=== PATIENT | male | born 1960 | race Caucasian/White ===

== ENCOUNTER 2019-09-02 10:15 | Emergency (ER) | payer OTHER ==
--- OUTSIDE RECORDS SUMMARY | 2019-09-02 10:17 | XMS REPORT | Continuity of Care Document ---
:1960 Author Organization [facility] t Address [address] [place] [address] Dr. Mcwilliams. [address] [place] [address] Care Team Providers Name Role Phone Hector KHALIL Attending Clinician Doctor Unassigned, Name Attending Clinician Unavailable Problems This patient has no known problems. Allergies, Adverse Reactions, Alerts This patient has no known allergies or adverse reactions. Medications This patient has no known medications. Procedures This patient has no known procedures. Encounters Start End Encounter Admission Attending Care Care Encounter Source Date/Time Date/Time Type Type Clinicians Facility Department ID 2019-08-24 2019-08-24 Refill Young [facility] [id number] 00:00:00 00:00:00 [facility] [id number] [place] [id number] Professio [phone] nal 0[address] One 2019-08-23 2019-08-23 Refill Young [facility] [id number] 00:00:00 00:00:00 [facility] [id number] [place] [id number] Professio [phone] nal 0[address] One 2019-08-23 2019-08-23 Refill Hector [facility] [id number] 00:00:00 00:00:00 [facility] [id number] [place] [id number] Professio [phone] nal 044 [address] One 2019-07-28 2019-07-28 Orders Doctor [place] [id number] 00:00:00 00:00:00 Only Unassigned, [facility] [id number] [facility] [phone] [id number] 2019-07-27 2019-07-27 [facility] [id number] 00:00:00 00:00:00 [facility] [id number] [place] [id number] Professio [phone] nal 044 Office [address] One 2019-07-26 2019-07-26 [facility] [id number] 00:00:00 00:00:00 Melecio Lyn [id number] [place] [id number] Professio [phone] nal [facility] Building Results This patient has no known results.
--- OUTSIDE RECORDS SUMMARY | 2019-09-02 10:17 | XMS REPORT | Summary of Care ---
:1960 Author Organization [facility] Address [address] [place] [address] Care Team Providers Name Role Phone MD Hector Primary Care Provider Reason for Visit Reason Comments Rx Concern/Question Encounter Details Date Type Department Care Team Description 06/12/2019 Telephone [facility] Family Con Young MD Rx Concern/Question Medicine - [place] [address] [place] [id number] [phone] Allergies Active Allergy Reactions Severity Noted Date Comments Meperidine Hallucinations Medium 07/17/2015 documented as of this encounter (statuses as of 06/12/2019) Medications Medication Sig Dispensed Refills Start End Status Date Date albuterol 90 Inhale 2 Puffs 8.5 g 1 09/24/19 Ac tive mcg/actuation every 6 (six) 17 inhaler hours as needed for Wheezing or Shortness of Breath. DEXTROAMPHETAMINE- TAKE ONE TABLET 60 tablet 0 09/02/19 Active AMPHETAMINE 30 mg BY MOUTH TWICE 18 tablet DAILY insulin aspart 10 units TID 20 mL 5 12/21/19 Ac tive RAPID (NOVOLOG 18 U-100 INSULIN ASPART) 100 unit/mL injection amitriptyline 25 Take 1 tablet by 30 tablet 5 08/23/19 Active mg mouth at bedtime. 19 tabletIndications: Chronic neck pain amoxicillin-clavul Take 1 tablet by 20 tablet 0 20 Active anate (AUGMENTIN) mouth 2 (two) 19 875-125 mg per times daily. tabletIndications: Acute non-recurrent maxillary sinusitis Butalbital-Acetami Take 1 capsule by 180 capsule 2 08/23/19 Active nophen-Caff mouth every 4 19 (FIORICET) (four) hours as 50-300-40 mg per needed for Pain capsuleIndications (scale 4-6). : Other migraine without status migrainosus, not intractable fexofenadine-pseud Take 1 tablet by 60 tablet 5 08/23/19 Active oephedrine 60-120 mouth 2 (two) 19 mg per times daily. tabletIndications: Acute non-recurrent maxillary sinusitis propranolol 60 mg Take 1 tablet by 180 tablet 0 09/27/19 Active tablet mouth 2 (two) 19 times daily. cefUROXime 500 mg Take 1 tablet by 20 tablet 0 10/27/19 Active tabletIndications: mouth 2 (two) 19 Chronic maxillary times daily. sinusitis zolpidem 10 mg TAKE 1 TABLET BY 90 tablet 1 01/25/20 Active tabletIndications: MOUTH AT BEDTIME 19 Insomnia, unspecified type lisinopril-hydroch Take 1 tablet by 90 tablet 1 02/02/20 Active lorothiazide mouth daily. 19 20-12.5 mg per tabletIndications: Essential hypertension meloxicam 15 mg TAKE 1 TABLET BY 30 tablet 5 02/08/20 Active tabletIndications: MOUTH EVERY DAY 19 Chronic neck pain NEEDED simvastatin 10 mg Take 1 tablet by 90 tablet 1 02/08/20 Active tabletIndications: mouth at bedtime. 19 Mixed hyperlipidemia testosterone 1 mL by 10 mL 1 02/16/20 Active cypionate 200 Intramuscular 19 mg/mL route every 2 injectionIndicatio (two) weeks. ns: Hypogonadism in male insulin aspart INJECT 30 UNITS 15 mL 2 03/12/19 Active U-100 (NOVOLOG UNDER THE SKIN 2 20 FLEXPEN U-100 TIMES DAILY WITH INSULIN) 100 MEALS unit/mL (3 mL) injectionIndicatio ns: Type 2 diabetes mellitus with diabetic neuropathy, with long-term current use of insulin Insulin Detemir INJECT 30 UNITS 15 mL 2 03/12/19 Active (LEVEMIR FLEXTOUCH UNDER THE SKIN 20 U-100 INSULN) 100 TWICE DAILY unit/mL (3 mL) injectionIndicatio ns: Type 2 diabetes mellitus with diabetic neuropathy, with long-term current use of insulin dextroamphetamine- Take 1 tablet by 60 tablet 0 03/12/19 Active amphetamine mouth 2 (two) 20 (ADDERALL) 30 mg times daily. tabletIndications: Attention deficit disorder, unspecified hyperactivity presence pregabalin Take 1 capsule by 60 capsule 5 05/22/19 Active (LYRICA) 300 mg mouth 2 (two) 20 capsuleIndications times daily. : Idiopathic peripheral neuropathy carisoprodoL 350 TAKE ONE TABLET 120 tablet 0 05/23/19 Active mg BY MOUTH 4 TIMES 20 tabletIndications: DAILY Chronic back pain, unspecified back location, unspecified back pain laterality sumatriptan 100 mg Take 1 tablet by 9 tablet 1 06/12/19 Active tabletIndications: mouth as needed 20 Other migraine for Migraine. without status migrainosus, not intractable sumatriptan 100 mg Take 1 tablet by 9 tablet 1 05/22/1905/29 Discontinued tabletIndications: mouth as needed 20 020 (Reorder) Other migraine for Migraine. without status migrainosus, not intractable documented as of this encounter (statuses as of 06/12/2019) Active Problems Problem Noted Date Insomnia, unspecified type 03/22/2016 Intractable migraine with status migrainosus 6 Hypertension 09/14/2015 Other migraine without status migrainosus, not intract able 07/01/2015 Type 2 diabetes mellitus without complication 07/01/19 16 Essential hypertension 07/01/2015 Hyperlipidemia 07/01/2015 Chronic neck pain 07/01/2015 Hypogonadism in male 07/01/2015 Diabetes mellitus Peripheral neuropathy documented as of this encounter (statuses as of 06/12/2019) Social History Tobacco Use Types Packs/Day Years Used Date Never Smoker Smokeless Tobacco: Never Used Alcohol Use Drinks/Week oz/Week Comments No 0 Standard drinks or equivalent 0.0 Sex Assigned at Date Recorded Not on file Job Start Date Occupation Industry Not on file Not on file Not on file Travel History Travel Start Travel End No recent travel history available. documented as of this encounter Last Filed Vital Signs Not on filedocumented in this encounter Plan of Treatment Date Type Specialty Care Team Description 06/26/2019 Telemedicine Visit Family Medicine Con Young MD [address] [phone] Health Maintenance Due Date Last Done Comments HEPATITIS C (HCV) SCREEN 1960 PNEUMOCOCCAL 0-64 YEARS COMBINED 1965 SERIES (1 of 1 - PPSV23) EYE EXAM 1969 DTaP,Tdap,and Td Vaccines (1 - 1970 Tdap) FOOT EXAM 1977 COLONOSCOPY 2009 Zoster Recombinant Vaccine 2009 (SHINGRIX) (1 of 2) URINE MICROALBUMIN 07/03/2016 07/04/2015 HgA1C 09/20/2016 03/23/2016, 07/04/2015 CREATININE (SERUM) 03/23/2017 03/23/2016, 09/15/2015, 09/14/2015, Additional history exists LDL-C 03/23/2017 03/23/2016, 07/04/2015 INFLUENZA VACCINE (#1) 2018 documented as of this encounter Results Not on filedocumented in this encounter Visit Diagnoses Diagnosis Other migraine without status migrainosu s, not intractable documented in this encounter
--- OUTSIDE RECORDS SUMMARY | 2019-09-02 10:18 | XMS REPORT | Summary of Care ---
:1960 Author Organization [facility] Address [address] [place] [address] Care Team Providers Name Role Phone MD Hector Primary Care Provider Encounter Details Date Type Department Care Team Description 06/12/2019 Orders Only [facility] Doctor Unassigned, No [address] [facility] [place] [address] [address] [place] [address] Allergies Active Allergy Reactions Severity Noted Date Comments Meperidine Hallucinations Medium 07/17/2015 documented as of this encounter (statuses as of 06/13/2019) Medications Medication Sig Dispensed Refills Start Date End Date Status albuterol 90 Inhale 2 Puffs 8.5 g 1 09/23/2016 A ctive mcg/actuation every 6 (six) hours inhaler as needed for Wheezing or Shortness of Breath. DEXTROAMPHETAMINE-AM TAKE ONE TABLET BY 60 tablet 0 09/01/2017 Active PHETAMINE 30 mg MOUTH TWICE DAILY tablet insulin aspart RAPID 10 units TID 20 mL 5 12/20/2017 Active (NOVOLOG U-100 INSULIN ASPART) 100 unit/mL injection amitriptyline 25 mg Take 1 tablet by 30 tablet 5 08/22/2018 Active tabletIndications: mouth at bedtime. Chronic neck pain amoxicillin-clavulan Take 1 tablet by 20 tablet 0 08/22/2018 Active ate (AUGMENTIN) mouth 2 (two) times 875-125 mg per daily. tabletIndications: Acute non-recurrent maxillary sinusitis Butalbital-Acetamino Take 1 capsule by 180 capsule 2 9 Active phen-Caff (FIORICET) mouth every 4 50-300-40 mg per (four) hours as capsuleIndications: needed for Pain Other migraine (scale 4-6). without status migrainosus, not intractable fexofenadine-pseudoe Take 1 tablet by 60 tablet 5 08/22/2018 Active phedrine 60-120 mg mouth 2 (two) times per daily. tabletIndications: Acute non-recurrent maxillary sinusitis propranolol 60 mg Take 1 tablet by 180 tablet 0 09/26/2018 Active tablet mouth 2 (two) times daily. cefUROXime 500 mg Take 1 tablet by 20 tablet 0 10/26/2018 Active tabletIndications: mouth 2 (two) times Chronic maxillary daily. sinusitis zolpidem 10 mg TAKE 1 TABLET BY 90 tablet 1 01/24/2019 Active tabletIndications: MOUTH AT BEDTIME Insomnia, unspecified type lisinopril-hydrochlo Take 1 tablet by 90 tablet 1 02/01/2019 Active rothiazide 20-12.5 mouth daily. mg per tabletIndications: Essential hypertension meloxicam 15 mg TAKE 1 TABLET BY 30 tablet 5 02/07/2019 Active tabletIndications: MOUTH EVERY DAY Chronic neck pain NEEDED simvastatin 10 mg Take 1 tablet by 90 tablet 1 02/07/2019 Active tabletIndications: mouth at bedtime. Mixed hyperlipidemia testosterone 1 mL by 10 mL 1 02/15/2019 Active cypionate 200 mg/mL Intramuscular route injectionIndications every 2 (two) : Hypogonadism in weeks. male insulin aspart U-100 INJECT 30 UNITS 15 mL 2 03/12/2019 Active (NOVOLOG FLEXPEN UNDER THE SKIN 2 U-100 INSULIN) 100 TIMES DAILY WITH unit/mL (3 mL) MEALS injectionIndications : Type 2 diabetes mellitus with diabetic neuropathy, with long-term current use of insulin Insulin Detemir INJECT 30 UNITS 15 mL 2 03/12/2019 Active (LEVEMIR FLEXTOUCH UNDER THE SKIN U-100 INSULN) 100 TWICE DAILY unit/mL (3 mL) injectionIndications : Type 2 diabetes mellitus with diabetic neuropathy, with long-term current use of insulin dextroamphetamine-am Take 1 tablet by 60 tablet 0 03/12/2019 Active phetamine (ADDERALL) mouth 2 (two) times 30 mg daily. tabletIndications: Attention deficit disorder, unspecified hyperactivity presence pregabalin (LYRICA) Take 1 capsule by 60 capsule 5 05/22/2019 Active 300 mg mouth 2 (two) times capsuleIndications: daily. Idiopathic peripheral neuropathy carisoprodoL 350 mg TAKE ONE TABLET BY 120 tablet 0 05/23/2019 Active tabletIndications: MOUTH 4 TIMES DAILY Chronic back pain, unspecified back location, unspecified back pain laterality sumatriptan 100 mg Take 1 tablet by 9 tablet 1 06/12/2019 Active tabletIndications: mouth as needed for Other migraine Migraine. without status migrainosus, not intractable documented as of this encounter (statuses as of 06/13/2019) Active Problems Problem Noted Date Insomnia, unspecified type 03/22/2016 Intractable migraine with status migrainosus 6 Hypertension 09/14/2015 Other migraine without status migrainosus, not intract able 07/01/2015 Type 2 diabetes mellitus without complication 07/01/19 16 Essential hypertension 07/01/2015 Hyperlipidemia 07/01/2015 Chronic neck pain 07/01/2015 Hypogonadism in male 07/01/2015 Diabetes mellitus Peripheral neuropathy documented as of this encounter (statuses as of 06/13/2019) Social History Tobacco Use Types Packs/Day Years [...] Telemedicine Visit Family Medicine Con Young MD [address] [place] [address] [phone] Health Maintenance Due Date Last Done Comments HEPATITIS C (HCV) SCREEN 1960 PNEUMOCOCCAL 0-64 YEARS COMBINED 1965 SERIES (1 of 1 - PPSV23) EYE EXAM 1969 DTaP,Tdap,and Td Vaccines (1 - 1970 Tdap) FOOT EXAM 1977 COLONOSCOPY 2009 Zoster Recombinant Vaccine 2009 (SHINGRIX) (1 of 2) URINE MICROALBUMIN 07/03/2016 07/04/2015 INFLUENZA VACCINE (#1) 2018 HgA1C 12/12/2019 06/12/2019, 03/23/2016, 07/04/2015 CREATININE (SERUM) 06/11/2020 06/12/2019, 03/23/2016, 09/15/2015, Additional history exists LDL-C 06/11/2020 06/12/2019, 03/23/2016, 07/04/2015 documented as of this encounter Procedures Procedure Name Priority Date/Time Associated Diagnosis Comme nts AGREEMENTS AUTHORIZATIONS Routine 06/12/2019 12:01 AM AND IRREVOCABLE CDT ASSIGNMENTS (FORM 2001) documented in this encounter Results Not on filedocumented in this encounter Insurance Payer Benefit Plan / Subscriber ID Effective Dates Phone Addre ss Type Group HIM [id number] 2019-Present PPO [id number] ACTED RACTED documented as of this encounter
--- OUTSIDE RECORDS SUMMARY | 2019-09-02 10:18 | XMS REPORT | Summary of Care ---
:1960 Author Organization [facility] Address [address] [place] [address] Care Team Providers Name Role Phone MD Hector Primary Care Provider Reason for Visit Reason Comments LAB Encounter Details Date Type Department Care Team Description 06/12/2019 Registered Radiation Therapist Visit [facility] Melecio Young MD [address] [place] [address] Type 2 diabetes mellitus without complic ation, with long-term current use of insulin; Professional Office 2, [facility] Lab Mixed hyperlipidemia; Building Phlebotomy [facility] hypertension Lab Professional Office Building [address] [employer] [facility] [employer] [facility] , [address] [place] [address] Allergies Active Allergy Reactions Severity Noted Date Comments Meperidine Hallucinations Medium 07/17/2015 documented as of this encounter (statuses as of 06/12/2019) Medications Medication Sig Dispensed Refills Start Date [...] Telemedicine Visit Family Medicine Con Young MD [address] [place] [address] [phone] Name Type Priority Associated Diagnoses Order S chedule CBC WITH DIFFERENTIAL LAB Routine Type 2 diabetes ralph litus Ordered: 06/12/2019 without complication, with long-term current use of insulin Mixed hyperlipid emia Essential hypertension Health Maintenance Due Date Last Done Comments [...] filedocumented in this encounter Visit Diagnoses Diagnosis Type 2 diabetes mellitus without complic ation, with long-term current use of insulin Mixed hyperlipidemia Essential hypertension Unspecified essential hypertension documented in this encounter Insurance Payer Benefit Plan / Subscriber ID Effective Dates Phone Addre ss Type Group HIM [id number] 2019-Present PPO [id number] ACTED RACTED documented as of this encounter
--- OUTSIDE RECORDS SUMMARY | 2019-09-02 10:18 | XMS REPORT | Summary of Care ---
:1960 Author Organization [facility] Address [address] [place] [address] Care Team Providers Name Role Phone MD Hector Primary Care Provider Reason for Visit Reason Comments Orders Encounter Details Date Type Department Care Team Description 06/12/2019 Telephone [facility] Family Medicine Melecio Hamilton MD Orders - [place] [address] [facility] [place] [address] [place] [address] [phone] Allergies Active Allergy Reactions Severity Noted Date [...] Visit Family Medicine Con Young MD [address] [phone] Name Type Priority Associated Diagnoses Order S chedule CBC WITH DIFF LAB Routine Type 2 diabetes mellitus Ex pected: without complication, with 0 06/12/2019, Expires: long-term current use of insulin Mixed hyperlipid emia Essential hypertension COMP. METABOLIC PANEL LAB Routine Type 2 diabetes ralph litus Expected: (10633) without complication, with 0 06/12/2019, Expires: long-term current use of insulin LIPID PANEL (89821)(TOTAL LAB Routine Mixed hyperlipi demia Expected: CHOLESTEROL, 06/12/2019, Exp ires: TRIGLYCERIDES, HDL) 06/12/19 21 GLYCOSYLATED HEMOGLOBIN LAB Routine Type 2 diabetes m beto Expected: (A1C) without complication, with 0 06/12/2019, Expires: long-term current use of insulin Health Maintenance Due Date Last Done Comments [...] filedocumented in this encounter Visit Diagnoses Diagnosis Essential hypertension - Primary Unspecified essential hypertension Type 2 diabetes mellitus without complic ation, with long-term current use of insulin Mixed hyperlipidemia documented in this encounter
--- OUTSIDE RECORDS SUMMARY | 2019-09-02 10:19 | XMS REPORT | Summary of Care ---
:1960 Author Organization [facility] Address [address] [place] [address] Care Team Providers Name Role Phone MD Hector Primary Care Provider Reason for Visit Reason Comments Assessment Encounter Details Date Type Department Care Team Description 06/25/2019 Telephone [facility] Pediatric and Melecio Young MD Assessment Adult Primary Care- [address] [address] [place] [address] , [address] [place] [address] Allergies Active Allergy Reactions Severity Noted Date Comments Meperidine Hallucinations Medium 07/17/2015 documented as of this encounter (statuses as of 06/25/2019) Medications Medication Sig Dispensed Refills Start Date [...] (two) times capsuleIndications: daily. Idiopathic peripheral neuropathy sumatriptan 100 mg Take 1 tablet by 9 tablet 1 06/12/2019 Active tabletIndications: mouth as needed for Other migraine Migraine. without status migrainosus, not intractable carisoprodoL 350 mg TAKE ONE TABLET BY 120 tablet 0 06/25/2019 Active tabletIndications: MOUTH 4 TIMES DAILY Chronic back pain, unspecified back location, unspecified back pain laterality documented as of this encounter (statuses as of 06/25/2019) Active Problems Problem Noted Date Insomnia, unspecified type 03/22/2016 Intractable migraine with status migrainosus 6 Hypertension 09/14/2015 Other migraine without status migrainosus, not intract able 07/01/2015 Type 2 diabetes mellitus without complication 07/01/19 16 Essential hypertension 07/01/2015 Hyperlipidemia 07/01/2015 Chronic neck pain 07/01/2015 Hypogonadism in male 07/01/2015 Diabetes mellitus Peripheral neuropathy documented as of this encounter (statuses as of 06/25/2019) Social History Tobacco Use Types Packs/Day Years Used Date Never Smoker Smokeless Tobacco: Never Used Alcohol Use Drinks/Week oz/Week Comments No 0 Standard drinks or equivalent 0.0 Sex Assigned at Date Recorded Not on file Job Start Date Occupation Industry Not on file Not on file Not on file Travel History Travel Start Travel End No recent travel history available. COVID-19 Exposure Response Date Recorded In the last month, have you been in contact with No / Unsure 06/12/2019 10:52 AM CDT someone who was confirmed or suspected to have Coronavirus / COVID-19? documented as of this encounter Last Filed Vital Signs Not on filedocumented in this encounter Plan of Treatment Date Type Specialty Care Team Description 06/26/2019 Telemedicine Visit Family Medicine Con Young MD [address] [phone] Health Maintenance Due Date Last Done [...] 03/23/2016, 07/04/2015 documented as of this encounter Results Not on filedocumented in this encounter Insurance Payer Benefit Plan / Subscriber ID Effective Dates Phone Addre ss Type Group HIM [id number] 2019-Present PPO [id number] ACTED RACTED documented as of this encounter
--- OUTSIDE RECORDS SUMMARY | 2019-09-02 10:19 | XMS REPORT | Summary of Care ---
:1960 Author Organization [facility] Address [address] [place] [address] Care Team Providers Name Role Phone MD Hector Primary Care Provider Reason for Visit Reason Comments Rx Concern/Question Encounter Details Date Type Department Care Team Description 06/25/2019 Telephone [facility] Family Con Young MD Rx Concern/Question Medicine - [place] [address] [address] [place] [address] [phone] Allergies Active Allergy Reactions Severity Noted Date [...] Visit Family Medicine Con Young MD [address] [phone] [phone] Health Maintenance Due Date Last Done [...] Dates Phone Addre ss Type Group HIM [id number] 2019-Present PPO [id number] ACTED RACTED documented as of this encounter
--- OUTSIDE RECORDS SUMMARY | 2019-09-02 10:20 | XMS REPORT | Summary of Care ---
:1960 Author Organization [facility] Address [address] [place] [address] Care Team Providers Name Role Phone MD Hector Primary Care Provider Reason for Visit Reason Comments Diabetes Encounter Details Date Type Department Care Team Description 06/26/2019 Telemedicine Visit [facility] Melecio Young, Type 2 diabetes mellitus with diabetic neuropathy, with long-term current use of insulin (Primary Dx); Pediatric and Adult MD Mixed hyperlipidemia; Primary Care- [address] Essential hy pertension; [address] Hypogonadism in male; [address] [place], [place] Idiopathic p eripheral neuropathy; , [address] [address] Insomnia, unspecified type [place], [place] [phone] [address] Allergies Active Allergy Reactions Severity Noted Date Comments Meperidine Hallucinations Medium 07/17/2015 documented as of this encounter (statuses as of 06/26/2019) Medications Medication Sig Dispensed Refills Start End Status Date Date albuterol 90 Inhale 2 Puffs 8.5 g 1 09/24/19 Ac tive mcg/actuation every 6 (six) 17 inhaler hours as needed for Wheezing or Shortness of Breath. amitriptyline 25 Take 1 tablet by 30 tablet 5 08/23/19 Active mg mouth at bedtime. 19 tabletIndications: Chronic neck pain amoxicillin-clavul Take 1 tablet by 20 tablet 0 08/22/20 Active anate (AUGMENTIN) mouth 2 (two) 19 [...] times daily. tabletIndications: Acute non-recurrent maxillary sinusitis cefUROXime 500 mg Take 1 tablet by 20 tablet 0 10/27/19 Active tabletIndications: mouth 2 (two) 19 Chronic maxillary times daily. sinusitis meloxicam 15 mg TAKE 1 TABLET BY 30 tablet 5 02/08/20 Active tabletIndications: MOUTH EVERY DAY 19 Chronic neck pain NEEDED dextroamphetamine- Take 1 tablet by 60 tablet 0 03/12/19 Active amphetamine mouth 2 (two) 20 (ADDERALL) 30 mg times daily. tabletIndications: Attention deficit disorder, unspecified hyperactivity presence sumatriptan 100 mg Take 1 tablet by 9 tablet 1 06/12/19 Active tabletIndications: mouth as needed 20 Other migraine for Migraine. without status migrainosus, not intractable carisoprodoL 350 TAKE ONE TABLET 120 tablet 0 06/25/19 Active mg BY MOUTH 4 TIMES 20 tabletIndications: DAILY Chronic back pain, unspecified back location, unspecified back pain laterality testosterone 1 mL by 10 mL 1 06/26/19 Active cypionate 200 Intramuscular 20 mg/mL route every 2 injectionIndicatio (two) weeks. ns: Hypogonadism in male zolpidem 10 mg TAKE 1 TABLET BY 90 tablet 1 06/26/19 Active tabletIndications: MOUTH AT BEDTIME 20 Insomnia, unspecified type simvastatin 10 mg Take 1 tablet by 90 tablet 1 06/26/19 Active tabletIndications: mouth at bedtime. 20 Mixed hyperlipidemia propranolol 60 mg Take 1 tablet by 180 tablet 0 06/26/19 Active tabletIndications: mouth 2 (two) 20 Essential times daily. hypertension pregabalin Take 1 capsule by 60 capsule 5 06/26/19 Active (LYRICA) 300 mg mouth 2 (two) 20 capsuleIndications times daily. : Idiopathic peripheral neuropathy lisinopril-hydroch Take 1 tablet by 90 tablet 1 06/26/19 Active lorothiazide mouth daily. 20 20-12.5 mg per tabletIndications: Essential hypertension insulin aspart INJECT 30 UNITS 15 mL 2 06/26/19 Active U-100 (NOVOLOG UNDER THE SKIN 2 20 FLEXPEN U-100 TIMES DAILY WITH INSULIN) 100 MEALS unit/mL (3 mL) injectionIndicatio ns: Type 2 diabetes mellitus with diabetic neuropathy, with long-term current use of insulin insulin aspart 10 units TID 20 mL 5 06/26/19 Ac tive RAPID (NOVOLOG 20 U-100 INSULIN ASPART) 100 unit/mL injectionIndicatio ns: Type 2 diabetes mellitus with diabetic neuropathy, with long-term current use of insulin Insulin Detemir INJECT 30 UNITS 15 mL 2 06/26/19 Active (LEVEMIR FLEXTOUCH UNDER THE SKIN 20 U-100 INSULN) 100 TWICE DAILY unit/mL (3 mL) injectionIndicatio ns: Type 2 diabetes mellitus with diabetic neuropathy, with long-term current use of insulin DEXTROAMPHETAMINE- TAKE ONE TABLET 60 tablet 0 09/02/1906/25 Discontinued AMPHETAMINE 30 mg BY MOUTH TWICE 18 020 (Duplicate) tablet DAILY insulin aspart 10 units TID 20 mL 5 12/21/19 Di scontinued RAPID (NOVOLOG 18 020 (Reor rosaline) U-100 INSULIN ASPART) 100 unit/mL injection propranolol 60 mg Take 1 tablet by 180 tablet 0 09/27/1905/30 Discontinued tablet mouth 2 (two) 19 020 (Reord er) times daily. zolpidem 10 mg TAKE 1 TABLET BY 90 tablet 1 01/25/20 Discontinued tabletIndications: MOUTH AT BEDTIME 19 020 (Reorder) Insomnia, unspecified type lisinopril-hydroch Take 1 tablet by 90 tablet 1 02/02/2005/30 Discontinued lorothiazide mouth daily. 19 020 (Reo rder) 20-12.5 mg per tabletIndications: Essential hypertension simvastatin 10 mg Take 1 tablet by 90 tablet 1 02/08/2006/25 Discontinued tabletIndications: mouth at bedtime. 19 020 (Reorder) Mixed hyperlipidemia testosterone 1 mL by 10 mL 1 02/16/20 Discont inued cypionate 200 Intramuscular 19 020 (R eorder) mg/mL route every 2 injectionIndicatio (two) weeks. ns: Hypogonadism in male insulin aspart INJECT 30 UNITS 15 mL 2 03/12/19 Discontinued U-100 (NOVOLOG UNDER THE SKIN 2 20 020 (Reorder) FLEXPEN U-100 TIMES DAILY WITH INSULIN) 100 MEALS unit/mL (3 mL) injectionIndicatio ns: Type 2 diabetes mellitus with diabetic neuropathy, with long-term current use of insulin Insulin Detemir INJECT 30 UNITS 15 mL 2 03/12/19 Discontinued (LEVEMIR FLEXTOUCH UNDER THE SKIN 20 020 (Reorder) U-100 INSULN) 100 TWICE DAILY unit/mL (3 mL) injectionIndicatio ns: Type 2 diabetes mellitus with diabetic neuropathy, with long-term current use of insulin pregabalin Take 1 capsule by 60 capsule 5 05/22/19 Discontinued (LYRICA) 300 mg mouth 2 (two) 20 020 (Reorder) capsuleIndications times daily. : Idiopathic peripheral neuropathy documented as of this encounter (statuses as of 06/26/2019) Active Problems Problem Noted Date Insomnia, unspecified type 03/22/2016 Intractable migraine with status migrainosus 6 Hypertension 09/14/2015 Other migraine without status migrainosus, not intract able 07/01/2015 Type 2 diabetes mellitus without complication 07/01/19 16 Essential hypertension 07/01/2015 Hyperlipidemia 07/01/2015 Chronic neck pain 07/01/2015 Hypogonadism in male 07/01/2015 Diabetes mellitus Peripheral neuropathy documented as of this encounter (statuses as of 06/26/2019) Social History Tobacco Use Types Packs/Day Years [...] Signs Not on filedocumented in this encounter Progress Notes Melecio Young MD - 06/26/2019 9:45 AM CDT TELEHEALTH NOTE Verbal consent obtained from Patient: Tej Wu due to the COVID-19 pandemic for telehealth services provided below. Communication with patient was conducted via Telephone due to patient unable to obtain video call option. Location of Patient: Home Location of Provider: Office Date of Service: 06/26/2019 Chief Complaint: HPI: Tej Wu is a 59 year old male with Past Medical History: Diagnosis Date Chronic pain Diabetes mellitus Hyperlipidemia Hypertension Insomnia Migraine Migraine Peripheral neuropathy MEDICATIONS: Current Outpatient Medications Medication Sig Dispense Refill carisoprodoL 350 mg tablet TAKE ONE TABLET BY MOUTH 4 TIMES DAILY 120 tablet 0 sumatriptan 100 mg tablet Take 1 tablet by mouth as needed for Migraine. 9 tablet 1 pregabalin (LYRICA) 300 mg capsule Take 1 capsule by mouth 2 (two) times daily. 60 capsule 5 dextroamphetamine-amphetamine (ADDERALL) 30 mg tablet Take 1 tablet by mouth 2 (two) times daily. 60 tablet 0 insulin aspart U-100 (NOVOLOG FLEXPEN U-100 INSULIN) 100 unit/mL (3 mL) injection INJECT 30 UNITS UNDER THE SKIN 2 TIMES DAILY WITH MEALS 15 mL 2 Insulin Detemir (LEVEMIR FLEXTOUCH U-100 INSULN) 100 unit/mL (3 mL) injection INJECT 30 UNITS UNDER THE SKIN TWICE DAILY 15 mL 2 testosterone cypionate 200 mg/mL injection 1 mL by Intramuscular route every 2 (two) weeks. 10 mL 1 meloxicam 15 mg tablet TAKE 1 TABLET BY MOUTH EVERY DAY NEEDED 30 tablet 5 simvastatin 10 mg tablet Take 1 tablet by mouth at bedtime. 90 tablet 1 lisinopril-hydrochlorothiazide 20-12.5 mg per tablet Take 1 tablet by mouth daily. 90 tablet 1 zolpidem 10 mg tablet TAKE 1 TABLET BY MOUTH AT BEDTIME 90 tablet 1 cefUROXime 500 mg tablet Take 1 tablet by mouth 2 (two) times daily. 20 tablet 0 propranolol 60 mg tablet Take 1 tablet by mouth 2 (two) times daily. 180 tablet 0 amitriptyline 25 mg tablet Take 1 tablet by mouth at bedtime. 30 tablet 5 amoxicillin-clavulanate (AUGMENTIN) 875-125 mg per tablet Take 1 tablet by mouth 2 (two) times daily. 20 tablet 0 Ahxurtfqza-Qvxbvquxkqvjo-Umbp (FIORICET) 50-300-40 mg per capsule Take 1 capsule by mouth every 4 (four) hours as needed for Pain (scale 4-6). 180 capsule 2 fexofenadine-pseudoephedrine 60-120 mg per tablet Take 1 tablet by mouth 2 (two) times daily. 60tablet 5 insulin aspart RAPID (NOVOLOG U-100 INSULIN ASPART) 100 unit/mL injection 10 units TID 20 mL 5 DEXTROAMPHETAMINE-AMPHETAMINE 30 mg tablet TAKE ONE TABLET BY MOUTH TWICE DAILY 60 tablet 0 albuterol 90 mcg/actuation inhaler Inhale 2 Puffs every 6 (six) hours as needed for Wheezing or Shortness of Breath. 8.5 g 1 No current facility-administered medications for this visit. ROS negative TELEHEALTH EXAM Alert, no distress ASSESSMENT/ PLAN Tej Wu is a 59 year old male with PMH as above presenting with:DM, htn, hyperlipidemia, needs meds reviewed and updated After visit summary (AVS ) documentation will be available through [employer] for this encounter. A total of 15 minutes was spent on the Telephone due to patient unable to obtain video call option. Melecio Young MD documented in this encounter Plan of Treatment Health Maintenance Due Date Last Done Comments [...] Visit Diagnoses Diagnosis Type 2 diabetes mellitus with diabetic n europathy, with long-term current use of insulin - Primary Mixed hyperlipidemia Essential hypertension Unspecified essential hypertension Hypogonadism in male Idiopathic peripheral neuropathy Unspecified hereditary and idiopathic pe ripheral neuropathy Insomnia, unspecified type documented in this encounter Insurance Payer Benefit Plan / Subscriber ID Effective Dates Phone Addre ss Type Group HIM [id number] 2019-Present PPO [id number] ACTED RACTED documented as of this encounter
--- OUTSIDE RECORDS SUMMARY | 2019-09-02 10:20 | XMS REPORT | Summary of Care ---
:1960 Author Organization [facility] Address [address] [place] [address] Care Team Providers Name Role Phone MD Hector Primary Care Provider Reason for Visit Reason Comments Assessment Encounter Details Date Type Department Care Team Description 06/26/2019 Telephone [facility] Pediatric and Melecio Young MD Assessment Adult Primary Care- [address] [place] [address] [place] [address] , [address] [place] [address] Allergies Active Allergy Reactions Severity Noted Date Comments Meperidine Hallucinations Medium 07/17/2015 documented as of this encounter (statuses as of 06/26/2019) Medications Medication Sig Dispensed Refills Start Date End Date Status albuterol 90 Inhale 2 Puffs 8.5 g 1 09/23/2016 A ctive mcg/actuation every 6 (six) hours inhaler as needed for Wheezing or Shortness of Breath. amitriptyline 25 mg Take 1 tablet by [...] per daily. tabletIndications: Acute non-recurrent maxillary sinusitis cefUROXime 500 mg Take 1 tablet by 20 tablet 0 10/26/2018 Active tabletIndications: mouth 2 (two) times Chronic maxillary daily. sinusitis meloxicam 15 mg TAKE 1 TABLET BY 30 tablet 5 02/07/2019 Active tabletIndications: MOUTH EVERY DAY Chronic neck pain NEEDED dextroamphetamine-am Take 1 tablet by 60 tablet [...] testosterone 1 mL by 10 mL 1 06/26/2019 Active cypionate 200 mg/mL Intramuscular route injectionIndications every 2 (two) : Hypogonadism in weeks. male zolpidem 10 mg TAKE 1 TABLET BY 90 tablet 1 06/26/2019 Active tabletIndications: MOUTH AT BEDTIME Insomnia, unspecified type simvastatin 10 mg Take 1 tablet by 90 tablet 1 06/26/2019 Active tabletIndications: mouth at bedtime. Mixed hyperlipidemia propranolol 60 mg Take 1 tablet by 180 tablet 0 06/26/2019 Active tabletIndications: mouth 2 (two) times Essential daily. hypertension pregabalin (LYRICA) Take 1 capsule by 60 capsule 5 06/26/2019 Active 300 mg mouth 2 (two) times capsuleIndications: daily. Idiopathic peripheral neuropathy lisinopril-hydrochlo Take 1 tablet by 90 tablet 1 06/26/2019 Active rothiazide 20-12.5 mouth daily. mg per tabletIndications: Essential hypertension insulin aspart U-100 INJECT 30 UNITS 15 mL 2 06/26/2019 Active (NOVOLOG FLEXPEN UNDER THE SKIN 2 U-100 INSULIN) 100 TIMES DAILY WITH unit/mL (3 mL) MEALS injectionIndications : Type 2 diabetes mellitus with diabetic neuropathy, with long-term current use of insulin insulin aspart RAPID 10 units TID 20 mL 5 06/26/2019 Active (NOVOLOG U-100 INSULIN ASPART) 100 unit/mL injectionIndications : Type 2 diabetes mellitus with diabetic neuropathy, with long-term current use of insulin Insulin Detemir INJECT 30 UNITS 15 mL 2 06/26/2019 Active (LEVEMIR FLEXTOUCH UNDER THE SKIN U-100 INSULN) 100 TWICE DAILY unit/mL (3 mL) injectionIndications : Type 2 diabetes mellitus with diabetic neuropathy, with long-term current use of insulin documented as of this encounter (statuses as [...] filedocumented in this encounter Plan of Treatment Health [...] Dates Phone Addre ss Type Group HIM [id number] 2019-Present PPO [id number] ACTED RACTED documented as of this encounter
--- OUTSIDE RECORDS SUMMARY | 2019-09-02 10:20 | XMS REPORT | Summary of Care ---
:1960 Author Organization [facility] Address [address] [place] [address] Care Team Providers Name Role Phone MD Hector Primary Care Provider Reason for Visit Reason Comments Forms Encounter Details Date Type Department Care Team Description 06/26/2019 Telephone [facility] Family Medicine Melecio Hamilton MD Forms - [place] [address] [facility] [address] [place] [address] [phone] Allergies Active Allergy Reactions Severity Noted Date [...] Dates Phone Addre ss Type Group HIM [id number] 2019-Present PPO [id number] ACTED RACTED documented as of this encounter
--- OUTSIDE RECORDS SUMMARY | 2019-09-02 10:21 | XMS REPORT | Summary of Care ---
:1960 Author Organization [facility] Address [address] [place] [address] Care Team Providers Name Role Phone MD Hector Primary Care Provider Reason for Visit Reason Comments Assessment Encounter Details Date Type Department Care Team Description 06/28/2019 Telephone [facility] Pediatric and Melecio Young MD Assessment Adult Primary Care- [address] [place] [address] [place] [address] , [address] [place] [address] Allergies Active Allergy Reactions Severity Noted Date Comments Meperidine Hallucinations Medium 07/17/2015 documented as of this encounter (statuses as of 06/28/2019) Medications Medication Sig Dispensed Refills Start Date [...] as of this encounter (statuses as of 06/28/2019) Active Problems Problem Noted Date Insomnia, unspecified type 03/22/2016 Intractable migraine with status migrainosus 6 Hypertension 09/14/2015 Other migraine without status migrainosus, not intract able 07/01/2015 Type 2 diabetes mellitus without complication 07/01/19 16 Essential hypertension 07/01/2015 Hyperlipidemia 07/01/2015 Chronic neck pain 07/01/2015 Hypogonadism in male 07/01/2015 Diabetes mellitus Peripheral neuropathy documented as of this encounter (statuses as of 06/28/2019) Social History Tobacco Use Types Packs/Day Years [...] Dates Phone Addre ss Type Group HIM [id number] 2019-Present PPO [id number] ACTED RACTED documented as of this encounter
--- OUTSIDE RECORDS SUMMARY | 2019-09-02 10:21 | XMS REPORT | Summary of Care ---
:1960 Author Organization [facility] Address [address] [place] [address] Care Team Providers Name Role Phone MD Hector Primary Care Provider Reason for Visit Reason Comments Authorization Encounter Details Date Type Department Care Team Description 06/27/2019 Telephone [facility] Family Con Young MD Authorization Medicine - [place] [address] [address] [address] [facility] [place] [address] [place] [address] [phone] Allergies Active Allergy Reactions Severity Noted Date Comments Meperidine Hallucinations Medium 07/17/2015 documented as of this encounter (statuses as of 06/27/2019) Medications Medication Sig Dispensed Refills Start Date [...] as of this encounter (statuses as of 06/27/2019) Active Problems Problem Noted Date Insomnia, unspecified type 03/22/2016 Intractable migraine with status migrainosus 6 Hypertension 09/14/2015 Other migraine without status migrainosus, not intract able 07/01/2015 Type 2 diabetes mellitus without complication 07/01/19 16 Essential hypertension 07/01/2015 Hyperlipidemia 07/01/2015 Chronic neck pain 07/01/2015 Hypogonadism in male 07/01/2015 Diabetes mellitus Peripheral neuropathy documented as of this encounter (statuses as of 06/27/2019) Social History Tobacco Use Types Packs/Day Years [...] Dates Phone Addre ss Type Group HIM [id number] 2019-Present PPO [id number] ACTED RACTED documented as of this encounter
--- OUTSIDE RECORDS SUMMARY | 2019-09-02 10:22 | XMS REPORT | Summary of Care ---
:1960 Author Organization [facility] Address [address] [place] [address] Care Team Providers Name Role Phone MD Hector Primary Care Provider Reason for Visit Reason Comments Refill Request Encounter Details Date Type Department Care Team Description 07/06/[address] [facility] Family Medicine Melecio Hamilton MD Refill Request - [place] [address] [facility] [place] [address] [place] [address] [phone] Allergies Active Allergy Reactions Severity Noted Date Comments Meperidine Hallucinations Medium 07/17/2015 documented as of this encounter (statuses as of 07/06/2019) Medications Medication Sig Dispensed Refills Start Date [...] as of this encounter (statuses as of 07/06/2019) Active Problems Problem Noted Date Insomnia, unspecified type 03/22/2016 Intractable migraine with status migrainosus 6 Hypertension 09/14/2015 Other migraine without status migrainosus, not intract able 07/01/2015 Type 2 diabetes mellitus without complication 07/01/19 16 Essential hypertension 07/01/2015 Hyperlipidemia 07/01/2015 Chronic neck pain 07/01/2015 Hypogonadism in male 07/01/2015 Diabetes mellitus Peripheral neuropathy documented as of this encounter (statuses as of 07/06/2019) Social History Tobacco Use Types Packs/Day Years [...] 2) URINE MICROALBUMIN 07/03/2016 07/04/2015 INFLUENZA VACCINE (Season Ended) 2019 HgA1C 12/12/2019 06/12/2019, 03/23/2016, 07/04/2015 CREATININE (SERUM) 06/11/2020 06/12/2019, 03/23/2016, 09/15/2015, Additional history exists LDL-C 06/11/2020 06/12/2019, 03/23/2016, 07/04/2015 documented as of this encounter Results Not on filedocumented in this encounter Visit Diagnoses Diagnosis Insomnia, unspecified type documented in this encounter Insurance Payer Benefit Plan / Subscriber ID Effective Dates Phone Addre ss Type Group HIM [id number] 2019-Present PPO [id number] ACTED RACTED documented as of this encounter
--- OUTSIDE RECORDS SUMMARY | 2019-09-02 10:22 | XMS REPORT | Summary of Care ---
:1960 Author Organization [facility] Address [address] [place] [address] Care Team Providers Name Role Phone MD Hector Primary Care Provider Reason for Visit Reason Comments Refill Request Encounter Details Date Type Department Care Team Description 07/24/2019 Refill [facility] Family Medicine Melecio Hamilton MD Refill Request - [place] [address] [facility] [place] [address] [place] [address] [phone] Allergies Active Allergy Reactions Severity Noted Date Comments Meperidine Hallucinations Medium 07/17/2015 documented as of this encounter (statuses as of 07/25/2019) Medications Medication Sig Dispensed Refills Start End [...] for Migraine. without status migrainosus, not intractable testosterone 1 mL by 10 mL 1 [...] neuropathy, with long-term current use of insulin carisoprodoL 350 TAKE ONE TABLET 120 tablet 0 07/25/19 Active mg BY MOUTH 4 TIMES 20 tabletIndications: DAILY Chronic back pain, unspecified back location, unspecified back pain laterality carisoprodoL 350 TAKE ONE TABLET 120 tablet 0 06/25/19 Discontinued mg BY MOUTH 4 TIMES 20 020 (Re order) tabletIndications: DAILY Chronic back pain, unspecified back location, unspecified back pain laterality documented as of this encounter (statuses as of 07/25/2019) Active Problems Problem Noted Date Insomnia, unspecified type 03/22/2016 Intractable migraine with status migrainosus 6 Hypertension 09/14/2015 Other migraine without status migrainosus, not intract able 07/01/2015 Type 2 diabetes mellitus without complication 07/01/19 16 Essential hypertension 07/01/2015 Hyperlipidemia 07/01/2015 Chronic neck pain 07/01/2015 Hypogonadism in male 07/01/2015 Diabetes mellitus Peripheral neuropathy documented as of this encounter (statuses as of 07/25/2019) Social History Tobacco Use Types Packs/Day Years [...] filedocumented in this encounter Visit Diagnoses Diagnosis Chronic back pain, unspecified back loca tion, unspecified back pain laterality Idiopathic peripheral neuropathy Unspecified hereditary and idiopathic pe ripheral neuropathy documented in this encounter Insurance Payer Benefit Plan / Subscriber ID Effective Dates Phone Addre ss Type Group HIM [id number] 2019-Present PPO [id number] ACTED RACTED documented as of this encounter
--- OUTSIDE RECORDS SUMMARY | 2019-09-02 10:22 | XMS REPORT | Summary of Care ---
:1960 Author Organization [facility] Address [address] [place] [address] Care Team Providers Name Role Phone MD Hector Primary Care Provider Encounter Details Date Type Department Care Team Description 06/27/2019 Orders Only [facility] Doctor Unassigned, [address] [facility] [place] [address] [address] [place] [address] Allergies Active Allergy Reactions Severity Noted Date Comments Meperidine Hallucinations Medium 07/17/2015 documented as of this encounter (statuses as of 07/04/2019) Medications Medication Sig Dispensed Refills Start Date [...] as of this encounter (statuses as of 07/04/2019) Active Problems Problem Noted Date Insomnia, unspecified type 03/22/2016 Intractable migraine with status migrainosus 6 Hypertension 09/14/2015 Other migraine without status migrainosus, not intract able 07/01/2015 Type 2 diabetes mellitus without complication 07/01/19 16 Essential hypertension 07/01/2015 Hyperlipidemia 07/01/2015 Chronic neck pain 07/01/2015 Hypogonadism in male 07/01/2015 Diabetes mellitus Peripheral neuropathy documented as of this encounter (statuses as of 07/04/2019) Social History Tobacco Use Types Packs/Day Years [...] Name Priority Date/Time Associated Diagnosis Comme nts MEDICATION CORRESPONDENCE Routine 06/27/2019 12:01 AM CDT documented in this encounter Results Not on filedocumented in this encounter Insurance Payer Benefit Plan / Subscriber ID Effective Dates Phone Addre ss Type Group HIM [id number] 2019-Present PPO [id number] ACTED RACTED documented as of this encounter
--- OUTSIDE RECORDS SUMMARY | 2019-09-02 10:22 | XMS REPORT | Summary of Care ---
:1960 Author Organization [facility] Address [address] [place] [address] Care Team Providers Name Role Phone MD Hector Primary Care Provider Reason for Visit Reason Comments Rx Concern/Question Encounter Details Date Type Department Care Team Description 07/02/2019 Telephone [facility] Family Con Young MD Rx Concern/Question Medicine - [place] [address] [place] [address] [phone] Allergies Active Allergy Reactions Severity Noted Date Comments Meperidine Hallucinations Medium 07/17/2015 documented as of this encounter (statuses as of 07/02/2019) Medications Medication Sig Dispensed Refills Start Date [...] as of this encounter (statuses as of 07/02/2019) Active Problems Problem Noted Date Insomnia, unspecified type 03/22/2016 Intractable migraine with status migrainosus 6 Hypertension 09/14/2015 Other migraine without status migrainosus, not intract able 07/01/2015 Type 2 diabetes mellitus without complication 07/01/19 16 Essential hypertension 07/01/2015 Hyperlipidemia 07/01/2015 Chronic neck pain 07/01/2015 Hypogonadism in male 07/01/2015 Diabetes mellitus Peripheral neuropathy documented as of this encounter (statuses as of 07/02/2019) Social History Tobacco Use Types Packs/Day Years [...] Dates Phone Addre ss Type Group HIM [id number] 2019-Present PPO [id number] ACTED RACTED documented as of this encounter
--- OUTSIDE RECORDS SUMMARY | 2019-09-02 10:23 | XMS REPORT | Summary of Care ---
:1960 Author Organization [facility] Address [address] [place] [address] Care Team Providers Name Role Phone MD Hector Primary Care Provider Reason for Visit Reason Comments Refill Request Encounter Details Date Type Department Care Team Description 07/24/2019 Refill [facility] Family Medicine Melecio Hamilton MD Refill Request - [place] [address] [facility] [place] [address] [place] [address] [phone] Allergies Active Allergy Reactions Severity Noted Date [...] 2 (two) 20 Essential times daily. hypertension lisinopril-hydroch Take 1 tablet by 90 tablet [...] Take 1 capsule by 60 capsule 5 07/25/19 Active (LYRICA) 300 mg mouth 2 (two) 20 capsuleIndications times daily. : Idiopathic peripheral neuropathy carisoprodoL 350 TAKE ONE TABLET 120 tablet 0 06/25/19 Discontinued mg BY MOUTH 4 TIMES 20 020 (Re order) tabletIndications: DAILY Chronic back pain, unspecified back location, unspecified back pain laterality pregabalin Take 1 capsule by 60 capsule 5 06/26/19 Discontinued (LYRICA) 300 mg mouth 2 (two) [...] filedocumented in this encounter Visit Diagnoses Diagnosis Idiopathic peripheral neuropathy Unspecified hereditary and idiopathic pe ripheral neuropathy documented in this encounter Insurance Payer Benefit Plan / Subscriber ID Effective Dates Phone Addre ss Type Group HIM [id number] 2019-Present PPO [id number] ACTED RACTED documented as of this encounter
--- OUTSIDE RECORDS SUMMARY | 2019-09-02 10:23 | XMS REPORT | Summary of Care ---
:1960 Author Organization [facility] Address [address] [place] [address] Care Team Providers Name Role Phone MD Hector Primary Care Provider Reason for Visit Reason Comments Assessment Encounter Details Date Type Department Care Team Description 07/26/2019 Telephone [facility] Pediatric and Melecio Young MD Assessment Adult Primary Care- [address] [place] [address] [place] [address] , [address] [place] [address] Allergies Active Allergy Reactions Severity Noted Date Comments Meperidine Hallucinations Medium 07/17/2015 documented as of this encounter (statuses as of 07/26/2019) Medications Medication Sig Dispensed Refills Start Date [...] migraine Migraine. without status migrainosus, not intractable testosterone [...] mouth 2 (two) times Essential daily. hypertension lisinopril-hydrochlo Take 1 tablet by 90 tablet [...] long-term current use of insulin carisoprodoL 350 mg TAKE ONE TABLET BY 120 tablet 0 07/25/2019 Active tabletIndications: MOUTH 4 TIMES DAILY Chronic back pain, unspecified back location, unspecified back pain laterality pregabalin (LYRICA) Take 1 capsule by 60 capsule 5 07/25/2019 Active 300 mg mouth 2 (two) times capsuleIndications: daily. Idiopathic peripheral neuropathy documented as of this encounter (statuses as of 07/26/2019) Active Problems Problem Noted Date Insomnia, unspecified type 03/22/2016 Intractable migraine with status migrainosus 6 Hypertension 09/14/2015 Other migraine without status migrainosus, not intract able 07/01/2015 Type 2 diabetes mellitus without complication 07/01/19 16 Essential hypertension 07/01/2015 Hyperlipidemia 07/01/2015 Chronic neck pain 07/01/2015 Hypogonadism in male 07/01/2015 Diabetes mellitus Peripheral neuropathy documented as of this encounter (statuses as of 07/26/2019) Social History Tobacco Use Types Packs/Day Years [...] (1 of 2) URINE MICROALBUMIN 07/03/2016 07/04/2015 Depression Screening 10/27/2019 10/26/2018 INFLUENZA VACCINE (Season Ended) 2019 HgA1C 12/12/2019 06/12/2019, 03/23/2016, 07/04/2015 CREATININE (SERUM) 06/11/2020 06/12/2019, 03/23/2016, 09/15/2015, Additional history exists LDL-C 06/11/2020 06/12/2019, 03/23/2016, 07/04/2015 documented as of this encounter Results Not on filedocumented in this encounter Insurance Payer Benefit Plan / Subscriber ID Effective Dates Phone Addre ss Type Group HIM [id number] 2019-Present PPO [id number] ACTED RACTED documented as of this encounter
--- OUTSIDE RECORDS SUMMARY | 2019-09-02 10:24 | XMS REPORT | Summary of Care ---
:1960 Author Organization [facility] Address [address] [place] [address] Care Team Providers Name Role Phone MD Hector Primary Care Provider Reason for Visit Reason Comments Rx Concern/Question Encounter Details Date Type Department Care Team Description 07/27/2019 Telephone [facility] Family Con Young MD Rx Concern/Question Medicine - [place] [address] [place] [address] [phone] Allergies Active Allergy Reactions Severity Noted Date Comments Meperidine Hallucinations Medium 07/17/2015 documented as of this encounter (statuses as of 07/27/2019) Medications Medication Sig Dispensed Refills Start Date [...] as of this encounter (statuses as of 07/27/2019) Active Problems Problem Noted Date Insomnia, unspecified type 03/22/2016 Intractable migraine with status migrainosus 6 Hypertension 09/14/2015 Other migraine without status migrainosus, not intract able 07/01/2015 Type 2 diabetes mellitus without complication 07/01/19 16 Essential hypertension 07/01/2015 Hyperlipidemia 07/01/2015 Chronic neck pain 07/01/2015 Hypogonadism in male 07/01/2015 Diabetes mellitus Peripheral neuropathy documented as of this encounter (statuses as of 07/27/2019) Social History Tobacco Use Types Packs/Day Years [...] Dates Phone Addre ss Type Group HIM [id number] 2019-Present PPO [id number] ACTED RACTED documented as of this encounter
--- OUTSIDE RECORDS SUMMARY | 2019-09-02 10:24 | XMS REPORT | Summary of Care ---
:1960 Author Organization [facility] Address [address] [place] [address] Care Team Providers Name Role Phone MD Hector Primary Care Provider Reason for Visit Reason Comments Assessment Encounter Details Date Type Department Care Team Description 07/26/2019 Telephone [facility] Pediatric and Melecio Young MD Assessment Adult Primary Care- [address] [place] [address] [place] [address] , [address] [place] [address] Allergies Active Allergy Reactions Severity Noted [...] Dates Phone Addre ss Type Group HIM [id number] 2019-Present PPO [id number] ACTED RACTED documented as of this encounter
--- OUTSIDE RECORDS SUMMARY | 2019-09-02 10:25 | XMS REPORT | Summary of Care ---
:1960 Author Organization [facility] [[email or web address]] - [facility] Address [address] [place] [address] Care Team Providers Name Role Phone MD Hector Primary Care Provider Encounter Details Date Type Department Care Team Description 07/28/2019 Orders Only [facility] [[email or web address]] Doctor Unassigned, No [address] [facility] [place] [address] [address] [place] [address] Allergies Active Allergy Reactions Severity Noted Date Comments Meperidine Hallucinations Medium 07/17/2015 documented as of this encounter (statuses as of 08/09/2019) Medications Medication Sig Dispensed Refills Start Date [...] tabletIndications: Attention deficit disorder, unspecified hyperactivity presence testosterone 1 mL by 10 mL 1 [...] as of this encounter (statuses as of 08/09/2019) Active Problems Problem Noted Date Insomnia, unspecified type 03/22/2016 Intractable migraine with status migrainosus 6 Hypertension 09/14/2015 Other migraine without status migrainosus, not intract able 07/01/2015 Type 2 diabetes mellitus without complication 07/01/19 16 Essential hypertension 07/01/2015 Hyperlipidemia 07/01/2015 Chronic neck pain 07/01/2015 Hypogonadism in male 07/01/2015 Diabetes mellitus Peripheral neuropathy documented as of this encounter (statuses as of 08/09/2019) Social History Tobacco Use Types Packs/Day Years [...] Associated Diagnosis Comme nts MEDICATION CORRESPONDENCE Routine 07/28/2019 12:01 AM CDT documented in this encounter Results Not on filedocumented in this encounter Insurance Payer Benefit Plan / Subscriber ID Effective Dates Phone Addre ss Type Group HIM [id number] 2019-Present PPO [id number] ACTED RACTED documented as of this encounter
--- OUTSIDE RECORDS SUMMARY | 2019-09-02 10:25 | XMS REPORT | Summary of Care ---
:[address] [facility] Address [address] [place] [address] Care Team Providers Name Role Phone MD Hector Primary Care Provider Reason for Visit Reason Comments Refill Request Encounter Details Date Type Department Care Team Description 08/23/2019 Refill [facility] Family Medicine Melecio Hamilton MD Refill Request - [address] [place] [address] [place] [address] [phone] Allergies Active Allergy Reactions Severity Noted Date Comments Meperidine Hallucinations Medium 07/17/2015 documented as of this encounter (statuses as of 08/27/2019) Medications Medication Sig Dispensed Refills Start End [...] Take 1 tablet by 20 tablet 0 08/23/19 Active anate (AUGMENTIN) mouth 2 (two) 19 [...] insulin aspart INJECT 30 UNITS 15 mL 06/26/19 Active U-100 (NOVOLOG UNDER THE SKIN 2 20 FLEXPEN U-100 TIMES DAILY WITH INSULIN) 100 MEALS unit/mL (3 mL) injectionIndicatio ns: Type 2 diabetes mellitus with diabetic neuropathy, with long-term current use of insulin insulin aspart 10 units TID 20 mL 06/26/19 Ac tive RAPID (NOVOLOG 20 U-100 INSULIN ASPART) 100 unit/mL injectionIndicatio ns: Type 2 diabetes mellitus with diabetic neuropathy, with long-term current use of insulin Insulin Detemir INJECT 30 UNITS 15 mL 06/26/19 Active (LEVEMIR FLEXTOUCH UNDER THE SKIN 20 U-100 INSULN) 100 TWICE DAILY unit/mL (3 mL) injectionIndicatio ns: Type 2 diabetes mellitus with diabetic neuropathy, with long-term current use of insulin pregabalin Take 1 capsule by 60 capsule 5 07/25/19 Active (LYRICA) 300 mg mouth 2 (two) 20 capsuleIndications times daily. : Idiopathic peripheral neuropathy sumatriptan 100 mg Take 1 tablet by 9 tablet 1 07/30/19 Active tabletIndications: mouth as needed 20 Other migraine for Migraine. without status migrainosus, not intractable carisoprodoL 350 TAKE ONE TABLET 120 tablet 0 08/27/19 Active mg BY MOUTH 4 TIMES 20 tabletIndications: DAILY Chronic back pain, unspecified back location, unspecified back pain laterality carisoprodoL 350 TAKE ONE TABLET 120 tablet 0 07/25/19 Discontinued mg BY MOUTH 4 TIMES 20 020 (Re order) tabletIndications: DAILY Chronic back pain, unspecified back location, unspecified back pain laterality documented as of this encounter (statuses as of 08/27/2019) Active Problems Problem Noted Date Insomnia, unspecified type 03/22/2016 Intractable migraine with status migrainosus 6 Hypertension 09/14/2015 Other migraine without status migrainosus, not intract able 07/01/2015 Type 2 diabetes mellitus without complication 07/01/19 16 Essential hypertension 07/01/2015 Hyperlipidemia 07/01/2015 Chronic neck pain 07/01/2015 Hypogonadism in male 07/01/2015 Diabetes mellitus Peripheral neuropathy documented as of this encounter (statuses as of 08/27/2019) Social History Tobacco Use Types Packs/Day Years [...] Treatment Date Type Specialty Care Team Description 09/19/2019 Office Visit Family Medicine Melecio Young MD [address] [place] [phone] Health Maintenance Due Date Last Done [...] Unspecified hereditary and idiopathic pe ripheral neuropathy Chronic back pain, unspecified back loca tion, unspecified back pain laterality documented in this encounter Insurance Payer Benefit Plan / Subscriber ID Effective Dates Phone Addre ss Type Group HIM AMBETTER FROM HIM AMBETTER FROM [id number] 2019-Present PPO [facility] documented as of this encounter
--- OUTSIDE RECORDS SUMMARY | 2019-09-02 10:25 | XMS REPORT | Summary of Care ---
:1960 Author Organization [facility] Address [address] [place] [address] Care Team Providers Name Role Phone MD Hector Primary Care Provider Reason for Visit Reason Comments Refill Request Encounter Details Date Type Department Care Team Description 08/24/2019 Refill [facility] Family Medicine Melecio Hamilton MD Refill Request - [address] [place] [address] [place] [address] [phone] Allergies Active Allergy Reactions Severity Noted Date Comments Meperidine Hallucinations Medium 07/17/2015 documented as of this encounter (statuses as of 08/24/2019) Medications Medication Sig Dispensed Refills Start Date [...] Take 1 tablet by 9 tablet 1 07/30/2019 Active tabletIndications: mouth as needed for Other migraine Migraine. without status migrainosus, not intractable documented as of this encounter (statuses as of 08/24/2019) Active Problems Problem Noted Date Insomnia, unspecified type 03/22/2016 Intractable migraine with status migrainosus 6 Hypertension 09/14/2015 Other migraine without status migrainosus, not intract able 07/01/2015 Type 2 diabetes mellitus without complication 07/01/19 16 Essential hypertension 07/01/2015 Hyperlipidemia 07/01/2015 Chronic neck pain 07/01/2015 Hypogonadism in male 07/01/2015 Diabetes mellitus Peripheral neuropathy documented as of this encounter (statuses as of 08/24/2019) Social History Tobacco Use Types Packs/Day Years [...] Group HIM AMBETTER FROM HIM AMBETTER FROM [id number] 2019-Present O [facility] documented as of this encounter
--- OUTSIDE RECORDS SUMMARY | 2019-09-02 10:25 | XMS REPORT | Summary of Care ---
:1960 Author Organization [facility] Address [address] [place] [address] Care Team Providers Name Role Phone MD Hector Primary Care Provider Reason for Visit Reason Comments Refill Request Encounter Details Date Type Department Care Team Description 08/23/2019 Refill [facility] Family Medicine Melecio Hamilton MD Refill Request - [address] [place] [address] [place] [address] [phone] Allergies Active Allergy Reactions Severity Noted Date [...] neuropathy, with long-term current use of insulin sumatriptan 100 mg Take 1 tablet by 9 tablet 1 07/30/19 Active tabletIndications: mouth as needed 20 Other migraine for Migraine. without status migrainosus, not intractable pregabalin Take 1 capsule by 60 capsule 5 08/27/19 Active (LYRICA) 300 mg mouth 2 (two) 20 capsuleIndications times daily. : Idiopathic peripheral neuropathy carisoprodoL 350 TAKE ONE TABLET 120 tablet 0 07/25/19 Discontinued mg BY MOUTH 4 TIMES 20 020 (Re order) tabletIndications: DAILY Chronic back pain, unspecified back location, unspecified back pain laterality pregabalin Take 1 capsule by 60 capsule 5 07/25/19 Discontinued (LYRICA) 300 mg mouth 2 (two) [...] Office Visit Family Medicine Melecio Young MD [address] [place] [phone] Health Maintenance Due Date Last Done [...] Group HIM AMBETTER FROM HIM AMBETTER FROM [id number] 2019-Present O [facility] documented as of this encounter
[2019-09-02] MEDS ORDERED: TETANUS & DIPHTHERIA TOX,ADULT 0.5 ML VIAL ONE (10:57)
--- NOTE | 2019-09-02 11:19 | RAD REPORT ---
EXAM DESCRIPTION: RAD - Foot Right 3 View - 09/02/2019 11:09 am CLINICAL HISTORY: PAIN, soft tissue infection COMPARISON: Foot Left 3 View dated 09/02/2019 FINDINGS: No fracture, dislocation or periosteal reaction. Degenerative changes are present in the I P joints of the foot relatively mild in degree. No erosive or destructive bony process seen. No radio graphic evidence for osteomyelitis. No air or foreign body in the soft tissues. Arterial tree calcifications are present. IMPRESSION: Degenerative changes of the right foot IP joints are seen. No destructive change to susp ect osteomyelitis.
--- NOTE | 2019-09-02 11:20 | RAD REPORT ---
EXAM DESCRIPTION: RAD - Foot Left 3 View - 09/02/2019 11:09 am CLINICAL HISTORY: PAIN, diabetes, soft tissue infection fifth toe region COMPARISON: No comparisons FINDINGS: No fracture, dislocation or periosteal reaction. No acute or destructive bony process. Pa tient has mild IP joint degenerative change seen. Soft tissues are edematous around the fifth toe and fifth MTP joint. No air or foreign body in the soft tissues. IMPRESSION: Soft tissue swelling is present around the fifth toe and fifth MTP joint. No destructive bone changes seen. Osteomyelitis can exist prior to radiographic bone destruction. No air or foreign body in the soft tissues.
--- NOTE | 2019-09-02 11:42 | EDPHYS ---
Physician Documentation [facility] Name: Lobito Wu Age: 59 yrs Sex: Male : 1960 Arrival Date: 09/02/2019 Time: 10:20 Bed 20 Private MD: Melecio Young S ED Physician Pamella Wheeler HPI: 09/01 11:00 This 59 yrs old Male presents to ER via Ambulatory with complaints of pm1 Infected Toe. 11:00 The patient presents with left 5th toe abrasion and right 2nd toe swelling. Associated pm1 signs and symptoms: Pertinent negatives: calf tenderness, fever. The patient has not recently seen a physician, has an appointment scheduled, with aws developer on Tuesday. Reports diabetes is pretty well controlled with last hgbA1c of 7.0. Patient dropped a knife on his left foot 1 month ago and it caused a small skin avulsion to the dorsal aspect of his left fifth toe. It has been healing but has not completely healed. Yesterday he went surfing so he wrapped his left 5th toe with coban and this morning he had a bruise to the tip of his left 5th toe that has improved. No discharge from the abrasion. Patient's right 2nd toe with swelling. Initial swelling started about 1 month ago after he hyper flexed it while standing up on his surfboard. Patient with diabetic neuropathy therefore he does not feel any pain to his feet. Historical: - Allergies: 10:42 No Known Allergies; ah - PMHx: 10:42 Diabetes - NIDDM; Hypertension; ah - PSHx: 10:42 eye; - Immunization history:: Adult Immunizations not up to date. - Social history:: Smoking status: Patient denies any tobacco usage or history of. Patient/guardian denies using alcohol. ROS: 11:00 MS/extremity: Positive for abrasion, swelling, of the left fifth toe, Negative for pm1 decreased range of motion, deformity. 11:00 Constitutional: Negative for fever, chills, and weight loss, Cardiovascular: Negative for chest pain, palpitations, and edema, Respiratory: Negative for shortness of breath, cough, wheezing, and pleuritic chest pain, Abdomen/GI: Negative for abdominal pain, nausea, vomiting, diarrhea, and constipation, Back: Negative for injury and pain. 11:00 Neuro: Negative for headache, weakness, numbness, tingling, and seizure. 11:00 Skin: Positive for abrasion(s), of the left fifth toe. Exam: 11:00 Constitutional: This is a well developed, well nourished patient who is awake, alert, pm1 and in no acute distress. Head/Face: Normocephalic, atraumatic. Chest/axilla: Normal chest wall appearance and motion. Nontender with no deformity. No lesions are appreciated. 11:00 Cardiovascular: Exam negative for acute changes, Rate: normal, Rhythm: regular, Pulses: no pulse deficits are appreciated. 11:00 Respiratory: Exam negative for acute changes, respiratory distress, shortness of breath, wheezing. 11:00 Abdomen/GI: Exam negative for acute changes, Inspection: abdomen appears normal, Palpation: abdomen is soft and non-tender, in all quadrants. 11:00 Musculoskeletal/extremity: Extremities: grossly normal except: noted in the dorsal and medial aspect left fifth toe: abrasion, ROM: intact in all extremities, Circulation is intact in all extremities. 11:00 Musculoskeletal/extremity: swelling to 2nd right toe at proximal phalanx. 11:00 Skin: Appearance: normal except for affected area, abscess, not appreciated, cellulitis, is not appreciated, injury, abrasion(s), small abrasion noted, to left 5th toe. 11:00 Neuro: Exam negative for acute changes, Orientation: is normal, Mentation: is normal, Motor: is normal, moves all fours. Vital Signs: 10:20 BP 141 / 85; Pulse 68; Resp 17; Temp 98.0; Pulse Ox 98% ; Weight 92.99 kg; Height 5 ft. ah 11 in. (180.34 cm); 10:20 Body Mass Index 28.59 (92.99 kg, 180.34 cm) MDM: 10:24 Patient medically screened. pm1 11:33 Data reviewed: vital signs. Data interpreted: Pulse oximetry: on room air is 98 %. pm1 Interpretation: normal. Counseling: I had a detailed discussion with the patient and/or guardian regarding: the historical points, exam findings, and any diagnostic results supporting the discharge/admit diagnosis, radiology results, the need for outpatient follow up, to return to the emergency department if symptoms worsen or persist or if there are any questions or concerns that arise at home. 09/01 10:44 Order name: Foot Right 3 View XRAY; Complete Time: 11:32 pm1 09/01 10:44 Order name: Foot Left 3 View XRAY; Complete Time: 11:32 pm1 Administered Medications: 10:52 Drug: Tetanus-Diphtheria Toxoid Adult 0.5 ml {Cylinder Grinder: [employer]. Exp: ah 04/13/2021. Lot #: [id number]. } Route: IM; Site: right deltoid; Disposition: 09/02/19 11:41 Discharged to Home. Impression: Abrasion, left lesser toe(s) - 5th toe, Contusion of left lesser toe(s) without damage to nail - hematoma to 5th toe, Unspecified sprain of right lesser toe(s) - 2nd toe. - Condition is Stable. - Discharge Instructions: Abrasion, Ganglion Cyst, Hematoma. - Prescriptions for Doxycycline Hyclate 100 mg Oral Tablet - take 1 tablet by ORAL route every 12 hours; 20 tablet. Bactroban 2 % Topical Ointment - Apply to affected area 1 application by TOPICAL route every 12 hours; 30 gram. - Medication Reconciliation Form, Thank You Letter, Antibiotic Education, Prescription Opioid Use form. - Follow up: Emergency Department; When: As needed; Reason: Worsening of condition. Follow up: Private Physician; When: 2 - 3 days; Reason: Recheck today's complaints, Continuance of care, Re-evaluation by your physician. - Problem is new. - Symptoms have improved. Signatures: Dispatcher [employer] EDMS Chema Burrows NP AUDIO VISUAL COLLECTIONS COORDINATOR pm1 Karlie Esparza mt, Amy, RN RN Corrections: (The following items were deleted from the chart) 12:16 11:41 09/02/2019 11:41 Discharged to Home. Impression: Abrasion, left lesser toe(s) - mt 5th toe; Contusion of left lesser toe(s) without damage to nail - hematoma to 5th toe; Unspecified sprain of right lesser toe(s) - 2nd toe. Condition is Stable. Discharge Instructions: Abrasion, Ganglion Cyst, Hematoma. Prescriptions for Doxycycline Hyclate 100 mg Oral Tablet - take 1 tablet by ORAL route every 12 hours; 20 tablet. and Forms are Medication Reconciliation Form, Thank You Letter, Antibiotic Education, Prescription Opioid Use. Follow up: Emergency Department; When: As needed; Reason: Worsening of condition. Follow up: Private Physician; When: 2 - 3 days; Reason: Recheck today's complaints, Continuance of care, Re-evaluation by your physician. Problem is new. Symptoms have improved. pm1
--- NOTE | 2019-09-02 11:42 | ER ---
Nurse's Notes [facility] Name: Lobito Wu Age: 59 yrs Sex: Male : 1960 Arrival Date: 09/02/2019 Time: 10:20 Bed 20 Private MD: Melecio Young S Diagnosis: Abrasion, left lesser toe(s)-5th toe;Contusion of left lesser toe(s) without damage to nail-hematoma to 5th toe;Unspecified sprain of right lesser toe(s)-2nd toe Presentation: 09/01 10:20 Chief complaint: Patient states: I am diabetic and i think i have an infection in my Left little toe. Coronavirus screen: Proceed with normal triage. Ebola Screen: No symptoms or risks identified at this time. Initial Sepsis Screen: Does the patient meet any 2 criteria? No. Patient's initial sepsis screen is negative. Does the patient have a suspected source of infection? No. Patient's initial sepsis screen is negative. Risk Assessment: Do you want to hurt yourself or someone else? Patient reports no desire to harm self or others. Onset of symptoms is unknown. 10:20 Method Of Arrival: Ambulatory 10:20 Acuity: ROC 4 Historical: - Allergies: 10:42 No Known Allergies; - PMHx: 10:42 Diabetes - NIDDM; Hypertension; - PSHx: 10:42 eye; - Immunization history:: Adult Immunizations not up to date. - Social history:: Smoking status: Patient denies any tobacco usage or history of. Patient/guardian denies using alcohol. Screenin:43 Abuse screen: Denies threats or abuse. Nutritional screening: No deficits noted. Tuberculosis screening: No symptoms or risk factors identified. Fall Risk None identified. Assessment: 10:43 General: Appears in no apparent distress. Behavior is calm, cooperative, appropriate for age. Pain: Denies pain. Neuro: Level of Consciousness is awake, alert, obeys commands, Oriented to person, place, time, situation, Appropriate for age. Cardiovascular: Capillary refill < 3 seconds Patient's skin is warm and dry. Pulses are palpable in right dorsalis pedis artery and left dorsalis pedis artery. Respiratory: Airway is patent Respiratory effort is even, unlabored. Derm: Skin is intact, is healthy with good turgor, Wound noted plantar aspect of left fifth toe, left fifth toe and Left fifth toenail Wound is skin breakdown and hematoma, maceration noted Denies pain. 12:13 Reassessment: Patient appears in no apparent distress at this time. No changes from sv previously documented assessment. Patient and/or family updated on plan of care and expected duration. Pain level reassessed. Patient is alert, oriented x 3, equal unlabored respirations, skin warm/dry/pink. Vital Signs: 10:20 BP 141 / 85; Pulse 68; Resp 17; Temp 98.0; Pulse Ox 98% ; Weight 92.99 kg; Height 5 ft. ah 11 in. (180.34 cm); 10:20 Body Mass Index 28.59 (92.99 kg, 180.34 cm) ED Course: 10:20 Patient arrived in ED. mr 10:20 Melecio Young MD is Private Physician. mr 10:21 Chema Burrows NP is PHCP. pm1 10:21 Pamella Wheeler MD is Attending Physician. pm1 10:22 Diana Atkins, NOLAN is Primary Nurse. 10:41 Triage completed. ah 10:45 Patient has correct armband on for positive identification. Bed in low position. Call light in reach. Pulse ox on. NIBP on. 10:45 Arm band placed on right wrist. ah 10:53 X-ray(s) taken. ah 11:10 Foot Right 3 View XRAY In Process Unspecified. EDMS 11:10 Foot Left 3 View XRAY In Process Unspecified. EDMS 12:12 No provider procedures requiring assistance completed. Patient did not have IV access sv during this emergency room visit. Dressings: 2x2 gauze and triple antibiotic ointment to the left 5th digit. 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 Exp: 04/13/2021. Lot #: [id number]. } Route: IM; Site: right deltoid; Outcome: 11:41 Discharge ordered by . pm1 12:12 Discharged to home ambulatory. sv 12:12 Condition: stable 12:12 Discharge instructions given to patient, Instructed on discharge instructions, follow up and referral plans. medication usage, wound care, Demonstrated understanding of instructions, follow-up care, medications, wound care, Prescriptions given X 2. 12:16 Patient left the ED. mt Signatures: Dispatcher [employer] Kylie Mckeon RN Barbie Ferguson mr Chema Burrows, BHAVANA OBIEE ARCHITECT pm1 Karlie Esparza mt, Amy RN NOLAN
[2019-09-02 12:20] VITALS: BP 141/85; TEMP 98; O2SAT 98
== END 2019-09-02 12:16 | disposition home or self-care (01) ==
LOC: ER 10:15
DX: S93.504A Unspecified sprain of right lesser toe(s), initial encounter (principal); S90.122A Contusion of left lesser toe(s) without damage to nail, initial encounter; I10 Essential (primary) hypertension; E11.40 Type 2 diabetes mellitus with diabetic neuropathy, unspecified; Z23 Encounter for immunization
CPT/HCPCS: 90471; 90714; 99284

== ENCOUNTER 2019-09-05 19:51 | Inpatient (IN) | payer OTHER ==
--- OUTSIDE RECORDS SUMMARY | 2019-09-05 19:53 | XMS REPORT | Continuity of Care Document ---
:1960 Author Organization [facility] t Address [address] [place] [address] Care Team Providers Name Role Phone Melecio Young MD Attending Clinician Doctor Unassigned, [place] Attending Clinician Unavailable Problems This patient has no known problems. Allergies, Adverse Reactions, Alerts This patient has no known allergies or adverse reactions. Medications This patient has no known medications. Procedures This patient has no known procedures. Encounters Start End Encounter Admission Attending Care Care Encounter Source Date/Time Date/Time Type Type Clinicians Facility Department ID 2019-08-24 2019-08-24 Refill Young [facility] [id number] 00:00:00 00:00:00 [facility] [id number] [place] [id number] Professio [phone] nal [address] One 2019-08-23 2019-08-23 Refill Young [facility] [id number] 00:00:00 00:00:00 [facility] [id number] [place] [id number] Professio [phone] nal 044 [address] One 2019-08-23 2019-08-23 Refill Hector [facility] [id number] 00:00:00 00:00:00 [facility] [id number] [place] [id number] Professio [phone] nal 044 [address] One 2019-07-28 2019-07-28 Orders Doctor [place] [id number] 00:00:00 00:00:00 Only Unassigned, AMY [id number] [place] [facility] [id number] [id number] 2019-07-27 2019-07-27 [place] [facility] [id number] 00:00:00 00:00:00 [facility] [id number] [place] [id number] Professio [phone] nal 044 [address] One 2019-07-26 2019-07-26 [place] [facility] [id number] 00:00:00 00:00:00 Melecio Lyn [id number] [place] [id number] Professio [phone] nal [facility] Building Results This patient has no known results.
[2019-09-05 22:15] LABS: Absolute Lymphocytes (CBC) 1.4 K/uL (0.7-4.9); Basophils % 0.6 % (0-1.3); Hematocrit 42.8 % (39.6-49.0); Lymphocytes % 17.6 % (15.3-44.8); Potassium 4.4 mmol/L (3.5-5.1); RBC Red Blood Cell Count 4.64 M/uL (4.33-5.43)
[2019-09-05] MEDS ORDERED: PIPER/TAZO/NS 3.375gm 3.375 GM/100 ML BAG ONE (22:23)
--- NOTE | 2019-09-05 23:27 | ER ---
Nurse's Notes [facility] Name: Lobito Wu Age: 59 yrs Sex: Male : 1960 Arrival Date: 09/05/2019 Time: 19:54 Bed 11 Private MD: Diagnosis: Cellulitis of left lower limb Presentation: 09/04 20:12 Chief complaint: Patient states: I have a wound that Kathia been treating for about a sg month or two, its getting worse now so I wanted to have it checked. Coronavirus screen: Proceed with normal triage. Ebola Screen: Patient negative for fever greater than or equal to 101.5 degrees Fahrenheit, and additional compatible Ebola Virus Disease symptoms Patient denies exposure to infectious person. Patient denies travel to an Ebola-affected area in the 21 days before illness onset. No symptoms or risks identified at this time. Initial Sepsis Screen: Does the patient meet any 2 criteria? No. Patient's initial sepsis screen is negative. Does the patient have a suspected source of infection? Yes: Skin breakdown/wound. Risk Assessment: Do you want to hurt yourself or someone else? Patient reports no desire to harm self or others. Onset of symptoms was September 05, 2019. Care prior to arrival: None. 20:12 Method Of Arrival: Ambulatory sg 20:12 Acuity: ROC 3 sg Historical: - Allergies: 20:12 No Known Allergies; ss - PMHx: 20:12 Diabetes - NIDDM; Hypertension; ss - PSHx: 20:12 eye; ss - Immunization history:: Adult Immunizations up to date. - Social history:: Smoking status: Patient denies any tobacco usage or history of. Screenin/09 02:40 Abuse screen: Denies threats or abuse. Denies injuries from another. Nutritional lp1 screening: No deficits noted. Tuberculosis screening: No symptoms or risk factors identified. Fall Risk None identified. Assessment: 09/04 21:30 General: Appears in no apparent distress. Behavior is appropriate for age. Pain: lp1 Complains of pain in Left fifth toenail Pain currently is 3 out of 10 on a pain scale. Quality of pain is described as aching. Neuro: Level of Consciousness is awake, alert, obeys commands, Oriented to person, place, time, situation. Cardiovascular: Patient's skin is warm and dry. Respiratory: Respiratory effort is even, unlabored. GI: No signs and/or symptoms were reported involving the gastrointestinal system. : No signs and/or symptoms were reported regarding the genitourinary system. EENT: No signs and/or symptoms were reported regarding the EENT system. Derm: Skin is intact, Skin is dry, Skin is normal, Wound noted Left fifth toenail Wound is black in color, swollen, minimal clear drainage. Musculoskeletal: No deficits noted. 09/05 02:00 Reassessment: Patient appears in no apparent distress at this time. Patient is alert, lp1 oriented x 3, equal unlabored respirations, skin warm/dry/pink. Patient aware of pending admission. Vital Signs: 09/04 20:20 BP 136 / 77; Pulse 87; Resp 18; Temp 97.7; Pulse Ox 100% on R/A; sg 09/05 02:40 BP 115 / 65; Pulse 55; Resp 18; Temp 97.5(O); Pulse Ox 97% on R/A; lp1 ED Course: 09/04 19:54 Patient arrived in ED. cl3 20:12 Triage completed. ss 20:12 Arm band placed on. ss 20:30 Patient has correct armband on for positive identification. lp1 20:42 Seymour Villarreal PA is PHCP. cp 20:42 Seymour Napier MD is Attending Physician. cp 21:14 Gisela Watkins, RN is Primary Nurse. lp1 21:40 Initial lab(s) drawn, by me, sent to lab. Missed attempt(s): 22 gauge in left forearm. lp1 21:55 Inserted saline lock: 20 gauge in right wrist, using aseptic technique. Blood collected.jp3 21:55 Second set of blood cultures drawn by me. jp3 23:23 Kevin Lott is Hospitalizing Provider. cp 09/05 02:39 No provider procedures requiring assistance completed. Patient admitted, IV remains in lp1 place. Administered Medications: 09/04 22:23 Drug: Zosyn 3.375 grams Route: IVPB; Infused Over: 60 mins; Site: right wrist; lp1 23:41 Follow up: IV Status: Completed infusion; IV Intake: 100ml lp1 23:51 Drug: fentaNYL (PF) 25 mcg Route: IVP; Infused Over: 2 mins; Site: right antecubital; lp1 23:51 Drug: vancoMYCIN 1 grams Route: IVPB; Infused Over: 2 hrs; Site: right antecubital; lp1 09/05 02:42 Follow up: IV Status: Completed infusion lp1 Intake: 09/04 23:41 IV: 100ml; Total: 100ml. lp1 Outcome: 23:24 Decision to Hospitalize by Provider. cp 09/05 02:39 Admitted to Med/surg via wheelchair, room 207, with chart, Report called to josefina Waters RN Condition: stable Instructed on the need for admit. 03:31 Patient left the ED. lp1 Signatures: Pablito Abraham RN RN sg Zully Pinto RN RN ss Gisela Watkins RN RN lp1 Seymour Villarreal PA PA Jerman Larose jp3 Sayda Pradhan cl3 Corrections: (The following items were deleted from the chart) 09/04 22:09 20:12 Acuity: ROC 4 ss sg
--- NOTE | 2019-09-05 23:27 | EDPHYS ---
Physician Documentation [facility] Name: Lobito Wu Age: 59 yrs Sex: Male : 1960 Arrival Date: 09/05/2019 Time: 19:54 Bed 11 Private MD: ED Physician Seymour Napier HPI: 09/04 21:00 This 59 yrs old Male presents to ER via Ambulatory with complaints of Toe cp Injury, Wound Infection. 21:00 The patient presents with swelling, tenderness, erythema. cp 21:00 The complaints affect the left lateral ankle, lateral aspect of left foot and dorsum of cp left foot. 21:00 Patient reports injury to left small toe several week ago after dropping object that cp caused small laceration to skin. Noticed gradual swelling and redness that caused him to come to ED 3 days ago where he was prescribed antibiotics. Redness and swelling has continued to worsen. Historical: - Allergies: 20:12 No Known Allergies; ss - PMHx: 20:12 Diabetes - NIDDM; Hypertension; ss - PSHx: 20:12 eye; ss - Immunization history:: Adult Immunizations up to date. - Social history:: Smoking status: Patient denies any tobacco usage or history of. ROS: 21:05 MS/extremity: Positive for erythema, pain, swelling, tenderness, of the left foot, cp injury to left small toe. 21:05 Eyes: Negative for injury, pain, redness, and discharge. cp 21:05 Constitutional: Negative for body aches, chills, fever, poor PO intake. 21:05 Cardiovascular: Negative for chest pain. 21:05 Respiratory: Negative for cough, shortness of breath, wheezing. 21:05 Abdomen/GI: Negative for abdominal pain, nausea, vomiting, and diarrhea. 21:05 All other systems are negative. Exam: 21:10 Constitutional: The patient appears in no acute distress, alert, awake, cp non-diaphoretic, non-toxic, well developed, well nourished. 21:10 Head/Face: Normocephalic, atraumatic. cp 21:10 Eyes: Periorbital structures: appear normal, Conjunctiva: normal, no exudate, no injection, Sclera: no appreciated abnormality, Lids and lashes: appear normal, bilaterally. 21:10 ENT: External ear(s): are unremarkable, Nose: is normal, Mouth: is normal, Posterior pharynx: is normal, airway is patent. 21:10 Chest/axilla: Inspection: normal. 21:10 Cardiovascular: Rate: normal, Rhythm: regular, Pulses: Pulses are 2+ in left dorsalis pedis artery. Edema: is not appreciated. 21:10 Respiratory: the patient does not display signs of respiratory distress, Respirations: normal, no use of accessory muscles, labored breathing, is not present. 21:10 Abdomen/GI: Exam negative for discomfort, distension, guarding, Inspection: abdomen appears normal. 21:10 Skin: cellulitis, that is moderate, irregular, on the left foot, left small toe appears swollen, blackened discoloration, nail disfigured and mild drainage noted in web space of left fourth and fifth toes. Vital Signs: 20:20 BP 136 / 77; Pulse 87; Resp 18; Temp 97.7; Pulse Ox 100% on R/A; sg 09/05 02:40 BP 115 / 65; Pulse 55; Resp 18; Temp 97.5(O); Pulse Ox 97% on R/A; lp1 MDM: 09/04 20:42 Patient medically screened. [facility] 23:25 Data reviewed: vital signs, nurses notes, lab test result(s), radiologic studies, plain cp films. 23:25 Physician consultation: Kevin Saschakely was called at 23:15, was contacted at 23:15, regarding admission, to the medical/surgical unit. patient's condition. 09/04 21:13 Order name: Blood Culture Adult (2) 09/04 21:13 Order name: Wound Culture 09/04 21:13 Order name: CBC with Diff 09/04 21:13 Order name: BMP 09/04 21:13 Order name: Procalcitonin 09/04 22:59 Order name: Basic Metabolic Panel; Complete Time: 23:09 EDMS 09/04 23:09 Interpretation: Normal except: GLUC 260; BUN 36; CRE 1.45; GFR 50. 09/04 21:13 Order name: XRAY Foot LEFT 3 View 09/04 21:13 Order name: IV; Complete Time: 22:02 09/04 23:03 Order name: CBC with Automated Diff; Complete Time: 23:09 EDMS 09/04 23:10 Interpretation: Normal except: MCV 92.3; PLT 120; EOSINOPHIL % 4.7. cp 09/04 23:13 Order name: Procalcitonin EDMS Administered Medications: 22:23 Drug: Zosyn 3.375 grams Route: IVPB; Infused Over: 60 mins; Site: right wrist; lp1 23:41 Follow up: IV Status: Completed infusion; IV Intake: 100ml lp1 23:51 Drug: fentaNYL (PF) 25 mcg Route: IVP; Infused Over: 2 mins; Site: right antecubital; lp1 23:51 Drug: vancoMYCIN 1 grams Route: IVPB; Infused Over: 2 hrs; Site: right antecubital; lp1 09/05 02:42 Follow up: IV Status: Completed infusion lp1 Disposition: 09/05/19 23:24 Hospitalization ordered by Kevin Lott for Inpatient Admission. Preliminary diagnosis is Cellulitis of left lower limb. - Bed requested for Telemetry/MedSurg (Inpatient). - Status is Inpatient Admission. lp1 - Condition is Stable. - Problem is an ongoing problem. - Symptoms have improved. Addendum: 09/10/2019 16:20 Co-signature as Attending Physician, Seymour Napier MD I agree with the assessment and c sosa plan of care. Signatures: Dispatcher [employer] Pablito Frank RN RN Seymour Napier MD MD cha Smirch, Shelby RN NOLAN Gisela Watkins RN RN lp1 Selena Richmond RN RN tl1 Seymour Villarreal, PA PA cp Corrections: (The following items were deleted from the chart) 09/05 00:47 09/04 23:24 Hospitalization Ordered by Kevin Lott for Inpatient Admission. sg Preliminary diagnosis is Cellulitis of left lower limb. Bed requested for Telemetry/MedSurg (Inpatient). Status is Inpatient Admission. Condition is Stable. Problem is an ongoing problem. Symptoms have improved. cp 09/05 01:35 00:47 09/05/2019 23:24 Hospitalization Ordered by Kevin Lott for Inpatient tl1 Admission. Preliminary diagnosis is Cellulitis of left lower limb. Bed requested for [facility] ER HOLD. Status is Inpatient Admission. Condition is Stable. Problem is an ongoing problem. Symptoms have improved. sg 03:31 01:35 09/05/2019 23:24 Hospitalization Ordered by Kevin Lott for Inpatient lp1 Admission. Preliminary diagnosis is Cellulitis of left lower limb. Bed requested for Telemetry/MedSurg (Inpatient). Status is Inpatient Admission. Condition is Stable. Problem is an ongoing problem. Symptoms have improved. tl1 09/06 03:22 03:20 MS/extremity: Positive for erythema, pain, swelling, tenderness, of the left cp foot, injury to left small toe, cp
[2019-09-05] MEDS ORDERED: NA CHLORIDE 0.9% 250 ML ONE (23:51)
[2019-09-05] MEDS ORDERED: VANCOMYCIN 1 GM/VIAL ONE (23:51)
[2019-09-05] MEDS ORDERED: FENTANYL CITR 100 MCG/2 ML ONE (23:58)
--- NOTE | 2019-09-06 00:30 | P.HP ---
Certification for Inpatient Patient admitted to: Inpatient With expected LOS: >2 Midnights Practitioner: I am a practitioner with admitting privileges, knowledge of patient current condition, hospital course, and medical plan of care. Services: Services provided to patient in accordance with Admission requirements found in Title 42 Section 412.3 of the Code of Federal Regulations Patient History Date of Service: 09/06/19 Reason for admission: Left 5th toe wound History of Present Illness: 59-year-old gentleman with a history of diabetes mellitus type 2, on insulin therapy presented to the ED with a complaint of left 5th toe wound which has been progressively getting worse over the past 5 days. Patient stated he was surfing a few days before. He developed on the left 5th toe. He wrapped the cut, and realized a day later he was bleeding from the toe. He unwrapped the toe and noted significant dark discoloration and clear discharge from the wound. He was prescribed doxycycline in the ED a couple of days ago but the wound continued to get worse despite the antibiotics. Allergies No Known Allergies Allergy (Unverified 06/06/16 02:11) - Past Medical/Surgical History -: Diabetes mellitus type 2 - Family History Family History: Reviewed- Non-Contributory - Social History Smoking Status: Never smoker Alcohol use: No CD- Drugs: No Place of Residence: Home Review of Systems Other: Patient denies any fever or chills or nausea. Except as documented, all other systems reviewed and negative. Physical Examination - Physical Exam General: Alert, In no apparent distress, Oriented x3 HEENT: Mucous membr. moist/pink Neck: Supple, JVD not distended Respiratory: Clear to auscultation bilaterally, Normal air movement Cardiovascular: No edema, Regular rate/rhythm, Normal S1 S2 Capillary refill: <2 Seconds Gastrointestinal: Normal bowel sounds, Soft and benign, No tenderness Musculoskeletal: Other (Left 5th toe is swollen with dark discoloration and macerated skin.) Integumentary: Erythema (And discoloration of left 5th toe) Neurological: Normal strength at 5/5 x4 extr, Cranial nerves 3-12 intact - Studies Laboratory Data (last 24 hrs) 09/05/19 21:40: Sodium 139, Potassium 4.4, BUN 36 H, Creatinine 1.45 H, Glucose 260 H 09/05/19 21:40: WBC 7.8, Hgb 14.4, Hct 42.8, Plt Count 120 L Assessment and Plan - Problems (Diagnosis) (1) Cellulitis of toe of left foot Current Visit: Yes Status: Acute (2) Diabetes mellitus type 2 in nonobese Current Visit: Yes Status: Acute - Plan Admit to the medical floor. Start IV Levaquin and IV vancomycin. Consult general surgeon Pain management as needed Blood glucose control with Lantus insulin and insulin sliding scale. Check arterial Doppler of lower extremities - Advance Directives Does patient have a Living Will: No Does patient have a Durable POA for Healthcare: No
[2019-09-06] MEDS ORDERED: MORPHINE 2 MG/ML SYR IV PRN (02:12)
[2019-09-06] MEDS: NA CHLORIDE 0.9% 1,000 ML IV SCH ×2 (02:12→20:56)
[2019-09-06] MEDS ORDERED: VANCOMYCIN/NS 1 gm 1 GM/250 ML BAG IVPB SCH (02:12)
[2019-09-06 03:12] VITALS: BMI 28.0
[2019-09-06] MEDS: Levofloxacin 750mg IV 750 MG/150 ML BAG IV SCH (03:52)
[2019-09-06] MEDS: HEPARIN 5000 UNIT/ML 1 ML VIAL SQ SCH ×3 (03:53→17:00)
[2019-09-06] MEDS: MORPHINE 2 MG/ML SYR IV PRN ×4 (06:26→22:05)
[2019-09-06 06:28] LABS: Urine Appearance CLEAR; Urine Bilirubin NEGATIVE (NEG); Urine Blood NEGATIVE (NEG); Urine Color YELLOW; Urine Glucose 1+ (NEG); Urine Protein 1+ (NEG); Urine Specific Gravity >=1.030 (1.005-1.030); Urine pH 5.5 (5.0-7.0)
[2019-09-06 06:58] LABS: Urine Microscopic Reflex ORDER UMIC
[2019-09-06 07:27] LABS: Urine Bacteria NONE SEEN /HPF (NONE SEEN); Urine Culture Reflex Order NOT NEEDED; Urine RBC NONE SEEN /HPF (NONE SEEN)
--- NOTE | 2019-09-06 07:41 | RAD REPORT ---
EXAM DESCRIPTION: RAD - Foot Left 3 View - 09/05/2019 10:31 pm CLINICAL HISTORY: Left Foot pain FINDINGS: No fracture or dislocation is seen. Osteoporosis. Vascular calcifications. No bony destructive lesions seen
[2019-09-06] MEDS: INSULIN -REGULAR HUMAN 50 UNIT/0.5 ML ML SQ SCH ×4 (08:22→20:55)
[2019-09-06] MEDS: VANCOMYCIN 1.5 GM in NA CHLORIDE 0.9% 500 ML IVPB SCH (17:10)
--- NOTE | 2019-09-06 20:16 | RAD REPORT ---
EXAM DESCRIPTION: US - Lower Extremity Artery Uni Ltd - 09/06/2019 8:02 pm CLINICAL HISTORY: Gangrene of left 5th toe. Leg pain COMPARISON: No comparisons FINDINGS: The left common femoral artery, superficial femoral artery, popliteal artery appear tripha sic to biphasic. Heavy atheromatous calcification is seen left posterior tibial artery with very little visible flow s uggesting near occlusion. Left dorsalis pedis artery was not well seen. IMPRESSION: Significant atherosclerosis with near occlusion noted left posterior tibial artery.
--- NOTE | 2019-09-06 20:21 | CON ---
Date of Consultation: 09/06/2019 Reason For Service: Gangrene of the left fifth toe with cellulitis of the foot, history of diabetes. History Of Present Illness: This is the case of a 59-year-old patient with history of diabetes with complaint of left toe black color. He says that not too long ago he injured that several days ago. What he did to help with the injury was to tape that toe, but then when removed the tape the next day he noticed that the area shows blackness with fluid and foul smell. He did not see himself coming u p good, so he decided to show today to the ER. He likes surfing, he sustained an injury while doing there, he surfs here at [place] in a local [place]. He says he knows he is diabetic, he is trying to control his sugar the best he can. He denies any dysuria, hematuria, hematochezia, or melena. He de nies any recent traveling out of the country. He denies any family member sick at home. The patient states some neuropathy, which he believe is getting worse in the lower extremities. No previous cir culation test. Review of Systems: Ten points otherwise unremarkable. Allergies: NONE. Medical History: Diabetes. Social History: He does not smoke. He does not drink alcohol. Family History: Noncontributory. Physical Examination: General: The patient is awake and alert. Eyes: Pupils are equal and reactive, anicteric. Neck: Supple. Abdomen: Soft and depressible. Extremities: The patient has popliteal, femoral pulses. Dorsalis pedis are diminished bilaterally. The patient has a gangrene of the left toe with foul smelling coming from that area. Patient has ce llulitis of the dorsal foot. The area of the fifth toe shows a gangrene with black tissue in that ar ea going to almost to the metatarsophalangeal joint. No crepitus. The patient has bilateral neuropa kary. Laboratory Data: Blood work shows WBC count of 7.8, hemoglobin of 14.4, chloride is 107, creatinine is 1.45, glucose 260. Foot x-ray interpreted by Dr. Slater as no fracture or dislocation of the left foot. Assessment And Plan: This is a 59-year-old patient with gangrene of the left fifth toe and celluliti s of the foot. I explained to him the pathophysiology of the diabetes. That toe, I have to agree wi th the ER physician and the primary doctor, it look gangrenous. I believe he should concentrate his effort trying to save his foot, so even though when he remove this toe, it does not guarantee that it is going to heal at that area and it still would be compromised and still going to be doing wound ca re to try to save the foot. I want to make sure he understand that part. It does not matter if I re move the toe from him, he still have to be on antibiotics and he still have to be in close care. He is not ready to lose his toe. He has not make the decision yet, he want to bring his family tonight and talk to the family. We fed him and gave him some antibiotics. In the meantime, hopefully by hussain morning he has a final decision. Not doing so may compromise the entire foot and unfortunately then the amputation have to be more proximal. Yes, he will require glucose control. Yes, he will r equire a circulation evaluation, but this toe is already gangrenous and being a source of bacteria th at may cause life-threatening sepsis. We are going to try to get a consent for left fifth toe amputa tion. We are going to require wound care after that since I am going to have to leave this skin open . Doing the debridement at this moment, I will leave just the bone exposed and another source of sep sis in the future. If he does not let us do the amputation, we will do that as a final desperate mov e just to remove the gangrene and leave the bone just exposed. He understands these options and I wi ll try to please him the best as I can. At the same time, I want to make sure that he understand the urgency of the situation. JASE/MODL Voice ID: [id number] Report ID: [id number]
[2019-09-06] MEDS ORDERED: TRAZODONE 50 MG TABLET PO ONE (23:30)
[2019-09-07] MEDS: HEPARIN 5000 UNIT/ML 1 ML VIAL SQ SCH ×3 (00:35→16:25)
[2019-09-07] MEDS: NA CHLORIDE 0.9% 1,000 ML IV SCH (01:37)
[2019-09-07] MEDS: Levofloxacin 750mg IV 750 MG/150 ML BAG IV SCH (04:25)
[2019-09-07 06:09] LABS: Absolute Lymphocytes (CBC) 2.1 K/uL (0.7-4.9); Basophils % 0.8 % (0-1.3); Hematocrit 38.7 % (39.6-49.0); Lymphocytes % 29.9 % (15.3-44.8); RBC Red Blood Cell Count 4.19 M/uL (4.33-5.43)
[2019-09-07 06:49] LABS: Potassium 4.1 mmol/L (3.5-5.1)
[2019-09-07] MEDS: INSULIN -REGULAR HUMAN 50 UNIT/0.5 ML ML SQ SCH ×4 (07:14→21:00)
[2019-09-07] MEDS: MORPHINE 2 MG/ML SYR IV PRN ×3 (08:21→20:58)
--- NOTE | 2019-09-07 09:37 | P.PN ---
Subjective Date of Service: 09/07/19 Chief Complaint: Left 5th toe wound Patient has left 5th toe with black discoloration suggestive of progressing gangrene. Patient reports prior history of bilateral leg pain which is attributed to neuropathy. He also reports his leg pain is not worse with exertion/ambulation. Arterial Doppler of the left lower extremity report near complete occlusion of the left posterior tibial artery. Physical Examination - Vital Signs Temperature: 96.9 F Blood Pressure: 111/65 Pulse: 57 Respirations: 18 Pulse Ox (%): 98 - Physical Exam General: Alert, In no apparent distress, Oriented x3 HEENT: Mucous membr. moist/pink Neck: Supple Respiratory: Clear to auscultation bilaterally, Normal air movement Cardiovascular: No edema, Regular rate/rhythm, Normal S1 S2 Gastrointestinal: Normal bowel sounds, Soft and benign, No tenderness Musculoskeletal: Other (Gangrene left 5th toe) Integumentary: Other (Gangrene of left 5th toe.) Neurological: Normal strength at 5/5 x4 extr, Cranial nerves 3-12 intact - Studies Laboratory Data (last 24 hrs) 09/05/19 21:13: Sodium Cancelled, Potassium Cancelled, BUN Cancelled, Creatinine Cancelled, Glucose Cancelled 09/05/19 21:13: WBC Cancelled, Hgb Cancelled, Hct Cancelled, Plt Count Cancelled Assessment And Plan - Current Problems (Diagnosis) (1) Diabetes mellitus type 2 in nonobese Current Visit: Yes Status: Acute (2) Peripheral vascular disease Current Visit: Yes Status: Acute (3) Gangrene of toe of left foot Current Visit: Yes Status: Acute - Plan Case discussed with General surgery-Dr. Guo. Dr. Mckinley recommend amputation of the left 5th toe. Patient is scheduled for surgery today. Continue IV Levaquin and IV vancomycin. He will need vascular surgery evaluation and intervention for the left posterior tibial artery occlusion. Pain management as needed Blood glucose control with Lantus insulin and insulin sliding scale.
[2019-09-07] MEDS ORDERED: D50W 25 GM/50 ML SYRINGE/VIAL IV PRN (09:53)
[2019-09-07] MEDS ORDERED: GLUCAGON 1 MG/VIAL IM PRN (09:53)
[2019-09-07] MEDS: VANCOMYCIN 1.5 GM in NA CHLORIDE 0.9% 500 ML IVPB SCH (11:40)
[2019-09-07] MEDS: BUPIVACAINE 0.5% PF 10 ML VIAL ONE ×2 (12:21→13:13)
[2019-09-07] MEDS ORDERED: LIDOCAINE 1% MPF 5 ML VIAL ONE (12:38)
[2019-09-07] MEDS ORDERED: propofoL 200 MG/20 ML VIAL IV ONE (12:38)
[2019-09-07] MEDS ORDERED: MIDAZOLAM HCL 2 MG/2 ML INJ ONE (12:38)
[2019-09-07] MEDS ORDERED: FENTANYL CITR 100 MCG/2 ML ONE (12:38)
[2019-09-07] MEDS ORDERED: KETOROLAC 30 MG/ML INJ ONE (13:29)
[2019-09-07] MEDS ORDERED: dexAMETHasone 10 MG/ML VIAL ONE (13:29)
[2019-09-07] MEDS ORDERED: ONDANSETRON 4 MG/2 ML VIAL ONE (13:33)
--- NOTE | 2019-09-07 13:34 | P.BOP ---
Preoperative diagnosis: left 5th toe gangrene Postoperative diagnosis: same Primary procedure: Amputation of left 5th toe Estimated blood loss: <10cc Specimen: toe Findings: as above Anesthesia: General Complications: None Transferred to: Recovery Room Condition: Good
--- NOTE | 2019-09-07 14:52 | OP ---
Date of Procedure: 09/07/2019 Surgeon: Himanshu Mckinley MD Preoperative Diagnoses: Left fifth toe gangrene, diabetes, peripheral vascular disease . Postoperative Diagnoses: Left fifth toe gangrene, diabetes, peripheral vascular disease . Procedure Performed: Amputation of left fifth toe. Anesthesia: General plus local. Indications: The is the case of a 59-year-old patient with an injury to the left toe while playing [place] [employer] with surfing. He thought it was going to be okay like in the past, but this developed int o this situation. He has history of diabetes. He states he is trying to control the best he can. D eveloped gangrene of the first toe, found to have peripheral vascular disease, it is foul smelling an d after discussing the pros and cons of amputation, consent was obtained. The benefits, alternatives , and risks, were explained, which include, but not limited to infection, bleeding, damage to adjacen t structures, anesthesia complication, nonhealing wound, MS and even . He also understands this may not relieve any symptoms, he might need more than one surgical intervention. He also understand s the importance of the a vascular evaluation. Although this cannot save his fifth toe, it is import ant for proper healing and also to save the foot. In addition to that, also may put him in a situati on where he be prepared and has some reserve in case a minor accident like this happened, he does not have to lose a limb for that. He understood the importance of it and the moment we are concerned th at if he does remove this toe, he is going to go septic and then threaten his life. That is why we d id this emergently. Once he has realized that and signed a consent. Description Of Procedure: The patient was brought to the operating room, placed in supine position. Anesthesia was done without complication. Left foot was prepped and draped in sterile fashion. A t mary-out was called. A delineation was done of the skin over the area of the amputation. An incision was carried with a knife. The toe up to metatarsophalangeal joint was removed. Cartilage edges wer e excoriated. The area was irrigated. Hemostasis obtained with the help of chromic and pressure. P rofuse irrigation was done over the area. We noticed that during the entire case minimal bleeding if any at all. The area was packed with wet-to-dry dressing in the form of Nu Gauze. The patient tole rated the procedure well. Patient sent to recovery in stable condition. JASE/MODL Voice ID: [id number] Report ID: [id number]
[2019-09-07] MEDS ORDERED: INSULIN GLARGINE 100 UNITS/ML SQ SCH (21:00)
[2019-09-08] MEDS: HEPARIN 5000 UNIT/ML 1 ML VIAL SQ SCH ×3 (00:15→17:53)
[2019-09-08] MEDS: MORPHINE 4 MG/ML SYR IV PRN ×6 (00:15→23:37)
[2019-09-08] MEDS: NA CHLORIDE 0.9% 1,000 ML IV SCH ×2 (00:20→14:12)
[2019-09-08] MEDS: Levofloxacin 750mg IV 750 MG/150 ML BAG IV SCH (04:15)
[2019-09-08] MEDS: VANCOMYCIN 1.5 GM in NA CHLORIDE 0.9% 500 ML IVPB SCH ×2 (04:18→23:40)
[2019-09-08 06:09] LABS: Absolute Lymphocytes (CBC) 0.7 K/uL (0.7-4.9); Basophils % 0.1 % (0-1.3); Hematocrit 41.3 % (39.6-49.0); Lymphocytes % 8.8 % (15.3-44.8); MPV 8.2 fL (7.6-11.3); RBC Red Blood Cell Count 4.51 M/uL (4.33-5.43)
[2019-09-08 06:22] LABS: Potassium 4.5 mmol/L (3.5-5.1)
--- NOTE | 2019-09-08 08:38 | P.PN ---
Subjective Date of Service: 09/08/19 Chief Complaint: Left 5th toe wound Status post left 5th toe amputation yesterday. Patient states his pain is well controlled with the current dose of morphine. No fever. Physical Examination - Vital Signs Temperature: 98.3 F Blood Pressure: 140/78 Pulse: 73 Respirations: 18 Pulse Ox (%): 97 - Physical Exam General: Alert, In no apparent distress Respiratory: Clear to auscultation bilaterally, Normal air movement Cardiovascular: No edema, Regular rate/rhythm, Normal S1 S2 Gastrointestinal: Normal bowel sounds, Soft and benign, No tenderness Musculoskeletal: Other (Dressed left foot.) Neurological: Normal speech, Normal strength at 5/5 x4 extr Assessment And Plan - Current Problems (Diagnosis) (1) Gangrene of toe of left foot Current Visit: Yes Status: Acute (2) Diabetes mellitus type 2 in nonobese Current Visit: Yes Status: Acute (3) Peripheral vascular disease Current Visit: Yes Status: Acute - Plan Discuss with Dr. Mckinley antibiotic therapy and follow-up plans Continue current antibiotics. Follow tissue culture. Vascular surgery evaluation and intervention for the left posterior tibial artery occlusion as soon as possible. Obtain arterial Doppler of the right lower extremity. Wound care per Dr. Mckinley. Pain management as needed Blood glucose within acceptable range. Continue Lantus insulin and insulin sliding scale.
[2019-09-08] MEDS ORDERED: PREGABALIN PO SCH (09:00)
[2019-09-08] MEDS ORDERED: HOME MED 1 EA UNK (Lisinopril/Hydrochlorothiazide [Lisinopril-Hctz 20-12.5 Mg Tab] 1 TAB) PO SCH (09:00)
[2019-09-08] MEDS: INSULIN GLARGINE 100 UNITS/ML SQ SCH ×2 (09:29→20:39)
[2019-09-08] MEDS: INSULIN -REGULAR HUMAN 50 UNIT/0.5 ML ML SQ SCH ×4 (09:30→20:38)
[2019-09-08 10:33] LABS: Blood Morphology Comment NOT SEEN (NOT SEEN); Platelet Estimate DECR; Urine White Blood Cell Casts OK
[2019-09-08] MEDS: ATORVASTATIN 10 MG TAB PO SCH (20:29)
[2019-09-08] MEDS: PREGABALIN 150 MG CAP PO SCH (20:29)
[2019-09-08] MEDS: ZOLPIDEM TARTRATE 10 MG TABLET PO PRN (20:41)
--- NOTE | 2019-09-08 21:08 | RAD REPORT ---
EXAM DESCRIPTION: US - Lower Extremity Artery Uni Ltd - 09/08/2019 8:35 pm CLINICAL HISTORY: poor circulation COMPARISON: No comparisons TECHNIQUE: Doppler evaluation of the right lower extremity arterial tree performed. Waveforms and ve locity values were obtained along with visual inspection. FINDINGS: Triphasic waveform pattern seen in the right common femoral, superficial femoral and popli teal arteries. Biphasic waveform seen at the posterior tibial and dorsalis pedis arteries. No occlusi on or focal flow restricting lesion identified. Atherosclerotic changes are seen along the becerra of t he right leg arterial tree. IMPRESSION: Mild right lower extremity peripheral vascular disease. No occlusion or focal flow restr icting lesion.
[2019-09-09] MEDS: HEPARIN 5000 UNIT/ML 1 ML VIAL SQ SCH ×3 (01:30→17:24)
[2019-09-09] MEDS: Levofloxacin 750mg IV 750 MG/150 ML BAG IV SCH (04:29)
[2019-09-09] MEDS: FENTANYL CITR 100 MCG/2 ML IV PRN ×5 (04:30→22:34)
[2019-09-09] MEDS: NA CHLORIDE 0.9% 1,000 ML IV SCH ×3 (05:25→21:59)
[2019-09-09 06:35] LABS: Potassium 3.9 mmol/L (3.5-5.1)
--- NOTE | 2019-09-09 08:38 | P.PN ---
Subjective Date of Service: 09/09/19 Chief Complaint: Left 5th toe wound Patient has no complaint except occasional pain in his amputation area. Arterial Doppler of the right lower extremity shows mild peripheral vascular disease. Physical Examination - Vital Signs Temperature: 97.8 F Blood Pressure: 122/67 Pulse: 64 Respirations: 16 Pulse Ox (%): 97 - Physical Exam General: Alert, In no apparent distress Respiratory: Clear to auscultation bilaterally, Normal air movement Cardiovascular: No edema, Regular rate/rhythm, Normal S1 S2 Gastrointestinal: Normal bowel sounds, Soft and benign, No tenderness Musculoskeletal: Other (left foot dressed.) Neurological: Other (Nonfocal.) Assessment And Plan - Current Problems (Diagnosis) (1) Gangrene of toe of left foot Current Visit: Yes Status: Acute (2) Diabetes mellitus type 2 in nonobese Current Visit: Yes Status: Acute (3) Peripheral vascular disease Current Visit: Yes Status: Acute - Plan Discuss with Dr. Mckinley antibiotic therapy and follow-up plans Continue current antibiotics. Wound culture is growing Pseudomonas and Klebsiella sensitive to fluoroquin olones. Vascular surgery evaluation and intervention for the left posterior tibial artery occlusion as soon as possible. Wound care per Dr. Mckinley. Pain management as needed Continue Lantus insulin and insulin sliding scale.
[2019-09-09] MEDS: INSULIN -REGULAR HUMAN 50 UNIT/0.5 ML ML SQ SCH ×4 (08:44→20:58)
[2019-09-09] MEDS: hydroCHLOROthiazide 12.5 MG CAP PO SCH (08:45)
[2019-09-09] MEDS: lisinopriL 20 MG TAB PO SCH (08:45)
[2019-09-09] MEDS: PREGABALIN 150 MG CAP PO SCH ×2 (08:46→20:58)
[2019-09-09] MEDS: INSULIN GLARGINE 100 UNITS/ML SQ SCH ×2 (08:46→20:59)
[2019-09-09] MEDS ORDERED: POTASSIUM CL SA 10 MEQ TAB PO ONE (09:00)
[2019-09-09] MEDS ORDERED: ONDANSETRON 4 MG/2 ML VIAL IV PRN (12:09)
[2019-09-09] MEDS: VANCOMYCIN 1.5 GM in NA CHLORIDE 0.9% 500 ML IVPB SCH (17:24)
[2019-09-09] MEDS: ZOLPIDEM TARTRATE 10 MG TABLET PO PRN (20:58)
[2019-09-09] MEDS: ATORVASTATIN 10 MG TAB PO SCH (20:58)
[2019-09-10] MEDS: HEPARIN 5000 UNIT/ML 1 ML VIAL SQ SCH ×3 (00:41→16:01)
[2019-09-10] MEDS: Levofloxacin 750mg IV 750 MG/150 ML BAG IV SCH (03:22)
[2019-09-10] MEDS: FENTANYL CITR 100 MCG/2 ML IV PRN ×4 (05:05→18:43)
[2019-09-10] MEDS: NA CHLORIDE 0.9% 1,000 ML IV SCH ×3 (05:08→21:09)
[2019-09-10 06:49] LABS: Potassium 4.1 mmol/L (3.5-5.1)
[2019-09-10] MEDS: INSULIN -REGULAR HUMAN 50 UNIT/0.5 ML ML SQ SCH ×4 (07:30→20:59)
[2019-09-10] MEDS: PREGABALIN 150 MG CAP PO SCH ×2 (08:10→20:58)
[2019-09-10] MEDS: hydroCHLOROthiazide 12.5 MG CAP PO SCH (08:10)
[2019-09-10] MEDS: lisinopriL 20 MG TAB PO SCH (08:10)
[2019-09-10] MEDS: INSULIN GLARGINE 100 UNITS/ML SQ SCH ×2 (08:11→20:59)
[2019-09-10] MEDS: VANCOMYCIN 1.5 GM in NA CHLORIDE 0.9% 500 ML IVPB SCH (11:00)
[2019-09-10] MEDS: ACETAMINOPHEN 500 MG TAB PO PRN (11:52)
--- NOTE | 2019-09-10 13:21 | P.CNS ---
Date of Consult: 09/10/19 Subjective: The patient is a 59-year-old male with history of diabetes mellitus who presented to the ED where left 5th toe wound which has progressively gotten worse over the past week. Patient found to have gangrene to his left 5th toe which I have been consulted for. Patient examined at bedside. Patient reports going surfing and scraping his toe on his surf board. Patient was seen in the ED and was prescribed doxycycline with no relief. Patient is s/p left foot 5th toe amputation on 09/06. Past medical/surgical history: Diabetes mellitus type 2 Family history: Not contributory Social history: Reports dipping tobacco daily, denies cigarette smoking, denies alcohol use Allergies No Known Allergies Allergy (Unverified 06/06/16 02:11) Active Medications Acetaminophen (Tylenol -Extra Strength) 500 mg PO Q4HP PRN PRN Reason: TEMP > 100' F Stop: 10/06/19 02:13 Last Admin: 09/10/19 11:52 Dose: 500 mg Documented by: Atorvastatin Calcium (Lipitor) 10 mg PO BEDTIME JELLY Stop: 10/08/19 21:01 Last Admin: 09/09/19 20:58 Dose: 10 mg Documented by: Dextrose (Dextrose 50% Syringe/Vial) 12.5 gm IV PRN PRN; Protocol PRN Reason: HYPOGLYCEMIA Stop: 10/07/19 09:54 Fentanyl Citrate (Sublimaze) 25 mcg IV Q4H PRN PRN Reason: Pain scale 8-10 (Severe) Stop: 10/09/19 03:27 Last Admin: 09/10/19 09:40 Dose: 25 mcg Documented by: Glucagon (Glucagen) 1 mg IM 1X PRN; Protocol PRN Reason: HYPOGLYCEMIA Stop: 10/07/19 09:54 Heparin Sodium (Porcine) (Heparin 5,000 Units/Ml) 5,000 unit SQ Q8HR JELLY Stop: 10/06/19 02:13 Last Admin: 09/10/19 08:11 Dose: 5,000 unit Documented by: Hydrochlorothiazide (Hydrochlorothiazide) 12.5 mg PO DAILY JELLY Stop: 10/09/19 09:01 Last Admin: 09/10/19 08:10 Dose: 12.5 mg Documented by: Levofloxacin/Dextrose (Levaquin 750 Mg/150 Ml Ivpb (Premix)) 750 mg in 150 mls @ 100 mls/hr IV Q24H [facility]; Protocol Stop: 10/06/19 04:01 Last Admin: 09/10/19 03:22 Dose: 150 mls Documented by: Vancomycin HCl 1.5 gm/ Sodium (Chloride) 500 mls @ 250 mls/hr IVPB Q18H [facility] Stop: 10/06/19 17:01 Last Admin: 09/10/19 11:00 Dose: 500 mls Documented by: Sodium Chloride (Ns 1000 Ml Ivbag) 1,000 mls @ 75 mls/hr IV .[id number] [facility] Stop: 10/09/19 08:40 Last Admin: 09/10/19 11:19 Dose: Not Given Documented by: Insulin Glargine (Lantus) 15 units SQ BID [facility] Stop: 10/08/19 09:01 Last Admin: 09/10/19 08:11 Dose: 15 units Documented by: Insulin Human Regular (Novolin -R) 0 unit SQ ACHS [facility]; Protocol Stop: 10/06/19 07:31 Last Admin: 09/10/19 11:30 Dose: Not Given Documented by: Lisinopril (Prinivil) 20 mg PO DAILY [facility] Stop: 10/09/19 09:01 Last Admin: 09/10/19 08:10 Dose: 20 mg Documented by: Ondansetron HCl (Zofran) 4 mg IV TID PRN PRN Reason: NAUSEA / VOMITING Stop: 10/09/19 14:01 Last Admin: 09/09/19 12:16 Dose: 4 mg Documented by: Pregabalin (Lyrica) 300 mg PO BID [facility] Stop: 10/08/19 21:01 Last Admin: 09/10/19 08:10 Dose: 300 mg Documented by: Sodium Chloride (Normal Saline Flush) 10 ml IV BID [facility] Stop: 10/06/19 09:01 Last Admin: 09/10/19 08:10 Dose: 10 ml Documented by: Zolpidem Tartrate (Ambien) 10 mg PO BEDTIME PRN PRN PRN Reason: INSOMNIA Stop: 10/08/19 18:36 Last Admin: 09/09/19 20:58 Dose: 10 mg Documented by: ROS: CV: Denies chest pain RESP: denies shortness of breath, denies cough : Denies dysuria GI: Reports nauseated yesterday that has resolved, denies diarrhea Extremities: Reports burning/warmth that runs down bilateral legs Objective: Temp Pulse Resp BP Pulse Ox 97.1 F 70 16 155/81 H 96 09/10/19 12:00 09/10/19 12:00 09/10/19 12:00 09/10/19 12:00 09/10/19 12:00 Labs: Sodium 144, potassium 4.1, BUN 17, creatinine 0.97, WBCs 8.2, hemoglobin 14.3, hematocrit 41.3, platelets 110 Right foot xray 09/04: EXAM DESCRIPTION: RAD - Foot Left 3 View - 09/05/2019 10:31 pm CLINICAL HISTORY: Left Foot pain FINDINGS: No fracture or dislocation is seen. Osteoporosis. Vascular calcifications. No bony destructive lesions seen Left lower extremity doppler 09/05: EXAM DESCRIPTION: US - Lower Extremity Artery Uni Ltd - 09/06/2019 8:02 pm CLINICAL HISTORY: Gangrene of left 5th toe. Leg pain COMPARISON: No comparisons FINDINGS: The left common femoral artery, superficial femoral artery, popliteal artery appear triphasic to biphasic. Heavy atheromatous calcification is seen left posterior tibial artery with very little visible flow suggesting near occlusion. Left dorsalis pedis artery was not well seen. IMPRESSION: Significant atherosclerosis with near occlusion noted left posterior tibial artery. Right lower extremity doppler 09/07: EXAM DESCRIPTION: US - Lower Extremity Artery Uni Ltd - 09/08/2019 8:35 pm CLINICAL HISTORY: poor circulation COMPARISON: No comparisons TECHNIQUE: Doppler evaluation of the right lower extremity arterial tree performed. Waveforms and velocity values were obtained along with visual inspection. FINDINGS: Triphasic waveform pattern seen in the right common femoral, superf icial femoral and popliteal arteries. Biphasic waveform seen at the posterior tibial and dorsalis pedis arteries. No occlusion or focal flow restricting lesion identified. Atherosclerotic changes are seen along the becerra of the right leg arterial tree. IMPRESSION: Mild right lower extremity peripheral vascular disease. No occlusion or focal flow restricting lesion. ROS: General: Awake, alert, oriented CV: S1, S2 RESP: Good breath sounds ABD: nontender, bowel sounds present Extremities: No edema Skin: Left foot 5th toe s/p amputation, wound bed with granulation tissue, mohini area with maceration Assessment and plan: Gangrene left foot 5th toe, S/P amputation 09/06 Wound cultures positive for Pseudomonas and Klebsiella Blood cultures show no growth to date PVD, needs vascular intervention Diabetes mellitus, monitor glycemic control Currently on Levaquin and Vancomycin Patient would benefit from LTAC facility for IV antibiotics, wound management and Vascular intervention Patient will need total of 2 weeks of antibiotics Will continue to monitor Thank you for consult Patient discussed with Dr. Lakhani
--- NOTE | 2019-09-10 18:42 | P.PN ---
Subjective Date of Service: 09/10/19 Chief Complaint: Left 5th toe wound Subjective: Improving Physical Examination - Vital Signs Temperature: 97.9 F Blood Pressure: 157/80 Pulse: 65 Respirations: 16 Pulse Ox (%): 93 - Physical Exam General: Alert HEENT: Atraumatic Neck: Supple Respiratory: Clear to auscultation bilaterally, Normal air movement Cardiovascular: Normal pulses, Regular rate/rhythm Gastrointestinal: Normal bowel sounds Neurological: Normal speech Assessment & Plan Discharge Plan: LTAC Plan to discharge in: 24 Hours Physician Review Additional Text: Impression: Left 5th toe gangrene status post amputation complicated with peripheral vascular disease Diabetes mellitus type 2 Plan: Continue current treatment plan. Wound culture positive for Pseudomonas, Klebsiella. Case discussed with infectious disease. The recommend long-term acute care facility placement with aggressive wound care and evaluation by cardiovascular surgery. Will pursue this. Continue with diabetes medication. Time Spent Managing Pts Care (In Minutes): 55
[2019-09-10] MEDS: ATORVASTATIN 10 MG TAB PO SCH (20:58)
[2019-09-10] MEDS: ZOLPIDEM TARTRATE 10 MG TABLET PO PRN (20:58)
[2019-09-11] MEDS: FENTANYL CITR 100 MCG/2 ML IV PRN ×6 (00:01→22:17)
[2019-09-11] MEDS: NA CHLORIDE 0.9% 1,000 ML IV SCH (00:10)
[2019-09-11] MEDS: Levofloxacin 750mg IV 750 MG/150 ML BAG IV SCH (04:01)
[2019-09-11] MEDS: VANCOMYCIN 1.5 GM in NA CHLORIDE 0.9% 500 ML IVPB SCH ×2 (05:38→22:13)
[2019-09-11] MEDS: INSULIN -REGULAR HUMAN 50 UNIT/0.5 ML ML SQ SCH ×4 (07:30→20:39)
[2019-09-11] MEDS: HEPARIN 5000 UNIT/ML 1 ML VIAL SQ SCH ×3 (09:13→16:18)
[2019-09-11] MEDS: INSULIN GLARGINE 100 UNITS/ML SQ SCH ×2 (09:13→20:37)
[2019-09-11] MEDS: hydroCHLOROthiazide 12.5 MG CAP PO SCH (09:13)
[2019-09-11] MEDS: PREGABALIN 150 MG CAP PO SCH ×2 (09:14→20:38)
[2019-09-11] MEDS: lisinopriL 20 MG TAB PO SCH ×2 (09:14→20:38)
--- NOTE | 2019-09-11 09:47 | P.PN ---
Date of Service: 09/11/19 Subjective: The patient is a 59-year-old male with history of diabetes mellitus who presented to the ED where left 5th toe wound which has progressively gotten worse over the past week. Patient found to have gangrene to his left 5th toe which I have been consulted for. Patient reports going surfing and scraping his toe on his surf board. Patient was seen in the ED and was prescribed doxycycline with no relief. Patient is s/p left foot 5th toe amputation on 09/06. Patient examined at bedside. Denies nausea, diarrhea, fevers. Patient to be transferred to LTAC facility for wound management, IV antibiotics and vascular intervention. Objective: Temp Pulse Resp BP Pulse Ox 97.4 F 66 18 182/91 H 96 09/11/19 08:00 09/11/19 08:00 09/11/19 08:00 09/11/19 08:00 09/11/19 08:00 Labs: No new labs available Right foot xray 09/04: EXAM DESCRIPTION: RAD - Foot Left 3 View - 09/05/2019 10:31 pm CLINICAL HISTORY: Left Foot pain FINDINGS: No fracture or dislocation is seen. Osteoporosis. Vascular calcifications. No bony destructive lesions seen Left lower extremity doppler 09/05: EXAM DESCRIPTION: US - Lower Extremity Artery [employer] - 09/06/2019 8:02 pm CLINICAL HISTORY: Gangrene of left 5th toe. Leg pain COMPARISON: No comparisons FINDINGS: The left common femoral artery, superficial femoral artery, popliteal artery appear triphasic to biphasic. Heavy atheromatous calcification is seen left posterior tibial artery with very little visible flow suggesting near occlusion. Left dorsalis pedis artery was not well seen. IMPRESSION: Significant atherosclerosis with near occlusion noted left posterior tibial artery. Right lower extremity doppler 09/07: EXAM DESCRIPTION: US - Lower Extremity Artery [employer] - 09/08/2019 8:35 pm CLINICAL HISTORY: poor circulation COMPARISON: No comparisons TECHNIQUE: Doppler evaluation of the right lower extremity arterial tree performed. Waveforms and velocity values were obtained along with visual inspection. FINDINGS: Triphasic waveform pattern seen in the right common femoral, superficial femoral and popliteal arteries. Biphasic waveform seen at the posterior tibial and dorsalis pedis arteries. No occlusion or focal flow restricting lesion identified. Atherosclerotic changes are seen along the becerra of the right leg arterial tree. IMPRESSION: Mild right lower extremity peripheral vascular disease. No occlusion or focal flow restricting lesion. ROS: General: Awake, alert, oriented CV: S1, S2 RESP: Good breath sounds ABD: nontender, bowel sounds present Extremities: No edema Skin: Left foot 5th toe with dressing CDI Assessment and plan: Gangrene left foot 5th toe, S/P amputation 09/06 Wound cultures positive for Pseudomonas and Klebsiella Blood cultures show no growth to date PVD, needs vascular intervention Diabetes mellitus, monitor glycemic control Currently on Levaquin and Vancomycin Patient would benefit from LTAC facility for IV antibiotics, wound management and Vascular intervention Patient will need total of 2 weeks of antibiotics Will continue to monitor Patient discussed with Dr. Lakhani
[2019-09-11] MEDS: ACETAMINOPHEN 500 MG TAB PO PRN (16:38)
--- NOTE | 2019-09-11 18:22 | P.PN ---
Subjective Date of Service: 09/11/19 Chief Complaint: Left 5th toe wound Subjective: Improving Physical Examination - Vital Signs Temperature: 97.3 F Blood Pressure: 185/87 Pulse: 62 Respirations: 18 Pulse Ox (%): 96 - Physical Exam General: Alert, Cooperative HEENT: Atraumatic Neck: Supple Respiratory: Clear to auscultation bilaterally, Normal air movement Cardiovascular: Normal pulses, Regular rate/rhythm Gastrointestinal: Normal bowel sounds Neurological: Normal speech - Studies Microbiology Data (last 24 hrs): 09/05/19 21:59 Blood - Blood Aerobic Blood Culture - Final No growth in 5 days. 09/05/19 21:59 Blood - Blood Anaerobic Blood Culture - Final No growth in 5 days. 09/05/19 21:40 Blood - Blood Aerobic Blood Culture - Final No growth in 5 days. 09/05/19 21:40 Blood - Blood Anaerobic Blood Culture - Final No growth in 5 days. Medications List Reviewed: Yes Assessment & Plan Discharge Plan: LTAC Plan to discharge in: 24 Hours Physician Review Additional Text: Impression: Left 5th toe gangrene status post amputation complicated with peripheral vascular disease Diabetes mellitus type 2 Plan: Continue current treatment plan. Wound culture positive for Pseudomonas, Klebsiella. Case discussed with infectious disease. They recommend long-term acute care facility placement with aggressive wound care and evaluation by cardiovascular surgery. Will pursue this. Continue with diabetes medication. Time Spent Managing Pts Care (In Minutes): 55
[2019-09-11] MEDS: ATORVASTATIN 10 MG TAB PO SCH (20:38)
[2019-09-12] MEDS: HEPARIN 5000 UNIT/ML 1 ML VIAL SQ SCH ×3 (00:36→17:34)
[2019-09-12] MEDS: Levofloxacin 750mg IV 750 MG/150 ML BAG IV SCH (03:17)
[2019-09-12] MEDS: FENTANYL CITR 100 MCG/2 ML IV PRN ×4 (04:35→20:45)
[2019-09-12] MEDS: INSULIN -REGULAR HUMAN 50 UNIT/0.5 ML ML SQ SCH ×4 (07:30→21:28)
[2019-09-12] MEDS ORDERED: TRAMADOL HCL 50 MG TAB PO PRN (07:45)
--- NOTE | 2019-09-12 08:34 | RAD REPORT ---
EXAM DESCRIPTION: RAD - Chest Single View - 09/12/2019 7:12 am CLINICAL HISTORY: Device placement PICC line placement IMPRESSION: PICC line with its tip in the proximal superior vena cava
[2019-09-12] MEDS: hydroCHLOROthiazide 12.5 MG CAP PO SCH (09:06)
[2019-09-12] MEDS: INSULIN GLARGINE 100 UNITS/ML SQ SCH ×2 (09:06→21:29)
[2019-09-12] MEDS: PREGABALIN 150 MG CAP PO SCH ×2 (09:07→20:46)
[2019-09-12] MEDS: lisinopriL 20 MG TAB PO SCH ×2 (09:07→20:53)
[2019-09-12] MEDS: HYDROCODONE/APAP 7.5/325 MG TAB PO PRN ×3 (09:07→23:36)
[2019-09-12] MEDS: SUMATRIPTAN SUCCI 50 MG TAB PO PRN ×2 (09:07→11:06)
--- NOTE | 2019-09-12 13:00 | P.PN ---
Date of Service: 09/12/19 Subjective: The patient is a 59-year-old male with history of diabetes mellitus who presented to the ED where left 5th toe wound which has progressively gotten worse over the past week. Patient found to have gangrene to his left 5th toe which I have been consulted for. Patient reports going surfing and scraping his toe on his surf board. Patient was seen in the ED and was prescribed doxycycline with no relief. Patient is s/p left foot 5th toe amputation on 09/06. Patient examined at bedside. Denies nausea, diarrhea, fevers. Patient to be transferred to [facility] facility for wound management, IV antibiotics and vascular intervention. Objective: Temp Pulse Resp BP Pulse Ox 96.1 F L 65 14 172/78 H 98 09/12/19 08:00 09/12/19 08:00 09/12/19 10:10 09/12/19 08:00 09/12/19 10:10 Labs: No new labs available Right foot xray 09/04: EXAM DESCRIPTION: RAD - Foot Left 3 View - 09/05/2019 10:31 pm CLINICAL HISTORY: Left Foot pain FINDINGS: No fracture or dislocation is seen. Osteoporosis. Vascular calcifications. No bony destructive lesions seen Left lower extremity doppler 09/05: EXAM DESCRIPTION: US - Lower Extremity Artery [employer] - 09/06/2019 8:02 pm CLINICAL HISTORY: Gangrene of left 5th toe. Leg pain COMPARISON: No comparisons FINDINGS: The left common femoral artery, superficial femoral artery, popliteal artery appear triphasic to biphasic. Heavy atheromatous calcification is seen left posterior tibial artery with very little visible flow suggesting near occlusion. Left dorsalis pedis artery was not well seen. IMPRESSION: Significant atherosclerosis with near occlusion noted left posterior tibial artery. Right lower extremity doppler 09/07: EXAM DESCRIPTION: US - Lower Extremity Artery [employer] - 09/08/2019 8:35 pm CLINICAL HISTORY: poor circulation COMPARISON: No comparisons TECHNIQUE: Doppler evaluation of the right lower extremity arterial tree performed. Waveforms and velocity values were obtained along with visual inspection. FINDINGS: Triphasic waveform pattern seen in the right common femoral, superficial femoral and popliteal arteries. Biphasic waveform seen at the posterior tibial and dorsalis pedis arteries. No occlusion or focal flow restricting lesion identified. Atherosclerotic changes are seen along the becerra of the right leg arterial tree. IMPRESSION: Mild right lower extremity peripheral vascular disease. No occlusion or focal flow restricting lesion. ROS: General: Awake, alert, oriented CV: S1, S2 RESP: Good breath sounds ABD: nontender, bowel sounds present Extremities: No edema Skin: Left foot 5th toe with dressing CDI Assessment and plan: Gangrene left foot 5th toe, S/P amputation 09/06 Wound cultures positive for Pseudomonas and Klebsiella Blood cultures show no growth to date PVD, needs vascular intervention Diabetes mellitus, monitor glycemic control Currently on Levaquin and Vancomycin, continue Patient will need total of 2 weeks of antibiotics Will continue to monitor Patient discussed with Dr. Lakhani
--- NOTE | 2019-09-12 13:59 | P.PN ---
Subjective Date of Service: 09/12/19 Chief Complaint: Left 5th toe wound Subjective: Improving, Doing well Physical Examination - Vital Signs Temperature: 96.1 F Blood Pressure: 172/78 Pulse: 65 Respirations: 14 Pulse Ox (%): 98 - Physical Exam General: Alert, In no apparent distress, Oriented x3, Cooperative HEENT: Atraumatic Neck: Supple Respiratory: Clear to auscultation bilaterally, Normal air movement Cardiovascular: Normal pulses, Regular rate/rhythm Integumentary: Other (Bandage to the left foot) - Studies Medications List Reviewed: Yes Assessment & Plan Discharge Plan: LTAC Plan to discharge in: 24 Hours Physician Review Additional Text: Impression: Left 5th toe gangrene status post amputation complicated with peripheral vascular disease, wound cultures positive for Pseudomonas aeruginosa, Klebsiella pneumoniae and Staph aureus Diabetes mellitus type 2 insulin-dependent Hypertension Hyperlipidemia History of migraine headache Diabetic neuropathy Plan: Left 5th toe gangrene status post amputation complicated with peripheral vascular disease, wound cultures positive for Pseudomonas aeruginosa, Klebsiella pneumoniae and Staph aureus: Continue with current treatment plan. This includes pursuing long-term acute care facility for aggressive wound care, IV antibiotic therapy and CV surgery evaluation for underlying PVD. Patient remains on Levaquin 750 mg IV daily and vancomycin 1.5 g IV every 18 hr. Pharmacy monitor and and adjusting antibiotic therapy. Patient was severe PVD. Patient likely requires angiogram and possible further intervention. This can be done at the long-term acute care facility. Case discussed with case management and social work. Awaiting approval. Diabetes mellitus type 2 insulin-dependent: Continue basal insulin. Will monitor and adjust appropriately. Hypertension: Continue lisinopril Hyperlipidemia: Continue medication History of migraine headache: Medication restarted Diabetic neuropathy: Continue pain medication Time Spent Managing Pts Care (In Minutes): 55
[2019-09-12] MEDS: VANCOMYCIN 1.5 GM in NA CHLORIDE 0.9% 500 ML IVPB SCH (17:00)
[2019-09-12] MEDS: VANCOMYCIN 1.75 GM in NA CHLORIDE 0.9% 500 ML IVPB SCH (17:34)
[2019-09-12] MEDS: ATORVASTATIN 10 MG TAB PO SCH (20:46)
[2019-09-12] MEDS: ZOLPIDEM TARTRATE 10 MG TABLET PO PRN (23:42)
[2019-09-13] MEDS: HEPARIN 5000 UNIT/ML 1 ML VIAL SQ SCH ×2 (00:38→08:56)
[2019-09-13] MEDS: SUMATRIPTAN SUCCI 50 MG TAB PO PRN ×2 (03:41→10:44)
[2019-09-13] MEDS: FENTANYL CITR 100 MCG/2 ML IV PRN ×2 (03:41→10:46)
[2019-09-13 03:56] VITALS: O2SAT 96
[2019-09-13] MEDS: Levofloxacin 750mg IV 750 MG/150 ML BAG IV SCH (04:53)
[2019-09-13] MEDS ORDERED: carisoprodoL 350 MG TAB PO PRN (07:27)
[2019-09-13] MEDS: INSULIN -REGULAR HUMAN 50 UNIT/0.5 ML ML SQ SCH ×2 (07:30→11:30)
[2019-09-13 08:48] VITALS: TEMP 96.5
[2019-09-13] MEDS: INSULIN GLARGINE 100 UNITS/ML SQ SCH (08:55)
[2019-09-13] MEDS: PREGABALIN 150 MG CAP PO SCH (08:56)
[2019-09-13] MEDS ORDERED: AMLODIPINE 5 MG TAB PO SCH (09:00)
[2019-09-13] MEDS ORDERED: lisinopriL 20 MG TAB PO SCH (09:00)
--- NOTE | 2019-09-13 09:03 | P.PN ---
Date of Service: 09/13/19 Subjective: The patient is a 59-year-old male with history of diabetes mellitus who presented to the ED where left 5th toe wound which has progressively gotten worse over the past week. Patient found to have gangrene to his left 5th toe which I have been consulted for. Patient reports going surfing and scraping his toe on his surf board. Patient was seen in the ED and was prescribed doxycycline with no relief. Patient is s/p left foot 5th toe amputation on 09/06. Patient examined at bedside. No new changes. Patient to be transferred to [facility] facility for wound management, IV antibiotics and vascular intervention. Objective: Temp Pulse Resp BP Pulse Ox 96.5 F L 61 18 142/81 H 99 09/13/19 08:00 09/13/19 08:00 09/13/19 08:00 09/13/19 08:00 09/13/19 08:00 Labs: No new labs available Right foot xray 09/04: EXAM DESCRIPTION: RAD - Foot Left 3 View - 09/05/2019 10:31 pm CLINICAL HISTORY: Left Foot pain FINDINGS: No fracture or dislocation is seen. Osteoporosis. Vascular calcifications. No bony destructive lesions seen Left lower extremity doppler 09/05: EXAM DESCRIPTION: US - Lower Extremity Artery [employer] - 09/06/2019 8:02 pm CLINICAL HISTORY: Gangrene of left 5th toe. Leg pain COMPARISON: No comparisons FINDINGS: The left common femoral artery, superficial femoral artery, popliteal artery appear triphasic to biphasic. Heavy atheromatous calcification is seen left posterior tibial artery with very little visible flow suggesting near occlusion. Left dorsalis pedis artery was not well seen. IMPRESSION: Significant atherosclerosis with near occlusion noted left posterior tibial artery. Right lower extremity doppler 09/07: EXAM DESCRIPTION: US - Lower Extremity Artery [employer] - 09/08/2019 8:35 pm CLINICAL HISTORY: poor circulation COMPARISON: No comparisons TECHNIQUE: Doppler evaluation of the right lower extremity arterial tree performed. Waveforms and velocity values were obtained along with visual inspection. FINDINGS: Triphasic waveform pattern seen in the right common femoral, superficial femoral and popliteal arteries. Biphasic waveform seen at the posterior tibial and dorsalis pedis arteries. No occlusion or focal flow restricting lesion identified. Atherosclerotic changes are seen along the becerra of the right leg arterial tree. IMPRESSION: Mild right lower extremity peripheral vascular disease. No occlusion or focal flow restricting lesion. ROS: General: Awake, alert, oriented CV: S1, S2 RESP: Good breath sounds ABD: nontender, bowel sounds present Extremities: No edema Skin: Left foot 5th toe with dressing CDI Assessment and plan: Gangrene left foot 5th toe, S/P amputation 09/06, continue to pack with iodoform daily Wound cultures positive for Pseudomonas and Klebsiella Blood cultures show no growth to date PVD, needs vascular intervention Diabetes mellitus, monitor glycemic control Currently on Levaquin and Vancomycin, continue Patient will need total of 2 weeks of antibiotics Will continue to monitor Patient discussed with Dr. Lakhani
[2019-09-13] MEDS: HYDROCODONE/APAP 7.5/325 MG TAB PO PRN (09:17)
--- NOTE | 2019-09-13 11:02 | P.DS ---
Admission Date: 09/06/19 Discharge Date: 09/13/19 Primary Care Provider: Dr. Lomas Disposition: [facility] Discharge Condition: GOOD Reason for Admission: Left 5th toe wound Consultations: Infectious disease-Dr. Lakhani Surgery-Dr. Mckinley Procedures: Foot Xray: FINDINGS: No fracture or dislocation is seen. Osteoporosis. Vascular calcifications. No bony destructive lesions seen Arterial doppler: FINDINGS: The left common femoral artery, superficial femoral artery, popliteal artery appear triphasic to biphasic. Heavy atheromatous calcification is seen left posterior tibial artery with very little visible flow suggesting near occlusion. Left dorsalis pedis artery was not well seen. IMPRESSION: Significant atherosclerosis with near occlusion noted left posterior tibial artery. Surgery: Date of Procedure: 09/07/2019 Surgeon: Himanshu Mckinley MD Preoperative Diagnoses: Left fifth toe gangrene, diabetes, peripheral vascular disease . Postoperative Diagnoses: Left fifth toe gangrene, diabetes, peripheral vascular disease . Procedure Performed: Amputation of left fifth toe. Anesthesia: General plus local. Medical Problem List: Left 5th toe gangrene status post amputation of left 5th toe complicated with peripheral vascular disease, wound cultures positive for Pseudomonas aeruginosa, Klebsiella pneumoniae and Staph aureus Peripheral vascular disease with near occlusion of left posterior tibial artery Diabetes mellitus type 2 insulin-dependent Hypertension Hyperlipidemia History of migraine headache Diabetic neuropathy Hyperlipidemia Brief History of Present Illness: 59-year-old male with history of hypertension, diabetes, diabetic neuropathy with worsening left 5th toe infection. Patient found to have gangrene. Patient admitted for further evaluation and treatment. Hospital Course: Patient presented with left 5th toe gangrene. Patient was admitted for IV antibiotic therapy and further evaluation. Patient was seen and evaluated by surgery. Surgical intervention was required. Amputation of the left 5th toe was done. Wound cultures were positive for Pseudomonas aeruginosa, Klebsiella pneumoniae, and Staph aureus. Patient found to have severe peripheral vascular disease with near occlusion of the left posterior tibial artery. Infectious Disease was also consulted for further recommendation. Infectious disease recommended IV antibiotic therapy for 2 more weeks. Long-term acute care facility placement was recommended as the patient can continue IV antibiotic therapy, wound care, and have a CV evaluation to address his significant PVD. Patient has been accepted to long-term acute care facility. Patient will continue with IV Levaquin 750 mg IV daily and vancomycin 1.75 g IV every 18 hr for total 2 weeks. Pharmacy to monitor and adjust medication per renal function. Further adjustment in medication can be done at the long-term acute care facility. Patient will continue with aggressive wound care. Patient will have CV evaluation there. Infectious Disease plans to follow up patient at the facility. Patient with diabetes mellitus type 2 insulin dependent. This has remained stable. At discharge patient will continue with Lantus 15 units subcu twice daily. Recommend to maintain blood sugar less than 140 fasting and less than 200 meals. This can be continued at the facility. Patient previously on Levemir with sliding scale. Further adjustment can be done at the facility. Patient with hypertension. Medications have been adjusted due to renal f unction. Patient will no longer take lisinopril/hydrochlorothiazide. Norvasc was added. Patient will continue with lisinopril 20 mg daily and Norvasc 5 mg 1 pill twice daily. Further adjustment may be required for better control. Recommend to monitor renal function closely. Patient with acute renal insufficiency. Patient on antibiotic therapy and CALEB- inhibitor. Recommend to monitor this closely. Antibiotics will need to be adjusted per renal function. Patient may require further nephrology evaluation if this worsens. Will need to rule out chronic renal disease if this worsens. Patient with history of migraine headaches. Patient may continue with sumatriptan as needed. Patient with chronic pain and diabetic neuropathy. At discharge he will continue with Lyrica 300 mg 1 pill twice daily and Soma 300 mg 3 times a day as needed for muscle spasm. Patient with hyperlipidemia. At discharge patient will continue with Zocor. Vital Signs/Physical Exam: Temp Pulse Resp BP Pulse Ox 96.5 F L 61 19 142/81 H 95 09/13/19 08:00 09/13/19 08:56 09/13/19 10:46 09/13/19 08:56 09/13/19 10:46 General: Alert, In no apparent distress, Oriented x3, Cooperative HEENT: Atraumatic Neck: Supple Respiratory: Clear to auscultation bilaterally Cardiovascular: Normal pulses, Regular rate/rhythm Gastrointestinal: Normal bowel sounds, Soft and benign, Non-distended Musculoskeletal: Other (Bandages to the left foot noted) Neurological: Normal speech, Normal strength at 5/5 x4 extr, Normal tone, Normal affect Laboratory Data at Discharge: WBC 8.2 K/uL (4.3-10.9) D 09/08/19 04:10 Hgb 14.3 g/dL (13.6-17.9) 09/08/19 04:10 Hct 41.3 % (39.6-49.0) 09/08/19 04:10 Plt Count 110 K/uL (152-406) L 09/08/19 04:10 Sodium 144 mmol/L (136-145) 09/10/19 05:40 Potassium 4.1 mmol/L (3.5-5.1) 09/10/19 05:40 BUN 17 mg/dL (7-18) 09/10/19 05:40 Creatinine 1.46 mg/dL (0.55-1.3) H 09/12/19 16:00 Glucose 120 mg/dL (74-106) H 09/10/19 05:40 Phosphorus 3.0 mg/dL (2.5-4.9) 09/07/19 04:25 Magnesium 2.0 mg/dL (1.8-2.4) 09/07/19 04:25 Triglycerides 113 mg/dL (<150) 09/12/19 08:35 Cholesterol 157 mg/dL (<200) 09/12/19 08:35 HDL Cholesterol 46 mg/dL (40-60) 09/12/19 08:35 Cholesterol/HDL Ratio 3.41 09/12/19 08:35 Home Medications: Insulin Aspart [Novolog Flexpen] 5 units SQ BID 09/06/19 Insulin Detemir [Levemir Flextouch] 20 units SQ BID 09/06/19 Pregabalin 1 cap PO BID 09/06/19 Simvastatin 1 tab PO BEDTIME 09/06/19 Amlodipine [Norvasc*] 5 mg PO BID #60 tab 09/13/19 lisinopriL [Prinivil*] 20 mg PO DAILY #30 tab 09/13/19 New Medications: Amlodipine [Norvasc*] 5 mg PO BID #60 tab lisinopriL [Prinivil*] 20 mg PO DAILY #30 tab Patient Discharge Instructions: 1. Transfer to long-term acute care facility. 2. Patient presented with left 5th toe gangrene. Patient was admitted for IV antibiotic therapy and further evaluation. Patient was seen and evaluated by surgery. Surgical intervention was required. Amputation of the left 5th toe was done. Wound cultures were positive for Pseudomonas aeruginosa, Klebsiella pneumoniae, and Staph aureus. Patient found to have severe peripheral vascular disease with near occlusion of the left posterior tibial artery. Infectious Disease was also consulted for further recommendation. Infectious disease recommended IV antibiotic therapy for 2 more weeks. Long-term acute care facility placement was recommended as the patient can continue IV antibiotic therapy, wound care, and have a CV evaluation to address his significant PVD. Patient has been accepted to [facility] facility. Patient will continue with IV Levaquin 750 mg IV daily and vancomycin 1.75 g IV every 18 hr for total 2 weeks. Pharmacy to monitor and adjust medication per renal function. Further adjustment in medication can be done at the long-term [facility] care facility. Patient will continue with aggressive wound care. Patient will have CV evaluation there. Infectious Disease plans to follow up patient at the facility. 3. Patient with diabetes mellitus type 2 insulin dependent. This has remained stable. At discharge patient will continue with Lantus 15 units subcu twice daily. Recommend to maintain blood sugar less than 140 fasting and less than 200 meals. This can be continued at the facility. Patient previously on Levemir with sliding scale. Further adjustment can be done at the facility. 4. Patient with hypertension. Medications have been adjusted due to renal function. Patient will no longer take lisinopril/hydrochlorothiazide. Norvasc was added. Patient will continue with lisinopril 20 mg daily and Norvasc 5 mg 1 pill twice daily. Further adjustment may be required for better control. Recommend to monitor renal function closely. 5. Patient with acute renal insufficiency. Patient on antibiotic therapy and CALEB-inhibitor. Recommend to monitor this closely. Antibiotics will need to be adjusted per renal function. Patient may require further nephrology evaluation if this worsens. Will need to rule out chronic renal disease if this worsens. 6. Patient with history of migraine headaches. Patient may continue with sumatriptan as needed. 7. Patient with chronic pain and diabetic neuropathy. At discharge he will continue with Lyrica 300 mg 1 pill twice daily and Soma 300 mg 3 times a day as needed for muscle spasm. 8. Patient with hyperlipidemia. At discharge patient will continue with Zocor. Diet: ADA Activity: Fall precautions Time spent managing pt's care (in minutes): 55
[2019-09-13] MEDS: VANCOMYCIN 1.75 GM in NA CHLORIDE 0.9% 500 ML IVPB SCH (11:38)
[2019-09-13 14:43] VITALS: BP 142/72
== END 2019-09-13 15:09 | DRG 256 ==
LOC: ER 19:51 → ERHOLD 09-06 00:35 → 2ND 09-06 02:25
PROVIDERS: ADMIT Internal Medicine; ATTEND Family Medicine
PROC: 0Y6Y0Z0 Detachment at Left 5th Toe, Complete, Open Approach (ICD-10-PCS; principal; 2019-09-07 12:30)
PROC: 02HV33Z Insertion of Infusion Device into Superior Vena Cava, Percutaneous Approach (ICD-10-PCS; 2019-09-12)
DX: E11.52 Type 2 diabetes mellitus with diabetic peripheral angiopathy with gangrene (principal); I96 Gangrene, not elsewhere classified; B96.1 Klebsiella pneumoniae [K. pneumoniae] as the cause of diseases classified elsewhere; B96.5 Pseudomonas (aeruginosa) (mallei) (pseudomallei) as the cause of diseases classified elsewhere; B95.61 Methicillin susceptible Staphylococcus aureus infection as the cause of diseases classified elsewhere; I10 Essential (primary) hypertension; E78.5 Hyperlipidemia, unspecified; E11.40 Type 2 diabetes mellitus with diabetic neuropathy, unspecified; F17.290 Nicotine dependence, other tobacco product, uncomplicated; I70.8 Atherosclerosis of other arteries; L03.032 Cellulitis of left toe; N28.9 Disorder of kidney and ureter, unspecified; G89.29 Other chronic pain; Z79.899 Other long term (current) drug therapy; Z11.59 Encounter for screening for other viral diseases; Z79.4 Long term (current) use of insulin
CPT/HCPCS: 36415; 36569; 71045; 80048; 80061; 80202; 81003; 81015; 82565; 82947; 83735; 84100; 84145; 85025; 87040; 87070; 87077; 87186; 87205; 88305; 93926; 97161; 99285; J1100; J1644; J1815; J2250; J2270; J2405; J2543; J2704; J3010; J3370; J7030; J7040; J7050; U0002

== ENCOUNTER 2020-03-14 14:18 | Inpatient (IN) | payer OTHER ==
--- OUTSIDE RECORDS SUMMARY | 2020-03-14 14:59 | XMS REPORT | Summary of Care ---
:1960 Author Organization [facility] Address [address] [place] [address] Care Team Providers Name Role Phone MD Hector Primary Care Provider Reason for Visit Reason Comments Refill Request Encounter Details Date Type Department Care Team Description 12/25/2019 Refill [facility] Family Medicine Melecio Hamilton MD Refill Request - [address] [place] [address] [place] [address] [phone] Allergies Active Allergy Reactions Severity Noted Date Comments Meperidine Hallucinations Medium 07/17/2015 documented as of this encounter (statuses as of 12/25/2019) Medications Medication Sig Dispensed Refills Start Date End Date Status albuterol 90 Inhale 2 Puffs 8.5 g 1 09/23/2016 A ctive mcg/actuation every 6 (six) hours inhaler as needed for Wheezing or Shortness of Breath. insulin aspart U-100 INJECT 30 UNITS 15 [...] with long-term current use of insulin insulin glargine inject 20 Units 0 Active (LANTUS U-100 under the skin INSULIN) 100 unit/mL every 12 (twelve) injection hours. insulin lispro, inject 5 Units 0 Active human, 100 unit/mL under the skin 2 injection (two) times daily before breakfast and dinner. carisoprodoL 350 mg TAKE ONE TABLET BY 120 tablet 10/31/2019 Active tabletIndications: MOUTH 4 TIMES DAILY Chronic back pain, unspecified back location, unspecified back pain laterality atorvastatin 10 mg Take 1 tablet by 30 tablet 10/31/2019 Active tabletIndications: mouth at bedtime. Mixed hyperlipidemia clopidogreL 75 mg Take 1 tablet by 90 tablet 10/31/2019 Active tabletIndications: mouth daily. Type 2 diabetes mellitus without complication, with long-term current use of insulin amLODIPine 5 mg Take 1 tablet by 30 tablet 10/31/2019 Active tabletIndications: mouth 2 (two) times Essential daily. hypertension DULoxetine 60 mg Take 1 capsule by 30 capsule 10/31/2019 Active capsuleIndications: mouth daily. Idiopathic peripheral neuropathy metFORMIN 1,000 mg TAKE 1 TABLET BY 60 tablet 10/31/2019 Active tabletIndications: MOUTH EVERY 12 Type 2 diabetes HOURS mellitus without complication, with long-term current use of insulin lisinopriL-hydrochlo Take 1 tablet by 90 tablet 10/31/2019 Active rothiazide 20-12.5 mouth daily. mg per tabletIndications: Essential hypertension pregabalin (LYRICA) Take 1 capsule by 60 capsule 10/31/2019 Active 300 mg mouth 2 (two) times capsuleIndications: daily. Idiopathic peripheral neuropathy sumatriptan 100 mg Take 1 tablet by 9 tablet 10/31/2019 Active tabletIndications: mouth as needed for Other migraine Migraine. without status migrainosus, not intractable meloxicam 15 mg TAKE 1 TABLET BY 30 tablet 10/31/2019 Active tabletIndications: MOUTH EVERY DAY Chronic neck pain NEEDED cefUROXime 500 mg Take 1 tablet by 20 tablet 0 10/31/2019 Active tabletIndications: mouth 2 (two) times Chronic maxillary daily. sinusitis HYDROcodone-acetamin Take 1 tablet by 120 tablet 0 11/27/2019 Active ophen 10-325 mg mouth every 6 (six) tabletIndications: hours as needed for chronic pain Pain (scale 4-6). Indications: chronic pain DEXTROAMPHETAMINE-AM TAKE ONE TABLET BY 60 tablet 0 12/05/2019 Active PHETAMINE 30 mg MOUTH TWICE DAILY tabletIndications: Attention deficit disorder, unspecified hyperactivity presence zolpidem 10 mg TAKE 1 TABLET BY 90 tablet 1 12/05/2019 Active tabletIndications: MOUTH AT BEDTIME Insomnia, unspecified type famotidine 20 mg Take 1 tablet by 60 tablet 3 12/05/2019 Active tabletIndications: mouth 2 (two) times Idiopathic daily. peripheral neuropathy testosterone 1 mL by 0 10/30/2019 Active cypionate 200 mg/mL Intramuscular route injection every 2 (two) weeks. LEVEMIR FLEXTOUCH INJECT 30 UNITS 45 Syringe 0 12/10/2019 Active U-100 INSULN 100 UNDER THE SKIN unit/mL (3 mL) TWICE DAILY injectionIndications : Type 2 diabetes mellitus with diabetic neuropathy, with long-term current use of insulin documented as of this encounter (statuses as of 12/25/2019) Active Problems Problem Noted Date Insomnia, unspecified type 03/22/2016 Intractable migraine with status migrainosus 6 Hypertension 09/14/2015 Other migraine without status migrainosus, not intract able 07/01/2015 Type 2 diabetes mellitus without complication 07/01/19 16 Essential hypertension 07/01/2015 Hyperlipidemia 07/01/2015 Chronic neck pain 07/01/2015 Hypogonadism in male 07/01/2015 Diabetes mellitus Peripheral neuropathy documented as of this encounter (statuses as of 12/25/2019) Immunizations Name Administration Dates Next Due Influenza Virus Vaccine Recomb Quad IM, Preserv and ABX 10/30 Free 18-64 YRS Pneumococcal Polysaccharide, PPSV23 (PNEUMOVAX) 11/24/2019 TDAP 11/26/2019 documented as of this encounter Social History Tobacco Use Types Packs/Day Years Used Date Never Smoker Smokeless Tobacco: Never Used Alcohol Use Drinks/Week oz/Week Comments No 0 Standard drinks or equivalent 0.0 Sex Assigned at Date Recorded Not on file documented as of this encounter Last Filed Vital Signs Not on filedocumented in this encounter Plan of Treatment Date Type Specialty Care Team Description 01/30/2020 Office Visit Family Medicine Melecio Young MD [address] [place] [address] [phone] Health Maintenance Due Date Last Done Comments HEPATITIS C (HCV) SCREEN 1960 EYE EXAM 1969 Depression Screening 1971 FOOT EXAM 1977 COLON CANCER SCREENING 2009 ANNUAL FIT/FOBT COLON CANCER SCREENING FIT 2009 DNA EVERY 3 YEARS COLON CANCER SCREENING 2009 SIGMOIDOSCOPY EVERY 5 YEARS COLONOSCOPY 2009 Colorectal Cancer Screening 2009 Zoster Recombinant Vaccine 2009 (SHINGRIX) (1 of 2) URINE MICROALBUMIN 07/03/2016 07/04/2015 HgA1C 12/12/2019 06/12/2019, 03/23/2016, 07/04/2015 CREATININE (SERUM) 06/11/2020 06/12/2019, 03/23/2016, 09/15/2015, Additional history exists LDL-C 06/11/2020 06/12/2019, 03/23/2016, 07/04/2015 DTaP,Tdap,and Td Vaccines (2 11/25/2029 11/26/2019 - Td) INFLUENZA VACCINE Completed 11/24/2019 PNEUMOCOCCAL 0-64 YEARS Aged Out 11/24/2019 No longe r eligible COMBINED SERIES based on patient 's age to complete this topic documented as of this encounter Results Not on filedocumented in this encounter Insurance Payer Benefit Plan / Subscriber ID Effective Dates Phone Addre ss Type Group HIM AMBETTER FROM HIM AMBETTER FROM [id number] 2019-Present PPO [facility] documented as of this encounter
--- OUTSIDE RECORDS SUMMARY | 2020-03-14 14:59 | XMS REPORT | Summary of Care ---
:1960 Author Organization [facility] Address [address] [place] [address] Care Team Providers Name Role Phone MD Hector Primary Care Provider Reason for Visit Reason Comments Authorization Encounter Details Date Type Department Care Team Description 12/14/2019 Telephone [facility] Family Con Young MD Authorization Medicine - [address] [place] [address] [place] [address] [phone] Allergies Active Allergy Reactions Severity Noted Date Comments Meperidine Hallucinations Medium 07/17/2015 documented as of this encounter (statuses as of 12/18/2019) Medications Medication Sig Dispensed Refills Start Date [...] mg TAKE ONE TABLET BY 120 tablet 5 10/31/2019 Active tabletIndications: MOUTH 4 TIMES DAILY Chronic back pain, unspecified back location, unspecified back pain laterality atorvastatin 10 mg Take 1 tablet by 30 tablet 5 10/31/2019 Active tabletIndications: mouth at bedtime. Mixed [...] TAKE 1 TABLET BY 30 tablet 5 10/31/2019 Active tabletIndications: MOUTH EVERY DAY Chronic [...] as of this encounter (statuses as of 12/18/2019) Active Problems Problem Noted Date Insomnia, unspecified type 03/22/2016 Intractable migraine with status migrainosus 6 Hypertension 09/14/2015 Other migraine without status migrainosus, not intract able 07/01/2015 Type 2 diabetes mellitus without complication 07/01/19 16 Essential hypertension 07/01/2015 Hyperlipidemia 07/01/2015 Chronic neck pain 07/01/2015 Hypogonadism in male 07/01/2015 Diabetes mellitus Peripheral neuropathy documented as of this encounter (statuses as of 12/18/2019) Immunizations Name Administration Dates Next Due Influenza [...] Signs Not on filedocumented in this encounter Miscellaneous Notes Telephone Encounter - Rosangela Parson LVN - 12/18/2019 7:26 AM CDTPRIOR AUTHORIZATION WAS SENT TO PLAN ON THIS DATE, WILL NOTIFY PATIENT & PHARMACY ONCE REPLY IS RECEIVED. Rosangela Parson LVN elephone Encounter - Rosangela Parson LVN - 12/14/2019 11:03 AM CDTPA WILL BE SENT IN TIME PERMITS, ONCE WE HEAR BACK FROM INSURANCE (24 TO 72 HOURS USUALLY) WE WILL CONTACT PATIENT AND PHARMACY. elephone Encounter - Ariana Ling - 12/14/2019 10:43 AM CDTPA NEEDED: PREGABALIN 300MG [email or web address] ROACH:[id number] COMPLETE FORM AND SEND TO PLAN documented in this encounter Plan of Treatment Date Type Specialty Care Team Description 01/30/2020 Office Visit Family Medicine Melecio Young MD [address] [place] [address] [phone] Health Maintenance Due Date Last Done [...] Group HIM AMBETTER FROM HIM AMBETTER FROM [id number] 2019-Present [facility] documented as of this encounter
--- OUTSIDE RECORDS SUMMARY | 2020-03-14 14:59 | XMS REPORT | Continuity of Care Document ---
:[address] [facility] t Address [address] [place] [place] [address] Care Team Providers Name Role Phone Hector KHALIL, Melecio Attending Clinician Problems This patient has no known problems. Allergies, Adverse Reactions, Alerts This patient has no known allergies or adverse reactions. Medications This patient has no known medications. Procedures This patient has no known procedures. Encounters Start End Encounter Admission Attending Care Care Encounter Source Date/Time Date/Time Type Type Clinicians Facility Department ID 2020-03-11 2020-03-11 Telephone Young PAMAYRA [id number] 00:00:00 00:00:00 [facility] [id number] [place] [id number] Professio [phone] nal 044 [address] 2020-03-06 2020-03-06 Refill Hector [facility] [id number] 00:00:00 00:00:00 [place] [id number] [place] [id number] Professio [phone] nal 044 Office [address] 2020-02-13 2020-02-13 Office Young [facility] [id number] 07:30:01 07:45:01 Visit [facility] [id number] [place] [id number] [facility] [phone] nal 044 Office [address] Results This patient has no known results.
--- OUTSIDE RECORDS SUMMARY | 2020-03-14 15:00 | XMS REPORT | Summary of Care ---
:1960 Author Organization [facility] Address [address] [place] [address] Care Team Providers Name Role Phone MD Hector Primary Care Provider Reason for Visit Reason Comments Refill Request Encounter Details Date Type Department Care Team Description 2020 Refill [facility] Family Medicine Melecio Hamilton MD Refill Request - [address] [place] [address] [place] [address] [phone] Allergies Active Allergy Reactions Severity Noted Date Comments Meperidine Hallucinations Medium 07/17/2015 documented as of this encounter (statuses as of 2020) Medications Medication Sig Dispensed Refills Start Date [...] as of this encounter (statuses as of 2020) Active Problems Problem Noted Date Insomnia, unspecified type 03/22/2016 Intractable migraine with status migrainosus 6 Hypertension 09/14/2015 Other migraine without status migrainosus, not intract able 07/01/2015 Type 2 diabetes mellitus without complication 07/01/19 16 Essential hypertension 07/01/2015 Hyperlipidemia 07/01/2015 Chronic neck pain 07/01/2015 Hypogonadism in male 07/01/2015 Diabetes mellitus Peripheral neuropathy documented as of this encounter (statuses as of 2020) Immunizations Name Administration Dates Next Due Influenza [...] Office Visit Family Medicine Melecio Young MD [address] [place] [address] [phone] Health Maintenance Due Date Last Done [...] filedocumented in this encounter Visit Diagnoses Diagnosis Mixed hyperlipidemia documented in this encounter Insurance Payer Benefit Plan / Subscriber ID Effective Dates Phone Addre ss Type Group HIM AMBETTER FROM HIM AMBETTER FROM [id number] 2019-Present PPO [facility] documented as of this encounter
--- OUTSIDE RECORDS SUMMARY | 2020-03-14 15:00 | XMS REPORT | Summary of Care ---
:1960 Author Organization [facility] Address [address] [place] [address] Care Team Providers Name Role Phone MD Hector Primary Care Provider Reason for Visit Reason Comments Refill Request Encounter Details Date Type Department Care Team Description 01/03/2020 Refill [facility] Family Medicine Melecio Hamilton MD Refill Request - [address] [place] [address] [place] [address] [phone] Allergies Active Allergy Reactions Severity Noted Date Comments Meperidine Hallucinations Medium 07/17/2015 documented as of this encounter (statuses as of 01/07/2020) Medications Medication Sig Dispensed Refills Start End Status Date Date albuterol 90 Inhale 2 Puffs 8.5 g 1 Ac tive mcg/actuation every 6 (six) 7 inhaler hours as needed for Wheezing or Shortness of Breath. insulin aspart INJECT 30 UNITS 15 mL 2 Active U-100 (NOVOLOG UNDER THE SKIN 2 0 FLEXPEN U-100 TIMES DAILY WITH INSULIN) 100 MEALS unit/mL (3 mL) injectionIndicatio ns: Type 2 diabetes mellitus with diabetic neuropathy, with long-term current use of insulin insulin aspart 10 units TID 20 mL 5 Ac tive RAPID (NOVOLOG 0 U-100 INSULIN ASPART) 100 unit/mL injectionIndicatio ns: Type 2 diabetes mellitus with diabetic neuropathy, with long-term current use of insulin insulin glargine inject 20 Units 0 Active (LANTUS U-100 under the skin INSULIN) 100 every 12 (twelve) unit/mL injection hours. insulin lispro, inject 5 Units 0 Active human, 100 unit/mL under the skin 2 injection (two) times daily before breakfast and dinner. carisoprodoL 350 TAKE ONE TABLET 120 tablet Active mg BY MOUTH 4 TIMES 0 tabletIndications: DAILY Chronic back pain, unspecified back location, unspecified back pain laterality atorvastatin 10 mg Take 1 tablet by 30 tablet Active tabletIndications: mouth at bedtime. 0 Mixed hyperlipidemia clopidogreL 75 mg Take 1 tablet by 90 tablet 1 Active tabletIndications: mouth daily. 0 Type 2 diabetes mellitus without complication, with long-term current use of insulin amLODIPine 5 mg Take 1 tablet by 30 tablet Active tabletIndications: mouth 2 (two) 0 Essential times daily. hypertension DULoxetine 60 mg Take 1 capsule by 30 capsule Active capsuleIndications mouth daily. 0 : Idiopathic peripheral neuropathy metFORMIN 1,000 mg TAKE 1 TABLET BY 60 tablet Active tabletIndications: MOUTH EVERY 12 0 Type 2 diabetes HOURS mellitus without complication, with long-term current use of insulin lisinopriL-hydroch Take 1 tablet by 90 tablet 1 Active lorothiazide mouth daily. 0 20-12.5 mg per tabletIndications: Essential hypertension meloxicam 15 mg TAKE 1 TABLET BY 30 tablet Active tabletIndications: MOUTH EVERY DAY 0 Chronic neck pain NEEDED cefUROXime 500 mg Take 1 tablet by 20 tablet 0 Active tabletIndications: mouth 2 (two) 0 Chronic maxillary times daily. sinusitis DEXTROAMPHETAMINE- TAKE ONE TABLET 60 tablet 0 Active AMPHETAMINE 30 mg BY MOUTH TWICE 0 tabletIndications: DAILY Attention deficit disorder, unspecified hyperactivity presence zolpidem 10 mg TAKE 1 TABLET BY 90 tablet 1 Active tabletIndications: MOUTH AT BEDTIME 0 Insomnia, unspecified type famotidine 20 mg Take 1 tablet by 60 tablet 3 Active tabletIndications: mouth 2 (two) 0 Idiopathic times daily. peripheral neuropathy testosterone 1 mL by 0 Active cypionate 200 Intramuscular 0 mg/mL injection route every 2 (two) weeks. LEVEMIR FLEXTOUCH INJECT 30 UNITS 45 Syringe 0 Active U-100 INSULN 100 UNDER THE SKIN 0 unit/mL (3 mL) TWICE DAILY injectionIndicatio ns: Type 2 diabetes mellitus with diabetic neuropathy, with long-term current use of insulin HYDROcodone-acetam Take 1 tablet by 120 tablet 0 Active inophen 10-325 mg mouth every 6 0 tabletIndications: (six) hours as chronic pain needed for Pain (scale 4-6). Indications: chronic pain pregabalin Take 1 capsule by 60 capsule 5 Active (LYRICA) 300 mg mouth 2 (two) 0 capsuleIndications times daily. : Idiopathic peripheral neuropathy sumatriptan 100 mg Take 1 tablet by 9 tablet 1 Active tabletIndications: mouth as needed 0 Other migraine for Migraine. without status migrainosus, not intractable pregabalin Take 1 capsule by 60 capsule 5 Discontinued (LYRICA) 300 mg mouth 2 (two) 0 020 (Reorder) capsuleIndications times daily. : Idiopathic peripheral neuropathy sumatriptan 100 mg Take 1 tablet by 9 tablet 1 11/0 07/30 Discontinued tabletIndications: mouth as needed 0 020 (Reorder) Other migraine for Migraine. without status migrainosus, not intractable HYDROcodone-acetam Take 1 tablet by 120 tablet 0 10/30 Discontinued inophen 10-325 mg mouth every 6 0 020 (Reorder) tabletIndications: (six) hours as chronic pain needed for Pain (scale 4-6). Indications: chronic pain documented as of this encounter (statuses as of 01/07/2020) Active Problems Problem Noted Date Insomnia, unspecified type 03/22/2016 Intractable migraine with status migrainosus 6 Hypertension 09/14/2015 Other migraine without status migrainosus, not intract able 07/01/2015 Type 2 diabetes mellitus without complication 07/01/19 16 Essential hypertension 07/01/2015 Hyperlipidemia 07/01/2015 Chronic neck pain 07/01/2015 Hypogonadism in male 07/01/2015 Diabetes mellitus Peripheral neuropathy documented as of this encounter (statuses as of 01/07/2020) Immunizations Name Administration Dates Next Due Influenza [...] this encounter Miscellaneous Notes Telephone Encounter - Alisa Martinez - 01/04/2020 4:19 PM CST Last refill was HYDROcodone-acetaminophen 10-325 mg tablet 120 tablet 0 11/27/2019 Last office visit 10/31/19 [employer] documented in this encounter Plan of Treatment Date Type Specialty Care Team Description 01/30/2020 Office Visit Family Medicine Melecio Young MD [address] [place] [address] [phone] Health Maintenance Due Date Last Done [...] in this encounter Visit Diagnoses Diagnosis Chronic neck pain Cervicalgia Idiopathic peripheral neuropathy Unspecified hereditary and idiopathic pe ripheral neuropathy Other migraine without status migrainosu s, not intractable documented in this encounter Insurance Payer Benefit Plan / Subscriber ID Effective Dates Phone Addre ss Type Group HIM AMBETTER FROM HIM AMBETTER FROM [id number] 2019-Present PPO [id number] documented as of this encounter
--- OUTSIDE RECORDS SUMMARY | 2020-03-14 15:00 | XMS REPORT | Summary of Care ---
:1960 Author Organization [facility] Address [address] [place] [address] Care Team Providers Name Role Phone MD Hector Primary Care Provider Reason for Visit Reason Comments Notification Encounter Details Date Type Department Care Team Description 01/11/2020 Telephone [facility] Family Medicine Melecio Haimlton MD Notification - [address] [place] [address] [place] [address] [phone] Allergies Active Allergy Reactions Severity Noted Date Comments Meperidine Hallucinations Medium 07/17/2015 documented as of this encounter (statuses as of 01/11/2020) Medications Medication Sig Dispensed Refills Start Date [...] Take 1 tablet by 90 tablet 1 10/31/2019 Active tabletIndications: mouth daily. Type 2 diabetes mellitus without complication, with long-term current use of insulin amLODIPine 5 mg Take 1 tablet by 30 tablet 5 10/31/2019 Active tabletIndications: mouth 2 (two) times Essential daily. hypertension DULoxetine 60 mg Take 1 capsule by 30 capsule 5 10/31/2019 Active capsuleIndications: mouth daily. Idiopathic peripheral neuropathy metFORMIN 1,000 mg TAKE 1 TABLET BY 60 tablet 5 10/31/2019 Active tabletIndications: MOUTH EVERY 12 Type 2 diabetes HOURS mellitus without complication, with long-term current use of insulin lisinopriL-hydrochlo Take 1 tablet by 90 tablet 1 10/31/2019 Active rothiazide 20-12.5 mouth daily. mg [...] 2 (two) times Idiopathic daily. peripheral neuropathy LEVEMIR FLEXTOUCH INJECT 30 UNITS 45 Syringe 0 12/10/2019 Active U-100 INSULN 100 UNDER THE SKIN unit/mL (3 mL) TWICE DAILY injectionIndications : Type 2 diabetes mellitus with diabetic neuropathy, with long-term current use of insulin HYDROcodone-acetamin Take 1 tablet by 120 tablet 0 01/07/2020 Active ophen 10-325 mg mouth every 6 (six) tabletIndications: hours as needed for chronic pain Pain (scale 4-6). Indications: chronic pain pregabalin (LYRICA) Take 1 capsule by 60 capsule 5 01/04/2020 Active 300 mg mouth 2 (two) times capsuleIndications: daily. Idiopathic peripheral neuropathy sumatriptan 100 mg Take 1 tablet by 9 tablet 1 01/04/2020 Active tabletIndications: mouth as needed for Other migraine Migraine. without status migrainosus, not intractable dextroamphetamine-am Take 1 tablet by 60 tablet 0 01/07/2020 Active phetamine 30 mg mouth 2 (two) times tabletIndications: daily. Attention deficit disorder, unspecified hyperactivity presence testosterone 1 mL by 10 mL 0 01/07/2020 Active cypionate 200 mg/mL Intramuscular route injectionIndications every 2 (two) : Attention deficit weeks. disorder, unspecified hyperactivity presence documented as of this encounter (statuses as of 01/11/2020) Active Problems Problem Noted Date Insomnia, unspecified type 03/22/2016 Intractable migraine with status migrainosus 6 Hypertension 09/14/2015 Other migraine without status migrainosus, not intract able 07/01/2015 Type 2 diabetes mellitus without complication 07/01/19 16 Essential hypertension 07/01/2015 Hyperlipidemia 07/01/2015 Chronic neck pain 07/01/2015 Hypogonadism in male 07/01/2015 Diabetes mellitus Peripheral neuropathy documented as of this encounter (statuses as of 01/11/2020) Immunizations Name Administration Dates Next Due Influenza [...] this encounter Miscellaneous Notes Telephone Encounter - Olga Gamez - 01/11/2020 9:43 AM CSTMedication recommendations Received documented in this encounter Plan of Treatment Date Type Specialty Care Team Description 01/30/2020 Office Visit Family Medicine Melecio Young MD [address] [place] [address] [phone] Health Maintenance Due Date Last Done [...] Group HIM AMBETTER FROM HIM AMBETTER FROM [id number] 2019-Present PPO [facility] documented as of this encounter
--- OUTSIDE RECORDS SUMMARY | 2020-03-14 15:00 | XMS REPORT | Summary of Care ---
:1960 Author Organization [facility] Address [address] [place] [address] Care Team Providers Name Role Phone MD Hector Primary Care Provider Reason for Visit Reason Comments Refill Request Encounter Details Date Type Department Care Team Description 01/07/2020 Refill [facility] Family Medicine Melecio Hamilton MD Refill Request - [address] [place] [address] [place] [address] [phone] Allergies Active Allergy Reactions Severity Noted Date [...] Take 1 tablet by 30 tablet 5 Active tabletIndications: mouth at bedtime. 0 Mixed [...] TAKE 1 TABLET BY 30 tablet 5 Active tabletIndications: MOUTH EVERY DAY 0 Chronic neck pain NEEDED cefUROXime 500 mg Take 1 tablet by 20 tablet 0 Active tabletIndications: mouth 2 (two) 0 Chronic maxillary times daily. sinusitis zolpidem 10 mg TAKE 1 TABLET BY 90 tablet 1 Active tabletIndications: MOUTH AT BEDTIME 0 Insomnia, unspecified type famotidine 20 mg Take 1 tablet by 60 tablet 3 Active tabletIndications: mouth 2 (two) 0 Idiopathic times daily. peripheral neuropathy LEVEMIR FLEXTOUCH INJECT 30 [...] for Migraine. without status migrainosus, not intractable dextroamphetamine- Take 1 tablet by 60 tablet 0 Active amphetamine 30 mg mouth 2 (two) 0 tabletIndications: times daily. Attention deficit disorder, unspecified hyperactivity presence testosterone 1 mL by 10 mL 0 Active cypionate 200 Intramuscular 0 mg/mL route every 2 injectionIndicatio (two) weeks. ns: Attention deficit disorder, unspecified hyperactivity presence DEXTROAMPHETAMINE- TAKE ONE TABLET 60 tablet 0 01/06 Discontinued AMPHETAMINE 30 mg BY MOUTH TWICE 0 020 (Reorder) tabletIndications: DAILY Attention deficit disorder, unspecified hyperactivity presence testosterone 1 mL by 0 Discont inued cypionate 200 Intramuscular 0 020 (R eorder) mg/mL injection route every 2 (two) weeks. documented as of this encounter (statuses as [...] this encounter Miscellaneous Notes Telephone Encounter - Francesca Prieto MA - 01/07/2020 1:55 PM CST Please review and sign if appropriate. 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 Pt states out of medication. documented in this encounter Plan of Treatment Date Type Specialty Care Team Description 01/30/2020 Office Visit Family Medicine Melecio Young MD [address] [place] [address] [phone] Health Maintenance Due Date Last Done [...] filedocumented in this encounter Visit Diagnoses Diagnosis Attention deficit disorder, unspecified hyperactivity presence documented in this encounter Insurance Payer Benefit Plan / Subscriber ID Effective Dates Phone Addre ss Type Group HIM AMBETTER FROM HIM AMBETTER FROM [id number] 2019-Present O [facility] documented as of this encounter
--- OUTSIDE RECORDS SUMMARY | 2020-03-14 15:01 | XMS REPORT | Summary of Care ---
:1960 Author Organization [facility] Address [address] [place] [address] Care Team Providers Name Role Phone MD Hector Primary Care Provider Reason for Visit Reason Comments Refill Request Encounter Details Date Type Department Care Team Description 02/05/2020 Refill [facility] Family Medicine Melecio Hamilton MD Refill Request - [address] [place] [address] [place] [address] [phone] Allergies Active Allergy Reactions Severity Noted Date Comments Meperidine Hallucinations Medium 07/17/2015 documented as of this encounter (statuses as of 02/06/2020) Medications Medication Sig Dispensed Refills Start End [...] (two) times daily before breakfast and dinner. atorvastatin 10 mg Take 1 tablet by 30 tablet 5 Active tabletIndications: mouth at bedtime. 0 Mixed hyperlipidemia clopidogreL 75 mg Take 1 tablet by 90 tablet 1 Active tabletIndications: mouth daily. 0 Type 2 diabetes mellitus without complication, with long-term current use of insulin amLODIPine 5 mg Take 1 tablet by 30 tablet 5 Active tabletIndications: mouth 2 (two) 0 Essential times daily. hypertension DULoxetine 60 mg Take 1 capsule by 30 capsule 5 Active capsuleIndications mouth daily. 0 : Idiopathic peripheral neuropathy metFORMIN 1,000 mg TAKE 1 TABLET BY 60 tablet 5 Active tabletIndications: MOUTH EVERY 12 0 Type [...] ns: Attention deficit disorder, unspecified hyperactivity presence carisoprodoL 350 TAKE ONE TABLET 120 tablet 5 Active mg BY MOUTH 4 TIMES 0 tabletIndications: DAILY Chronic back pain, unspecified back location, unspecified back pain laterality HYDROcodone-acetam Take 1 tablet by 120 tablet 0 Active inophen 10-325 mg mouth every 6 0 tabletIndications: (six) hours as chronic pain needed for Pain (scale 4-6). Indications: chronic pain HYDROcodone-acetam Take 1 tablet by 120 tablet 0 10/30 Discontinued inophen 10-325 mg mouth every 6 0 020 (Reorder) tabletIndications: (six) hours as chronic pain needed for Pain (scale 4-6). Indications: chronic pain documented as of this encounter (statuses as of 02/06/2020) Active Problems Problem Noted Date Insomnia, unspecified type 03/22/2016 Intractable migraine with status migrainosus 6 Hypertension 09/14/2015 Other migraine without status migrainosus, not intract able 07/01/2015 Type 2 diabetes mellitus without complication 07/01/19 16 Essential hypertension 07/01/2015 Hyperlipidemia 07/01/2015 Chronic neck pain 07/01/2015 Hypogonadism in male 07/01/2015 Diabetes mellitus Peripheral neuropathy documented as of this encounter (statuses as of 02/06/2020) Immunizations Name Administration Dates Next Due Influenza [...] Notes Telephone Encounter - Alisa Martinez - 02/05/2020 2:47 PM CST Last refill was HYDROcodone-acetaminophen 10-325 mg tablet 120 tablet 0 Start: 01/07/2020 Last office visit 10/31/19 NURSE documented in this encounter Plan of Treatment Date Type Specialty Care Team Description 02/13/2020 Office Visit Family Medicine Melecio Young MD [address] [place] [address] [phone] Health Maintenance Due Date Last Done [...] Visit Diagnoses Diagnosis Chronic neck pain Cervicalgia documented in this encounter Insurance Payer Benefit Plan / Subscriber ID Effective Dates Phone Addre ss Type Group HIM AMBETTER FROM HIM AMBETTER FROM [id number] 2019-Present O [facility] documented as of this encounter
--- OUTSIDE RECORDS SUMMARY | 2020-03-14 15:01 | XMS REPORT | Summary of Care ---
:1960 Author Organization [facility] Address [address] [place] [address] Care Team Providers Name Role Phone MD Hector Primary Care Provider Reason for Visit Reason Comments Follow-up Pain Hypertension Refill Request Encounter Details Date Type Department Care Team Description 02/13/2020 Office Visit [facility] Melecio Young, Vincent ic neck pain (Primary Dx); Medicine - Eboni KHALIL Idiopathic peripheral neuropathy; [address] [place] [address] hypertension; [address] Mixed hyperlipidemia; [place], [place] Depression, uns pecified depression type; [phone] Other migraine without status migrainosu s, not intractable; [phone] Attention deficit disorder, unspecified hyperactivity presence Allergies Active Allergy Reactions Severity Noted Date Comments Meperidine Hallucinations Medium 07/17/2015 documented as of this encounter (statuses as of 02/13/2020) Medications Medication Sig Dispensed Refills Start End [...] tabletIndications: mouth at bedtime. 0 Mixed hyperlipidemia amLODIPine 5 mg Take 1 tablet by 30 tablet 5 Active tabletIndications: mouth 2 (two) 0 Essential times daily. hypertension metFORMIN 1,000 mg TAKE 1 TABLET BY [...] EVERY DAY 0 Chronic neck pain NEEDED zolpidem 10 mg TAKE 1 TABLET BY 90 tablet 1 Active tabletIndications: MOUTH AT BEDTIME 0 Insomnia, unspecified type LEVEMIR FLEXTOUCH INJECT 30 UNITS 45 Syringe 0 Active U-100 INSULN 100 UNDER THE SKIN 0 unit/mL (3 mL) TWICE DAILY injectionIndicatio ns: Type 2 diabetes mellitus with diabetic neuropathy, with long-term current use of insulin pregabalin Take 1 capsule by 60 capsule 5 Active (LYRICA) 300 mg mouth 2 (two) 0 capsuleIndications times daily. : Idiopathic peripheral neuropathy testosterone 1 mL by 10 mL 0 [...] for Pain (scale 4-6). Indications: chronic pain sumatriptan 100 mg Take 1 tablet by 9 tablet 5 Active tabletIndications: mouth as needed 0 Other migraine for Migraine. without status migrainosus, not intractable famotidine 20 mg Take 1 tablet by 60 tablet 3 Active tabletIndications: mouth 2 (two) 0 Idiopathic times daily. peripheral neuropathy DULoxetine 60 mg Take 1 capsule by 60 capsule 5 Active capsuleIndications mouth 2 (two) 0 : Idiopathic times daily. peripheral neuropathy dextroamphetamine- Take 1 tablet by 60 tablet 0 Active amphetamine 30 mg mouth 2 (two) 0 tabletIndications: times daily. Attention deficit disorder, unspecified hyperactivity presence clopidogreL 75 mg Take 1 tablet by 90 tablet 1 02/12 Discontinued tabletIndications: mouth daily. 0 020 (Condition no Type 2 diabetes long er mellitus without war rants) complication, with long-term current use of insulin DULoxetine 60 mg Take 1 capsule by 30 capsule 5 01/28 Discontinued capsuleIndications mouth daily. 0 020 (Reorder) : Idiopathic peripheral neuropathy cefUROXime 500 mg Take 1 tablet by 20 tablet 0 02/12 Discontinued tabletIndications: mouth 2 (two) 0 020 (Therapy Chronic maxillary times daily. completed) sinusitis famotidine 20 mg Take 1 tablet by 60 tablet 3 Discontinued tabletIndications: mouth 2 (two) 0 020 (Reorder) Idiopathic times daily. peripheral neuropathy sumatriptan 100 mg Take 1 tablet by 9 tablet 1 01/28 Discontinued tabletIndications: mouth as needed 0 020 (Reorder) Other migraine for Migraine. without status migrainosus, not intractable dextroamphetamine- Take 1 tablet by 60 tablet 0 01/28 Discontinued amphetamine 30 mg mouth 2 (two) 0 020 (Reorder) tabletIndications: times daily. Attention deficit disorder, unspecified hyperactivity presence documented as of this encounter (statuses as of 02/13/2020) Active Problems Problem Noted Date Chronic use of opiate drug for therapeutic purpose Insomnia, unspecified type 03/22/2016 Intractable migraine with status migrainosus 6 Hypertension 09/14/2015 Other migraine without status migrainosus, not intract able 07/01/2015 Type 2 diabetes mellitus without complication 07/01/19 16 Essential hypertension 07/01/2015 Hyperlipidemia 07/01/2015 Chronic neck pain 07/01/2015 Hypogonadism in male 07/01/2015 Diabetes mellitus Peripheral neuropathy documented as of this encounter (statuses as of 02/13/2020) Immunizations Name Administration Dates Next Due Influenza [...] Assigned at Date Recorded Not on file COVID-19 Exposure Response Date Recorded In the last month, have you been in contact with No / Unsure 02/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 Chronic pain, htn, DM Allergies Tej is allergic to demerol [meperidine]. Medications Outpatient Medications Prior to Visit Medication Sig Dispense Refill HYDROcodone-acetaminophen 10-325 mg tablet Take 1 tablet by mouth every 6 (six) hours as needed for Pain (scale 4-6). Indications: chronic pain 120 tablet 0 carisoprodoL 350 mg tablet TAKE ONE TABLET BY MOUTH 4 TIMES DAILY 120 tablet 5 dextroamphetamine-amphetamine 30 mg tablet Take 1 tablet by mouth 2 (two) times daily. 60 tablet0 testosterone cypionate 200 mg/mL injection 1 mL by Intramuscular route every 2 (two) weeks. 10 mL 0 pregabalin (LYRICA) 300 mg capsule Take 1 capsule by mouth 2 (two) times daily. 60 capsule 5 sumatriptan 100 mg tablet Take 1 tablet by mouth as needed for Migraine. 9 tablet 1 LEVEMIR FLEXTOUCH U-100 INSULN 100 unit/mL (3 mL) injection INJECT 30 UNITS UNDER THE SKIN TWICEDAILY 45 Syringe 0 famotidine 20 mg tablet Take 1 tablet by mouth 2 (two) times daily. 60 tablet 3 zolpidem 10 mg tablet TAKE 1 TABLET BY MOUTH AT BEDTIME 90 tablet 1 amLODIPine 5 mg tablet Take 1 tablet by mouth 2 (two) times daily. 30 tablet 5 atorvastatin 10 mg tablet Take 1 tablet by mouth at bedtime. 30 tablet 5 clopidogreL 75 mg tablet Take 1 tablet by mouth daily. 90 tablet 1 DULoxetine 60 mg capsule Take 1 capsule by mouth daily. 30 capsule 5 insulin glargine (LANTUS U-100 INSULIN) 100 unit/mL injection inject 20 Units under the skin every 12 (twelve) hours. insulin lispro, human, 100 unit/mL injection inject 5 Units under the skin 2 (two) times daily before breakfast and dinner. lisinopriL-hydrochlorothiazide 20-12.5 mg per tablet Take 1 tablet by mouth daily. 90 tablet 1 meloxicam 15 mg tablet TAKE 1 TABLET BY MOUTH EVERY DAY NEEDED 30 tablet 5 metFORMIN 1,000 mg tablet TAKE 1 TABLET BY MOUTH EVERY 12 HOURS 60 tablet 5 insulin aspart RAPID (NOVOLOG U-100 INSULIN ASPART) 100 unit/mL injection 10 units TID 20 mL 5 insulin aspart U-100 (NOVOLOG FLEXPEN U-100 INSULIN) 100 unit/mL (3 mL) injection INJECT 30 UNITS UNDER THE SKIN 2 TIMES DAILY WITH MEALS 15 mL 2 cefUROXime 500 mg tablet Take 1 tablet by mouth 2 (two) times daily. 20 tablet 0 albuterol 90 mcg/actuation inhaler Inhale 2 Puffs every 6 (six) hours as needed for Wheezing or Shortness of Breath. 8.5 g 1 No facility-administered medications prior to visit. Histories Past Medical History: Diagnosis Date Chronic pain Diabetes mellitus Hyperlipidemia Hypertension Insomnia Migraine Migraine Peripheral neuropathy Past Surgical History: Procedure Laterality Date CERVICAL EPIDURAL STEROID INJECTION N/A 08/04/2015 Surgeon: Victor Hugo Wilkes MD; Location: [facility] CERVICAL EPIDURAL STEROID INJECTION N/A 08/11/2015 Surgeon: Victor Hugo Wilkes MD; Location: [facility] OR [facility] CERVICAL EPIDURAL STEROID INJECTION N/A 08/18/2015 Surgeon: Victor Hugo Wilkes MD; Location: [facility] OR [facility] EYE SURGERY Bilateral Social History Socioeconomic History Marital status: Spouse name: Not on file Number of children: Not on file Years of education: Not on file Highest education level: Not on file Occupational History Not on file Social Needs Financial resource strain: Not on file Food insecurity Worry: Not on file Inability: Not on file Transportation needs Medical: Not on file Non-medical: Not on file Tobacco Use Smoking status: Never Smoker Smokeless tobacco: Never Used Substance and Sexual Activity Alcohol use: No Alcohol/week: 0.0 standard drinks Drug use: No Sexual activity: Not on file Lifestyle Physical activity Days per week: Not on file Minutes per session: Not on file Stress: Not on file Relationships Social connections Talks on phone: Not on file Gets together: Not on file Attends orthodox service: Not on file Active member of club or organization: Not on file Attends meetings of clubs or organizations: Not on file Relationship status: Not on file Intimate partner violence Fear of current or ex partner: Not on file Emotionally abused: Not on file Physically abused: Not on file Forced sexual activity: Not on file Other Topics Concern Not on file Social History Narrative Not on file Family History Problem Relation Age of Onset Pulmonary Mother Heart Father Review of Systems Vital Signs BP 126/80 | Wt 197 lb (89.4 kg) | BMI 27.48 kg/m Physical Exam Vitals signs reviewed. Constitutional: Appearance: Normal appearance. HENT: Head: Normocephalic and atraumatic. Nose: Nose normal. Neck: Musculoskeletal: Normal range of motion and neck supple. Cardiovascular: Rate and Rhythm: Normal rate and regular rhythm. Pulses: Normal pulses. Heart sounds: Normal heart sounds. Pulmonary: Effort: Pulmonary effort is normal. Breath sounds: Normal breath sounds. Abdominal: General: Abdomen is flat. Musculoskeletal: Normal range of motion. Skin: General: Skin is warm. Neurological: General: No focal deficit present. Mental Status: He is alert. Assessment/Plan Chronic pain, stable ADD, medication refill DM, medication refills This visit did not involve counseling and coordination that comprised more than 50% of the visit time. documented in this encounter Plan of Treatment Health Maintenance Due Date Last Done Comments HEPATITIS C (HCV) SCREEN 1960 EYE EXAM 1969 FOOT EXAM 1977 COLON CANCER SCREENING 2009 ANNUAL FIT/FOBT COLON CANCER SCREENING FIT 2009 DNA EVERY 3 YEARS COLON CANCER SCREENING 2009 SIGMOIDOSCOPY EVERY 5 YEARS COLONOSCOPY 2009 Colorectal Cancer Screening 2009 Zoster Recombinant Vaccine 2009 (SHINGRIX) (1 of 2) URINE MICROALBUMIN 07/03/2016 07/04/2015 HgA1C 12/12/2019 06/12/2019, 03/23/2016, 07/04/2015 CREATININE (SERUM) 06/11/2020 06/12/2019, 03/23/2016, 09/15/2015, Additional history exists LDL-C 06/11/2020 06/12/2019, 03/23/2016, 07/04/2015 Depression Screening 02/12/2021 02/13/2020 DTaP,Tdap,and Td Vaccines (2 11/25/2029 11/26/2019 - Td) INFLUENZA VACCINE Completed 11/24/2019 PNEUMOCOCCAL 0-64 YEARS Aged Out 11/24/2019 No longe r eligible COMBINED SERIES based on patient 's age to complete this topic documented as of this encounter Results Not on filedocumented in this encounter Visit Diagnoses Diagnosis Chronic neck pain - Primary Cervicalgia Idiopathic peripheral neuropathy Unspecified hereditary and idiopathic pe ripheral neuropathy Essential hypertension Unspecified essential hypertension Mixed hyperlipidemia Depression, unspecified depression type Other migraine without status migrainosu s, not intractable Attention deficit disorder, unspecified hyperactivity presence documented in this encounter"
--- OUTSIDE RECORDS SUMMARY | 2020-03-14 15:01 | XMS REPORT | Summary of Care ---
:1960 Author Organization [facility] Address [address] [place] [address] Care Team Providers Name Role Phone MD Hector Primary Care Provider Encounter Details Date Type Department Care Team Description 01/10/2020 Orders Only [facility] Doctor Unassigned, No [address] [facility] [place] [address] [address] [place] [address] Allergies Active Allergy Reactions Severity Noted Date Comments Meperidine Hallucinations Medium 07/17/2015 documented as of this encounter (statuses as of 01/29/2020) Medications Medication Sig Dispensed Refills Start Date [...] as of this encounter (statuses as of 01/29/2020) Active Problems Problem Noted Date Insomnia, unspecified type 03/22/2016 Intractable migraine with status migrainosus 6 Hypertension 09/14/2015 Other migraine without status migrainosus, not intract able 07/01/2015 Type 2 diabetes mellitus without complication 07/01/19 16 Essential hypertension 07/01/2015 Hyperlipidemia 07/01/2015 Chronic neck pain 07/01/2015 Hypogonadism in male 07/01/2015 Diabetes mellitus Peripheral neuropathy documented as of this encounter (statuses as of 01/29/2020) Immunizations Name Administration Dates Next Due Influenza [...] Office Visit Family Medicine Melecio Young MD [facility] [place] [phone] Health Maintenance Due Date Last Done [...] this topic documented as of this encounter Procedures Procedure Name Priority Date/Time Associated Diagnosis Comme nts INSURANCE CORRESPONDENCE Routine 01/10/2020 12:01 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
--- OUTSIDE RECORDS SUMMARY | 2020-03-14 15:01 | XMS REPORT | Summary of Care ---
:1960 Author Organization [facility] Address [address] [place] [address] Care Team Providers Name Role Phone MD Hector Primary Care Provider Reason for Visit Reason Comments Refill Request Encounter Details Date Type Department Care Team Description 02/05/2020 Refill [facility] Family Medicine Melecio Hamilton MD Refill Request - [address] [place] [address] [place] [address] [phone] Allergies Active Allergy Reactions Severity Noted Date Comments Meperidine Hallucinations Medium 07/17/2015 documented as of this encounter (statuses as of 02/06/2020) Medications Medication Sig Dispensed Refills Start Date [...] with long-term current use of insulin pregabalin (LYRICA) Take 1 capsule by 60 [...] Attention deficit weeks. disorder, unspecified hyperactivity presence carisoprodoL 350 mg TAKE ONE TABLET BY 120 tablet 5 01/23/2020 Active tabletIndications: MOUTH 4 TIMES DAILY Chronic back pain, unspecified back location, unspecified back pain laterality HYDROcodone-acetamin Take 1 tablet by 120 tablet 0 02/06/2020 Active ophen 10-325 mg mouth every 6 (six) tabletIndications: hours as needed for chronic pain Pain (scale 4-6). Indications: chronic pain documented [...] Telephone Encounter - Rosangela Parson LVN - 02/05/2020 3:32 PM CST HYDROcodone-acetaminophen 10-325 mg tablet 120 tablet 0 01/07/2020 [place], [place] - [address] Recent Visits Date Type Provider Dept 10/31/19 Office Visit Melecio Young MD [facility] 01/24/19 Office Visit Melecio Young MD [facility] 10/26/18 Office Visit Melecio Young MD [facility] 08/22/18 Office Visit Melecio Young MD [facility] Showing recent visits within past 540 days with a meds authorizing provider and meeting all other requirements Future Appointments Date Type Provider Dept 02/13/20 Appointment Melecio Young MD [facility] Showing future appointments within next 150 days with a meds authorizing provider and meeting all other requirements documented in this encounter Plan of Treatment Date Type Specialty Care Team Description 02/13/2020 Office Visit Family Medicine Melecio Young MD [address] [place] [address] [phone] Health Maintenance Due Date Last Done [...] Group HIM AMBETTER FROM HIM AMBETTER FROM [id number] 2019-Present [facility] documented as of this encounter
--- OUTSIDE RECORDS SUMMARY | 2020-03-14 15:01 | XMS REPORT | Summary of Care ---
:1960 Author Organization [facility] Address [address] [place] [id number] Care Team Providers Name Role Phone MD Hector Primary Care Provider Reason for Visit Reason Comments Refill Request Encounter Details Date Type Department Care Team Description 01/22/2020 Refill [facility] Family Medicine Melecio Hamilton MD Refill Request - [address] [place] [address] [place] [address] [phone] Allergies Active Allergy Reactions Severity Noted Date Comments Meperidine Hallucinations Medium 07/17/2015 documented as of this encounter (statuses as of 01/23/2020) Medications Medication Sig Dispensed Refills Start End [...] 350 TAKE ONE TABLET 120 tablet 5 Discontinued mg BY MOUTH 4 TIMES 0 020 (Re order) tabletIndications: DAILY Chronic back pain, unspecified back location, unspecified back pain laterality documented as of this encounter (statuses as of 01/23/2020) Active Problems Problem Noted Date Insomnia, unspecified type 03/22/2016 Intractable migraine with status migrainosus 6 Hypertension 09/14/2015 Other migraine without status migrainosus, not intract able 07/01/2015 Type 2 diabetes mellitus without complication 07/01/19 16 Essential hypertension 07/01/2015 Hyperlipidemia 07/01/2015 Chronic neck pain 07/01/2015 Hypogonadism in male 07/01/2015 Diabetes mellitus Peripheral neuropathy documented as of this encounter (statuses as of 01/23/2020) Immunizations Name Administration Dates Next Due Influenza [...] this encounter Miscellaneous Notes Telephone Encounter - Kathryn Mar LVN - 01/22/2020 4:00 PM CST 2 months ago (10/31/2019) carisoprodoL 350 mg tablet TAKE ONE TABLET BY MOUTH 4 TIMES DAILY Dispense: 120 tablet Refills: 5 Pharmacy: [facility] Last Office Visit: 10/31/2019 Next Office Visit: none RRER documented in this encounter Plan of Treatment Date Type Specialty Care Team Description 01/30/2020 Office Visit Family Medicine Melecio Young MD [address] [place] [phone] Health Maintenance Due Date Last Done [...] Group HIM AMBETTER FROM HIM AMBETTER FROM [id number] 2019-Present [facility] documented as of this encounter
--- OUTSIDE RECORDS SUMMARY | 2020-03-14 15:01 | XMS REPORT | Summary of Care ---
:[address] [facility] Address [address] [place] [address] Care Team Providers Name Role Phone MD Hector Primary Care Provider Reason for Visit Reason Comments Follow-up Pain Hypertension Refill Request Encounter Details Date Type Department Care Team Description 02/13/2020 [facility] Melecio Young, Vincent ic neck pain (Primary Dx); Medicine - Eboni KHALIL Idiopathic peripheral neuropathy; [address] [place] [address] hypertension; Drive DR[address] Mixed hyperlipidemia; [place], [place] Depression, uns pecified depression type; [phone] Other migraine without status migrainosu s, not intractable; [phone] Attention deficit disorder, unspecified hyperactivity presence Allergies [...] with No / Unsure 02/13/2020 7:40 AM 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 documented as of this encounter Last Filed Vital Signs Vital Sign Reading Time Taken Comments Blood Pressure 126/80 02/13/2020 7:40 AM STEEL POURER Pulse - - Temperature - - Respiratory Rate - - Oxygen Saturation - - Inhaled Oxygen Concentration - - Weight 89.4 kg (197 lb) 02/13/2020 7:40 AM STEEL POURER Height - - Body Mass Index 27.48 [...] [facility] CERVICAL EPIDURAL STEROID INJECTION N/A 08/11/2015 Surgeon: Victor Hugo Wilkes MD; Location: [facility] CERVICAL EPIDURAL STEROID INJECTION N/A 08/18/2015 Surgeon: Victor Hugo Wilkes MD; Location: [facility] EYE SURGERY Bilateral Social History Socioeconomic History [...] file Gets together: Not on file Attends hindu service: Not on file Active member of [...]
--- OUTSIDE RECORDS SUMMARY | 2020-03-14 15:02 | XMS REPORT | Summary of Care ---
:1960 Author Organization [facility] Address [address] [place] [address] Care Team Providers Name Role Phone MD Hector Primary Care Provider Reason for Visit Reason Comments Rx Concern/Question PA Encounter Details Date Type Department Care Team Description 03/11/2020 Telephone [facility] Family Con Young MD Rx Concern/Question [address] ([place]) [address] [place] [phone] [place], [place] [phone] [phone] Allergies Active Allergy Reactions Severity Noted Date Comments Meperidine Hallucinations Medium 07/17/2015 documented as of this encounter (statuses as of 03/12/2020) Medications Medication Sig Dispensed Refills Start Date [...] Active tabletIndications: mouth at bedtime. Mixed hyperlipidemia amLODIPine 5 mg Take 1 tablet by 30 tablet 5 10/31/2019 Active tabletIndications: mouth 2 (two) times Essential daily. hypertension metFORMIN 1,000 mg TAKE 1 [...] MOUTH EVERY DAY Chronic neck pain NEEDED zolpidem 10 mg TAKE 1 TABLET BY 90 tablet 1 12/05/2019 Active tabletIndications: MOUTH AT BEDTIME Insomnia, unspecified type LEVEMIR FLEXTOUCH INJECT 30 UNITS 45 Syringe 0 12/10/2019 Active U-100 INSULN 100 UNDER THE SKIN unit/mL (3 mL) TWICE DAILY injectionIndications : Type 2 diabetes mellitus with diabetic neuropathy, with long-term current use of insulin pregabalin (LYRICA) Take 1 capsule by 60 capsule 5 01/04/2020 Active 300 mg mouth 2 (two) times capsuleIndications: daily. Idiopathic peripheral neuropathy testosterone 1 mL by [...] Take 1 tablet by 9 tablet 5 02/13/2020 Active tabletIndications: mouth as needed for Other migraine Migraine. without status migrainosus, not intractable famotidine 20 mg Take 1 tablet by 60 tablet 3 02/13/2020 Active tabletIndications: mouth 2 (two) times Idiopathic daily. peripheral neuropathy DULoxetine 60 mg Take 1 capsule by 60 capsule 5 02/13/2020 Active capsuleIndications: mouth 2 (two) times Idiopathic daily. peripheral neuropathy dextroamphetamine-am Take 1 tablet by 60 tablet 0 02/13/2020 Active phetamine 30 mg mouth 2 (two) times tabletIndications: daily. Attention deficit disorder, unspecified hyperactivity presence HYDROCODONE-ACETAMIN TAKE 1 TABLET BY 120 tablet 0 03/10/2020 Active OPHEN 10-325 mg MOUTH EVERY 6 HOURS tabletIndications: NEEDED FOR PAIN Chronic neck pain (SCALE 4-6). documented as of this encounter (statuses as of 03/12/2020) Active Problems Problem Noted Date Chronic use [...] as of this encounter (statuses as of 03/12/2020) Immunizations Name Administration Dates Next Due Influenza [...] with No / Unsure 02/13/2020 7:40 AM BAKER PAINT someone who was confirmed or suspected to have Coronavirus / COVID-19? documented as of this encounter Last Filed Vital Signs Not on filedocumented in this encounter Miscellaneous Notes Telephone Encounter - Lakia Romeo - 03/11/2020 3:19 PM CSTPatient notified of the PA being submitted, he verbalized a understanding. elephone Encounter - Rosangela Parson LVN - 03/11/2020 12:21 PM CSTWe were never notified before this call that the Hydrocodone requires a PA by the patient or the pharmacy. PA has been sent today. Tej Shirleyaddis Mares: [id number] PA Need help? Call us at Status Sent to Plan today CONTACT MADE TO PT NO ANSWER LEFT MESSAGE TO CALL ME BACK. elephone Encounter - Kathryn Mar LVN - 03/11/2020 11:55 AM CSTLooks like it was filled yesterday and sent to [facility].... elephone Encounter - Inessa Pack MA - 03/11/2020 11:10 AM CST03/11/20 11:10 AM Routing to correct clinic Inessa Pack MA 03/11/2020 11:10 AM elephone Encounter - Dodie Soni - 03/11/2020 10:02 AM CSTPatient is calling he has been paying out of pocket for his HYDROCODONE-ACETAMINOPHEN 10-325 mg tablet for the past 5 or 6 months because pharmacy hasn't received PA for medication. Patient is callingwanting to know if a PA can be expedited so he can get his medication? Please call and advise thanks. documented in this encounter Plan of Treatment Date Type Specialty Care Team Description 05/12/2020 Office Visit Family Medicine Melecio Young MD [address] [place] [phone] Health Maintenance Due Date Last [...] Group HIM AMBETTER FROM HIM AMBETTER FROM [id number] 2019-Present [facility] documented as of this encounter
--- OUTSIDE RECORDS SUMMARY | 2020-03-14 15:02 | XMS REPORT | Summary of Care ---
:1960 Author Organization [facility] Address [address] [place] [address] Care Team Providers Name Role Phone MD Hector Primary Care Provider Reason for Visit Reason Comments Refill Request Encounter Details Date Type Department Care Team Description 03/06/2020 Refill [facility] Family Medicine Melecio Hamilton MD Refill Request - [address] [place] [address] [place] [address] [phone] Allergies Active Allergy Reactions Severity Noted Date Comments Meperidine Hallucinations Medium 07/17/2015 documented as of this encounter (statuses as of 03/10/2020) Medications Medication Sig Dispensed Refills Start End Date Status Date albuterol 90 Inhale 2 Puffs 8.5 g 1 Ac tive mcg/actuation every 6 (six) 7 inhaler hours as needed for Wheezing or Shortness of Breath. insulin aspart INJECT 30 UNITS 15 mL 2 Active U-100 (NOVOLOG UNDER THE SKIN 2 0 FLEXPEN U-100 TIMES DAILY WITH INSULIN) 100 MEALS unit/mL (3 mL) injectionIndication s: Type 2 diabetes mellitus with diabetic neuropathy, with long-term current use of insulin insulin aspart 10 units TID 20 mL 5 Ac tive RAPID (NOVOLOG 0 U-100 INSULIN ASPART) 100 unit/mL injectionIndication s: Type 2 diabetes mellitus with diabetic neuropathy, [...] complication, with long-term current use of insulin lisinopriL-hydrochl Take 1 tablet by 90 tablet 1 Active orothiazide 20-12.5 mouth daily. 0 mg per tabletIndications: Essential hypertension meloxicam 15 [...] SKIN 0 unit/mL (3 mL) TWICE DAILY injectionIndication s: Type 2 diabetes mellitus with diabetic neuropathy, with long-term current use of insulin pregabalin (LYRICA) Take 1 capsule by 60 capsule 5 Active 300 mg mouth 2 (two) 0 capsuleIndications: times daily. Idiopathic peripheral neuropathy testosterone 1 mL by 10 mL 0 Active cypionate 200 mg/mL Intramuscular 0 injectionIndication route every 2 s: Attention (two) weeks. deficit disorder, unspecified hyperactivity presence carisoprodoL 350 mg TAKE ONE TABLET 120 tablet 5 Active tabletIndications: BY MOUTH 4 TIMES 0 Chronic back pain, DAILY unspecified back location, unspecified back pain laterality [...] 1 capsule by 60 capsule 5 Active capsuleIndications: mouth 2 (two) 0 Idiopathic times daily. peripheral neuropathy dextroamphetamine-a Take 1 tablet by 60 tablet 0 Active mphetamine 30 mg mouth 2 (two) 0 tabletIndications: times daily. Attention deficit disorder, unspecified hyperactivity presence HYDROCODONE-ACETAMI TAKE 1 TABLET BY 120 tablet 0 Active NOPHEN 10-325 mg MOUTH EVERY 6 1 tabletIndications: HOURS NEEDED Chronic neck pain FOR PAIN (SCALE 4-6). HYDROcodone-acetami Take 1 tablet by 120 tablet 0 Discontinued nophen 10-325 mg mouth every 6 0 21 tabletIndications: (six) hours as chronic pain needed for Pain (scale 4-6). Indications: chronic pain documented as of this encounter (statuses as of 03/10/2020) Active Problems Problem Noted Date Chronic use [...] as of this encounter (statuses as of 03/10/2020) Immunizations Name Administration Dates Next Due Influenza [...] with No / Unsure 02/13/2020 7:40 AM RETAIL AGENT someone who was confirmed or suspected to have Coronavirus / COVID-19? documented as of this encounter Last Filed Vital Signs Not on filedocumented in this encounter Miscellaneous Notes Telephone Encounter - Kathryn Mar LVN - 03/07/2020 8:17 AM CST 4 weeks ago (02/06/2020) HYDROcodone-acetaminophen 10-325 mg tablet Take 1 tablet by mouth every 6 (six) hours as needed for Pain (scale 4-6). Indications: chronic pain Dispense: 120 tablet Refills: 0 [facility] Last Office Visit: 02/13/20 Next Office Visit: 05/12/2020 [place] documented in this encounter Plan of Treatment Date Type Specialty Care Team Description 05/12/2020 Office Visit Family Medicine Melecio Young MD [address] [place] [phone] Health Maintenance Due Date Last [...] Dates Phone Addre ss Type Group HIM GEOFFETTER FROM HIM JERODR FROM [id number] 2019-Present [facility] documented as of this encounter
--- NOTE | 2020-03-14 16:05 | RAD REPORT ---
EXAM DESCRIPTION: RAD - Chest Single View - 03/14/2020 3:28 pm CLINICAL HISTORY: Cough;Dyspnea Chest pain. COMPARISON: Chest Single View dated 09/12/2019; Chest Single View dated 06/05/2016 FINDINGS: Portable technique limits examination quality. Moderate bilateral pulmonary opacities are present, greater on the right. This likely represents sandy l pneumonia/bronchitis. The heart is upper limit normal in size. No displaced fractures.
[2020-03-14] MEDS ORDERED: METHYLPREDNISOLONE 125 MG INJ ONE (16:32)
[2020-03-14] MEDS ORDERED: IPRATROPIUM BROM 0.5MG/2.5ML ONE (16:33)
[2020-03-14] MEDS ORDERED: ALBUTEROL 2.5 MG/3 ML NEB SOL ONE (16:33)
[2020-03-14 16:43] LABS: Absolute Lymphocytes (CBC) 1.5 K/uL (0.7-4.9); Basophils % 0.8 % (0-1.3); Hematocrit 42.5 % (39.6-49.0); Lymphocytes % 13.5 % (15.3-44.8); MPV 7.5 fL (7.6-11.3); RBC Red Blood Cell Count 4.71 M/uL (4.33-5.43)
[2020-03-14 16:47] LABS: Protime INR 0.94
[2020-03-14 16:50] LABS: SARS-COV-2 RT PCR NEGATIVE (NEGATIVE)
[2020-03-14 17:11] LABS: Albumin 3.3 g/dL (3.4-5.0); Bilirubin Direct 0.2 mg/dL (0-0.2); Bilirubin Total 0.4 mg/dL (0.2-1.0); C-Reactive Protein 24.2 mg/L (<3.00); Ferritin 80.6 ng/mL (26-388); Potassium 4.6 mmol/L (3.5-5.1); Protein, Total 7.4 g/dL (6.4-8.2)
[2020-03-14 17:13] LABS: Troponin (Emerg Dept Use Only) 6.29 ng/mL (0.0-0.045)
--- NOTE | 2020-03-14 18:28 | RAD REPORT ---
EXAM DESCRIPTION: CT - Chest For Pe Angio - 03/14/2020 6:18 pm CLINICAL HISTORY: Chest pain. DYSPNEA COMPARISON: No comparisons TECHNIQUE: CT angiogram of the pulmonary arteries was performed with MIP. All CT scans are performed using dose optimization technique as appropriate and may include automated exposure control or mA/KV adjustment according to patient size. FINDINGS: No evidence of pulmonary thromboembolism. No acute aortic finding demonstrated. Extensive patchy airspace opacity is seen throughout both lungs likely indicating moderately severe i nterstitial pneumonia. No significant pericardial or pleural fluid. No concerning bony finding. IMPRESSION: No evidence of pulmonary thromboembolism. Moderately severe interstitial pneumonia seen bilaterally. This may be related to underlying COVID-19 infection.
--- NOTE | 2020-03-14 19:12 | ER ---
Nurse's Notes [facility] Name: Lobito Wu Age: 60 yrs Sex: Male : 1960 Arrival Date: 03/14/2020 Time: 14:33 Bed 20 Private MD: Diagnosis: Elevated troponin;Pneumonia, unspecified organism;Hypoxia Presentation: 03/14 14:35 Chief complaint: Patient states: Sudden onset of SOB while working out at 1300 today. ll1 States he feels congested and cough to upper airway. Slight SOB this am. Coronavirus screen: Client denies travel out of the [place] in the last 14 days. congestion, cough unrelated to allergies, Client presents with at least one sign or symptom that may indicate coronavirus-19. Standard/surgical mask placed on the client. Ebola Screen: Patient denies travel to an Ebola-affected area in the 21 days before illness onset. Initial Sepsis Screen: Does the patient meet any 2 criteria? No. Patient's initial sepsis screen is negative. Does the patient have a suspected source of infection? Yes: Productive cough/pneumonia. Risk Assessment: Do you want to hurt yourself or someone else? Patient reports no desire to harm self or others. Onset of symptoms was March 14, 2020. 14:35 Method Of Arrival: Ambulatory ll1 14:35 Acuity: ROC 2 ll1 Triage Assessment: 14:40 General: Appears uncomfortable, Behavior is calm, cooperative, appropriate for age. ll1 Pain: Complains of pain in upper chest. Neuro: No deficits noted. Cardiovascular: No deficits noted. Respiratory: Reports shortness of breath cough that is Airway is patent Trachea midline Respiratory effort is even, labored, Respiratory pattern is regular, symmetrical, Breath sounds with crackles in left upper lobe and left lower lobe Breath sounds are diminished in left upper lobe and left lower lobe Onset: The symptoms/episode began/occurred suddenly, the patient has moderate shortness of breath. Historical: - Allergies: 14:38 No Known Allergies; ll1 - PMHx: 14:38 Diabetes - NIDDM; Hypertension; ll1 - PSHx: 14:38 eye; ll1 - Immunization history:: Flu vaccine is up to date. - Social history:: Smoking status: Patient denies any tobacco usage or history of. Screenin:44 Abuse screen: Denies threats or abuse. Denies injuries from another. Nutritional ph screening: No deficits noted. Tuberculosis screening: No symptoms or risk factors identified. Fall Risk None identified. Assessment: 16:50 General: Appears in no apparent distress. comfortable, well groomed, well developed, ph Behavior is calm, cooperative, appropriate for age, Denies fever, feeling ill. Pain: Denies pain. Neuro: Level of Consciousness is awake, alert, obeys commands, Oriented to person, place, time, situation. Cardiovascular: Reports lightheadedness, shortness of breath, Denies chest pain. Respiratory: Reports shortness of breath at rest Airway is patent Respiratory effort is even, unlabored, Respiratory pattern is regular, symmetrical. GI: No signs and/or symptoms were reported involving the gastrointestinal system. Derm: Skin is intact, is healthy with good turgor, Skin is pink, warm \T\ dry. Musculoskeletal: Circulation, motion, and sensation intact. Range of motion: intact in all extremities. 18:22 Cardiovascular: Rhythm is regular. ph 19:15 Reassessment: No changes from previously documented assessment. Patient and/or family ll1 updated on plan of care and expected duration. Pain level reassessed. Patient is alert, oriented x 3, equal unlabored respirations, skin warm/dry/pink. 20:15 Reassessment: No changes from previously documented assessment. Patient and/or family ll1 updated on plan of care and expected duration. Pain level reassessed. Patient is alert, oriented x 3, equal unlabored respirations, skin warm/dry/pink. 21:00 General: Appears in no apparent distress. Behavior is calm, cooperative, appropriate ea for age. Pain: Denies pain. Neuro: Level of Consciousness is awake, alert, obeys commands, Oriented to person, place, time, situation. Derm: Skin is pink, warm \T\ dry. 22:45 Reassessment: Patient and/or family updated on plan of care and expected duration. Pain ea level reassessed. Patient is alert, oriented x 3, equal unlabored respirations, skin warm/dry/pink. Pt admitted to second floor, left ED via wheelchair per electrical mechanical technician, pt tolerating well. Vital Signs: 14:35 BP 126 / 83; Pulse 88; Resp 20; Temp 98.4; Pulse Ox 88% on R/A; Weight 90.72 kg; Height ll1 5 ft. 11 in. (180.34 cm); Pain 4/10; 14:39 ll1 16:41 BP 149 / 89; Pulse 85; Resp 20; Pulse Ox 95% on R/A; ph 18:00 BP 125 / 64; Pulse 105; Resp 18; Pulse Ox 91% on R/A; ph 22:00 BP 120 / 60; Pulse 88; Resp 18; Temp 98.2; Pulse Ox 97% ; ea 14:35 Body Mass Index 27.89 (90.72 kg, 180.34 cm) ll1 14:39 85-93% RA ll1 18:00 placed on NC at 2L, improved to 97% ph ED Course: 14:33 Patient arrived in ED. ds1 14:37 Triage completed. ll1 14:39 Arm band placed on. ll1 15:09 Dolores Gómez FNP-C is PHCP. kb 15:09 Virgilio Johnson MD is Attending Physician. kb 15:29 Chest Single View XRAY In Process Unspecified. EDMS 15:39 Valery Quintana, NOLAN is Primary Nurse. ph 16:20 First set of blood cultures drawn by me. Inserted saline lock: 20 gauge in left dh3 forearm, using aseptic technique. Blood collected. 16:28 Initial lab(s) drawn, by me, sent to lab. Second set of blood cultures drawn by me. dh3 16:44 Patient has correct armband on for positive identification. Bed in low position. Call ph light in reach. Side rails up X 1. mva reactor operator on. Pulse ox on. NIBP on. Door closed. Noise minimized. Warm blanket given. 17:53 Radiology exam delayed due to IV insertion attempt and/or patient not having vm2 appropriate IV at this time. 18:01 Inserted saline lock: 20 gauge in right forearm, using aseptic technique. Flushed right sv forearm with 2 ml normal saline. 18:19 CT Chest For PE Angio In Process Unspecified. EDMS 19:10 Pamella Thomas MD is Hospitalizing Provider. kb 22:34 No provider procedures requiring assistance completed. Patient admitted, IV remains in ea place. Administered Medications: 16:39 Drug: SOLU-Medrol 125 mg Route: IVP; Site: left wrist; ph 18:22 Follow up: Response: No adverse reaction ph 16:39 Drug: DuoNeb (3:1) (2.5 mg - 0.5 mg) 3 ml Route: Nebulizer; ph 18:22 Follow up: Response: No adverse reaction ph 19:59 Drug: Lovenox 1 mg/kg Route: Sub-Q; Site: right lower abdomen; ll1 20:23 Follow up: Response: No adverse reaction; RASS: Alert and Calm (0) ll1 19:59 Drug: Aspirin Chewable Tablet 243 mg Route: PO; ll1 20:23 Follow up: Response: No adverse reaction; RASS: Alert and Calm (0) ll1 Outcome: 19:11 Decision to Hospitalize by Provider. kb 22:35 Instructed on the need for admit, Demonstrated understanding of instructions. ea 22:45 Admitted to Med/surg accompanied by tech, room 223, with oxygen, with chart, Report ea called to Shanti FRANCISCO 22:45 Condition: stable 22:49 Patient left the ED. ea Signatures: Dispatcher [employer] EDMS Dolores Gómez, CAKE STRIPPER-C CAKE STRIPPER-Kylie Gee, RN RN Sol Carmona ds1 Valery Quintana RN RN [facility]li [facility] Beena Fortune 3 Shanti Gaming RN RN ea Lewis, Lynsay RN RN ll1 Corrections: (The following items were deleted from the chart) 14:39 14:35 Acuity: ROC 3 ll1 ll1 15:13 14:39 85-92% RA; ll1 ll1
--- NOTE | 2020-03-14 19:12 | EDPHYS ---
Physician Documentation [facility] Name: Lobito Wu Age: 60 yrs Sex: Male : 1960 Arrival Date: 03/14/2020 Time: 14:33 Bed 20 Private MD: ED Physician Virgilio Johnson HPI: 03/14 17:08 This 60 yrs old Male presents to ER via Ambulatory with complaints of kb Shortness Of Breath. 17:08 The patient has shortness of breath during heavy activity. Onset: The symptoms/episode kb began/occurred just prior to arrival. Duration: The symptoms are continuous. The patient's shortness of breath is aggravated by exertion. Associated signs and symptoms: Pertinent positives: non-productive cough. Severity of symptoms: At their worst the symptoms were moderate in the emergency department the symptoms have improved. The patient has not experienced similar symptoms in the past. The patient has not recently seen a physician. Pt reports he was running and suddenly felt very short of breath. States he took a break and tried to run again, but became short of breath again. States he did not have any symptoms prior to running. Exposed to covid recently. . Historical: - Allergies: 14:38 No Known Allergies; ll1 - PMHx: 14:38 Diabetes - NIDDM; Hypertension; ll1 - PSHx: 14:38 eye; ll1 - Immunization history:: Flu vaccine is up to date. - Social history:: Smoking status: Patient denies any tobacco usage or history of. ROS: 17:04 Constitutional: Negative for fever, chills, and weight loss, Cardiovascular: Negative kb for chest pain, palpitations, and edema, Abdomen/GI: Negative for abdominal pain, nausea, vomiting, diarrhea, and constipation, Back: Negative for injury and pain, MS/Extremity: Negative for injury and deformity, Skin: Negative for injury, rash, and discoloration, Neuro: Negative for headache, weakness, numbness, tingling, and seizure. 17:04 Respiratory: Positive for dyspnea on exertion, shortness of breath. Exam: 17:08 Constitutional: This is a well developed, well nourished patient who is awake, alert, kb and in no acute distress. Head/Face: Normocephalic, atraumatic. Chest/axilla: Normal chest wall appearance and motion. Nontender with no deformity. No lesions are appreciated. Cardiovascular: Regular rate and rhythm with a normal S1 and S2. No gallops, murmurs, or rubs. Normal PMI, no JVD. No pulse deficits. Abdomen/GI: Soft, non-tender, with normal bowel sounds. No distension or tympany. No guarding or rebound. No evidence of tenderness throughout. Skin: Warm, dry with normal turgor. Normal color with no rashes, no lesions, and no evidence of cellulitis. MS/ Extremity: Pulses equal, no cyanosis. Neurovascular intact. Full, normal range of motion. Neuro: Awake and alert, GCS 15, oriented to person, place, time, and situation. Cranial nerves II-XII grossly intact. Motor strength 5/5 in all extremities. Sensory grossly intact. Cerebellar exam normal. Normal gait. 17:08 Respiratory: the patient does not display signs of respiratory distress, Respirations: normal, Breath sounds: rhonchi, that are moderate, are heard in the left upper lobe, left lower lobe, left posterior upper lobe and left posterior lower lobe. Vital Signs: 14:35 BP 126 / 83; Pulse 88; Resp 20; Temp 98.4; Pulse Ox 88% on R/A; Weight 90.72 kg; Height ll1 5 ft. 11 in. (180.34 cm); Pain 4/10; 14:39 ll1 16:41 BP 149 / 89; Pulse 85; Resp 20; Pulse Ox 95% on R/A; ph 18:00 BP 125 / 64; Pulse 105; Resp 18; Pulse Ox 91% on R/A; ph 22:00 BP 120 / 60; Pulse 88; Resp 18; Temp 98.2; Pulse Ox 97% ; ea 14:35 Body Mass Index 27.89 (90.72 kg, 180.34 cm) ll1 14:39 85-93% RA ll1 18:00 placed on NC at 2L, improved to 97% ph MDM: 15:32 Patient medically screened. kb 17:04 Data reviewed: vital signs, nurses notes. Data interpreted: Pulse oximetry: on room air kb is 88 %. Interpretation: hypoxia. 18:41 Counseling: I had a detailed discussion with the patient and/or guardian regarding: the kb historical points, exam findings, and any diagnostic results supporting the discharge/admit diagnosis, lab results, radiology results, the need for further work-up and treatment in the hospital. 19:04 Physician consultation: Abhijeet GALLO was contacted at 19:04, regarding admission, to the telemetry unit. patient's condition, and will see patient in ED. 03/14 15:06 Order name: Flu kb 03/14 15:06 Order name: COVID-19 kb 03/14 15:59 Order name: Blood Culture Adult (2) kb 03/14 15:59 Order name: BMP kb 03/14 15:59 Order name: C-Reactive Protein kb 03/14 15:59 Order name: CBC with Diff kb 03/14 15:59 Order name: Ferritin kb 03/14 15:59 Order name: Lactate kb 03/14 15:59 Order name: LFT's; Complete Time: 17:14 kb 03/14 15:59 Order name: Lipase; Complete Time: 17:14 kb 03/14 15:59 Order name: Procalcitonin; Complete Time: 17:57 kb 03/14 15:59 Order name: PT-INR; Complete Time: 16:58 kb 03/14 15:06 Order name: Chest Single View XRAY; Complete Time: 16:08 kb 03/14 15:59 Order name: Ptt, Activated; Complete Time: 16:58 kb 03/14 15:59 Order name: Troponin (emerg Dept Use Only); Complete Time: 17:14 kb 03/14 16:00 Order name: Blood Culture EDMS 03/14 16:00 Order name: Basic Metabolic Panel; Complete Time: 17:14 EDMS 03/14 16:00 Order name: C-Reactive Protein; Complete Time: 17:14 EDMS 03/14 16:00 Order name: CBC with Automated Diff; Complete Time: 16:44 EDMS 03/14 16:00 Order name: Ferritin; Complete Time: 17:14 EDMS 03/14 16:00 Order name: Lactate; Complete Time: 16:58 EDMS 03/14 16:51 Order name: COVID-19/FLU A+B; Complete Time: 16:58 EDMS 03/14 17:05 Order name: CT Chest For PE Angio; Complete Time: 18:30 kb 03/14 19:10 Order name: BNP; Complete Time: 21:06 kb 03/14 21:11 Order name: SARS-COV-2 RT PCR; Complete Time: 21:18 EDMS 03/14 15:59 Order name: Labs collected and sent; Complete Time: 16:35 kb 03/14 15:59 Order name: EKG; Complete Time: 16:00 kb 03/14 15:59 Order name: Cardiac monitoring; Complete Time: 16:11 kb 03/14 15:59 Order name: Droplet/Contact Precautions; Complete Time: 16:11 kb 03/14 15:59 Order name: EKG - Nurse/Tech; Complete Time: 16:35 kb 03/14 15:59 Order name: IV Start; Complete Time: 16:35 kb 03/14 15:59 Order name: O2 Per Protocol; Complete Time: 16:12 kb 03/14 15:59 Order name: O2 Sat Monitoring; Complete Time: 16:12 kb 03/14 20:12 Order name: CONS Physician Consult EDMS EC:12 Rate is 87 beats/min. Rhythm is regular. Left axis deviation noted. AL interval is kb prolonged at 228 msec. QRS interval is normal at 120 msec. QT interval is normal at 344 msec. Administered Medications: 16:39 Drug: SOLU-Medrol 125 mg Route: IVP; Site: left wrist; ph 18:22 Follow up: Response: No adverse reaction ph 16:39 Drug: DuoNeb (3:1) (2.5 mg - 0.5 mg) 3 ml Route: Nebulizer; ph 18:22 Follow up: Response: No adverse reaction ph 19:59 Drug: Lovenox 1 mg/kg Route: Sub-Q; Site: right lower abdomen; ll1 20:23 Follow up: Response: No adverse reaction; RASS: Alert and Calm (0) ll1 19:59 Drug: Aspirin Chewable Tablet 243 mg Route: PO; ll1 20:23 Follow up: Response: No adverse reaction; RASS: Alert and Calm (0) ll1 Disposition: 03/15 14:28 Co-signature as Attending Physician, Virgilio Johnson MD I agree with the assessment and kdr plan of care. Disposition: 03/14/20 19:11 Hospitalization ordered by Pamella Thomas for Inpatient Admission. Preliminary diagnosis are Elevated troponin, Pneumonia, unspecified organism, Hypoxia. - Bed requested for Telemetry/MedSurg (Inpatient). - Status is Inpatient Admission. ea - Condition is Stable. - Problem is new. - Symptoms are unchanged. Signatures: Dispatcher [employer] EDMS Dolores Gómez, CONSULTING PRACTICE DIRECTOR-C CONSULTING PRACTICE DIRECTOR-Ckb Dinorah Steiner, RN RN Virgilio Johnson MD MD [facility] Valery Quintana, RN RN Shanti Gaming, RN Haris Capellan ea RN RN ll1 Corrections: (The following items were deleted from the chart) 03/14 16:05 15:07 CORONAVIRUS ordered. EDPR EDMS 17:36 15:07 Influenza Screen (A ordered. EDPR EDMS 22:12 19:11 Hospitalization Ordered by Pamella Thomas MD for Inpatient Admission. Preliminary kb diagnosis is Elevated troponin; Coronavirus infection, unspecified; Pneumonia, unspecified organism; Hypoxia. Bed requested for Telemetry/MedSurg (Inpatient). Status is Inpatient Admission. Condition is Stable. Problem is new. Symptoms are unchanged. kb 22:12 22:12 03/14/2020 19:11 Hospitalization Ordered by Pamella Thomas MD for Inpatient mw Admission. Preliminary diagnosis is Elevated troponin; Pneumonia, unspecified organism; Hypoxia. Bed requested for Telemetry/MedSurg (Inpatient). Status is Inpatient Admission. Condition is Stable. Problem is new. Symptoms are unchanged. kb 22:49 22:12 03/14/2020 19:11 Hospitalization Ordered by Pamella Thomas MD for Inpatient ea Admission. Preliminary diagnosis is Elevated troponin; Pneumonia, unspecified organism; Hypoxia. Bed requested for Telemetry/MedSurg (Inpatient). Status is Inpatient Admission. Condition is Stable. Problem is new. Symptoms are unchanged. mw
[2020-03-14] MEDS ORDERED: ASPIRIN 81 MG CHEWABLE TABLET ONE ×3 (20:01→20:10)
[2020-03-14] MEDS ORDERED: ENOXAPARIN 100 MG/ML SYR SQ ONE (20:02)
[2020-03-14] MEDS ORDERED: HYDRALAZINE HCL 20 MG/ML VIAL IV PRN (23:18)
[2020-03-14] MEDS ORDERED: D50W 25 GM/50 ML SYRINGE IV PRN (23:18)
[2020-03-14] MEDS ORDERED: INSULIN -REGULAR HUMAN 50 UNIT/0.5 ML ML SQ SCH (23:18)
[2020-03-14] MEDS ORDERED: ACETAMINOPHEN 500 MG TAB PO PRN (23:18)
[2020-03-14] MEDS ORDERED: GLUCAGON 1 MG/VIAL IM PRN (23:18)
[2020-03-14] MEDS ORDERED: ONDANSETRON 4 MG/2 ML VIAL IV PRN (23:18)
[2020-03-14 23:28] VITALS: BMI 29.2
[2020-03-14] MEDS: FAMOTIDINE 20 MG/2 ML VIAL IV SCH (23:48)
[2020-03-14] MEDS: METHYLPREDNISOLONE 40 MG INJ IV SCH (23:48)
[2020-03-14] MEDS: ENOXAPARIN 100 MG/ML SYR SQ SCH (23:48)
[2020-03-15] MEDS: MORPHINE 4 MG/ML SYR IV PRN ×3 (00:07→21:27)
[2020-03-15] MEDS ORDERED: D50W 25 GM/50 ML SYRINGE IV PRN (01:13)
[2020-03-15] MEDS ORDERED: GLUCAGON 1 MG/VIAL IM PRN (01:13)
[2020-03-15] MEDS ORDERED: INSULIN -REGULAR HUMAN 50 UNIT/0.5 ML ML IV ONE (01:14)
--- NOTE | 2020-03-15 01:35 | P.HP ---
Certification for Inpatient Patient admitted to: Inpatient With expected LOS: >2 Midnights Patient will require the following post-hospital care: None Practitioner: I am a practitioner with admitting privileges, knowledge of patient current condition, hospital course, and medical plan of care. Services: Services provided to patient in accordance with Admission requirements found in Title 42 Section 412.3 of the Code of Federal Regulations <Mitch Ordonez - Last Filed: 03/15/20 01:29> Patient History Date of Service: 03/15/20 Primary Care Provider: Hector Reason for admission: Acute Respiratory Failure, NSTEMI, viral pneumonia History of Present Illness: This is a 60-year-old male that presented to the emergency room with complaints of shortness of breath. Patient had room air saturation of 88% upon arrival to emergency room. Patient stated that he has had shortness of breath during points of heavy activity that has become worse over the last day or so. Patient was worked up in the emergency room today and found to have a sodium of 138, potassium 4.6, chloride of 106, bicarb 26, BUN of 25, creatinine 1.42, glucose 195. Patient had a white cell count of 10.9, hemoglobin 14.2, hematocrit 42.5, platelet 141. Patient was found to have moderate elevation in troponin cardiac enzyme at level of 6.29. Patient also had CRP elevation at 24.2 with a negative procalcitonin. Chest x-ray showed bilateral patchy opacities. Patient had a CT PE protocol completed in the emergency room showing again bilateral ground-glass patchy opacities consistent with viral pneumonia. Patient had x2 COVID swabs in ED, both showing a negative. Patient with a history of diabetes mellitus, hypertension, peripheral arterial disease, chronic pain. Medicine consulted at that time for admission for acute respiratory failure, NSTEMI, viral pneumonia. Patient did mention when we saw him in the emergency room that late December he relapsed from drug use and started to use methamphetamines a couple of times. Stated that he had some wounds on his legs that he wanted us to look at. Home medications list reviewed: Yes - Past Medical/Surgical History Has patient received pneumonia vaccine in the past: No Diabetic: Yes -: Diabetes mellitus type 2 -: Angioplasty 2020 -: Amputation pinky toe left - Family History Father -: Heart disease, Other (see notes) Notes: COPD Mother -: Lung disease Notes: COPD - Social History Smoking Status: Former smoker Smoking therapy provided: No Alcohol use: No CD- Drugs: Yes Caffeine use: Yes Place of Residence: Home <Mitch Ordonez - Last Filed: 03/15/20 01:29> Date of Service: 03/14/20 <Pamella Thomas - Last Filed: 03/19/20 04:55> Allergies No Known Allergies Allergy (Unverified 06/06/16 02:11) Home Medications: Insulin Aspart [Novolog Flexpen] 5 units SQ BID 09/06/19 Insulin Detemir [Levemir Flextouch] 20 units SQ BID 09/06/19 Pregabalin 1 cap PO BID 09/06/19 Simvastatin 1 tab PO BEDTIME 09/06/19 carisoprodoL [Soma*] 1 tab PO QID PRN 09/13/19 Review of Systems General: Unremarkable Eyes: Unremarkable ENT: Unremarkable Respiratory: Cough, Shortness of Breath, SOB with Excertion Cardiovascular: Unremarkable Gastrointestinal: Unremarkable Genitourinary: Unremarkable Musculoskeletal: Unremarkable Integumentary: Unremarkable Neurological: Unremarkable Lymphatics: Unremarkable <Mitch Ordonez - Last Filed: 03/15/20 01:29> Physical Examination - Vital Signs Temperature: 97.2 F Blood Pressure: 149/81 Pulse: 94 Respirations: 18 Pulse Ox (%): 90 - Physical Exam General: Alert, In no apparent distress, Oriented x3, Cooperative HEENT: PERRLA, Mucous membr. moist/pink, EOMI Neck: Supple, 2+ carotid pulse no bruit, JVD not distended, No Thyromegaly Respiratory: Rhonchi/gurgles (Bilaterally) Cardiovascular: No edema, Normal pulses, Regular rate/rhythm, Normal S1 S2, No gallops, No rubs, No murmurs Capillary refill: <2 Seconds Gastrointestinal: Normal bowel sounds, Soft and benign, Non-distended, No ascites, No tenderness, No masses, No rebound, No guarding Musculoskeletal: No clubbing, No swelling, No contractures, No erythema, No tenderness, No warmth Integumentary: Other (Patient has 2 wounds 1 on right mid thigh and 1 on left midthigh with black eschar noted from methamphetamine injection site) Neurological: Normal gait, Normal speech, Normal strength at 5/5 x4 extr, Normal tone, Sensation intact, Cranial nerves 3-12 intact, Normal affect Lymphatics: No axilla or inguinal lymphadenopathy - Studies Laboratory Data (last 24 hrs) 03/14/20 16:28: PT 11.1, INR 0.94, APTT 22.0 L 03/14/20 16:28: WBC 10.9, Hgb 14.2, Hct 42.5, Plt Count 141 L 03/14/20 16:28: Sodium 138, Potassium 4.6, BUN 25 H, Creatinine 1.42 H, Glucose 195 H, Total Bilirubin 0.4, AST 62 H, ALT 32, Alkaline Phosphatase 62, Lipase 44 L <PriyachariperriMitch - Last Filed: 03/15/20 01:29> Assessment and Plan - Problems (Diagnosis) (1) Diabetes mellitus Status: Chronic Plan: Patient put on a moderate sliding scale and will continue to be on the scale in adjust as necessary based on glucose levels and steroid use for his viral pneumonia. Will check labs daily along with [facility] glucose checks. Qualifiers: Diabetes mellitus type: type 2 Diabetes mellitus fci insulin use: with terminal manager use Diabetes mellitus complication status: with circulatory complication Diabetes mellitus complication detail: with peripheral angiopathy without gangrene Qualified Code(s): E11.51 - Type 2 diabetes mellitus with diabetic peripheral angiopathy without gangrene; Z79.4 - exterminator helper (current) use of insulin (2) Acute respiratory failure Status: Acute Plan: Patient was put on oxygen in the emergency room and will continue on nasal cannula oxygen therapy and upgraded as needed for respiratory status and pulse oximetry. Patient initially had bilateral rhonchi which breathing treatments and steroids seem to improve. Will continue this in the inpatient setting. Qualifiers: Respiratory failure complication: hypoxia Qualified Code(s): J96.01 - Acute respiratory failure with hypoxia (3) Viral pneumonia Status: Acute Plan: Patient on chest x-ray, physical exam and CT showed signs consistent with a viral pneumonia. Patient was tested twice for COVID but both came back negative. We have consulted pulmonology for further evaluation as patient has signs and symptoms and imaging very consistent with COVID all those tests keep coming back negative. Will continue to rule out other causes as well. (4) NSTEMI (non-ST elevated myocardial infarction) Status: Acute Plan: Patient had moderate elevation in his troponin. Patient started on anticoagulation therapy along with antiplatelet therapy. Echocardiogram has been ordered and cardiology has been consulted. EKG remains stable at this time. Will repeat EKGs is necessary. We will continue to trend troponins as well. Discharge Plan: Home Plan to discharge in: Greater than 2 days - Advance Directives Does patient have a Living Will: No Does patient have a Durable POA for Healthcare: No - Code Status/Comfort Care Code Status Assessed: Yes Code Status: Full Code Critical Care: No Time Spent Managing Pts Care (In Minutes): 90 <Mitch Ordonez - Last Filed: 03/15/20 01:29> - Problems (Diagnosis) (1) NSTEMI (non-ST elevated myocardial infarction) Status: Acute (2) Interstitial lung disease Status: Acute (3) Skin infection Status: Acute (4) History of intravenous drug abuse Status: Acute (5) Diabetes mellitus Status: Chronic Qualifiers: Diabetes mellitus type: type 2 Diabetes mellitus fci insulin use: with fci use Diabetes mellitus complication status: with circulatory complication Diabetes mellitus complication detail: with peripheral angiopathy without gangrene Qualified Code(s): E11.51 - Type 2 diabetes mellitus with diabetic peripheral angiopathy without gangrene; Z79.4 - [facility] (current) use of insulin - Plan Patient is clinically doing well. Patient with no new complaints. Agree with plan as mentioned above. <Pamella Thomas - Last Filed: 03/19/20 04:55>
[2020-03-15] MEDS ORDERED: LEVALBUTEROL 1.25 MG/3 ML NEB NEB PRN (01:44)
[2020-03-15] MEDS: INSULIN -REGULAR HUMAN 50 UNIT/0.5 ML ML SQ SCH ×5 (03:44→21:00)
[2020-03-15 04:43] LABS: Absolute Lymphocytes (CBC) 0.3 K/uL (0.7-4.9); Basophils % 0.5 % (0-1.3); Hematocrit 45.4 % (39.6-49.0); Lymphocytes % 2.9 % (15.3-44.8); MPV 8.6 fL (7.6-11.3); RBC Red Blood Cell Count 4.95 M/uL (4.33-5.43)
[2020-03-15 05:15] LABS: Platelet Estimate DECR; White Blood Cell Scan OK (OK)
[2020-03-15 05:16] LABS: Blood Morphology Comment NOT SEEN (NOT SEEN)
[2020-03-15 05:25] LABS: C-Reactive Protein 23.6 mg/L (<3.00)
[2020-03-15 05:27] LABS: Potassium 5.5 mmol/L (3.5-5.1)
[2020-03-15] MEDS ORDERED: FUROSEMIDE 40 MG/4 ML VIAL IV ONE (05:43)
[2020-03-15] MEDS: ASPIRIN EC 81 MG TAB PO SCH (10:20)
[2020-03-15] MEDS: METHYLPREDNISOLONE 40 MG INJ IV SCH ×2 (10:21→21:29)
[2020-03-15] MEDS: FAMOTIDINE 20 MG/2 ML VIAL IV SCH ×2 (10:21→21:28)
[2020-03-15] MEDS: ENOXAPARIN 100 MG/ML SYR SQ SCH ×2 (10:21→21:28)
[2020-03-15] MEDS ORDERED: PNEUMOCOCCAL VACCINE 0.5 ML IMVAC ONE (11:00)
--- NOTE | 2020-03-15 13:29 | EKG ---
Test Date: 2020-03-14 Test Time: 16:30:34 Rail Track Maintainer: PH MEASUREMENT RESULTS: Intervals: Rate: 87 [place]: 228 QRSD: 120 QT: 344 QTc: 413 Edgard: P: 44 [place]: 228 QRS: -53 T: 86 INTERPRETIVE STATEMENTS: Sinus rhythm with 1st degree AV block Possible Left atrial enlargement Left anterior fascicular block Left ventricular hypertrophy with QRS widening and repolarization abnormality Cannot rule out Septal infarct, age undetermined Possible Lateral infarct, age undetermined Abnormal ECG Compared to ECG 06/05/2016 17:15:50 First degree AV block now present Left anterior fascicular block now present Early repolarization now present Myocardial infarct finding now present Sinus bradycardia no longer present Electronically Signed On 03-15-20 13:28:14 MARKETING OPERATIONS CONSULTANT by Klaus Orr
--- NOTE | 2020-03-15 16:42 | P.CNS ---
Date of Consult: 03/15/20 PC: HPC: I was asked to see this 60-year-old in regards to some wounds on his thighs. PMH: Patient apparently had a relapse in a 35 year history of sobriety. Has 2 injection sites on the inner aspect of his thighs. He has had these for about a week. PSHx: Previous angioplasty SOC: No known allergies SYS REVIEW: States he is otherwise a healthy male, exercises on a regular basis. O/E awake alert comfortable HEENT: Within normal limits ABD: Negative LOCO: On the inner aspect of his both eyes approximately a hand's breath from the groin has an area of full-thickness skin necrosis. No evidence of infection. It is well circumscribed. IMPRESSION: Of necrosis consistent with m3th injection with extravasation. PLAN: Keep wounds clean and dry. They do not require debridement at this time. These wounds are full thickness, and 0 slough bottom soles over the next days and weeks. This was discussed with the patient. When he is discharged he may follow in my office as needed. He will also get in contact with his sponsor
--- NOTE | 2020-03-15 17:23 | CON ---
Date of Consultation: 03/15/[address] Hastings on 03/14/2020. I saw the patient on 03/15/2020. He came in with acute respirat ory failure. History Of Present Illness: Mr. Wu is a 60-year-old male has a history of diabetes, dyslipidemia , peripheral arterial disease. According to him, he has had stents in the leg. He had 100% SFA occl usion on the right, 70% on the left. He normally sees Dr. Farrukh Young for primary care. He came in mostly with shortness of breath. No chest pain, but his troponin was 6.29. Chest x-ray showed pneu monia. His creatinine was 1.69, but that is improved. His BNP was 600. His glucose was 440. He de nied palpitation or syncope. Denied any nausea or vomiting but has had some diaphoresis. Denied any fever or chills, but has had some cough. Past Medical History: As stated above. Allergies: NONE. Review of Systems: Negative. Social History: Positive for using crystal meth back in the days and recently. Medications: At home include insulin and Zocor. Physical Examination: Vital Signs: Stable. He was afebrile. HEENT: Negative. Neck: Supple without any bruit, lymphadenopathy, JVD, or thyromegaly. Chest: Rales both bases. Cardiac: Regular rhythm and rate. No murmurs, gallops, or rubs. Abdomen: Benign. Extremities: No clubbing, cyanosis, or edema. Diagnostic Data: As stated earlier. Impression And Plan: 1.Non-ST elevation myocardial infarction. 2.Severe peripheral arterial disease. 3.Renal insufficiency. 4.Diabetes. 5.Dyslipidemia. 6.Echocardiogram is pending. I think Mr. Wu is at very high risk of having significant coronary artery disease. Heart catheterization will be done on 03/17/2020. The patient understands the risk and the benefits of the procedure and he agrees to proceed. I would continue his present regimen, b ut he should be also on aspirin, low-dose, beta-gertrude and Lovenox for now. We will hold Lovenox at least 8 hours before the catheterization. HEIDY/DELORESL Voice ID: [id number] Report ID: [id number]
[2020-03-15] MEDS ORDERED: ZOLPIDEM TARTRATE 10 MG TABLET PO ONE (20:55)
[2020-03-16] MEDS: INSULIN -REGULAR HUMAN 50 UNIT/0.5 ML ML SQ SCH ×4 (08:36→20:58)
[2020-03-16] MEDS: ASPIRIN EC 81 MG TAB PO SCH (08:37)
[2020-03-16] MEDS: FAMOTIDINE 20 MG/2 ML VIAL IV SCH ×2 (08:37→20:56)
[2020-03-16] MEDS: ENOXAPARIN 100 MG/ML SYR SQ SCH (08:37)
[2020-03-16] MEDS: METHYLPREDNISOLONE 40 MG INJ IV SCH (08:37)
[2020-03-16] MEDS: MORPHINE 4 MG/ML SYR IV PRN ×3 (08:50→21:35)
[2020-03-16] MEDS ORDERED: carisoprodoL 350 MG TAB PO PRN (09:19)
[2020-03-16] MEDS ORDERED: GLUCAGON 1 MG/VIAL IM PRN (09:20)
[2020-03-16] MEDS ORDERED: D50W 25 GM/50 ML SYRINGE IV PRN (09:20)
[2020-03-16] MEDS ORDERED: INSULIN 70/30 100 UNITS/ML SQ ONE (10:00)
[2020-03-16] MEDS ORDERED: INSULIN GLARGINE 100 UNITS/ML SQ ONE (10:00)
[2020-03-16] MEDS ORDERED: VANCOMYCIN 1 GM in NA CHLORIDE 0.9% 500 ML IVPB ONE (11:00)
[2020-03-16] MEDS: INSULIN LISPRO 100 UNIT/1 ML SQ SCH (16:21)
[2020-03-16] MEDS ORDERED: ACETYLCYST 6,000 MG/30 ML VIAL PO SCH (19:00)
[2020-03-16] MEDS ORDERED: D5W 1,000 ML with NA BICARB 8.4% 50 MEQ IV SCH ×4 (19:00→20:00)
[2020-03-16] MEDS ORDERED: ZOLPIDEM TARTRATE 10 MG TABLET PO ONE (20:21)
[2020-03-16] MEDS: ACETYLCYST 6,000 MG/30 ML VIAL PO SCH (20:52)
[2020-03-16] MEDS: PREGABALIN 150 MG CAP PO SCH (20:55)
[2020-03-16] MEDS: ATORVASTATIN 10 MG TAB PO SCH (20:55)
[2020-03-16] MEDS: INSULIN GLARGINE 100 UNITS/ML SQ SCH (20:57)
[2020-03-16] MEDS ORDERED: METHYLPREDNISOLONE 40 MG INJ IV SCH (21:00)
[2020-03-16] MEDS ORDERED: D5W 1,000 ML IV ONE (21:46)
[2020-03-16] MEDS ORDERED: SODIUM BICARB 50 MEQ/50ML VIAL ONE (21:47)
--- NOTE | 2020-03-17 06:52 | P.PN ---
Subjective Date of Service: 03/16/20 Subjective: No new changes, No C/O voiced, Improving patient does appear to be very hyper. We will go ahead and check an hemoglobin A1c level as blood sugars are significantly elevated. Will go ahead and decrease/stop his IV steroids. Patient does have some evidence of interstitial lung disease and will need to be followed up as an outpatient with pulmonary. Cardiac catheterization in the morning. Medication for renal protection as well. Anticipate discharge home over the next 24-48 hours pending cardiac catheterization results. We will also get prophylactic antibiotics as patient has a history of IV drug abuse. Patient does have some lesions on his skin that have some drainage been no significant purulent drainage. These were evaluated by General surgery as well. Review of Systems 10-point ROS is otherwise unremarkable Physical Examination - Vital Signs Temperature: 97.5 F Blood Pressure: 128/90 Pulse: 81 Respirations: 18 Pulse Ox (%): 96 - Physical Exam General: Alert, In no apparent distress, Oriented x3 HEENT: Atraumatic, PERRLA, EOMI Neck: Supple, JVD not distended Respiratory: Crackles/rales ( Dry crackles) Cardiovascular: Regular rate/rhythm, Normal S1 S2 Gastrointestinal: Normal bowel sounds, Soft and benign, Non-distended, No tenderness Musculoskeletal: No clubbing, No swelling, No tenderness Integumentary: Tenderness/swelling, Erythema, Other Neurological: Sensation intact, Cranial nerves 3-12 intact - Studies Medications List Reviewed: Yes Assessment & Plan - Problems (Diagnosis) (1) NSTEMI (non-ST elevated myocardial infarction) Current Visit: Yes Status: Acute (2) Interstitial lung disease Current Visit: Yes Status: Acute (3) Skin infection Current Visit: Yes Status: Acute (4) History of intravenous drug abuse Current Visit: Yes Status: Acute (5) Diabetes mellitus Current Visit: Yes Status: Chronic Qualifiers: Diabetes mellitus type: type 2 Diabetes mellitus terminal make up operator insulin use: with usp use Diabetes mellitus complication status: with circulatory complication Diabetes mellitus complication detail: with peripheral angiopathy without gangrene Qualified Code(s): E11.51 - Type 2 diabetes mellitus with diabetic peripheral angiopathy without gangrene; Z79.4 - nursing home (current) use of insulin - Plan 1. strict blood sugar monitoring. 2. Cardiology consultation appreciated; cardiac catheterization on Tuesday morning 3. continue with IV antibiotics and medication for renal protection 4. Anti-platelet therapy, anti coagulation, beta-gertrude, statin, and O2 as needed 5. IV morphine for pain 6. Nitro p.r.n. 7. Outpatient follow-up with pulmonary for interstitial lung disease Discharge Plan: Home Plan to discharge in: Greater than 2 days - Advance Directives Does patient have a Living Will: No Does patient have a Durable POA for Healthcare: No - Code Status/Comfort Care Code Status: Full Code Critical Care: No Time Spent Managing PTS Care (In Minutes): 35
[2020-03-17] MEDS ORDERED: HEPA 1000U/500MLS 1,000 UNIT/500 ML BAG IV ONE ×2 (07:02→11:12)
[2020-03-17 07:24] LABS: Absolute Lymphocytes (CBC) 0.6 K/uL (0.7-4.9); Basophils % 0.2 % (0-1.3); Hematocrit 43.6 % (39.6-49.0); Lymphocytes % 5.6 % (15.3-44.8); MPV 7.6 fL (7.6-11.3); RBC Red Blood Cell Count 4.86 M/uL (4.33-5.43)
[2020-03-17] MEDS ORDERED: ACETYLCYST 20% 800 MG/4 ML VIAL PO ONE (07:30)
[2020-03-17 07:45] LABS: Magnesium 2.5 mg/dL (1.8-2.4); Phosphorus 2.4 mg/dL (2.5-4.9); Potassium 4.3 mmol/L (3.5-5.1)
[2020-03-17] MEDS: ACETYLCYST 6,000 MG/30 ML VIAL PO SCH (08:00)
[2020-03-17] MEDS: INSULIN LISPRO 100 UNIT/1 ML SQ SCH ×2 (08:00→16:13)
[2020-03-17] MEDS: INSULIN GLARGINE 100 UNITS/ML SQ SCH ×2 (08:31→21:17)
[2020-03-17] MEDS: INSULIN -REGULAR HUMAN 50 UNIT/0.5 ML ML SQ SCH ×4 (08:59→21:00)
[2020-03-17] MEDS: ASPIRIN EC 81 MG TAB PO SCH (08:59)
[2020-03-17] MEDS: PREGABALIN 150 MG CAP PO SCH ×2 (09:00→21:16)
[2020-03-17] MEDS: FAMOTIDINE 20 MG/2 ML VIAL IV SCH ×2 (09:04→21:16)
[2020-03-17] MEDS ORDERED: NA CHLORIDE 0.9% 1,000 ML ONE (09:09)
[2020-03-17] MEDS: MORPHINE 4 MG/ML SYR IV PRN ×3 (09:12→21:30)
[2020-03-17] MEDS ORDERED: FENTANYL CITR 100 MCG/2 ML ONE (11:32)
[2020-03-17] MEDS ORDERED: HEPARIN 10,000 UNIT/10 ML VIAL IV ONE (11:32)
[2020-03-17] MEDS ORDERED: VERAPAMIL HCL 10 MG/4 ML VIAL IV ONE (11:32)
[2020-03-17] MEDS ORDERED: MIDAZOLAM HCL 2 MG/2 ML INJ ONE (11:32)
[2020-03-17] MEDS ORDERED: HEPARIN 5000 UNIT/ML 1 ML VIAL ONE (11:32)
[2020-03-17] MEDS ORDERED: NITROGLYCERIN 100 MCG/ML SYR (for cath lab use only) IV ONE (11:33)
[2020-03-17] MEDS ORDERED: ATROPINE SULF 1 MG/10 ML SYR IV ONE (11:33)
[2020-03-17] MEDS ORDERED: LIDOCAINE 1% MPF 30 ML VIAL ONE (11:38)
--- NOTE | 2020-03-17 12:52 | OP ---
Date of Procedure: 03/17/2020 Surgeon: CHARU CAZARES Procedure Performed: Selective coronary angiogram. Access: Right radial artery with 6-Taiwanese, closed with TR band. Indication: Non-ST elevation myocardial infarction. Complications: None. Bleeding: Less than 5 mL. Description Of Procedure: After risks, benefits, and alternatives were explained, the patient agreed to procedure and signed informed consent. We gave fentanyl and Versed to achieve adequate moderate sedation. The patient was brought into the cardiac catheterization laboratory, prepped and draped in usual sterile fashion and we accessed right radial artery using pediatric micropuncture kit and then placed a 6-Taiwanese slender sheath. There was heavy calcification in the radial artery. Took a [facility] [place] catheter into the aortic root and engaged left main coronary artery, then right coronary ar brian, took standard views, took the catheter out and sheath was removed and placed TR band. Findings: 1.Left main: Distal 20%. 2.LAD: Heavily calcified vessel with ostial 90% disease and mid 80% to 90% with heavy calcification . SURAJ-3 flow was noted. 3.Left circumflex: Tortuous. Mild diffuse disease. 4.RCA: Large dominant circulation with proximal 30%, mid 20% to 30% diffuse and distal 95% disease before bifurcation, which is the culprit, however, there is SURAJ-3 flow in the vessel. Conclusion: Severe ostial LAD and mid LAD disease and severe distal RCA disease with heavily calcifi ed lesions. Recommendations: Transfer for coronary artery bypass surgery. /DELORESL Voice ID: [id number] Report ID: [id number]
--- NOTE | 2020-03-17 12:58 | PN ---
Date of Progress Note: 03/16/2020 History Of Present Illness: Mr. Wu came in with non-ST elevation myocardial infarction, mostly c hest pain and tightness. Has had a history of PAD with stents in the left and right SFA in the past. Has multiple cardiac risk factors for heart disease. The last troponin is 8.14, which is elevated compared to the day before. His glucose was 192. He is still having intermittent chest discomfort, but the telemetry remains sinus rhythm. We should add a low-dose statin for his med regimen as well as a low-dose beta-gertrude. Creatinine remains stable. We will plan for heart catheterization on . We will hold the Lovenox after tonight. HEIDY/NICOL Voice ID: [id number] Report ID: [id number]
--- NOTE | 2020-03-17 13:35 | P.DS ---
Admission Date: 03/14/20 Discharge Date: 03/17/20 Primary Care Provider: Dr. Young Disposition: TRANSFER TO [facility] Discharge Condition: GOOD Reason for Admission: Acute Respiratory Failure, NSTEMI, viral pneumonia Consultations: Cardiology-Dr. Orr/Dr. Raymundo Surgery-Dr. Fan Procedures: CT Scan: FINDINGS: No evidence of pulmonary thromboembolism. No acute aortic finding demonstrated. Extensive patchy airspace opacity is seen throughout both lungs likely indicating moderately severe interstitial pneumonia. No significant pericardial or pleural fluid. No concerning bony finding. IMPRESSION: No evidence of pulmonary thromboembolism. Moderately severe interstitial pneumonia seen bilaterally. This may be related to underlying COVID-19 infection. Heart cath: Date of Procedure: 03/17/2020 Surgeon: Dr. Tejas Raymundo Procedure Performed: Selective coronary angiogram. Access: Right radial artery with 6-Beninese, closed with TR band. Indication: Non-ST elevation myocardial infarction. Complications: None. Bleeding: Less than 5 mL. Findings: 1. Left main: Distal 20%. 2. LAD: Heavily calcified vessel with ostial 90% disease and mid 80% to 90% with heavy calcification. SURAJ-3 flow was noted. 3. Left circumflex: Tortuous. Mild diffuse disease. 4. RCA: Large dominant circulation with proximal 30%, mid 20% to 30% diffuse and distal 95% disease before bifurcation, which is the culprit, however, there is SURAJ-3 flow in the vessel. Conclusion: Severe ostial LAD and mid LAD disease and severe distal RCA disease with heavily calcified lesions. Recommendations: Transfer for coronary artery bypass surgery. Medical problem list: Dyspnea, chest pain secondary to NSTEMI status post heart catheterization showing severe ostial LAD, mid LAD, and severe distal RCA disease with heavily calcified lesions Diabetes mellitus type 2 with hyperglycemia Hypertension Hyperlipidemia IV drug use-amphetamines Interstitial lung disease Brief History of Present Illness: 60-year-old male with history of diabetes, IV drug use-amphetamines. Patient presented with dyspnea and chest pain. Elevated cardiac enzymes noted for NSTEMI. The patient was admitted for further evaluation and treatment. Hospital Course: Patient presented with dyspnea and chest pain secondary to NSTEMI. Patient was seen and evaluated by Cardiology. Heart catheterization was recommended. Heart catheterization performed showed severe ostial LAD, mid LAD, and severe distal RCA disease with heavily calcified lesions. Cardiology recommended Coronary artery bypass surgery. Cardiology has discuss the case in detail with cardiovascular surgery. CV surgery agrees with plan to transfer patient to [facility] [place] [facility]G. Patient stable this time. Currently patient on aspirin 81 mg daily, metoprolol 25 mg 1 pill twice daily, Lipitor 10 mg daily. Patient with diabetes mellitus type 2 with hyperglycemia. Hemoglobin A1c 9.5. Patient takes Levemir at home. Patient currently on Lantus 20 units subcu twice daily. Sliding scale in place. Continue to adjust basal insulin for better control. Patient with hypertension. Patient was started on metoprolol. At this time patient will continue with metoprolol 25 mg 1 pill twice daily. Additional medication may be required. Patient with hyperlipidemia. Patient takes Zocor 10 mg daily at home. At this time, Patient currently on Lipitor 10 mg daily. Patient admits to IV drug use. Patient uses methamphetamines. Patient has been to rehab in the past. Patient continues with AA and NA. Recommend to continue with counseling after discharge. Patient with chronic pain. Patient currently on Soma 350 mg 4 times a day as needed for muscle spasm and Lyrica 300 mg twice daily. At discharge patient may continue with current medication. Recommend follow up with chronic pain management to further monitor and address. Patient had CT scan showing interstitial lung disease. Patient reports family member having COVID 19 in the past. He is not tested positive. Repeat test shows no evidence of COVID. Recommend follow up with pulmonology as an outpatient to further evaluate. Patient was also seen and evaluated by surgery for possible cellulitis to the inner thigh. Apparently these were track arrieta from recent IV methamphetamine use. No indication for antibiotics. Patient also has some excoriation to the left great toe. Recommend podiatry evaluation and follow up as an outpatient. Vital Signs/Physical Exam: Temp Pulse Resp BP Pulse Ox 97.8 F 80 20 170/73 H 97 03/17/20 08:00 03/17/20 08:00 03/17/20 08:00 03/17/20 08:00 03/17/20 08:00 General: Alert, In no apparent distress, Oriented x3, Cooperative HEENT: Atraumatic Neck: Supple Respiratory: Clear to auscultation bilaterally, Normal air movement Cardiovascular: Normal pulses, Regular rate/rhythm Gastrointestinal: Normal bowel sounds, Soft and benign, Non-distended Neurological: Normal speech, Normal strength at 5/5 x4 extr, Normal tone, Normal affect Laboratory Data at Discharge: WBC 10.8 K/uL (4.3-10.9) 03/17/20 07:07 Hgb 14.3 g/dL (13.6-17.9) 03/17/20 07:07 Hct 43.6 % (39.6-49.0) 03/17/20 07:07 Plt Count 146 K/uL (152-406) L D 03/17/20 07:07 PT 11.1 SECONDS (9.5-12.5) 03/14/20 16:28 INR 0.94 03/14/20 16:28 APTT 22.0 SECONDS (24.3-36.9) L 03/14/20 16:28 Sodium 139 mmol/L (136-145) 03/17/20 07:07 Potassium 4.3 mmol/L (3.5-5.1) 03/17/20 07:07 BUN 33 mg/dL (7-18) H 03/17/20 07:07 Creatinine 1.27 mg/dL (0.55-1.3) 03/17/20 07:07 Glucose 250 mg/dL (74-106) H 03/17/20 07:07 Phosphorus 2.4 mg/dL (2.5-4.9) L 03/17/20 07:07 Magnesium 2.5 mg/dL (1.8-2.4) H D 03/17/20 07:07 Total Bilirubin 0.4 mg/dL (0.2-1.0) 03/14/20 16:28 AST 62 U/L (15-37) H 03/14/20 16:28 ALT 32 U/L (12-78) 03/14/20 16:28 Alkaline Phosphatase 62 U/L (45-117) 03/14/20 16:28 Troponin I 8.14 ng/mL (0.0-0.045) H* D 03/15/20 04:04 Triglycerides 84 mg/dL (<150) 03/15/20 04:04 Cholesterol 200 mg/dL (<200) 03/15/20 04:04 HDL Cholesterol 62 mg/dL (40-60) H 03/15/20 04:04 Cholesterol/HDL Ratio 3.23 03/15/20 04:04 Lipase 44 U/L (73-393) L 03/14/20 16:28 Home Medications: Insulin Aspart [Novolog Flexpen] 5 units SQ BID 09/06/19 Insulin Detemir [Levemir Flextouch] 20 units SQ BID 09/06/19 Pregabalin 1 cap PO BID 09/06/19 Simvastatin 1 tab PO BEDTIME 09/06/19 carisoprodoL [Soma*] 1 tab PO QID PRN 09/13/19 Patient Discharge Instructions: Okay to transfer to [facility]. Continue with current medications at this time Diet: ADA Activity: Ad kinsey Followup: Melecio Young MD [Primary Care Provider] - Time spent managing pt's care (in minutes): 55
[2020-03-17] MEDS: METOPROLOL TAR 25 MG TAB PO SCH (18:10)
[2020-03-17] MEDS: ACETYLCYST 20% 800 MG/4 ML VIAL PO SCH (21:00)
[2020-03-17] MEDS: ATORVASTATIN 10 MG TAB PO SCH (21:16)
[2020-03-18] MEDS: MORPHINE 4 MG/ML SYR IV PRN (03:09)
[2020-03-18] MEDS: METOPROLOL TAR 25 MG TAB PO SCH ×2 (05:59→17:22)
[2020-03-18] MEDS: INSULIN -REGULAR HUMAN 50 UNIT/0.5 ML ML SQ SCH ×4 (07:30→20:52)
[2020-03-18] MEDS: PREGABALIN 150 MG CAP PO SCH ×2 (08:42→20:09)
[2020-03-18] MEDS: ASPIRIN EC 81 MG TAB PO SCH (08:42)
[2020-03-18] MEDS: FAMOTIDINE 20 MG/2 ML VIAL IV SCH ×2 (08:43→20:10)
[2020-03-18] MEDS: INSULIN GLARGINE 100 UNITS/ML SQ SCH ×2 (08:43→20:51)
[2020-03-18] MEDS: INSULIN LISPRO 100 UNIT/1 ML SQ SCH ×2 (08:43→16:32)
[2020-03-18] MEDS: ACETYLCYST 20% 800 MG/4 ML VIAL PO SCH ×2 (08:44→20:17)
[2020-03-18 09:33] VITALS: O2SAT 91
--- NOTE | 2020-03-18 12:53 | P.PN ---
Subjective Date of Service: 03/18/20 Primary Care Provider: Dr. Young Chief Complaint: Acute Respiratory Failure, NSTEMI, viral pneumonia Subjective: Improving, Doing well Physical Examination - Vital Signs Temperature: 97.9 F Blood Pressure: 105/65 Pulse: 60 Respirations: 20 Pulse Ox (%): 94 - Physical Exam General: Alert, In no apparent distress, Oriented x3, Cooperative HEENT: Atraumatic Neck: Supple Respiratory: Clear to auscultation bilaterally, Normal air movement Cardiovascular: Normal pulses, Regular rate/rhythm Gastrointestinal: Normal bowel sounds Neurological: Normal speech, Normal strength at 5/5 x4 extr, Normal tone, Normal affect - Studies Medications List Reviewed: Yes Assessment & Plan Discharge Plan: Transfer Plan to discharge in: 24 Hours Physician Review Additional Text: Medical problem list: Dyspnea, chest pain secondary to NSTEMI status post heart catheterization showing severe ostial LAD, mid LAD, and severe distal RCA disease with heavily calcified lesions Diabetes mellitus type 2 with hyperglycemia Hypertension Hyperlipidemia IV drug use-amphetamines Interstitial lung disease Plan: Transfer was held yesterday as bed not available. Await for hospital bed at [facility]. Patient to have CABG. Continue current medication at this time. Overall stable. No complaints noted. Please see discharge plan of care for details. Time Spent Managing Pts Care (In Minutes): 55
[2020-03-18] MEDS ORDERED: MORPHINE 2 MG/ML SYR IV PRN (14:03)
[2020-03-18] MEDS ORDERED: D50W 25 GM/50 ML VIAL IV PRN (14:38)
[2020-03-18] MEDS: ATORVASTATIN 10 MG TAB PO SCH (20:09)
[2020-03-19 04:56] VITALS: BP 128/90; TEMP 97.5
--- NOTE | 2020-03-19 04:59 | P.PN ---
Date of Service: 03/15/20 Subjective Patient seen by cardiology and recommendation for heart catheterization on Tuesday morning. Otherwise patient with no new complaints. He does admit to doing intravenous drug abuse. Will await echocardiogram as well. Review of Systems 10-point ROS is otherwise unremarkable Physical Examination - Vital Signs Reviewed - Physical Exam General: Alert, In no apparent distress, Oriented x3 Respiratory: Crackles/rales ( Dry crackles) Cardiovascular: Regular rate/rhythm, Normal S1 S2 Gastrointestinal: Normal bowel sounds, Soft and benign, Non-distended, No tenderness Musculoskeletal: No clubbing, No swelling, No tenderness Assessment & Plan - Problems (Diagnosis) (1) NSTEMI (non-ST elevated myocardial infarction) Current Visit: Yes Status: Acute (2) Interstitial lung disease Current Visit: Yes Status: Acute (3) Skin infection Current Visit: Yes Status: Acute (4) History of intravenous drug abuse Current Visit: Yes Status: Acute (5) Diabetes mellitus Current Visit: Yes Status: Chronic Qualifiers: Diabetes mellitus type: type 2 Diabetes mellitus armature tester insulin use: with armature tester use Diabetes mellitus complication status: with circulatory complication Diabetes mellitus complication detail: with peripheral angiopathy without gangrene Qualified Code(s): E11.51 - Type 2 diabetes mellitus with diabetic peripheral angiopathy without gangrene; Z79.4 - radiologist (current) use of insulin - Plan 1. Strict blood sugar monitoring. 2. Cardiology consultation appreciated; cardiac catheterization on Tuesday selma lopes 3. continue with IV antibiotics and medication for renal protection 4. Anti-platelet therapy, anti coagulation, beta-gertrude, statin, and O2 as needed 5. IV morphine for pain 6. Nitro p.r.n. 7. Outpatient follow-up with pulmonary for interstitial lung disease Discharge Plan: Home Plan to discharge in: Greater than 2 days - Code Status/Comfort Care Code Status: Full Code Critical Care: No Time Spent Managing PTS Care (In Minutes): 35
--- NOTE | 2020-03-19 08:27 | ECHO ---
HEIGHT: 5 ft 11 in WEIGHT: 209 lb 0 oz DATE OF STUDY: 03/18/[address]: Mitch Ordonez 2-DIMENSIONAL: YES M.MODE: YES DOPPLER: YES COLOR FLOW: YES TDS: PORTABLE: DEFINITY: BUBBLE STUDY: DIAGNOSIS: ENDOCARDITIS CARDIAC HISTORY: CATHERIZATION: YES SURGERY: PROSTHETIC VALVE: PACEMAKER: MEASUREMENTS (cm) DIASTOLIC (NORMALS) SYSTOLIC (NORMALS) IVSd 1.2 (0.6-1.2) LA Diam 4.0 (1.9-4.0) LVEF 55% LVIDd 4.9 (3.5-5.7) LVIDs 3.5 (2.0-3.5) %FS 28% LVPWd 1.3 (0.6-1.2) Ao Diam 2.8 (2.0-3.7) 2 DIMENSIONAL ASSESSMENT: RIGHT ATRIUM: NORMAL LEFT ATRIUM: NORMAL RIGHT VENTRICLE: NORMAL LEFT VENTRICLE: NORMAL TRICUSPID VALVE: NORMAL MITRAL VALVE: NORMAL PULMONIC VALVE: NORMAL AORTIC VALVE: NORMAL PERICARDIAL EFFUSION: NONE AORTIC ROOT: NORMAL LEFT VENTRICULAR WALL MOTION: NORMAL DOPPLER/COLOR FLOW: NORMAL COMMENTS: NORMAL LEFT VENTRICULAR SIZE AND FUNCTION. NO WALL MOTION ABNORMALITY. NO EFFUSION. TECHNOLOGIST: MYRNA SHAW
== END 2020-03-18 21:20 | disposition short-term general hospital (02) | DRG 280 ==
LOC: ER 14:18 → ERHOLD 20:07 → 2ND 22:47
PROVIDERS: ADMIT Hospitalist; ATTEND Family Medicine
PROC: 4A023N7 Measurement of Cardiac Sampling and Pressure, Left Heart, Percutaneous Approach (ICD-10-PCS; principal; 2020-03-17)
PROC: B2111ZZ Fluoroscopy of Multiple Coronary Arteries using Low Osmolar Contrast (ICD-10-PCS; 2020-03-17)
DX: I21.4 Non-ST elevation (NSTEMI) myocardial infarction (principal); J96.01 Acute respiratory failure with hypoxia; J12.9 Viral pneumonia, unspecified; L03.119 Cellulitis of unspecified part of limb; E11.52 Type 2 diabetes mellitus with diabetic peripheral angiopathy with gangrene; I96 Gangrene, not elsewhere classified; E11.65 Type 2 diabetes mellitus with hyperglycemia; I10 Essential (primary) hypertension; E78.5 Hyperlipidemia, unspecified; G89.29 Other chronic pain; L08.9 Local infection of the skin and subcutaneous tissue, unspecified; S90.412A Abrasion, left great toe, initial encounter; I25.10 Atherosclerotic heart disease of native coronary artery without angina pectoris; Z79.4 Long term (current) use of insulin; Z79.899 Other long term (current) drug therapy; Z89.422 Acquired absence of other left toe(s); Z87.891 Personal history of nicotine dependence; Z20.822 Contact with and (suspected) exposure to COVID-19
CPT/HCPCS: 0240U; 36415; 71045; 71275; 80048; 80061; 80076; 82728; 82947; 83036; 83605; 83690; 83735; 83880; 84100; 84145; 84484; 85025; 85610; 85730; 86140; 87040; 93005; 93306; 93454; 94640; 94760; 96372; 96374; 99285; C1893; J1644; J1650; J1815; J1940; J2250; J2920; J2930; J3010; J3370; J7030; J7040; Q9967; U0003

== ENCOUNTER 2020-05-04 15:13 | Emergency (ER) | payer OTHER ==
--- OUTSIDE RECORDS SUMMARY | 2020-05-04 15:22 | XMS REPORT | Continuity of Care Document ---
:1960 Author Organization [facility] t Address [address] [place] [address] Care Team Providers Name Role Phone Farrukh Young Primary Care Physician Unavailable Hector KHALIL Attending Clinician Santi Mercado MD Attending Clinician Tony Nunes Attending Clinician Epifanio ATKINS Attending Clinician Unavailable Basilio FRANCISCO, Daisy Attending Clinician Unavailable José Luis Potter MD Attending Clinician [phone] Albert KHALIL Attending Clinician Sirisha KHALIL Attending Clinician Mo Castellano MD Attending Clinician Apoorva Kunz MD Attending Clinician Margot Black MD Attending Clinician Unavailable Raul Valdez MD Attending Clinician Joesph Ashley MD Attending Clinician Natasha KHALIL Attending Clinician Shree Delarosa Attending Clinician Unavailable JOSÉ LUIS POTTER Attending Clinician Unavailable ALBERT Thorneitting Clinician Unavailable Payers Payer Name Policy Type Policy Effective Date Expiration Date [facility] Number [id number] 2020 [id number]00 - Medical /2020-Present Center Problems Condition Condition Condition Status Onset Resolution Last Treating Co mments Source Name Details Category Date Date Treatment Clinician Date s/p ACB x2 s/p ACB x2 Disease Active C [facility] by by 03-18 [facility] - 00:00: Medica l 03/21/19 03/21/19 00 [place] Coronary Coronary Disease [facility] artery [facility] - disease disease Medical [place] PAD PAD Disease Active [facility] (periphera (periphera Rossi kes - l artery l artery Medica l disease) disease) [place] Hyperlipid Hyperlipid Disease Active [facility] emia emia [facility] Diabetes Diabetes Disease Active [facility] mellitus mellitus [facility] 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 Family History Family Member Diagnosis Comments Start Date Stop Date Source Natural father Heart disease [facility] Natural mother COPD [facility] Social History Social Habit Start Date Stop Date Quantity Comments Source History of tobacco Snuff User [facility] SDOH [facility] - Alcohol Std Drinks [facility] History SDOH [facility] - Alcohol [facility]inge Medical Blu ter Sex Assigned At [facility] Exposure to Not sure [facility] Lujulio césar - SARS-CoV-2 (event) [facility] Tobacco use and 2020-04-07 2020-04-[address] [facility] - exposure 00:00:00 00:00:00 [facility] Alcohol intake 2020-04-07 2020-04-07 Ex-drinker [facility] St Isael es - 00:00:00 00:00:00 (finding) [facility] History SDOH 2020-03-18 2020-03-[address] [facility] - Alcohol Frequency 00:00:00 00:00:00 [facility] Smoking Status Start Date Stop Date Source Former smoker 2020-04-07 00:00:00 2020-04-07 00:00:00 [facility] Medications Ordered Filled Start Stop Current Ordering Indication Dosage Frequency Signature Comments Components Source Medication Medication Date Date Medication? Clinician (SIG) Name Name insulin Yes 30U Inject 30 [facility] lispro 2-25 [facility] - (HumaLOG) 14:15: subcutaneo Me dical 100 unit/mL 46 usly 2 Center injection (two) times daily before meals. insulin Yes 30U Inject 30 [facility] detemir 2-25 [facility] - U-100 14:15: subcutaneo Medica l (LEVEMIR) 46 usly 2 Center 100 unit/mL (two) injection times daily as needed. simvastatin Yes 10mg QD Take [address] (ZOCOR) 10 2-25 by mouth [facility]ukes - MG tablet 14:15: nightly. Medi brittnee 46 Center carisoprodo Yes 350mg Q.25D Take [address] L (SOMA) 2-25 mg by [facility]ukes - 350 MG 14:15: mouth 4 Medical tablet 46 (four) Center times daily. pregabalin Yes 300mg Q.5D Take [address] (LYRICA) 2-25 mg by [facility]ukes - 300 MG 14:15: mouth 2 Medical capsule 46 (two) Center times daily. metFORMIN Yes 1000mg Take 1,[address] (GLUCOPHAGE 2-25 mg by [facility]ukes - ) 1000 MG 14:15: mouth Medical tablet 46 every 12 Center (twelve) hours. aspirin 81 Yes 81mg QD Take [address] MG EC 2-25 by mouth [facility] - tablet 14:15: daily. Medical 46 Center DULoxetine Yes 60mg Q.5D Take [address] (CYMBALTA) 2-25 by mouth 2 Isael es - 60 MG 14:15: (two) Medical capsule 46 times Center daily. HYDROcodone Yes 1{tbl} Take [address] -acetaminop 2-25 tablet by Isael es - hen (NORCO 14:15: mouth Medica l 10-325) 46 every 6 Center 10-325 mg (six) per tablet hours as needed for Pain. clopidogreL 2021- Yes 75mg QD Take [address] (PLAVIX) 75 04-05-06 tablet (75 L ukes - mg tablet 00:00: 23:59 mg total) Me dical 00 :00 by mouth Center daily. colchicine 2021- Yes .3mg QD Take 0.[address] (COLCRYS) 04-05- tablets [facility]ukes - 0.6 mg 00:00: 23:59 (0.3 mg Medical tablet 00 :00 total) by Center mouth daily. metoprolol 2020- No 25mg Q.5D Take [address] succinate 04-04-05 by mouth 2 Isael es - (TOPROL-XL) 12:59: 00:00 (two) Medi brittnee 25 MG 24 hr 55 :00 times Center tablet daily. lisinopriL 2020- No QD Take by [facility] 10 MG Tab 04-04-05 mouth [facility]ukes - 10 mg, 12:46: 00:00 every Medical hydroCHLORO 49 :00 evening. Cent er thiazide 12.5 mg Cap 12.5 mg HYDROcodone 2020- No 1{tbl} Take [address] -acetaminop 2-06 29-05 tablet by Rossi angela - tanesha (NORCO 12:35: 00:00 mouth Medic al 10-325) 18 :00 every 4 Center 10-325 mg (four) per tablet hours as needed for Pain. atorvastati 2020- Yes 40mg QD Take [address] [facility] [address] n (LIPITOR) 04-04 tablet (40 L ukes - 40 MG 00:00: 23:59 mg total) Medica l tablet 00 :00 by mouth Center nightly for 30 days. metoprolol 2020- Yes 12.5mg Q.5D Take 0.[address] [facility] [address] tartrate 04-04 tablets [facility]ukes - (LOPRESSOR) 00:00: 23:59 (12.5 mg M edical 25 MG 00 :00 total) by Center tablet mouth 2 (two) times daily for 30 days HOLD IF Dizzy or SBP < 90 or HR < 60. Vital Signs Vital Name Observation Time Observation Value Comments Source Systolic blood 2020-04-24 14:13:00 138 mm[Hg] [facility] Diastolic blood 2020-04-24 14:13:00 82 mm[Hg] [facility] Heart rate 2020-04-24 14:13:00 88 /min [facility] Body temperature 2020-04-24 14:13:00 36.39 Jessy [facility] Respiratory rate 2020-04-24 14:13:00 16 /min [facility] Body height 2020-04-24 14:13:00 180.3 cm [facility] Body weight 2020-04-24 14:13:00 83.915 kg [facility] BMI 2020-04-24 14:13:00 25.80 kg/m2 [facility] Oxygen saturation in 2020-04-24 14:13:00 97 /min [facility] Arterial blood by Medical Ce nter Pulse oximetry Procedures Procedure Date / Time Performing Clinician Source Performed XR CHEST 2 VIEWS 2020-04-24 13:56:00 Aftab Damon [facility] POCT-GLUCOSE METER 2020-04-04 12:42:00 Silvana Kunz [facility] LIMITED 2D ECHOCARDIOGRAM 2020-04-04 10:02:43 Arsenio Higginbotham [facility] CBC W/PLT COUNT & AUTO 2020-04-04 04:10:00 Arsenio Higginbotham [facility] MAGNESIUM 2020-04-04 04:10:00 Arsenio Higginbotham [facility] PHOSPHORUS 2020-04-04 04:10:00 Arsenio Higginbotham [facility] PROTHROMBIN TIME/INR 2020-04-04 04:10:00 Arsenio Higginbotham [facility] HEPATIC FUNCTION PANEL 2020-04-04 04:10:00 Arsenio Higginbotham [facility] BASIC METABOLIC PANEL (7) 2020-04-04 04:10:00 Shazia Vazquez [facility] XR CHEST 1 VIEW 2020-04-04 04:08:00 Arsenio Higginbotham [facility]/BEDSIDE [facility] POCT-GLUCOSE METER 2020-04-03 21:31:00 Silvana Kunz [facility] XR CHEST 1 VIEW 2020-04-03 19:46:[address] [facility] PORTABLE/BEDSIDE [facility] CBC (HEMOGRAM ONLY) 2020-04-03 17:24:00 Arsenio Higginbotham [facility] POCT-GLUCOSE METER 2020-04-03 17:24:00 Silvana Kunz [facility] POCT-GLUCOSE METER 2020-04-03 13:37:00 AdSilvana ingram [facility] POCT-ACT 2020-04-03 12:33:00 Silvana Kunz [facility] TRANSESOPHAGEAL ECHO 2020-04-03 12:31:00 Sofia [facility] COLOR-FLOW MAPPING 2020-04-03 10:28:00 Sofia Kishan [facility] CONT WAVE PULSED DOPPLER 2020-04-03 10:28:00 Sofia Kishan [facility] TRANSCATHETER CLOSURE OF 2020-04-03 10:17:00 Kishan Black [facility] - PFO [facility] POCT-GLUCOSE METER 2020-04-03 08:10:00 Silvana Kunz [facility] CBC W/PLT COUNT & AUTO 2020-04-03 05:00:00 Arsenio Higginbotham [facility] MAGNESIUM 2020-04-03 05:00:00 Arsenio Higginbotham [facility] PHOSPHORUS 2020-04-03 05:00:00 Arsenio Higginbotham [facility] PROTHROMBIN TIME/INR 2020-04-03 05:00:00 Arsenio Higginbotham [facility] HEPATIC FUNCTION PANEL 2020-04-03 05:00:00 Arsenio Higginbotham [facility] BASIC METABOLIC PANEL (7) 2020-04-03 05:00:00 Shazia Vazquez [facility] XR CHEST 1 VIEW 2020-04-03 04:32:00 Arsenio Higginbotham [facility]/BEDSIDE [facility] POCT-GLUCOSE METER 2020-04-02 21:18:00 Silvana Kunz [facility] POCT-GLUCOSE METER 2020-04-02 16:22:00 Silvana Kunz [facility] US RENAL COMPLETE 2020-04-02 15:35:00 Taylor Shazia [facility] URINALYSIS W/ MICROSCOPIC 2020-04-02 13:50:[address] [facility] PROTEIN, RANDOM URINE 2020-04-02 13:50:[address] [facility] CREATININE, RANDOM URINE 2020-04-02 13:50:[address] [facility] POCT-GLUCOSE METER 2020-04-02 12:35:00 [facility] POCT-GLUCOSE METER 2020-04-02 08:36:00 Silvana Kunz [facility] SARS-COV2/RT-PCR ([facility] & 2020-04-02 06:10:00 Arsenio Higginbotham [facility] - REF LABS) [facility] XR CHEST 1 VIEW 2020-04-02 04:22:[address] [facility] PORTABLE/BEDSIDE Medical Center CBC W/PLT COUNT & AUTO 2020-04-02 03:18:[address] [facility] DIFFERENTIAL [facility] MAGNESIUM 2020-04-02 03:18:00 Arsenio Higginbotham [facility] PHOSPHORUS 2020-04-02 03:18:00 Arsenio Higginbotham [facility] PROTHROMBIN TIME/INR 2020-04-02 03:18:00 Arsenio Higginbotham [facility] HEPATIC FUNCTION PANEL 2020-04-02 03:18:00 Arsenio Higginbotham [facility] BASIC METABOLIC PANEL (7) 2020-04-02 03:18:00 Karin Castellano [facility] POCT-GLUCOSE METER 2020-04-01 21:14:00 [facility] POCT-GLUCOSE METER 2020-04-01 16:31:00 Karin Castellano [facility] CT BRAIN WITHOUT IV 2020-04-01 15:32:[address] [facility] [facility] CONTRAST [facility] CT SPINE CERVICAL WITHOUT 2020-04-01 15:32:00 [facility] IV CONTRAST [facility] 2D ECHO W/ DOPPLER 2020-04-01 14:25:10 Kishan Black [facility] - (CW/PW/COLOR) [facility] POCT-GLUCOSE METER 2020-04-01 12:13:00 Vni Castellanoprinceton Mo [facility] POCT-GLUCOSE METER 2020-04-01 07:23:00 Karin Castellano [facility] APTT 2020-04-01 07:11:00 Arsenio Higginbotham [facility] XR CHEST 1 VIEW 2020-04-01 04:32:00 Arsenio Higginbotham [facility]/BEDSIDE [facility] CBC W/PLT COUNT & AUTO 2020-04-01 04:32:00 Arsenio Higginbotham [facility] MAGNESIUM 2020-04-01 04:32:00 Arsenio Higginbotham [facility] PHOSPHORUS 2020-04-01 04:32:00 Arsenio Higginbotham [facility] PROTHROMBIN TIME/INR 2020-04-01 04:32:00 Arsenio Higginbotham [facility] HEPATIC FUNCTION PANEL 2020-04-01 04:32:00 Arsenio Higginbotham [facility] BASIC METABOLIC PANEL (7) 2020-04-01 04:32:00 Karin Castellano [facility] APTT 2020-04-01 04:32:00 [facility] D[facility]PL[facility] LEGS 2020-03-31 23:15:00 Kishan Black [facility] POCT-GLUCOSE METER 2020-03-31 21:01:00 [facility] 2020-03-31 19:56:00 [facility] (HEMOGRAM ONLY) 2020-03-31 18:21:00 Arsenio Higginbotham [facility], I [facility] POCT-GLUCOSE METER 2020-03-31 17:28:00 Karin Castellano [facility] POCT-GLUCOSE METER 2020-03-31 12:34:00 Karin Castellano [facility] APTT 2020-03-31 10:24:00 Arsenio Higginbotham [facility] POCT-GLUCOSE METER 2020-03-31 08:28:00 [facility] 2020-03-31 08:22:00 Arsenio Higginbotham [facility] XR CHEST 1 VIEW 2020-03-31 04:57:00 Arsenio Higginbotham [facility]/BEDSIDE [facility] CBC W/PLT COUNT & AUTO 2020-03-31 04:51:00 Arsenio Higginbotham [facility] MAGNESIUM 2020-03-31 04:51:00 Arsenio Higginbotham [facility] PHOSPHORUS 2020-03-31 04:51:00 Arsenio Higginbotham [facility] HEPATIC FUNCTION PANEL 2020-03-31 04:51:00 Arsenio Higginbotham Pranay [facility] BASIC METABOLIC PANEL (7) 2020-03-31 04:51:00 Karin Castellano [facility] PROTHROMBIN TIME/INR 2020-03-31 00:36:00 Arsenio Higginbotham [facility] APTT 2020-03-31 00:36:00 Arsenio Higginbotham [facility] POCT-GLUCOSE METER 2020-03-30 21:03:00 Vin Castellanoprinceton Mo [facility] APTT 2020-03-30 18:34:00 [facility] POCT-GLUCOSE METER 2020-03-30 17:16:00 [facility] Mo [facility] POCT-GLUCOSE METER 2020-03-30 12:22:00 [facility] Mo [facility] APTT 2020-03-30 10:46:00 Gray [facility] POCT-GLUCOSE METER 2020-03-30 07:48:00 [facility] Mo [facility] XR CHEST 1 VIEW 2020-03-30 04:30:00 Arsenio Higginbotham [facility]/BEDSIDE [facility] CBC W/PLT COUNT & AUTO 2020-03-30 03:18:00 Arsenio Higginbotham [facility] MAGNESIUM 2020-03-30 03:18:00 Arsenio Higginbotham [facility] PHOSPHORUS 2020-03-30 03:18:00 Arsenio Higginbotham [facility] PROTHROMBIN TIME/INR 2020-03-30 03:18:00 Arsenio Higginbotham [facility] HEPATIC FUNCTION PANEL 2020-03-30 03:18:00 Arsenio Higginbotham [facility] BASIC METABOLIC PANEL (7) 2020-03-30 03:18:00 Karin Castellano [facility] APTT 2020-03-30 03:18:00 [facility] Mo [facility] POCT-GLUCOSE METER 2020-03-29 21:02:00 Vin Castellanoprinceton Mo [facility] APTT 2020-03-29 17:32:00 Arsenio Higginbotham [facility] POCT-ACT 2020-03-29 09:24:00 Vin Castellanoprinceton Mo [facility] POCT-ACT 2020-03-29 08:51:00 Karin Castellano [facility] R & L CATH / CORONARY 2020-03-29 08:25:00 Kishan Black [facility] - ANGIOS / PCI [facility] POCT-GLUCOSE METER 2020-03-29 07:32:00 Karin Castellano [facility] APTT 2020-03-29 06:32:00 Mahdi Dante Gutierrez [facility] CBC W/PLT COUNT & AUTO 2020-03-29 06:32:00 Arsenio Higginbotham [facility] MAGNESIUM 2020-03-29 06:32:00 Arsenio Higginbotham [facility] PHOSPHORUS 2020-03-29 06:32:00 Arsenio Higginbotham [facility] PROTHROMBIN TIME/INR 2020-03-29 06:32:00 Arsenio Higginbotham [facility] HEPATIC FUNCTION PANEL 2020-03-29 06:32:00 Arsenio Higginbotham [facility] BASIC METABOLIC PANEL (7) 2020-03-29 06:32:00 Karin Castellano [facility] XR CHEST 1 VIEW 2020-03-29 03:29:[address] [facility] PORTABLE/BEDSIDE [facility] POCT-GLUCOSE METER 2020-03-28 23:14:00 Karin Castellano [facility] CBC (HEMOGRAM ONLY) 2020-03-28 20:55:00 Arsenio Higginbotham [facility], I [facility] APTT 2020-03-28 20:55:00 Kishan Black [facility] ECG 12-LEAD 2020-03-28 17:22:21 Melvin Mercado [facility] POCT-GLUCOSE METER 2020-03-28 16:15:00 Karin Castellano [facility] POCT-GLUCOSE METER 2020-03-28 11:22:00 Vin Castellanoprinceton Mo [facility] POCT-GLUCOSE METER 2020-03-28 08:39:00 Karin Castellano [facility] POCT-GLUCOSE METER 2020-03-28 07:37:00 Karin Castellano [facility] CBC W/PLT COUNT & AUTO 2020-03-28 04:25:00 Arsenio Higginbotham [facility] MAGNESIUM 2020-03-28 04:25:00 Arsenio Higginbotham [facility] PHOSPHORUS 2020-03-28 04:25:00 Arsenio Higginbotham [facility] PROTHROMBIN TIME/INR 2020-03-28 04:25:00 Arsenio Higginbotham [facility] HEPATIC FUNCTION PANEL 2020-03-28 04:25:00 Arsenio Higginbotham [facility] BASIC METABOLIC PANEL (7) 2020-03-28 04:25:00 Karin Castellano [facility] XR CHEST 1 VIEW 2020-03-28 04:16:00 Arsenio Higginbotham [facility]/BEDSIDE [facility] POCT-GLUCOSE METER 2020-03-27 21:30:00 Karin Castellano [facility] POCT-GLUCOSE METER 2020-03-27 17:00:00 Karin Castellano [facility] POCT-GLUCOSE METER 2020-03-27 14:53:00 Karin Castellano [facility] 2D ECHO W/ DOPPLER 2020-03-27 12:55:19 Kurtis Blackherme [facility] - (CW/PW/COLOR) [facility] POCT-GLUCOSE METER 2020-03-27 07:40:00 Karin Castellano [facility] XR CHEST 1 VIEW 2020-03-27 04:44:[address] [facility] PORTABLE/BEDSIDE [facility] CBC W/PLT COUNT & AUTO 2020-03-27 04:26:00 Arsenio Higginbotham [facility] MAGNESIUM 2020-03-27 04:26:00 Arsenio Higginbotham [facility] PHOSPHORUS 2020-03-27 04:26:00 Arsenio Higginbotham [facility] PROTHROMBIN TIME/INR 2020-03-27 04:26:00 Arsenio Higginbotham [facility] HEPATIC FUNCTION PANEL 2020-03-27 04:26:00 Arsenio Higginbotham Pranay [facility] APTT 2020-03-27 04:26:00 Pasha Burkett [facility] FIBRINOGEN 2020-03-27 04:26:00 [facility] D-DIMER 2020-03-27 04:26:00 Pasha Burkett [facility] BASIC METABOLIC PANEL (7) 2020-03-27 04:26:00 Karin Castellano [facility] PERIPHERAL BLOOD SMEAR - 2020-03-27 04:26:00 Karin Castellano [facility] POCT-GLUCOSE METER 2020-03-26 20:49:00 Karin Castellano [facility] POCT-GLUCOSE METER 2020-03-26 17:26:00 Karin Castellano [facility] POCT-GLUCOSE METER 2020-03-26 11:38:00 Karin Castellano [facility] SARS-COV2/RT-PCR ([facility] & 2020-03-26 07:36:00 Arsenio Higginbotham [facility] - REF LABS) [facility] POCT-GLUCOSE METER 2020-03-26 07:27:00 Karin Castellano [facility] CBC W/PLT COUNT & AUTO 2020-03-26 04:30:00 Arsenio Higginbotham [facility] MAGNESIUM 2020-03-26 04:30:00 Arsenio Higginbotham [facility] PHOSPHORUS 2020-03-26 04:30:00 Arsenio Higginbotham [facility] PROTHROMBIN TIME/INR 2020-03-26 04:30:00 Arsenio Higginbotham [facility] HEPATIC FUNCTION PANEL 2020-03-26 04:30:00 Arsenio Higginbotham [facility] CALCIUM, IONIZED 2020-03-26 04:30:00 [facility] 2020-03-26 04:00:00 Arsenio Higginbotham [facility]/BEDSIDE [facility] POCT-GLUCOSE METER 2020-03-25 21:28:[facility] 2020-03-25 12:46:00 [facility] POCT-GLUCOSE METER 2020-03-25 12:37:00 [facility] POCT-GLUCOSE METER 2020-03-25 09:20:[facility] 2020-03-25 05:07:[address] [facility] PORTABLE/BEDSIDE [facility] CBC W/PLT COUNT & AUTO 2020-03-25 04:18:00 Arsenio Higginbotham [facility] MAGNESIUM 2020-03-25 04:18:00 Arsenio Higginbotham [facility] PHOSPHORUS 2020-03-25 04:18:00 Arsenio Higginbotham [facility] HEPATITIS PANEL, ACUTE 2020-03-25 04:18:00 Roger [facility] HEPATITIS C PCR, 2020-03-25 04:18:00 Roger [facility] - QUANTITATIVE [facility] HEPATITIS A ANTIBODY, IGG 2020-03-25 04:18:00 Roger [facility] I [facility] HEPATITIS B SURFACE 2020-03-25 04:18:00 Roger [facility] ANTIBODY [facility] CERULOPLASMIN 2020-03-25 04:18:[address] [facility] FERRITIN 2020-03-25 04:18:[address] [facility] IRON, TIBC, % SAT. 2020-03-25 04:18:00 Roger [facility] (WITHOUT FERRITIN) [facility] (SMOOTH MUSCLE) 2020-03-25 04:18:00 Roger [facility] - ANTIBODY, IGG [facility] MITOCHONDRIA M2 ANTIBODY 2020-03-25 04:18:00 Roger [facility] (IGG) [facility] ANTI-NUCLEAR ANTIBODY 2020-03-25 04:18:00 Roger [facility] (RADHA) [facility] IMMUNOGLOBULIN G (IGG) 2020-03-25 04:18:00 Roger [facility] PROTHROMBIN TIME/INR 2020-03-25 04:18:00 Arsenio Higginbotham [facility] HEPATIC FUNCTION PANEL 2020-03-25 04:18:00 Arsenio Higginbotham [facility] BASIC METABOLIC PANEL (7) 2020-03-25 04:18:00 Chase Kumar [facility] CALCIUM, IONIZED 2020-03-25 04:18:00 Jimi Grimm [facility] RADHA TITER AND PATTERN 2020-03-25 04:18:00 Duran, Cory [facility] POCT-GLUCOSE METER 2020-03-24 21:24:00 Jimi Grimm [facility] POCT-GLUCOSE METER 2020-03-24 16:35:00 Sirisha [facility] POCT-GLUCOSE METER 2020-03-24 11:45:00 [facility] BASIC METABOLIC PANEL (7) 2020-03-24 09:15:[address] [facility] POCT-GLUCOSE METER 2020-03-24 08:15:00 Sirisha [facility] BASIC METABOLIC PANEL (7) 2020-03-24 03:15:[address] [facility] CBC W/PLT COUNT & AUTO 2020-03-24 03:15:00 Arsenio Higginbotham [facility] MAGNESIUM 2020-03-24 03:15:00 Arsenio Higginbotham [facility] PHOSPHORUS 2020-03-24 03:15:00 Arsenio Higginbotham [facility] CALCIUM, IONIZED 2020-03-24 03:15:00 Soren Greene [facility] XR CHEST 1 VIEW 2020-03-24 01:10:00 Arsenio Higginbotham [facility] [facility] POCT-GLUCOSE METER 2020-03-23 18:03:00 [facility] BASIC METABOLIC PANEL (7) 2020-03-23 17:59:[address] [facility] POCT-GLUCOSE METER 2020-03-23 10:57:00 Sirisha [facility] BASIC METABOLIC PANEL (7) 2020-03-23 08:24:00 Chase Kumar laperri [facility] POCT-GLUCOSE METER 2020-03-23 08:23:00 [facility] BLOOD GAS, ARTERIAL 2020-03-23 06:10:00 Aftab Mann [facility] LACTIC ACID, ARTERIAL 2020-03-23 06:10:00 Aftab Mann [facility] POCT-GLUCOSE METER 2020-03-23 06:10:00 [facility] CHEST 1 VIEW 2020-03-23 04:59:00 Arsenio Higginbotham [facility] CBC W/PLT COUNT & AUTO 2020-03-23 04:33:00 Arsenio Higginbotham [facility] MAGNESIUM 2020-03-23 04:33:00 Neftaly [facility] PHOSPHORUS 2020-03-23 04:33:00 Neftaly [facility] CALCIUM, IONIZED 2020-03-23 04:33:00 Soren Greene [facility] BLOOD GAS, ARTERIAL 2020-03-23 04:33:00 Aftab Mann [facility] LACTIC ACID, ARTERIAL 2020-03-23 04:33:00 Aftab Mann [facility] POCT-GLUCOSE METER 2020-03-23 04:32:00 Sirisha [facility] POCT-GLUCOSE METER 2020-03-23 03:15:00 Sirisha [facility] BLOOD GAS, ARTERIAL 2020-03-23 02:27:00 Aftab Mann [facility] LACTIC ACID, ARTERIAL 2020-03-23 02:27:00 Aftab Mann [facility] POCT-GLUCOSE METER 2020-03-23 02:26:00 Sirisha [facility] POCT-GLUCOSE METER 2020-03-23 00:24:00 Sirisha [facility] LACTIC ACID, ARTERIAL 2020-03-23 00:17:00 Aftab Mann [facility] BASIC METABOLIC PANEL (7) 2020-03-23 00:17:00 Chase Kumar [facility] BLOOD GAS, ARTERIAL 2020-03-23 00:10:00 Aftab Mann [facility] POCT-GLUCOSE METER 2020-03-22 23:34:00 Sirisha [facility] POCT-GLUCOSE METER 2020-03-22 22:44:00 Sirisha [facility] BLOOD GAS, ARTERIAL 2020-03-22 22:09:00 Aftab Mann [facility] LACTIC ACID, ARTERIAL 2020-03-22 22:09:00 Aftab Mann [facility] POCT-GLUCOSE METER 2020-03-22 22:09:00 Sirisha [facility] POCT-GLUCOSE METER 2020-03-22 20:55:00 Sirisha [facility] BLOOD GAS, ARTERIAL 2020-03-22 20:21:00 Aftab Mann [facility] LACTIC ACID, ARTERIAL 2020-03-22 20:21:00 Aftab Mann [facility] POCT-GLUCOSE METER 2020-03-22 19:30:00 Sirisha [facility] POCT-GLUCOSE METER 2020-03-22 17:39:00 Sirisha [facility] BLOOD GAS, ARTERIAL 2020-03-22 17:34:00 Aftab Mann [facility] LACTIC ACID, ARTERIAL 2020-03-22 17:34:00 Aftab Mann [facility] POCT-GLUCOSE METER 2020-03-22 16:06:00 [facility], [facility]ERIAL 2020-03-22 15:51:00 Aftab Mann [facility] LACTIC ACID, ARTERIAL 2020-03-22 15:51:00 Aftab Mann [facility] BASIC METABOLIC PANEL (7) 2020-03-22 15:51:00 José Chase Inder howardperri [facility] POCT-GLUCOSE METER 2020-03-22 13:53:00 [facility] BLOOD GAS, ARTERIAL 2020-03-22 13:47:00 Aftab Mann [facility] LACTIC ACID, ARTERIAL 2020-03-22 13:47:00 Aftab Mann [facility] POCT-GLUCOSE METER 2020-03-22 10:35:00 Sirisha [facility] BLOOD GAS, ARTERIAL 2020-03-22 10:28:00 Aftab Mann [facility] LACTIC ACID, ARTERIAL 2020-03-22 10:28:00 Aftab Mann [facility] POCT-GLUCOSE METER 2020-03-22 08:27:00 [facility] BLOOD GAS, ARTERIAL 2020-03-22 07:59:00 Aftab Mann [facility] LACTIC ACID, ARTERIAL 2020-03-22 07:59:00 Aftab Mann [facility] POCT-GLUCOSE METER 2020-03-22 06:19:00 Sirisha [facility] BASIC METABOLIC PANEL (7) 2020-03-22 03:32:00 Tony Silverio [facility] CBC W/PLT COUNT & AUTO 2020-03-22 03:32:00 Arsenio Higginbotham [facility] MAGNESIUM 2020-03-22 03:32:00 Arsenio Higginbotham [facility] PHOSPHORUS 2020-03-22 03:32:00 Arsenio Higginbotham [facility] HEPATIC FUNCTION PANEL 2020-03-22 03:32:00 Soren Greene [facility] CALCIUM, IONIZED 2020-03-22 03:32:00 Soren Greene [facility] LACTIC ACID, ARTERIAL 2020-03-22 03:32:00 [facility] OXYGEN SATURATION, 2020-03-22 03:32:00 [facility] BLOOD GAS, ARTERIAL 2020-03-22 03:32:00 [facility], [facility] (CELLAVISION MANUAL DIFF) 2020-03-22 03:32:00 Tony Silverio [facility] XR CHEST 1 VIEW 2020-03-22 00:21:[address] [facility] PORTABLE[facility]SIDE Medical Center POCT-GLUCOSE METER 2020-03-21 20:37:00 Jimi Grimm [facility] BASIC METABOLIC PANEL (7) 2020-03-21 20:27:00 [facility], [facility] MAGNESIUM 2020-03-21 20:27:00 [facility], [facility] CALCIUM, IONIZED 2020-03-21 20:27:00 [facility], [facility] LACTIC ACID, ARTERIAL 2020-03-21 20:27:00 [facility], [facility] CBC (HEMOGRAM ONLY) 2020-03-21 20:27:00 [facility], [facility] OXYGEN SATURATION, 2020-03-21 20:27:00 [facility], [facility] BLOOD GAS, ARTERIAL 2020-03-21 20:27:00 [facility] ECG 12-LEAD 2020-03-21 20:01:22 Lee Winn [facility] POCT-GLUCOSE METER 2020-03-21 17:09:00 Jimi Grimm [facility] BLOOD GAS, ARTERIAL 2020-03-21 17:08:00 Pa [facility] LACTIC ACID, ARTERIAL 2020-03-21 15:55:00 Melvin Mercado [facility] BLOOD GAS, ARTERIAL 2020-03-21 15:55:00 Melvin Mercado [facility], I [facility] SODIUM NA-STAT LAB 2020-03-21 15:55:00 Melvin Mercado [facility] POTASSIUM-STAT LAB 2020-03-21 15:55:00 Melvin Mercado [facility] GLUCOSE-STAT LAB 2020-03-21 15:55:00 Melvin Mercado [facility] HGB/HCT (H&H) - STAT LAB 2020-03-21 15:55:[address] [facility] POCT-GLUCOSE METER 2020-03-21 15:53:00 Sirisha [facility] POCT-GLUCOSE METER 2020-03-21 14:05:00 Diane Grimmreza [facility] TROPONIN I 2020-03-21 13:58:00 Tony Silverio [facility] PREPARE RBC 2020-03-21 13:33:00 [facility] PREPARE PLASMA 2020-03-21 13:33:00 Melvin Mercado nick [facility] BASIC METABOLIC PANEL (7) 2020-03-21 13:26:00 Maurisio Mathews [facility] MAGNESIUM 2020-03-21 13:26:00 Maurisio Mathews [facility] PHOSPHORUS 2020-03-21 13:26:00 Maurisio Mathews [facility] CBC W/PLT COUNT & AUTO 2020-03-21 13:26:00 Maurisio Mathews [facility] OXYGEN SATURATION, 2020-03-21 13:26:00 Tony Silverio [facility] BLOOD GAS, ARTERIAL 2020-03-21 13:26:00 Tony Silverio [facility] LACTIC ACID, ARTERIAL 2020-03-21 13:26:00 Tony Silverio [facility] CALCIUM, IONIZED 2020-03-21 13:26:00 Tony Silverio [facility] APTT 2020-03-21 13:26:00 Tony Silverio [facility] PROTHROMBIN TIME/INR 2020-03-21 13:26:00 Tony Silverio [facility] ECG 12-LEAD 2020-03-21 13:25:38 Unknown, Hl7 Doctor [facility] XR CHEST 1 VIEW 2020-03-21 12:36:00 Tony Silverio [facility] BLOOD GAS, ARTERIAL 2020-03-21 12:30:52 Virgilio Delarosa [facility] CALCIUM, IONIZED 2020-03-21 12:30:52 Virgilio Delarosa [facility] SODIUM NA-STAT LAB 2020-03-21 12:30:52 Virgilio Delarosa [facility] POTASSIUM-STAT LAB 2020-03-21 12:30:[address] [facility] GLUCOSE-STAT LAB 2020-03-21 12:30:52 Virgilio Delarosa [facility] HGB/HCT (H&H) - STAT LAB 2020-03-21 12:30:52 Virgilio Delarosa [facility] POCT-ACT 2020-03-21 12:22:00 [facility] POCT-ACT 2020-03-21 12:01:00 [facility] POCT-ACT 2020-03-21 11:22:00 [facility] POCT-ACT 2020-03-21 10:52:00 [facility] ANESTHESIA ALMAZ 2020-03-21 09:18:16 Virgilio Delarosa [facility] POCT-ACT 2020-03-21 08:49:00 Jimi Grimm [facility] OXYGEN SATURATION, 2020-03-21 08:34:[address] [facility] BLOOD GAS, ARTERIAL 2020-03-21 08:18:01 [place], Virgilio [facility] SODIUM NA-STAT LAB 2020-03-21 08:18:01 [place], Virgilio Swann [facility] POTASSIUM-STAT LAB 2020-03-21 08:18:01 Delarosa, Virgilio Swann [facility] GLUCOSE-STAT LAB 2020-03-21 08:18:01 [place], Virgilio Swann [facility] HGB/HCT (H&H) - STAT LAB 2020-03-21 08:18:01 Virgilio Delarosa I [facility] BYPASS,AORTO CORONARY 2020-03-21 07:34:[address] [facility] PHANI/SVG [facility] ENDOSCOPIC HARVEST,VEIN 2020-03-21 07:34:00 Melvin Mercado [facility] ALMAZ,3D 2020-03-21 07:34:00 Melvin Mercado [facility] BYPASS,AORTO CORONARY OFF 2020-03-21 07:34:[address] [facility] POCT-GLUCOSE METER 2020-03-21 07:13:00 Jimi Grimm [facility] ABORH, MANUAL 2020-03-21 05:10:00 Chelsy Roblero [facility] TYPE AND SCREEN, AUTOMATED 2020-03-21 03:40:00 Kaiser Cevallos [facility] COMPREHENSIVE METABOLIC 2020-03-21 03:39:[address] [facility] LIPID PANEL 2020-03-21 03:39:00 Nati C[facility]allos [facility] CBC W/PLT COUNT & AUTO 2020-03-21 03:39:00 Nati Cevallos [facility] PROTHROMBIN TIME/INR 2020-03-21 03:39:00 Nati Cevallos [facility] APTT 2020-03-21 03:39:00 [facility] BASIC METABOLIC PANEL (7) 2020-03-21 03:39:00 Sirisha [facility] CALCIUM, IONIZED 2020-03-21 03:39:00 Sirisha [facility] MAGNESIUM 2020-03-21 03:39:00 Sirisha [facility] PHOSPHORUS 2020-03-21 03:39:00 Sirisha [facility] XR CHEST 1 VIEW 2020-03-20 17:47:00 Nati [facility] - PORTABLE/BEDSIDE [facility] CHEST WITHOUT IV 2020-03-20 15:43:00 [place] [facility] - CONTRAST [facility] CT ABDOMEN/PELVIS WITHOUT 2020-03-20 15:33:00 [place], [facility] - IV CONTRAST [facility] DRUG TEST, GENERAL 2020-03-20 12:35:00 Kishan Black [facility] - TOXICOLOGY, URINE [facility] POCT-GLUCOSE METER 2020-03-20 11:32:00 Sirisha [facility] POCT-GLUCOSE METER 2020-03-20 07:05:00 Sirisha [facility] BASIC METABOLIC PANEL (7) 2020-03-20 01:43:00 Sirisha [facility] CALCIUM, IONIZED 2020-03-20 01:43:00 Sirisha [facility] PHOSPHORUS 2020-03-20 01:43:00 [facility] W/PLT COUNT & AUTO 2020-03-20 01:43:00 Jimi Grimm [facility] MAGNESIUM 2020-03-20 01:43:00 Sirisha [facility] HEMOGLOBIN A1C 2020-03-20 01:43:00 Jeremiasarflower [facility] TSH/FREE T4 IF INDICATED 2020-03-20 01:43:00 [facility] APTT 2020-03-20 01:43:00 [facility] POCT-GLUCOSE METER 2020-03-19 21:12:00 [facility] 2D ECHO W/ DOPPLER 2020-03-19 20:38:36 [facility] (CW/PW/COLOR) [facility] APTT 2020-03-19 19:45:00 Sirisha [facility] HC VENOUS DOPPLER EXT TONIA 2020-03-19 19:14:00 [facility] HC CAROTID DOPPLER TONIA 2020-03-19 19:14:00 [facility] POCT-GLUCOSE METER 2020-03-19 17:28:00 [facility] APTT 2020-03-19 13:24:00 [facility] POCT-GLUCOSE METER 2020-03-19 11:06:00 [facility] ECG 12-LEAD 2020-03-19 07:49:40 [facility] POCT-GLUCOSE METER 2020-03-19 07:09:00 [facility] APTT 2020-03-19 06:49:00 [facility] SARS-COV2/RT-PCR ([facility] & 2020-03-19 05:31:00 Arsenio Higginbotham [facility] LABS) [facility] BASIC METABOLIC PANEL (7) 2020-03-19 03:47:00 [facility] HEPATIC FUNCTION PANEL 2020-03-19 03:47:00 [facility] MAGNESIUM 2020-03-19 03:47:00 [facility] PHOSPHORUS 2020-03-19 03:47:00 [facility] CBC W/PLT COUNT & AUTO 2020-03-19 03:47:00 [facility] TROPONIN I 2020-03-19 03:47:00 [facility] VASCULAR DIAGRAM -SCAN 2020-03-18 00:00:00 Provider [facility] CARDIAC CATH REPORT - SCAN 2020-03-18 00:00:00 Provider, [facility] SARS-COV2/RT-PCR ([facility] & 2019-09-06 03:30:[address] [facility] Plan of Care Planned Activity Planned Date Details Comments Source Future Scheduled 2029-11-25 DTAP/TDAP/TD VACCINES [facility] Test 00:00:00 (2 - Td) [code = Medical [facility] DTAP/TDAP/TD VACCINES (2 - Td)] Future Scheduled 2023-03-[address] [facility] Test 00:00:00 (procedure) [code = [facility] 75233443] Future Scheduled 2020-06-[address] [facility] - Test 00:00:00 measurement [facility] (procedure) [code = 70534929] Future Scheduled 2020-02-[address] [facility] - Test 00:00:00 (12+) [code = [facility] DEPRESSION SCREENING (12+)] Future Scheduled 2009 SHINGLES VACCINES ([address] [facility] - Test 00:00:00 of 2) [code = [facility] SHINGLES VACCINES (1 of 2)] Future Scheduled [address] DIABETIC EYE EXAM [facility] - Test 00:00:00 [code = DIABETIC EYE [facility] EXAM] Future Scheduled 1969 Diabetic foot [facility] - Test 00:00:00 examination Medical Center (regime/therapy) [code = 470255340] Future Scheduled 1969 Urine screening [facility] Test 00:00:00 protein (procedure) Medical Center [code = 385611018] Future Scheduled [address] - Test 00:00:00 malignant neoplasm of [facility] colon (procedure) [code = 009544987] Encounters Start End Encounter Admission Attending Care Care Encounter Source Date/Time Date/Time Type Type Clinicians Facility Department ID 2020-04-29 2020-04-29 Telephone Hector [facility] [id number] 00:00:00 00:00:00 [facility] [id number] [place] [id number] [facility] [id number] nal 044 Office Building One Results Test Description Test Test Results Result Source Time Comments Comments RAD, CHEST, 2 VIEWS 2020-03- Reason for 25 Exam:->CV 14:55:00 surgical [facility] ST [facility] 1960 Sex: M FINAL REPORT INDICATION: CV surgical follow up COMPARISON: 04/04/2020 TECHNIQUE: Frontal and lateral views of the chest. FINDINGS: Lungs and pleura: Decreased airspace disease within the left lower lobe Heart and mediastinum: Normal heart size. Unremarkable mediastinal contours.Osseous structures: No acute abnormality.Additional findings: None. IMPRESSION: Decreased airspace disease and small effusion on the left compared to prior study. Superimposed infection may be excluded clinically. Signed: Lis Lemus Verified Date/Time: 04/24/2020 14:55:28 Reading Location: [facility] Reading Room chest 2 views 2020-03- Interface, External [facility] - 04/24/2020 [facility] - 14:55:00 2:57 PM CSTFINAL Medical REPORT PATIENT ID: [place] [id number] INDICATION: CV surgical follow up COMPARISON: 04/04/2020 TECHNIQUE: Frontal and lateral views of the chest. FINDINGS: Lungs and pleura: Decreased airspace disease within the left lower lobe Heart and mediastinum: Normal heart size. Unremarkable mediastinal contours.Osseous structures: No acute abnormality.Additional findings: None. IMPRESSION: Decreased airspace disease and small effusion on the left compared to prior study. Superimposed infection may be excluded clinically. Signed: Lis Lemus Verified Date/Time: 04/24/2020 14:55:28 Reading Location: [facility] Reading Room Transesophageal echo 2020-03- Ejection FractionSLEH [facility] ECHO HEARTLAB [facility] - 00:07:33 [facility] CPACSInterface, [place] External Ris In - 04/15/2020 12:37 AM CSTTransesophageal Echocardiography Report (ALMAZ) Demographics Patient Name EDILSON NAVARRO Date of Study 04/03/2020 Gender Male Visit Number [id number] Race Unknown Room Number CL 7 Number Date of 1960 Referring Physician Kishan Black MD Age 60 year(s) Smearer Angelina Causey [facility] Interpreting Jackson Johnson MD Physician Procedure Type of Study ALMAZ procedure:TRANSESOPHAG EAL ECHO (Routine) Indications:PFO .Clinical HistoryPFO, HX SMOKING, ACB X2 (03/21/20), R/L CATH/ CA/PCI (03/29/20), CAD, DM 2,HLD, HTN, METH USE, NSTEMI, PAD, PNAHeight: 70 inches Weight: 85.28 kg (188 lbs) BSA: 2.03 m^2 BMI: 26.97 kg/m^2HR: 74 bpm BP: 126/74 mmHgTEE Performed By: the attending alone Summary Procedural ALMAZ to guide PFO procedure Pre procedural ALMAZ 1. IV saline contrast injection demonstrates a PFO (patent foramen ovale) at rest. LA size is normal. No evidence of left atrial or left atrial appendage thrombus. 2. The left ventricle is chamber size is normal. All of the LV segments have low normal contractility . Post procedural ALMAZ 1. Successfully deployed Amplatzer PFO closure device with no residual shunting. 2. No significant pericardial effusion is visualized. Signature Findings Rhythm/BP Interventional ALMAZ (cpt 79825) for guidance of percutaneous intracardiac procedure. 3D imaging (cpt 31425) rendering with interpretation was performed. Left Ventricle The left ventricle is chamber size is normal. All of the LV segments have low normal contractility . Left Atrium LA size is normal . No evidence of left atrial or left atrial appendage thrombus. Right The right ventricular chamber size and systolic function Ventricle are within normal limits. Right Atrium RA size is normal. Atrial Septum IV saline contrast injection demonstrates a PFO (patent foramen ovale) at rest. Aortic Valve Normal AoV structure. There is no aortic regurgitation. There is no aortic stenosis. Mitral Valve Normal MV structure. No significant mitral regurgitation. No evidence of mitral stenosis. Tricuspid Normal TV structure and function by available views and Valve Doppler. A trace of tricuspid regurgitation. Pulmonic Valve Normal PV structure and function by limited views and Doppler. Pericardium No significant pericardial effusion is visualized. CARDIAC CATH REPORT 2020-03- Ordered by an [facility] - SCAN 09 unspecified provider. Isael es - 10:41:26 [facility] CARDIAC CATH REPORT 2020-03- Ordered by an [facility] - SCAN 09 unspecified provider. Isael es - 10:41:15 [facility] VASCULAR DIAGRAM 2020-03- Ordered by an [facility] t -SCAN 09 unspecified provider. Isael es - 10:41:14 [facility] POC-Glucose meter 2020-04-04 12:57:00 Test Item Value Reference Range Interpretation Comme nts POC-Glucose Meter (test code = 322 mg/dL 70-110 H : TESTED AT [facility] [address]) [facility], [address]: Soil Conservation Teacher/Techni shaneka ID = [id number] for RUTH (V), J ANICE Lab Interpretation (test code = Abnormal 19624-5) [facility] [id number] 12:57:00 Test Item Value Reference Range Interpretation Comments POC-GLUCOSE METER 322 mg/dL 70-110 H : TESTED A T [facility] [address] (BEAKER) (test code = [address] R [facility], 1538) [address]: [employer] Teacher/Techni shaneka ID = [id number] for TWIN (V), LUCIA Limited 2D [id number] 11:17:59Ejection FractionSLEH ECHO HEARTLAB MKCKESSON CPACSInterface, External Ris In - 04/04/2020 11:18 AM CSTTransthoracic Echocardiography Report (TTE) Demographics Patient Name EDILSON NAVARRO Date of Study 04/04/2020 Gender Male Visit Number [id number] Race Unknown Accession Number [id number] Room Number 622 Date of 1960 Referring Physician Silvana Kunz Age 60 year(s) Smearer KRISTI Michel Interpreting Juvenal Caballero MD Physician Procedure Type of Study TTE procedure:2DECHO W DOPPLER(CW/PW/COLOR), DEFINITY CONTRAST (Pending Discharge) Indications: post procedure.ClinicalHistoryBypass ao- coronary PHANI/SVG 03.21.2020, PFO closure, DM, CAD, methamphetamineabuseHGB 9.7HCT 28.4 %Contrast Medium: Definity. Amount - 2 mlHeight: 71 inches Weight: 89.36 kg (197 lbs) BSA: 2.1 m^2BMI: 27.48 kg/m^2HR: 83 bpm BP: 121/60 mmHg Summary 1. An atrial septal occluder device appears normally deployed. No interatrial shunt by color Doppler. 2. LV endocardium is adequately visualized with IV ultrasound enhancing agent. The left ventricle is chamber size (by vol index) is normal. LV septal thickness is mildly increased. LV posterior wall thickness is normal . The following segment(s) appear severely hypokinetic: apical septum and apex . LVEF by Bernard's method of disk assessment is normal (>60%) . Grade 1 diastolic dysfunction (impaired relaxation and low-normal LA pressure). 3. RV chamber size is normal . Global RV systolic function is low normal . 4. No significant valvular abnormalities 5. Unable to estimate peak systolic PA pressure; inadequate TR velocity signal. Previous Study Compared with prior study from 04/02/20, patient is s/p PFO closure. No other significant changes. Partially visualized apical thrombus seen on 03/27/20 is not visualized and not seen on last study from 04/02/20. Signature Findings Left Ventricle LV endocardium is adequately visualized with IV ultrasound enhancing agent. Theleft ventricle is chamber size (by vol index) is normal. LV septal thickness is mildly increased. LV posterior wall thickness is normal . The following segment(s) appear severely hypokinetic: apical septum and apex . LVEF by Bernard's method of disk assessment is normal (>60%) . Grade 1 diastolic dysfunction (impaire d relaxation and low-normal LA pressure). Left Atrium LA size is mildly enlarged . Right Ventricle RV chamber size is normal . Global RV systolic function is low normal . Right Atrium RA size is normal. Atrial Septum An atrial septal occluder device appears normally deployed. No interatrial shunt by color Doppler. Aortic Valve Normal AoV structure. No evidence of aortic stenosis. No evidence of aortic regurgitation. Mitral Valve Normal MV structure. Trace mitral regurgitation.Tricuspid Valve TV structure is normal. A trace of tricuspid regurgitation. Unable to estimate peak systolic PA pressure; inadequate TR velocity signal. Pulmonic Valve Normal PV structure and function by limited views and Doppler. Aorta Aortic root size (SInus of Valsalva diameter) is normal . Pericardium No significant pericardial effusion is visualized. IVC/SVC/PA/PV/Pleural The estimated RA pressure by IVC dynamics 0-5mmHg . Chambers/Structures Left Atrium LA Volume: 82.51 ml LA Area: 26.01 cm^2 LA Vol. Index: 39 ml/m^2 Left Ventricle LVIDd: 4.94 cm LVEDV:114.96 ml LV Septum Diastolic: 1.33 cm LV PW Diastolic: 0.92 cm LVEDV Bernard's:126.96 ml LVESV Bernard's:40.25 ml LVEF Bernard's: 68.3 % LVEDVI: 60 ml/m^2 LVESVI: 19 ml/m^2 Right Ventricle RVOT VTI: 13.2 cm TAPSE: 1.49 cm Doppler/Quantitative Measurements Mitral Valve MV Peak E-Wave: 0.67 m/s MV Peak A-Wave: 0.64 m/s E/A Ratio: 1.05 Peak Gradient: 1.77 mmHg Deceleration Time: 211.3 msec MV Deven. Peak: Tissue Doppler E' Lateral Velocity: 0.08 m/s Aortic Valve Peak Velocity: 1.37 m/s Mean Velocity: 0.85 m/s Peak Gradient: 7.46 mmHg Mean Gradient: 3.58 mmHg AV VTI: 21.13 cm AV DVI: 0.97 LVOT Peak Velocity: 1.21 m/s Peak Gradient: 5.83 mmHg Mean Velocity:0.9 m/s Mean Gradient: 3.53 mmHg LVOT VTI: 20.58 [facility] Metabolic [id number] 08:09:00 Test Item Value Reference Range Interpretation Comments Sodium (test code = 134 meq/L 136-145 L 2951-2) Potassium (test code = 4.0 meq/L 3.5-5.1 2823-3) Chloride (test code = 103 meq/L 98-107 2075-0) CO2 (test code = 21 meq/L 22-29 L 2028-9) BUN (test code = 29 mg/dL 7-21 H 3094-0) Creatinine (test code 1.25 mg/dL 0.57-1.25 = 2160-0) Glucose (test code = 255 mg/dL 70-105 H 2345-7) Calcium (test code = 9.1 mg/dL 8.4-10.2 36283-8) EGFR (test code = 59 mL/min/1.73 [place] [address]-6) NOT ACCURATE CREATININE CLEARANCE IN PREDICTING GLOMERULAR FILTRATION RATE . ESTIMATED GFR I S NOT APPLICABLE FOR DIALYSIS PATIENTS. RACHEL (test code = RACHEL) Soil Conservation Teacher ID - AALESLIEID Lab Interpretation Abnormal (test code = 32061-9) [facility] METABOLIC [id number] 08:09:00 Test Item Value Reference Range Interpretation Comments SODIUM (BEAKER) 134 meq/L 136-145 L (test code = 381) POTASSIUM (BEAKER) 4.0 meq/L 3.5-5.1 (test code = 379) CHLORIDE (BEAKER) 103 meq/L 98-107 (test code = 382) CO2 (BEAKER) (test 21 meq/L 22-29 L code = 355) BLOOD UREA NITROGEN 29 mg/dL 7-21 H (BEAKER) (test code = 354) CREATININE (BEAKER) 1.25 mg/dL 0.57-1.25 (test code = 358) GLUCOSE RANDOM 255 mg/dL 70-105 H (BEAKER) (test code = 652) CALCIUM (BEAKER) 9.1 mg/dL 8.4-10.2 (test code = 697) EGFR (BEAKER) (test 59 mL/min/1.73 ESTIMA YANA GFR IS code = 1092) sq m NOT ACCURATE CREATININE CLEARANCE IN PREDICTING GLOMERULAR FILTRATION RATE . ESTIMATED GFR I S NOT APPLICABLE FOR DIALYSIS PATIEN TS. Soil Conservation Teacher ID - AAREJIRAD, CHEST, 1 VIEW, NON [id number] 07:06:00Reason for exam:->s/o cardiothoracic surgeryShould this be performed at the bedside?->Yes[facility] : 1960 Sex: MFINAL REPORT RAD, CHEST, 1 VIEW, NON DEPT INDICATION: s/o cardiothoracic surgery COMPARISON: Prior day's exam FINDINGS: Portable frontal view of the chest. IMPRESSION: Support Lines: None Lungs and pleura: Improved aeration bilaterally. No pneumothorax.Heart and mediastinum: Stable contours. Stable surgical changes.Additional findings: None. Signed: JR Spivey Robert MDReport Verified Date/Time: 04/04/2020 07:06:55 Reading Location: [facility] Reading Room XR chest 1 view portable / [id number] 07:06:00Interface, External Ris In - 04/04/2020 7:09 AM CSTFINAL REPORT RAD, CHEST, 1 VIEW, NON DEPT INDICATION: s/o cardiothoracic surgery COMPARISON: Prior day's exam FINDINGS: Portable frontal view of the chest. IMPRESSION: Support Lines: None Lungs and pleura: Improved aeration b ilaterally. No pneumothorax.Heart and mediastinum: Stable contours. Stable surgical changes.Additional findings: None. Signed: JR Spivey Robert MDReport Verified Date/Time: 04/04/2020 07:06:55Reading Location: [facility] Reading [facility] [id number] 04:47:00 Test Item Value Reference Range Interpretation Comments Protein, Total (test 6.4 See_Comment [Autom ated code = 2885-2) message] The system which generated this result transmit yana reference range : 6.0 - 8.3 gm/dL . The reference range was not u sed to interpret th is result as normal/abnormal . Albumin (test code = 3.4 g/dL 3.5-5 L 21798-4) Total Bilirubin (test 0.7 mg/dL 0.2-1.2 code = 1975-2) Bilirubin, Direct 0.4 mg/dL 0.1-0.5 (test code = 1967-7) Alkaline Phosphatase 88 U/L 40-150 (test code = 6768-6) AST (test code = 15 U/L 5-34 1920-8) ALT (test code = 13 U/L 6-55 1742-6) RACHEL (test code = RACHEL) Soil Conservation Teacher ID - PIAYA L Lab Interpretation Abnormal (test code = 17280-2) [facility] 04[facility]47:00 Test Item Value Reference Range Interpretation Comments Magnesium (test code = 1.6 mg/dL 1.6-2.6 58496-7) RACHEL (test code = RACHEL) Soil Conservation Teacher ID - PIAYA L Lab Interpretation (test Normal code = 24870-9) [facility]Ph[facility] 04:47:00 Test Item Value Reference Range Interpretation Comments Phosphorus (test code = 3.3 mg/dL 2.3-4.7 2777-1) RACHEL (test code = RACHEL) Soil Conservation Teacher ID - PIAYA L Lab Interpretation (test Normal code = 68789-5) [facility]HEPATIC FUNCTION [id number] 04:47:00 Test Item Value Reference Range Interpretation Comments TOTAL PROTEIN (BEAKER) (test code = 6.4 gm/dL 6.0-8.3 770) ALBUMIN (BEAKER) (test code = 1145) 3.4 g/dL 3.5-5.0 L BILIRUBIN TOTAL (BEAKER) (test code 0.7 mg/dL 0.2-1.2 = 377) BILIRUBIN DIRECT (BEAKER) (test 0.4 mg/dL 0.1-0.5 code = 706) ALKALINE PHOSPHATASE (BEAKER) (test 88 U/L 40-150 code = 346) AST (SGOT) (BEAKER) (test code = 15 U/L 5-34 353) ALT (SGPT) (BEAKER) (test code = 13 U/L 6-55 347) Soil Conservation Teacher ID - DOMINIQUE [id number] 04:47:00 Test Item Value Reference Range Interpretation Comments MAGNESIUM (BEAKER) (test code = 1.6 mg/dL 1.6-2.6 627) Soil Conservation Teacher ID - DOMINIQUE [id number] 04:47:00 Test Item Value Reference Range Interpretation Comments PHOSPHORUS (BEAKER) (test code = 3.3 mg/dL 2.3-4.7 604) Soil Conservation Teacher ID - DOMINIQUE LProthrombin time/[id number] 04:32:00 Test Item Value Reference Interpretation Comments Range Protime (test code = 21.5 See_Comment H [Autom ated 5902-2) message] The system which generated this result transmitted reference range : 11.9 - 14.2 seconds. The reference range was not used to interpret this result as normal/abnormal . INR (test code = 1.92 See_Comment [Automated 6301-6) message] The system which generated this result transmitted reference range : <=5.90. The reference range was not used to interpret this result as normal/abnormal . RACHEL (test code = Effective 07/26/2018: RACHEL) PT Reference Range ChangeNew: 11.9-14.2 Previous: 11.7-14.7 RECOMMENDED COUMADIN/WARFARIN INR THERAPY RANGESSTANDARD DOSE: 2.0-3.0 Includes: PROPHYLAXIS for venous thrombosis, systemic embolization; TREATMENT for venous thrombosis and/or pulmonary embolus.HIGH RISK: Target INR is 2.5-3.5 for patients wiht mechanical heart valves. Lab Interpretation Abnormal (test code = 79332-7) [facility] campusPROTHROMBIN TIME/[id number] 04:32:00 Test Item Value Reference Range Interpretation Comments PROTIME (BEAKER) (test code = 21.5 seconds 11.9-14.2 H 759) INR (BEAKER) (test code = 370) 1.92 <=5.90 Effective 07/26/2018: PT Reference Range ChangeNew: 11.9-14.2 Previous: 11.7- 14.7RECOMMENDED COUMADIN/WARFARIN INR THERAPY RANGESSTANDARD DOSE: 2.0-3.0 Includes: PROPHYLAXIS for venous thrombosis, systemic embolization; TREATMENT for venous thrombosis and/or pulmonary embolus.HIGH RISK: Target INR is2.5-3.5 for patients wiht mechanical heart valves.CBC with platelet count + automated [id number] 04:26:00 Test Item Value Reference Range Interpretation Comments WBC (test code = 6690-2) 10.1 See_Comment [A utomated message] The system [facility] generated this result transmitted ref erence range: 3.5 - 10 .5 K/L. The refe rence range was not u sed to interpret this result as normal/abnor mal. RBC (test code = 789-8) 3.25 See_Comment L [Au tomated message] The system [facility] generated this result transmitted ref erence range: 4.63 - 6 .08 M/L. The refe rence range was not u sed to interpret this result as normal/abnor mal. MCHC (test code = 786-4) 34.2 See_Comment L [A utomated message] The system [facility] generated this result transmitted ref erence range: 32.3 - 3 6.5 GM/DL. The refe rence range was not u sed to interpret this result as normal/abnor mal. Hematocrit (test code = 28.4 % 40.1-51 L 4544-3) MCV (test code = 787-2) 87.4 fL 79-92.2 MCH (test code = 785-6) 29.8 pg 25.7-32.2 RDW (test code = 788-0) 14.2 % 11.6-14.4 Platelets (test code = 131 See_Comment L [Aut omated message] 777-3) The system [facility] generated this result transmitted ref erence range: 150 - 45 0 K/CU MM. The referen ce range was not u sed to interpret this result as normal/abnor mal. MPV (test code = 9.4 fL 9.4-12.4 67413-5) nRBC (test code = 413) 0 See_Comment [Aut omated message] The system [facility] generated this result transmitted ref erence range: 0 - 0 /1 00 WBC. The refere nce range was not u sed to interpret this result as normal/abnor mal. % Neutros (test code = 74 % 429) % Lymphs (test code = 13 % 430) % Monos (test code = 10 % 431) % Eos (test code = 432) 3 % % Baso (test code = 437) 0 % # Neutros (test code = 7.42 See_Comment H [Aut omated message] 670) The system [facility] generated this result transmitted ref erence range: 1.78 - 5 .38 K/L. The refe rence range was not u sed to interpret this result as normal/abnor mal. # Lymphs (test code = 1.28 See_Comment L [Auto mated message] 414) The system [facility] generated this result transmitted ref erence range: 1.32 - 3 .57 K/L. The refe rence range was not u sed to interpret this result as normal/abnor mal. # Monos (test code = 0.98 See_Comment H [Autom ated message] 415) The system [facility] generated this result transmitted ref erence range: 0.30 - 0 .82 K/L. The refe rence range was not u sed to interpret this result as normal/abnor mal. # Eos (test code = 416) 0.26 See_Comment [Au tomated message] The system [facility] generated this result transmitted ref erence range: 0.04 - 0 .54 K/L. The refe rence range was not u sed to interpret this result as normal/abnor mal. # Baso (test code = 417) 0.04 See_Comment [A utomated message] The system [facility] generated this result transmitted ref erence range: 0.01 - 0 .08 K/L. The refe rence range was not u sed to interpret this result as normal/abnor mal. Immature 1 % 0-1 Granulocytes-Relative (test code = 2801) Lab Interpretation (test Abnormal code = 50753-5) [facility] W/PLT COUNT & AUTO [id number] 04:26:00 Test Item Value Reference Range Interpretation Comments WHITE BLOOD CELL COUNT (BEAKER) 10.1 K/ L 3.5-10.5 (test code = 775) RED BLOOD CELL COUNT (BEAKER) 3.25 M/ L 4.63-6.08 L (test code = 761) HEMOGLOBIN (BEAKER) (test code = 9.7 GM/DL 13.7-17.5 L 410) HEMATOCRIT (BEAKER) (test code = 28.4 % 40.1-51.0 L 411) MEAN CORPUSCULAR VOLUME (BEAKER) 87.4 fL 79.0-92.2 (test code = 753) MEAN CORPUSCULAR HEMOGLOBIN 29.8 pg 25.7-32.2 (BEAKER) (test code = 751) MEAN CORPUSCULAR HEMOGLOBIN CONC 34.2 GM/DL 32.3-36.5 (BEAKER) (test code = 752) RED CELL DISTRIBUTION WIDTH 14.2 % 11.6-14.4 (BEAKER) (test code = 412) PLATELET COUNT (BEAKER) (test 131 K/CU MM 150-450 L code = 756) MEAN PLATELET VOLUME (BEAKER) 9.4 fL 9.4-12.4 (test code = 754) NUCLEATED RED BLOOD CELLS 0 /100 WBC 0-0 (BEAKER) (test code = 413) NEUTROPHILS RELATIVE PERCENT 74 % (BEAKER) (test code = 429) LYMPHOCYTES RELATIVE PERCENT 13 % (BEAKER) (test code = 430) MONOCYTES RELATIVE PERCENT 10 % (BEAKER) (test code = 431) EOSINOPHILS RELATIVE PERCENT 3 % (BEAKER) (test code = 432) BASOPHILS RELATIVE PERCENT 0 % (BEAKER) (test code = 437) NEUTROPHILS ABSOLUTE COUNT 7.42 K/ L 1.78-5.38 H (BEAKER) (test code = 670) LYMPHOCYTES ABSOLUTE COUNT 1.28 K/ L 1.32-3.57 L (BEAKER) (test code = 414) MONOCYTES ABSOLUTE COUNT (BEAKER) 0.98 K/ L 0.30-0.82 H (test code = 415) EOSINOPHILS ABSOLUTE COUNT 0.26 K/ L 0.04-0.54 (BEAKER) (test code = 416) BASOPHILS ABSOLUTE COUNT (BEAKER) 0.04 K/ L 0.01-0.08 (test code = 417) IMMATURE GRANULOCYTES-RELATIVE 1 % 0-1 PERCENT (BEAKER) (test code = 2801) RAD, CHEST, 1 VIEW, NON [id number] 02:25:00Reason for exam:->Status post PFO closureShould this be performed at the bedside?->Yes [facility] : 1960 Sex: MFINAL REPORT CLINICAL INDICATION: Status post PFO closure. Comparison: To421 at 0502 hours The cardiomediastinal contours are stable. Left- sided parenchymal and pleural opacities are unchanged. There is no pneumothorax. Signed: Matilde Seals Verified Date/Time: 04/04/2020 02:25:04 POCT- GLUCOSE [id number] 21:44:00 Test Item Value Reference Range Interpretation Comments POC-GLUCOSE METER 247 mg/dL 70-110 H : TESTED A T [facility] 6720 (BEAKER) (test code = [place], 1538) [address]: Soil Conservation Teacher/Techni shaneka ID = [id number] for Gerhard Moran CBC (Hemogram only)2020-04-03 18:17:00 Test Item Value Reference Range Interpretation Comments WBC (test code = 6690-2) 9.5 See_Comment [A utomated message] The system [facility] generated this result transmitted ref erence range: 3.5 - 10 .5 K/L. The refe rence range was not u sed to interpret this result as normal/abnor mal. RBC (test code = 789-8) 3.33 See_Comment L [Au tomated message] The system [facility] generated this result transmitted ref erence range: 4.63 - 6 .08 M/L. The refe rence range was not u sed to interpret this result as normal/abnor mal. MCHC (test code = 786-4) 33.2 See_Comment L [A utomated message] The system [facility] generated this result transmitted ref erence range: 32.3 - 3 6.5 GM/DL. The refe rence range was not u sed to interpret this result as normal/abnor mal. Hematocrit (test code = 29.5 % 40.1-51 L 4544-3) MCV (test code = 787-2) 88.6 fL 79-92.2 MCH (test code = 785-6) 29.4 pg 25.7-32.2 RDW (test code = 788-0) 14.3 % 11.6-14.4 Platelets (test code = 129 See_Comment L [Aut omated message] 777-3) The system [facility] generated this result transmitted ref erence range: 150 - 45 0 K/CU MM. The referen ce range was not u sed to interpret this result as normal/abnor mal. MPV (test code = 9.3 fL 9.4-12.4 L 47409-3) nRBC (test code = 413) 0 See_Comment [Aut omated message] The system [facility] generated this result transmitted ref erence range: 0 - 0 /1 00 WBC. The refere nce range was not u sed to interpret this result as normal/abnor mal. Lab Interpretation (test Abnormal code = 54049-4) [facility] (HEMOGRAM ONLY)2020-04-03 18:17:00 Test Item Value Reference Range Interpretation Comments WHITE BLOOD CELL COUNT (BEAKER) 9.5 K/ L 3.5-10.5 (test code = 775) RED BLOOD CELL COUNT (BEAKER) 3.33 M/ L 4.63-6.08 L (test code = 761) HEMOGLOBIN (BEAKER) (test code = 9.8 GM/DL 13.7-17.5 L 410) HEMATOCRIT (BEAKER) (test code = 29.5 % 40.1-51.0 L 411) MEAN CORPUSCULAR VOLUME (BEAKER) 88.6 fL 79.0-92.2 (test code = 753) MEAN CORPUSCULAR HEMOGLOBIN 29.4 pg 25.7-32.2 (BEAKER) (test code = 751) MEAN CORPUSCULAR HEMOGLOBIN CONC 33.2 GM/DL 32.3-36.5 (BEAKER) (test code = 752) RED CELL DISTRIBUTION WIDTH 14.3 % 11.6-14.4 (BEAKER) (test code = 412) PLATELET COUNT (BEAKER) (test 129 K/CU MM 150-450 L code = 756) MEAN PLATELET VOLUME (BEAKER) 9.3 fL 9.4-12.4 L (test code = 754) NUCLEATED RED BLOOD CELLS 0 /100 WBC 0-0 (AKER) (test code = 413) POCT-GLUCOSE [id number] 17:37:00 Test Item Value Reference Range Interpretation Comments POC-GLUCOSE METER 228 mg/dL 70-110 H : TESTED A T [place] [address] ([facility]) (test code = [facility], 153) [address]: Soil Conservation Teacher/Techni shaneka ID = [id number] for PO RTILLO, RADHA POCT-GLUCOSE [id number] 13:49:00 Test Item Value Reference Range Interpretation Comments POC-GLUCOSE METER 243 mg/dL 70-110 H : TESTED A [place] [address] ([facility]) (test code = [facility], 1538) [address]: Soil Conservation Teacher/Techni shaneka ID = [id number] for BA TTAD, YUMIKO POC ACTIVATED CLOTTING [id number] 12:53:00 Test Item Value Reference Range Interpretation Comments Activated Clotting Time 334 sec : 74 -137 seconds, (test code = 441) Baseline: TESTED AT [address], [address]: Soil Conservation Teacher/Techni shaneka ID = [id number] for RAJINDER CLAYTON [id number] 12:53:00 Test Item Value Reference Range Interpretation Comments ACTIVATED CLOTTING TIME 334 sec : 74 -137 seconds, (BEAKER) (test code = Baseli ne: TESTED AT 441) [facility] [address] [place], [address]: Soil Conservation Teacher/Techni shaneka ID = [id number] for RAJINDER CLAYTON BASIC METABOLIC [id number] 10:07:00 Test Item Value Reference Range Interpretation Comments SODIUM (BEAKER) 134 meq/L 136-145 L (test code = 381) POTASSIUM (BEAKER) 4.2 meq/L 3.5-5.1 (test code = 379) CHLORIDE (BEAKER) 98 meq/L 98-107 (test code = 382) CO2 (BEAKER) (test 31 meq/L 22-29 H code = 355) BLOOD UREA NITROGEN 36 mg/dL 7-21 H (BEAKER) (test code = 354) CREATININE (BEAKER) 1.24 mg/dL 0.57-1.25 (test code = 358) GLUCOSE RANDOM 214 mg/dL 70-105 H (BEAKER) (test code = 652) CALCIUM (BEAKER) 9.1 mg/dL 8.4-10.2 (test code = 697) EGFR (BEAKER) (test 59 mL/min/1.73 ESTIMA YANA GFR IS code = 1092) sq m NOT ACCURATE CREATININE CLEARANCE IN PREDICTING GLOMERULAR FILTRATION RATE . ESTIMATED GFR I S NOT APPLICABLE FOR DIALYSIS PATIEN TS. Soil Conservation Teacher ID - QUINN MPOCT-GLUCOSE [id number] 08:21:00 Test Item Value Reference Range Interpretation Comments POC-GLUCOSE METER 262 mg/dL 70-110 H : TESTED A T [facility] 67[address] (BEAKER) (test code = [address] [place] [place], [address]) [address]: Soil Conservation Teacher/Techni shaneka ID = [id number] for LEIGHTON SCOTT RAD, CHEST, 1 VIEW, NON [id number] 07:15:00Reason for exam:->s/o cardiothoracic surgeryShould this be performed at the bedside?->Yes [facility] 1960 Sex: MFINAL REPORT RAD, CHEST, 1 VIEW, NON DEPT INDICATION: s/o cardiothoracic surgery COMPARISON: Prior day's exam FINDINGS: Portable frontal view of the chest. IMPRESSION: Support Lines: Stable. Lungs and pleura: Right lung is clear. Persistent small left effusion. No pneumothorax.Heart and mediastinum: Stable contours. Stable surgical changes.Additional findings: None. Signed: JR Spivey Robert MDReport Verified Date/Time: 04/03/2020 07:15:24 Reading Location: [facility] Reading Room HEPATIC FUNCTION [id number] 06:10:00 Test Item Value Reference Range Interpretation Comments TOTAL PROTEIN (BEAKER) (test code = 7.1 gm/dL 6.0-8.3 770) ALBUMIN (BEAKER) (test code = 1145) 3.9 g/dL 3.5-5.0 BILIRUBIN TOTAL (BEAKER) (test code 0.7 mg/dL 0.2-1.2 = 377) BILIRUBIN DIRECT (BEAKER) (test 0.4 mg/dL 0.1-0.5 code = 706) ALKALINE PHOSPHATASE (BEAKER) (test 97 U/L 40-150 code = 346) AST (SGOT) (BEAKER) (test code = 21 U/L 5-34 353) ALT (SGPT) (BEAKER) (test code = 16 U/L 6-55 347) Soil Conservation Teacher ID - QUINN [id number] 06:10:00 Test Item Value Reference Range Interpretation Comments MAGNESIUM (BEAKER) (test code = 1.7 mg/dL 1.6-2.6 627) Soil Conservation Teacher ID - QUINN [id number] 06:10:00 Test Item Value Reference Range Interpretation Comments PHOSPHORUS (BEAKER) (test code = 3.2 mg/dL 2.3-4.7 604) Soil Conservation Teacher ID - QUINN MCBC W/PLT COUNT & AUTO [id number] 05:28:00 Test Item Value Reference Range Interpretation Comments WHITE BLOOD CELL COUNT (BEAKER) 10.5 K/ L 3.5-10.5 (test code = 775) RED BLOOD CELL COUNT (BEAKER) 3.47 M/ L 4.63-6.08 L (test code = 761) HEMOGLOBIN (BEAKER) (test code = 10.2 GM/DL 13.7-17.5 L 410) HEMATOCRIT (BEAKER) (test code = 30.5 % 40.1-51.0 L 411) MEAN CORPUSCULAR VOLUME (BEAKER) 87.9 fL 79.0-92.2 (test code = 753) MEAN CORPUSCULAR HEMOGLOBIN 29.4 pg 25.7-32.2 (BEAKER) (test code = 751) MEAN CORPUSCULAR HEMOGLOBIN CONC 33.4 GM/DL 32.3-36.5 (BEAKER) (test code = 752) RED CELL DISTRIBUTION WIDTH 14.1 % 11.6-14.4 (BEAKER) (test code = 412) PLATELET COUNT (BEAKER) (test 138 K/CU MM 150-450 L code = 756) MEAN PLATELET VOLUME (BEAKER) 9.1 fL 9.4-12.4 L (test code = 754) NUCLEATED RED BLOOD CELLS 0 /100 WBC 0-0 (BEAKER) (test code = 413) NEUTROPHILS RELATIVE PERCENT 76 % (BEAKER) (test code = 429) LYMPHOCYTES RELATIVE PERCENT 11 % (BEAKER) (test code = 430) MONOCYTES RELATIVE PERCENT 9 % (BEAKER) (test code = 431) EOSINOPHILS RELATIVE PERCENT 3 % (BEAKER) (test code = 432) BASOPHILS RELATIVE PERCENT 0 % (BEAKER) (test code = 437) NEUTROPHILS ABSOLUTE COUNT 7.96 K/ L 1.78-5.38 H (BEAKER) (test code = 670) LYMPHOCYTES ABSOLUTE COUNT 1.16 K/ L 1.32-3.57 L (BEAKER) (test code = 414) MONOCYTES ABSOLUTE COUNT (BEAKER) 0.93 K/ L 0.30-0.82 H (test code = 415) EOSINOPHILS ABSOLUTE COUNT 0.33 K/ L 0.04-0.54 (BEAKER) (test code = 416) BASOPHILS ABSOLUTE COUNT (BEAKER) 0.04 K/ L 0.01-0.08 (test code = 417) IMMATURE GRANULOCYTES-RELATIVE 1 % 0-1 PERCENT (BEAKER) (test code = 2801) PROTHROMBIN [id number] 05:23:00 Test Item Value Reference Range Interpretation Comments PROTIME (BEAKER) (test code = 20.0 seconds 11.9-14.2 H 759) INR (BEAKER) (test code = 370) 1.77 <=5.90 Effective 07/26/2018: PT Reference Range ChangeNew: 11.9-14.2 Previous: 11.7- 14.7RECOMMENDED COUMADIN/WARFARIN INR THERAPY RANGESSTANDARD DOSE: 2.0-3.0 Includes: PROPHYLAXIS for venous thrombosis, systemic embolization; TREATMENT for venous thrombosis and/or pulmonary embolus.HIGH RISK: Target INR is2.5-3.5 for patients wiht mechanical heart valves.2D Echo W/Doppler(CW/PW/Color) 2020-04-02 23:31:23Ejection FractionSLEH ECHO HEARTLAB MKCKESSON CPACSInterface, External Ris In - 04/02/2020 11:31 PM CSTTransthoracic Echocardiography Report (TTE) Demographics Patient Name EDILSON NAVARRO Date of Study 04/01/2020 Gender Male Visit Number [id number] Race Unknown Room Number 1161 Number Date of 1960 Referring Physician Kishan Black MD Age 60 year(s) Smearer Eliel Esparza CS Business Analytics Intern Radha Mcdonough, Interpreting Jackson Johnson MD RDCS Physician Procedure Type of Study TTE procedure:2DECHO W DOPPLER(CW/PW/COLOR) (Routine) Indications:LV thrombus.Clinical HistoryDM, Hep C, HLD, HTN, CADACB X2 (02/2020)HGB 11.5HCT 33.0 %Contrast Medium: Definity.Height: 71 inches Weight: 89.36 kg (197 lbs) BSA: 2.1 m^2 BMI: 27.48 kg/m^2HR: 78 bpm BP: 140/70 mmHg Summary 1. The left ventricle is chamber size (by vol index) is normal.No evidence of LV hypertrophy. Septal motion is abnormal, likely related to prior cardiac surgery. The LV apex is hypokinetic. Apical septal wall is hypokinetic. The other segments contract normally. LVEF by Bernard's method of disk assessment is normal (55-60%) . Grade 1 diastolic dysfunction (impaired relaxation and low-normal LA pressure). - Prior noted swirling and rim of thrombus is no longer seen in current study. 2. RV chamber size is normal. Global RV systolic function is low normal. Unable to estimate peak systolic PA pressure; inadequate TR velocity signal. 3. No significant valvular abnormalities. 4. IV saline contrast injection demonstrates a PFO (patent foramen ovale) at rest and post Valsalva . Previous Study Interval improved LV systolic function. LV apex remained akinetic, all other segments improved contracility. Signature Findings Technical Quality: Technically adequate exam. Left Ventricle LV endocardium is adequately visualized with IV ultrasound enhancing agent. The left ventricle is chamber size (by vol index) is normal (male - LVED vol - 34-74ml/m2). No evidence of LV hypertrophy. Septal motion is abnormal, likely related to prior cardiac surgery . The following segment(s) appear akinetic: apical septum, apex, apical anterior. The other segments contract normally. Global LV systolic function normal . LVEF by Bernard's method ofdisk assessment is normal (55-60%) . Grade 1 diastolic dysfunction (impaired relaxation and low-normal LA pressure). Left Atrium LA size is mildly enlarged (35-41 ml/m2) . Right Ventricle RV chamber size is normal . Global RV systolic function is low normal. Right Atrium RA size is normal. Atrial Septum IV saline contrast injection demonstrates a PFO (patent foramen ovale) at rest and post Valsalva . Aortic Valve Normal AoV structure and function. A trace of aortic regurgitation. Mitral Valve Normal MV structure and function. Tricuspid Valve TV structure is normal. A trace of tricuspid regurgitation. Unable to estimate peak systolic PA pressure;inadequate TR velocity signal. Pulmonic Valve Normal PV structure and function. Aorta Aortic root size (SInus of Valsalva diameter) is normal . Pericardium No pericardial effusion is visualized. IVC/SVC/PA/PV/Pleural The estimated RA pressure by IVC dynamics 5-10mmHg . Chambers/Structures Left Atrium LA Volume: 78.58 ml LA Area: 22.5 cm^2 LA Vol. Index: 37 ml/m^2 Left Ventricle LVIDd: 5.14 cm LV Septum Diastolic: 0.8 cm LV PW Diastolic: 0.94 cm LVEDV Bernard's:134.92 ml LVESV Bernard's:55.62 ml LVEF Bernard's: 58.8 % LVEDVI: 64 ml/m^2 LVESVI: 26 ml/m^2 LVOT Diameter: 2.25 cm Right Ventricle RVOT VTI: 10.49 cm TAPSE: 1.45 cm Aorta Ao Root S of Jonathon.: 3.91 cm Doppler/Quantitative Measurements Mitral Valve MV Peak E-Wave: 0.6 m/s MV Peak A-Wave: 0.69 m/s E/A Ratio: 0.87 Peak Gradient: 1.46 mmHg Deceleration Time: 252 msec MV Deven. Peak: Tissue Doppler E' Lateral Velocity: 0.08 m/s E/E': 7.37 Aortic Valve Peak Velocity: 1.56 m/s Mean Velocity: 1.11 m/s Peak Gradient: 9.74 mmHg Mean Gradient: 5.53 mmHg AV Area (continuity): 3.03 cm^2 AV VTI: 25.56 cm AV DVI: 0.76 LVOT Peak Velocity: 1.21 m/s Peak Gradient: 5.85 mmHg Mean Velocity: 0.87 m/s Mean Gradient: 3.35 mmHg LVOT Diameter: 2.25 cm LVOT VTI: 19.52 cm LVOT Area: 3.98 cm^2 LVOT SV:77.57 ml LVOT CO: 6.05 l/min LVOT CI: 2.88 l/min/m^2[facility]PO[facility] [id number] 21:29:00 Test Item Value Reference Range Interpretation Comments POC-GLUCOSE METER 247 mg/dL 70-110 H : TESTED A T [facility] 6720 (BEAKER) (test code = HUBER Albrecht [facility], 1538) [address]: Soil Conservation Teacher/Techni shaneka ID = [id number] for NEIDA OLSON POCT-GLUCOSE [id number] 17:16:00 Test Item Value Reference Range Interpretation Comments POC-GLUCOSE METER 262 mg/dL 70-110 H : TESTED A T [facility] 6720 ([employer]) (test code = HUEBR Albrecht [facility], 1538) [address]: Soil Conservation Teacher/Techni shaneka ID = [id number] for Tali Green U/S, RENAL, [id number] 15:52:00Reason for exam:->akiShould this be performed at the bedside?->ultrasound team preference [facility] : 1960 Sex: MFINAL REPORT TECHNIQUE: Grayscale ultrasound of the kidneys and bladder. INDICATION: 60-year-old man with acute kidney injury. COMPARISON: Chest, abdomen, and pelvis CT 03/20/2020. FINDINGS: RIGHT KIDNEY: Right kidney measures 11.4 x 6.7 x 6.3 cm with cortical thickness of 1.7 cm. No solid mass. No hydronephrosis. Renal artery and vein are patent. LEFT KIDNEY: Left kidney measures 11.7 x 5.2 x 5.9 cm with cortical thickness of 1.4 cm. No solid mass. No hydronephrosis. Renalartery and vein are patent. BLADDER: Unremarkable. IMPRESSION:Unremarkable renal ultrasound. Signed: [place] MDReport Verified Date/Time: 04/02/2020 15:52:28 US renal [id number] 15:52:00 Interface, External Ris In - 04/02/2020 3:54 PM CSTFINAL REPORT TECHNIQUE: Grayscale ultrasound of the kidneys and bladder. INDICATION: 60-year-old man with acute kidney injury.COMPARISON: Chest, abdomen, and pelvis CT 03/20/2020. FINDINGS: RIGHT KIDNEY: Right kidney measures 11.4 x 6.7 x 6.3 cm with cortical thickness of 1.7 cm. No solid mass. No hydronephrosis. Renal arteryand vein are patent. LEFT KIDNEY: Left kidney measures 11.7 x 5.2 x 5.9 cm with cortical thickness of 1.4 cm. No solid mass. No hydronephrosis. Renal artery and vein are patent. BLADDER: Unremarkable.IMPRESSION:Unremarkable renal ultrasound. Signed: [place] MDReport Verified Date/Time: 04/02/2020 15:52:28 [facility]Creatinine[facility] [id number] 15:04:00 Test Item Value Reference Range Interpretation Comments Creatinine, Ur 49.1 mg/dL (test code = 2161-8) RACHEL (test code = Reference Range: No RACHEL) NormalsOperator ID - BS [facility] campusProtein, random [id number] 15:04:00 Test Item Value Reference Range Interpretation Comments Protein, Urine (test code = 7 mg/dL 0-14 2888-6) RACHEL (test code = RACHEL) Soil Conservation Teacher ID - BS Lab Interpretation (test Normal code = 25209-2) [facility] campusCREATININE, RANDOM [id number] 15:04:00 Test Item Value Reference Range Interpretation Comments CREATININE URINE (BEAKER) (test 49.1 mg/dL code = 375) Reference Range: No NormalsOperator ID - BSPROTEIN, RANDOM [id number] 15:04:00 Test Item Value Reference Range Interpretation Comments PROTEIN, URINE (BEAKER) (test code = 7 mg/dL 0-14 1569) Soil Conservation Teacher ID - BSUrinalysis w/[id number] 14:50:00 Test Item Value Reference Range Interpretation Comments Color, UA (test code Yellow = 5778-6) Clarity, UA (test Clear code = 5767-9) Specific Centuria, UA 1.013 1.001-1.035 (test code = 5811-5) pH, UA (test code = 5.5 5.0-8.0 5803-2) Protein, UA (test Negative Negative code = 82635-7) Glucose, UA (test >1000 mg/dL Negative A code = 365) Ketones, UA (test Negative Negative code = 2514-8) Bilirubin, UA (test Negative Negative code = 16271-3) Blood, UA (test code Small Negative A = 61069-5) Nitrite, UA (test Negative Negative code = 5802-4) Leukocytes, UA (test Negative Negative code = 5799-2) Urobilinogen, UA 0.2 mg/dL 0.2-1 (test code = 56529-8) RBC, UA (test code = 9 See_Comment [Autom ated 42439-8) message] The system which generated this result transmit yana reference range : /HPF. The reference range was not used to interpret this result as normal/abnormal . WBC, UA (test code = <1 See_Comment [Autom ated 5821-4) message] The system which generated this result transmit yana reference range : /HPF. The reference range was not used to interpret this result as normal/abnormal . Specimen Source (test code = 2795) RACHEL (test code = RACHEL) Soil Conservation Teacher ID - [auto]Soil Conservation Teacher ID - tech Lab Interpretation Abnormal (test code = 69433-0) [facility] campusURINALYSIS W/ [id number] 14:50:00 Test Item Value Reference Range Interpretation Comments COLOR (BEAKER) (test code = 470) Yellow CLARITY (BEAKER) (test code = Clear 469) SPECIFIC GRAVITY UA (BEAKER) 1.013 1.001-1.035 (test code = 468) PH UA (BEAKER) (test code = 467) 5.5 5.0-8.0 PROTEIN UA (BEAKER) (test code = Negative Negative 464) GLUCOSE UA (BEAKER) (test code = >1000 mg/dL Negative A 365) KETONES UA (BEAKER) (test code = Negative Negative 371) BILIRUBIN UA (BEAKER) (test code Negative Negative = 462) BLOOD UA (BEAKER) (test code = Small Negative A 461) NITRITE UA (BEAKER) (test code = Negative Negative 465) LEUKOCYTE ESTERASE UA (BEAKER) Negative Negative (test code = 466) UROBILINOGEN UA (BEAKER) (test 0.2 mg/dL 0.2-1.0 code = 463) RBC UA (BEAKER) (test code = 519) 9 /HPF WBC UA (BEAKER) (test code = 520) < /HPF SOURCE(BEAKER) (test code = 2795) Soil Conservation Teacher ID - [auto]Soil Conservation Teacher ID - techPOCT-GLUCOSE [id number] 12:48:00 Test Item Value Reference Range Interpretation Comments POC-GLUCOSE METER 361 mg/dL 70-110 H : TESTED A T [facility] 6720 (BEAKER) (test code = [facility], 153) 34255: Soil Conservation Teacher/Techni shaneka ID = [id number] for Peter, Tali POCT-GLUCOSE [id number] 12:17:00 Test Item Value Reference Range Interpretation Comments POC-GLUCOSE METER 249 mg/dL 70-110 H : TESTED A T [facility] 6720 (BEAKER) (test code = [facility], 1538) 42474: Soil Conservation Teacher/Techni shaneka ID = [id number] for Peter, Tali POCT-GLUCOSE [id number] 12:16:00 Test Item Value Reference Range Interpretation Comments POC-GLUCOSE METER 326 mg/dL 70-110 H : TESTED A T [facility] 6720 (BEAKER) (test code = [facility], 1538) 19104: Soil Conservation Teacher/Techni shaneka ID = [id number] for Re yes, Sairy POCT-GLUCOSE [id number] 12:16:00 Test Item Value Reference Range Interpretation Comments POC-GLUCOSE METER 97 mg/dL 70-110 : TESTED A T [facility] 6720 (BEAKER) (test code = HUBER Albrecht [place], 1538) [address]: Soil Conservation Teacher/Techni shaneka ID = [id number] for MCKENNA GAFFNEY POCT-GLUCOSE [id number] 12:15:00 Test Item Value Reference Range Interpretation Comments POC-GLUCOSE METER 202 mg/dL 70-110 H : TESTED A T [facility] 6720 ([employer]) (test code = HUBER Albrecht [place], 1538) [address]: Soil Conservation Teacher/Techni shaneka ID = [id number] for RAMÓN GARCÍA SARS-CoV2/RT-PCR (Asymptomatic ONLY)2020-04-02 11:26:00 Test Item Value Reference Range Interpretation Comments SARS-COV2/RT-PCR Negative Not Detected, (test code = Negative, See 25513-3) external report for linked test SARS-COV-2 [facility] PERFORMING [facility] (test code = 37999-8) RACHEL (test code = Negative result for this RACHEL) test determines that SARS-CoV-2 RNA was not present in the specimen above the Limit of Detection (LOD). However, Negative results do not preclude SARS-CoV-2 infection and should not be used as the sole basis for treatment or patient management decisions. Negative results must be combined with clinical observations, patient history, and epidemiological information. A false negative result may occur if a specimen is improperly collected, transported or handled. A false negative result should be considered if patient's recent exposures or clinical presentation indicate that COVID-19 (SARS-CoV-2) is likely and diagnostic tests for other causes of illness are negative. Re-testing should be considered in cases of suspected false negatives. The limit of detection for this assay is 800 copies/mL. This SARS CoV-2 test is a real-time RT-PCR test intended for the qualitative detection of nucleic acid from SARS-CoV-2 in a nasopharyngeal swab specimen collected from individuals suspected of COVID-19 by their healthcare provider. This test has not been Food and Drug Administration (FDA) cleared or approved. This is a modified version of an approved Emergency Use Authorization (EUA) and is in the process of review by the FDA. Once authorized by the FDA, the issued EUA will be effective until the declaration that circumstances exist justifying the authorization of the emergency use of in vitro diagnostic tests for detection and/or diagnosis of COVID-19 is terminated under Section 564(b)(2) of the Act or the EUA is revoked under Section 564(g) of the Act. Fact Sheet for Healthcare Providers:https://www.[employer]/sites/default/f familia/product/documents/F act_Sheet_HC_Providers_L jka_VDML-NpY-7.pdf Fact Sheet for Healthcare Patients:https://www.TheRouteBox/sites/default/fi les/product/documents/Fa ct_Sheet_Patients_Lyra_S ARS-CoV-2.pdf Performing Laboratory:[facility] [place] [address], [place] [id number] [place], [place] [address]ARS-COV2/RT-PCR ([facility])2020-04-02 11:26:00 Test Item Value Reference Range Interpretation Comments SARS-COV2/RT-PCR (test Negative Not Detected, Negative, code = 3154135) See external report for linked test SARS-COV-2 PERFORMING LAB [facility] (test code = 3060248) Negative result for this test determines that SARS-CoV-2 RNA was not present in the specimen above the Limit of Detection (LOD). However, Negative results do not preclude SARS-CoV-2 infection and should not be used as the sole basis for treatment or patient management decisions. Negative results mustbe combined with clinical observations, patient history, and epidemiological information. A false negative result may occur if a specimen is improperly collected, transported or handled. A false negative result should be considered if patient's recent exposures or clinical presentation indicate that COVID-19 (SARS-CoV-2) is likely and diagnostic tests for other causes of illness are negative. Re-testing should be considered in cases of suspected false negatives.The limit of detection for this assay is 800 copies/mL.This SARS CoV-2 test is a real-time RT-PCR test intended for the qualitative detection of nucleic acid from SARS-CoV-2 in a nasopharyngeal swab specimen collected from individuals suspected of COVID-19 by their healthcare provider.This test has not been Food and Drug Administration (FDA) cleared or approved. This is a modified version of an approved Emergency Use Authorization (EUA) and is in the process of review by the FDA. Once authorized by the FDA, the issued EUA will be effective until the declaration that circumstances exist justifying the authorization of the emergency use of in vitro diagnostic tests for detection and/or diagnosis of COVID-19 is terminated under Section 564(b)(2) of the Act or the EUA is revoked under Section 564(g) of the Act.Fact Sheet for Healthcare Providers:https://www.Jack Erwin/sites/default/files/product/documents/Fact_Shee p_GW_Gsjoplmvi_Jasg_ZTJI-SmM-4.pdfFact Sheet for Healthcare Patients:https://www.Jack Erwin/sites/default/files/product/ documents/Ajre_Idmmj_Wubjbjcq_Zhui_ZHTE-CkS-4.pdfPerforming Laboratory:[facility], [place] [address]IQX, CHEST, 1 VIEW, NON [id number] 07:38:00Reason for exam:->s/o cardiothoracic surgeryShould this be performed at the bedside?->Yes [facility] : 1960 Sex: MFINAL REPORT RAD, CHEST, 1 VIEW, NON DEPT INDICATION: s/o cardiothoracic surgery COMPARISON: Prior day's exam FINDINGS: Portable frontal view of the chest. IMPRESSION: Support Lines: None. Lungs and pleura: Unchanged airspace appearance. No pneumothorax.Heart and mediastinum: Stable contours. Stable surgical changes.Additional findings: None. Signed: JR Patric, Nohemi MDReport Verified Date/Time: 04/02/2020 07:38:50 Reading Location: [facility] Reading Room [id number] 04:26:00 Test Item Value Reference Range Interpretation Comments MAGNESIUM (BEAKER) 1.8 mg/dL 1.6-2.6 Specimen slightly (test code = 627) hemolyzed Soil Conservation Teacher ID - [id number] 04:26:00 Test Item Value Reference Range Interpretation Comments PHOSPHORUS (BEAKER) 3.7 mg/dL 2.3-4.7 Specimen slightly (test code = 604) hemolyzed Soil Conservation Teacher ID - EDASIBASIC METABOLIC [id number] 04:26:00 Test Item Value Reference Range Interpretation Comments SODIUM (BEAKER) 133 meq/L 136-145 L (test code = 381) POTASSIUM (BEAKER) 4.3 meq/L 3.5-5.1 Specimen slightly (test code = 379) hemolyzed CHLORIDE (BEAKER) 97 meq/L 98-107 L (test code = 382) CO2 (BEAKER) (test 26 meq/L 22-29 code = 355) BLOOD UREA NITROGEN 40 mg/dL 7-21 H (BEAKER) (test code = 354) CREATININE (BEAKER) 1.57 mg/dL 0.57-1.25 H Specimen slightly (test code = 358) hemolyzed GLUCOSE RANDOM 284 mg/dL 70-105 H (BEAKER) (test code = 652) CALCIUM (BEAKER) 8.9 mg/dL 8.4-10.2 (test code = 697) EGFR (BEAKER) (test 45 mL/min/1.73 ESTIMA YANA GFR IS code = 1092) sq m NOT ACCURATE CREATININE CLEARANCE IN PREDICTING GLOMERULAR FILTRATION RATE . ESTIMATED GFR I S NOT APPLICABLE FOR DIALYSIS PATIEN TS. Soil Conservation Teacher ID - EDASIHEPATIC FUNCTION [id number] 04:26:00 Test Item Value Reference Range Interpretation Comments TOTAL PROTEIN (BEAKER) 7.1 gm/dL 6.0-8.3 Speci men slightly (test code = 770) hemolyzed ALBUMIN (BEAKER) (test 3.8 g/dL 3.5-5.0 Speci men slightly code = 1145) hemolyzed BILIRUBIN TOTAL 0.8 mg/dL 0.2-1.2 Specimen sli ghtly (BEAKER) (test code = hemoly zed 377) BILIRUBIN DIRECT 0.3 mg/dL 0.1-0.5 Specimen sl ightly (BEAKER) (test code = hemoly zed 706) ALKALINE PHOSPHATASE 93 U/L 40-150 (BEAKER) (test code = 346) AST (SGOT) (BEAKER) 22 U/L 5-34 Specimen slightly (test code = 353) hemolyzed ALT (SGPT) (BEAKER) 14 U/L 6-55 Specimen slightly (test code = 347) hemolyzed Soil Conservation Teacher ID - EDASICBC W/PLT COUNT & AUTO [id number] 03:39:00 Test Item Value Reference Range Interpretation Comments WHITE BLOOD CELL COUNT (BEAKER) 7.5 K/ L 3.5-10.5 (test code = 775) RED BLOOD CELL COUNT (BEAKER) 3.48 M/ L 4.63-6.08 L (test code = 761) HEMOGLOBIN (BEAKER) (test code = 10.4 GM/DL 13.7-17.5 L 410) HEMATOCRIT (BEAKER) (test code = 30.5 % 40.1-51.0 L 411) MEAN CORPUSCULAR VOLUME (BEAKER) 87.6 fL 79.0-92.2 (test code = 753) MEAN CORPUSCULAR HEMOGLOBIN 29.9 pg 25.7-32.2 (BEAKER) (test code = 751) MEAN CORPUSCULAR HEMOGLOBIN CONC 34.1 GM/DL 32.3-36.5 (BEAKER) (test code = 752) RED CELL DISTRIBUTION WIDTH 14.1 % 11.6-14.4 (BEAKER) (test code = 412) PLATELET COUNT (BEAKER) (test 139 K/CU MM 150-450 L code = 756) MEAN PLATELET VOLUME (BEAKER) 9.5 fL 9.4-12.4 (test code = 754) NUCLEATED RED BLOOD CELLS 0 /100 WBC 0-0 (BEAKER) (test code = 413) NEUTROPHILS RELATIVE PERCENT 70 % (BEAKER) (test code = 429) LYMPHOCYTES RELATIVE PERCENT 17 % (BEAKER) (test code = 430) MONOCYTES RELATIVE PERCENT 10 % (BEAKER) (test code = 431) EOSINOPHILS RELATIVE PERCENT 2 % (BEAKER) (test code = 432) BASOPHILS RELATIVE PERCENT 0 % (BEAKER) (test code = 437) NEUTROPHILS ABSOLUTE COUNT 5.24 K/ L 1.78-5.38 (BEAKER) (test code = 670) LYMPHOCYTES ABSOLUTE COUNT 1.24 K/ L 1.32-3.57 L (BEAKER) (test code = 414) MONOCYTES ABSOLUTE COUNT (BEAKER) 0.76 K/ L 0.30-0.82 (test code = 415) EOSINOPHILS ABSOLUTE COUNT 0.18 K/ L 0.04-0.54 (BEAKER) (test code = 416) BASOPHILS ABSOLUTE COUNT (BEAKER) 0.03 K/ L 0.01-0.08 (test code = 417) IMMATURE GRANULOCYTES-RELATIVE 1 % 0-1 PERCENT (BEAKER) (test code = 2801) PROTHROMBIN [id number] 03:38:00 Test Item Value Reference Range Interpretation Comments PROTIME (BEAKER) (test code = 16.4 seconds 11.9-14.2 H 759) INR (BEAKER) (test code = 370) 1.36 <=5.90 Effective 07/26/2018: PT Reference Range ChangeNew: 11.9-14.2 Previous: 11.7- 14.7RECOMMENDED COUMADIN/WARFARIN INR THERAPY RANGESSTANDARD DOSE: 2.0-3.0 Includes: PROPHYLAXIS for venous thrombosis, systemic embolization; TREATMENT for venous thrombosis and/or pulmonary embolus.HIGH RISK: Target INR is2.5-3.5 for patients wiht mechanical heart valves.POCT-GLUCOSE [id number] 16:49:00 Test Item Value Reference Range Interpretation Comments POC-GLUCOSE METER 120 mg/dL 70-110 H : TESTED Daisy Lepe [facility] 6720 (BEAKER) (test code = [place], 1538) [address]: Soil Conservation Teacher/Techni shaneka ID = [id number] for OR PHEY, ALIRIO CT, BRAIN, WITHOUT [id number] 15:49:00Unlisted Reason for Exam - Click Yes and Enter Reason Below->No [facility] : 1960 Sex: MFINAL REPORT CT, BRAIN, WITHOUT CONTRAST INDICATION: Syncope, simple, normal neuro exam TECHNIQUE: Noncontrast axial imaging was obtained from the vertex to the skull base. Axial images were reconstructed using a bone algorithm. DOSE REDUCTION: Dose modulation, iterative reconstruction, and/or weight-based adjustment of the mA/kV was utilized to reduce the radiation dose to as low as reasonably achievable. COMPARISON: None. FINDINGS: Intracranial: No intracranial hemorrhageor abnormal extra-axial collection. No evidence of acute territorial infarct. No mass effect. No hydrocephalus. Mild generalized cerebral volume loss. Osseous structures: No fracture. No suspicious lesion. Paranasal sinuses and mastoid air cells: No evidence of sinusitis. Mastoids are clear. Orbital contents: Globes are intact. IMPRESSION: No acute intracranial hemorrhage or CT evidence of territorial infarct. If there is persistent clinical concern for intracranial pathology, MR examination is recommended for further characterization. Signed: Peggy Virgen MDRmanchester memorial hospital Verified Date/Time: 115:49:48 CT brain without IV [id number] 15:49:00Interface, External Ris In - 04/01/2020 3:[address], BRAIN, WITHOUT CONTRAST INDICATION: Syncope, simple, normal neuro exam TECHNIQUE: Noncontrast axial imaging was obtained from the vertex to the skull base. Axial images were reconstructed using a bone algorithm. DOSE REDUCTION: Dose modulation, iterative reconstruction, and/or weight-based adjustment of the mA/kV was utilized to reduce the radiation dose to as low as reasonably achievable. COMPARISON: None. FINDINGS: Intracranial: No intracranial hemorrhage or abnormal extra-axial collection. No evidence of acute territorial infarct. No mass effect. No hydrocephalus. Mild generalized cerebral volume loss. Osseous structures: No fracture. No suspicious lesion. Paranasal sinuses and mastoid air cells: No evidence of sinusitis. Mastoids are clear. Orbital contents: Globes are intact. IMPRESSION: No acute intracranial hemorrhage or CT evidence of territorial infarct. If there is persistent clinical concern for intracranial pathology, MR examination is recommended for further characterization. Signed: Peggy Virgen Verified Date/Time: 04/01/2020 15:49:48 [facility], WO [id number] 15:46:00 Unlisted Reason for Exam - Click Yes and Enter Reason Below->No [facility] : 1960 Sex: MFINAL REPORT CT, SPINE, CERVICAL, WO CONTRAST INDICATION: Neck pain, initial exam COMPARISON: None TECHNIQUE: Contiguous noncontrast axial images of the cervical spine are obtained. Computer reformatted coronal and sagittal images are also provided. Axial images are availablein both bone and soft tissue algorithm. DOSE REDUCTION: Dose modulation, iterative reconstruction, and/or weight-based adjustment of the mA/kV was utilized to reduce the radiation dose to as low as reasonably achievable. FINDINGS: Alignment: Normal. C1 and C2 lateral masses are congruent. Vertebrae: No acute fracture. No aggressive osseous lesion. Spondylosis: No high-grade osseous canal or foraminalstenosis. Soft tissues: There is a 1.2 cm densely calcified stone within the right submandibular space. There is a 7 mm dorsal cutaneous/subcutaneous lesion just right of midline at the C3-4 level, indeterminate by imaging. No prevertebral soft tissue swelling. Visualized lung apices are clear. IMPRESSION:1.No acute cervical fracture or traumatic malalignment.2.A 1.4 cm stone is noted in the partially visualized right submandibular space.3.A 0.7 cm dorsal cutaneous/subcutaneous lesion just right ofmidline at the C3-4 level is indeterminate by imaging. Please correlate with physical exam. Signed: Peggy Virgen Verified Date/Time: 04/01/2020 15:46:18 CT spine cervical without IV [id number] 15:46:00Interface, External Ris In - 04/01/2020 3:[address], SPINE, CERVICAL, WO CONTRAST INDICATION: Neck pain, initial exam COMPARISON: None TECHNIQUE: Contiguous noncontrast axial images of the cervical spine are obtained. Computer reformatted coronal and sagittal images are also provided. Axial images are available in both bone and soft tissue algorithm. DOSE REDUCTION: Dose modulation, iterative reconstruction, and/or weight-based adjustment of the mA/kV was utilized to reduce the radiation dose to as low as reasonably achievable. FINDINGS: Alignment: Normal. C1 and C2 lateral masses are congruent. Vertebrae: No acute fracture. No aggressive osseous lesion. Spondylosis: No high-grade osseous canal or foraminal stenosis. Soft tissues: There is a 1.2 cm densely calcified stone within the right submandibular space. There is a 7 mm dorsal cutaneous/subcutaneous lesion just right of midline at the C3-4 level, indeterminate by imaging. No prevertebral soft tissue swelling. Visualized lung apices are clear. IMPRESSION:1.No acute cervical fracture or traumatic malal ignment.2.A 1.4 cm stone is noted in the partially visualized right submandibular space.3.A 0.7 cm dorsal cutaneous/subcutaneous lesion just right of midline at the C3-4 level is indeterminate by imaging. Please correlate with physical exam. Signed: Peggy Virgen Verified Date/Time: 04/01/2020 15:46:18 [facility] [id number] 12:25:00 Test Item Value Reference Range Interpretation Comments POC-GLUCOSE METER 236 mg/dL 70-110 H : TESTED A T [facility] 6720 (BEAKER) (test code = HUBER Albrecht [facility], 1538) [address]: Soil Conservation Teacher/Techni shaneka ID = [id number] for OR ALIRIO THORNE [id number] 07:47:00 Test Item Value Reference Range Interpretation Comments PTT (test code = 125.0 See_Comment H [Automated message] 33515-6) The system [facility] generated this result transmitted ref erence range: 22.5 - 3 6.0 seconds. The reference range was not used to int erpret this result as normal/abnormal . Lab Interpretation (test Abnormal code = 52807-8) [id number] 07:47:00 Test Item Value Reference Range Interpretation Comments PARTIAL THROMBOPLASTIN TIME 125.0 seconds 22.5-36.0 H (BEAKER) (test code = 760) POCT-GLUCOSE [id number] 07:41:00 Test Item Value Reference Range Interpretation Comments POC-GLUCOSE METER 170 mg/dL 70-110 H : TESTED A T [facility] 6720 (BEAKER) (test code = HUBER Albrecht [facility], 1538) 64465: Soil Conservation Teacher/Techni shaneka ID = [id number] for OR ALIRIO THORNE Venous doppler legs [id number] 07:31:11Ejection FractionSLE ECHO HEARTLAB MKCKESSON CPACSRight Impression1. There is no deep venous obstruction in the common femoral, profundafemoral, femoral, popliteal, posterior tibial or peroneal veins.2. There is total echogenic superficial venous obstruction in the greatsaphenous vein (thigh and calf).Left Impression1. There is no deep venous obstruction in the common femoral, profundafemoral, femoral, popliteal, posterior tibial or peroneal veins wherevisualized.2. There is total echolucent superficial venous obstruction in the remaininggreat saphenous vein which is consistent with recent vein harvest post ACB. Conclusions Summary Venous duplex imaging and compression of the bilateral lower extremities were performed. The veins were adequately visualized. The bilateral deep venous systems were patent and compressible with no evidence of thrombus. The bilateral superficial venous systems were positive with thrombus. Signature Velocities are measured in cm/s ; Diametersare measured in cm Interface, External Ris In - 04/01/2020 7:31 AM CSTPV LAB - Lower Extremities DVT Study Demographics Patient Name EDILSON NAVARRO Date of Study 03/31/2020 Age 60 Visit Number [id number] Gender Male Accession Number [id number] Date of 1960 Referring [facility] Room Number 1161 Physician Margot Smearer Cornelio Zaldivar Interpreting Physician REMI Carvajal ProcedureType of Study: Veins: Lower Extremities DVT Study, VENOUS DOPPLER LEG, BILATERAL. Indications forStudy:R/O DVT.Patient Status:Routine.Study Location:Portable.Technical Quality:Adequate visualization. - Results were reported to: NOLAN Terrell @ 23:25 (T).Risk FactorsHistory of Disease+ -+----+ +!Diagnosis !Date!Comments !+ +----+ ---------+!History/Risk ! !NSTEMI, PAD, DM, CAD, HLD, HTN, former smoker, !!Factors: ! !Recent Surgery, CABG x2, Left GSV Harvested !+ +----+ +ImpressionsRight Impression1. There is no deep venous obstruction in the common femoral, profundafemoral, femoral, popliteal, posterior tibial or peroneal veins.2. There is total echogenic superficial venous obstruction in the greatsaphenous vein (thigh and calf).Left Impression1. There is no deep venous obstruction in the common femoral, profundafemoral, femoral, popliteal, posterior tibial or peroneal veins wherevisualized.2. There is total echolucent superficial venous obstruction in the remaininggreat saphenous vein which is consistent with recent vein harvest post ACB. Conclusions Summary Venous duplex imaging and compression of the bilateral lower extremities were performed. The veins were adequately visualized. The bilateral deep venous systems were patent and compressible with no evidence of thrombus. The bilateral superficial venous systems were positive with thrombus. Signature Velocities are measured in cm/s ; Diameters are measured in [facility], 1 VIEW, NON [id number] 07:22:00Reason for exam:->s/o cardiothoracic surgeryShould this be performed at the bedside?->Yes [facility] 1960 Sex: MFINAL REPORT RAD, CHEST, 1 VIEW, NON DEPT INDICATION: s/o cardiothoracic surgery COMPARISON: Prior day's exam FINDINGS: Portable frontal view of the chest. IMPRESSION: Support Lines: None. Lungs and pleura: Decreasing left effusion. No new consolidation. No pneumothorax.Heart and mediastinum: Stable contours. Stable surgical changes.Additional findings: None. Signed: JR Spivey Robert MDReport Verified Date/Time: 04/01/2020 07:22:26 Reading Location: [facility] Radiology Reading Room BASIC METABOLIC [id number] 06:37:00 Test Item Value Reference Range Interpretation Comments SODIUM (BEAKER) 135 meq/L 136-145 L (test code = 381) POTASSIUM (BEAKER) 4.4 meq/L 3.5-5.1 (test code = 379) CHLORIDE (BEAKER) 99 meq/L 98-107 (test code = 382) CO2 (BEAKER) (test 25 meq/L 22-29 code = 355) BLOOD UREA NITROGEN 36 mg/dL 7-21 H (BEAKER) (test code = 354) CREATININE (BEAKER) 1.40 mg/dL 0.57-1.25 H (test code = 358) GLUCOSE RANDOM 203 mg/dL 70-105 H (BEAKER) (test code = 652) CALCIUM (BEAKER) 9.2 mg/dL 8.4-10.2 (test code = 697) EGFR (BEAKER) (test 52 mL/min/1.73 ESTIMA YANA GFR IS code = 1092) sq m NOT ACCURATE CREATININE CLEARANCE IN PREDICTING GLOMERULAR FILTRATION RATE . ESTIMATED GFR I S NOT APPLICABLE FOR DIALYSIS PATIEN TS. Soil Conservation Teacher ID - [id number] 06:37:00 Test Item Value Reference Range Interpretation Comments MAGNESIUM (BEAKER) (test code = 1.7 mg/dL 1.6-2.6 627) Soil Conservation Teacher ID - [id number] 06:37:00 Test Item Value Reference Range Interpretation Comments PHOSPHORUS (BEAKER) (test code = 3.6 mg/dL 2.3-4.7 604) Soil Conservation Teacher ID - ADMINHEPATIC FUNCTION [id number] 06:37:00 Test Item Value Reference Range Interpretation Comments TOTAL PROTEIN (BEAKER) (test code = 6.8 gm/dL 6.0-8.3 770) ALBUMIN (BEAKER) (test code = 1145) 3.8 g/dL 3.5-5.0 BILIRUBIN TOTAL (BEAKER) (test code 0.8 mg/dL 0.2-1.2 = 377) BILIRUBIN DIRECT (BEAKER) (test 0.4 mg/dL 0.1-0.5 code = 706) ALKALINE PHOSPHATASE (BEAKER) (test 85 U/L 40-150 code = 346) AST (SGOT) (BEAKER) (test code = 18 U/L 5-34 353) ALT (SGPT) (BEAKER) (test code = 13 U/L 6-55 347) Soil Conservation Teacher ID - [id number] 06:03:00 Test Item Value Reference Range Interpretation Comments PARTIAL THROMBOPLASTIN TIME 133.6 seconds 22.5-36.0 H (BEAKER) (test code = 760) CBC W/PLT COUNT & AUTO [id number] 05:56:00 Test Item Value Reference Range Interpretation Comments WHITE BLOOD CELL COUNT 8.2 K/ L 3.5-10.5 (BEAKER) (test code = 775) RED BLOOD CELL COUNT 3.83 M/ L 4.63-6.08 L (BEAKER) (test code = 761) HEMOGLOBIN (BEAKER) 11.5 GM/DL 13.7-17.5 L (test code = 410) HEMATOCRIT (BEAKER) 33.8 % 40.1-51.0 L (test code = 411) MEAN CORPUSCULAR 88.3 fL 79.0-92.2 VOLUME (BEAKER) (test code = 753) MEAN CORPUSCULAR 30.0 pg 25.7-32.2 HEMOGLOBIN (BEAKER) (test code = 751) MEAN CORPUSCULAR 34.0 GM/DL 32.3-36.5 HEMOGLOBIN CONC (BEAKER) (test code = 752) RED CELL DISTRIBUTION 14.2 % 11.6-14.4 WIDTH (BEAKER) (test code = 412) PLATELET COUNT 142 K/CU MM 150-[address] T (BEAKER) (test code = result compared to 756) previous result ; clinical correl ation required. MEAN PLATELET VOLUME 9.0 fL 9.4-12.4 L (BEAKER) (test code = 754) NUCLEATED RED BLOOD 0 /100 WBC 0-0 CELLS (BEAKER) (test code = 413) NEUTROPHILS RELATIVE 68 % PERCENT (BEAKER) (test code = 429) LYMPHOCYTES RELATIVE 17 % PERCENT (BEAKER) (test code = 430) MONOCYTES RELATIVE 10 % PERCENT (BEAKER) (test code = 431) EOSINOPHILS RELATIVE 4 % PERCENT (BEAKER) (test code = 432) BASOPHILS RELATIVE 1 % PERCENT (BEAKER) (test code = 437) NEUTROPHILS ABSOLUTE 5.54 K/ L 1.78-5.38 H COUNT (BEAKER) (test code = 670) LYMPHOCYTES ABSOLUTE 1.35 K/ L 1.32-3.57 COUNT (BEAKER) (test code = 414) MONOCYTES ABSOLUTE 0.78 K/ L 0.30-0.82 COUNT (BEAKER) (test code = 415) EOSINOPHILS ABSOLUTE 0.34 K/ L 0.04-0.54 COUNT (BEAKER) (test code = 416) BASOPHILS ABSOLUTE 0.04 K/ L 0.01-0.08 COUNT (BEAKER) (test code = 417) IMMATURE 2 % 0-1 H GRANULOCYTES-RELATIVE PERCENT (BEAKER) (test code = 2801) PROTHROMBIN [id number] 05:49:00 Test Item Value Reference Range Interpretation Comments PROTIME (BEAKER) (test code = 14.8 seconds 11.9-14.2 H 759) INR (BEAKER) (test code = 370) 1.19 <=5.90 Effective 07/26/2018: PT Reference Range ChangeNew: 11.9-14.2 Previous: 11.7- 14.7RECOMMENDED COUMADIN/WARFARIN INR THERAPY RANGESSTANDARD DOSE: 2.0-3.0 Includes: PROPHYLAXIS for venous thrombosis, systemic embolization; TREATMENT for venous thrombosis and/or pulmonary embolus.HIGH RISK: Target INR is2.5-3.5 for patients wiht mechanical heart valves.POCT-GLUCOSE [id number] 21:13:00 Test Item Value Reference Range Interpretation Comments POC-GLUCOSE METER 258 mg/dL 70-110 H : TESTED A T [facility] 6720 (BEAKER) (test code = HUBER GONZALEZ [place], 1538) [address]: Soil Conservation Teacher/Techni shaneka ID = [id number] for GLADYS VICENTE [id number] 20:26:00 Test Item Value Reference Range Interpretation Comments PARTIAL THROMBOPLASTIN TIME 59.8 seconds 22.5-36.0 H (BEAKER) (test code = 760) CBC (HEMOGRAM ONLY)2020-03-31 18:59:00 Test Item Value Reference Range Interpretation Comments WHITE BLOOD CELL COUNT (BEAKER) 5.9 K/ L 3.5-10.5 (test code = 775) RED BLOOD CELL COUNT (BEAKER) 3.59 M/ L 4.63-6.08 L (test code = 761) HEMOGLOBIN (BEAKER) (test code = 10.6 GM/DL 13.7-17.5 L 410) HEMATOCRIT (BEAKER) (test code = 32.9 % 40.1-51.0 L 411) MEAN CORPUSCULAR VOLUME (BEAKER) 91.6 fL 79.0-92.2 (test code = 753) MEAN CORPUSCULAR HEMOGLOBIN 29.5 pg 25.7-32.2 (BEAKER) (test code = 751) MEAN CORPUSCULAR HEMOGLOBIN CONC 32.2 GM/DL 32.3-36.5 L (BEAKER) (test code = 752) RED CELL DISTRIBUTION WIDTH 14.0 % 11.6-14.4 (BEAKER) (test code = 412) PLATELET COUNT (BEAKER) (test code 39 K/CU MM 150-450 L = 756) MEAN PLATELET VOLUME (BEAKER) 10.0 fL 9.4-12.4 (test code = 754) NUCLEATED RED BLOOD CELLS (BEAKER) 0 /100 WBC 0-0 (test code = 413) POCT-GLUCOSE [id number] 17:40:00 Test Item Value Reference Range Interpretation Comments POC-GLUCOSE METER 173 mg/dL 70-110 H : TESTED A T [facility] 6720 (BEAKER) (test code = [facility], 1538) 11245: Soil Conservation Teacher/Techni shaneka ID = [id number] for OR DONITA THORNEIS POCT-GLUCOSE [id number] 12:49:00 Test Item Value Reference Range Interpretation Comments POC-GLUCOSE METER 148 mg/dL 70-110 H : TESTED A T [facility] 6720 (BEAKER) (test code = [facility], 1538) 12001: Soil Conservation Teacher/Techni shaneka ID = [id number] for OR PHEY ALIRIO [id number] 10:44:00 Test Item Value Reference Range Interpretation Comments PARTIAL THROMBOPLASTIN TIME 61.3 seconds 22.5-36.0 H (BEAKER) (test code = 760) [id number] 08:45:00 Test Item Value Reference Range Interpretation Comments PARTIAL THROMBOPLASTIN TIME 128.4 seconds 22.5-36.0 H (BEAKER) (test code = 760) BASIC METABOLIC [id number] 06:28:00 Test Item Value Reference Range Interpretation Comments SODIUM (BEAKER) 138 meq/L 136-145 (test code = 381) POTASSIUM (BEAKER) 4.2 meq/L 3.5-5.1 (test code = 379) CHLORIDE (BEAKER) 97 meq/L 98-107 L (test code = 382) CO2 (BEAKER) (test 29 meq/L 22-29 code = 355) BLOOD UREA NITROGEN 38 mg/dL 7-21 H (BEAKER) (test code = 354) CREATININE (BEAKER) 1.73 mg/dL 0.57-1.25 H (test code = 358) GLUCOSE RANDOM 61 mg/dL 70-105 L (BEAKER) (test code = 652) CALCIUM (BEAKER) 10.0 mg/dL 8.4-10.2 (test code = 697) EGFR (BEAKER) (test 40 mL/min/1.73 ESTIMA YANA GFR IS code = 1092) sq m NOT ACCURATE CREATININE CLEARANCE IN PREDICTING GLOMERULAR FILTRATION RATE . ESTIMATED GFR I S NOT APPLICABLE FOR DIALYSIS PATIEN TS. Soil Conservation Teacher ID - DOMINIQUE [id number] 06:28:00 Test Item Value Reference Range Interpretation Comments MAGNESIUM (BEAKER) (test code = 1.9 mg/dL 1.6-2.6 627) Soil Conservation Teacher ID - DOMINIQUE [id number] 06:28:00 Test Item Value Reference Range Interpretation Comments PHOSPHORUS (BEAKER) (test code = 4.7 mg/dL 2.3-4.7 604) Soil Conservation Teacher ID - DOMINIQUE LHEPATIC FUNCTION [id number] 06:28:00 Test Item Value Reference Range Interpretation Comments TOTAL PROTEIN (BEAKER) (test code = 7.9 gm/dL 6.0-8.3 770) ALBUMIN (BEAKER) (test code = 1145) 4.4 g/dL 3.5-5.0 BILIRUBIN TOTAL (BEAKER) (test code 1.0 mg/dL 0.2-1.2 = 377) BILIRUBIN DIRECT (BEAKER) (test 0.5 mg/dL 0.1-0.5 code = 706) ALKALINE PHOSPHATASE (BEAKER) (test 92 U/L 40-150 code = 346) AST (SGOT) (BEAKER) (test code = 18 U/L 5-34 353) ALT (SGPT) (BEAKER) (test code = 15 U/L 6-55 347) Soil Conservation Teacher ID - DOMINIQUE LCBC W/PLT COUNT & AUTO [id number] 05:37:00 Test Item Value Reference Range Interpretation Comments WHITE BLOOD CELL COUNT (BEAKER) 7.9 K/ L 3.5-10.5 (test code = 775) RED BLOOD CELL COUNT (BEAKER) 4.27 M/ L 4.63-6.08 L (test code = 761) HEMOGLOBIN (BEAKER) (test code = 12.7 GM/DL 13.7-17.5 L 410) HEMATOCRIT (BEAKER) (test code = 39.0 % 40.1-51.0 L 411) MEAN CORPUSCULAR VOLUME (BEAKER) 91.3 fL 79.0-92.2 (test code = 753) MEAN CORPUSCULAR HEMOGLOBIN 29.7 pg 25.7-32.2 (BEAKER) (test code = 751) MEAN CORPUSCULAR HEMOGLOBIN CONC 32.6 GM/DL 32.3-36.5 (BEAKER) (test code = 752) RED CELL DISTRIBUTION WIDTH 14.2 % 11.6-14.4 (BEAKER) (test code = 412) PLATELET COUNT (BEAKER) (test 158 K/CU MM 150-450 code = 756) MEAN PLATELET VOLUME (BEAKER) 8.9 fL 9.4-12.4 L (test code = 754) NUCLEATED RED BLOOD CELLS 0 /100 WBC 0-0 (BEAKER) (test code = 413) NEUTROPHILS RELATIVE PERCENT 63 % (BEAKER) (test code = 429) LYMPHOCYTES RELATIVE PERCENT 20 % (BEAKER) (test code = 430) MONOCYTES RELATIVE PERCENT 10 % (BEAKER) (test code = 431) EOSINOPHILS RELATIVE PERCENT 5 % (BEAKER) (test code = 432) BASOPHILS RELATIVE PERCENT 1 % (BEAKER) (test code = 437) NEUTROPHILS ABSOLUTE COUNT 5.00 K/ L 1.78-5.38 (BEAKER) (test code = 670) LYMPHOCYTES ABSOLUTE COUNT 1.61 K/ L 1.32-3.57 (BEAKER) (test code = 414) MONOCYTES ABSOLUTE COUNT (BEAKER) 0.76 K/ L 0.30-0.82 (test code = 415) EOSINOPHILS ABSOLUTE COUNT 0.41 K/ L 0.04-0.54 (BEAKER) (test code = 416) BASOPHILS ABSOLUTE COUNT (BEAKER) 0.06 K/ L 0.01-0.08 (test code = 417) IMMATURE GRANULOCYTES-RELATIVE 1 % 0-1 PERCENT (BEAKER) (test code = 2801) RAD, CHEST, 1 VIEW, NON [id number] 05:10:00Reason for exam:->s/o cardiothoracic surgeryShould this be performed at the bedside?->Yes [facility] 1960 Sex: MFINAL REPORT RAD, CHEST, 1 VIEW, NON DEPT INDICATION: s/o cardiothoracic surgery COMPARISON: Prior day's exam FINDINGS: Portable frontal view of the chest. IMPRESSION: Support Lines: None Lungs and pleura: Unchanged small left pleural effusion with adjacent left basilar airspace opacity. No new consolidation. No pneumothorax.Heart and mediastinum: Stable contours.Additional findings: None. Signed: Pricilla Presley MDReport Verified Date/Time: 03/31/2020 05:10:23 [id number] 00:57:00 Test Item Value Reference Range Interpretation Comments PARTIAL THROMBOPLASTIN TIME 36.1 seconds 22.5-36.0 H (BEAKER) (test code = 760) PROTHROMBIN [id number] 00:56:00 Test Item Value Reference Range Interpretation Comments PROTIME (BEAKER) (test code = 13.3 seconds 11.9-14.2 759) INR (BEAKER) (test code = 370) 1.05 <=5.90 Effective 07/26/2018: PT Reference Range ChangeNew: 11.9-14.2 Previous: 11.7- 14.7RECOMMENDED COUMADIN/WARFARIN INR THERAPY RANGESSTANDARD DOSE: 2.0-3.0 Includes: PROPHYLAXIS for venous thrombosis, systemic embolization; TREATMENT for venous thrombosis and/or pulmonary embolus.HIGH RISK: Target INR is2.5-3.5 for patients wiht mechanical heart valves.POCT-GLUCOSE [id number] 21:16:00 Test Item Value Reference Range Interpretation Comments POC-GLUCOSE METER 152 mg/dL 70-110 H : TESTED A T [facility] 6720 ([facility]) (test code = [facility], 1538) 59436: Soil Conservation Teacher/Techni shaneka ID = [id number] for YESI GARZA [id number] 19:04:00 Test Item Value Reference Range Interpretation Comments PARTIAL THROMBOPLASTIN TIME 86.5 seconds 22.5-36.0 H (BEAKER) (test code = 760) POCT-GLUCOSE [id number] 17:27:00 Test Item Value Reference Range Interpretation Comments POC-GLUCOSE METER 89 mg/dL 70-110 : TESTED A T [facility] 6720 ([facility]) (test code = [facility], 1538) 24769: Soil Conservation Teacher/Techni shaneka ID = [id number] for RAMÓN CLEANING [id number] 11:10:00 Test Item Value Reference Range Interpretation Comments PARTIAL THROMBOPLASTIN TIME 64.7 seconds 22.5-36.0 H (BEAKER) (test code = 760) POCT-GLUCOSE [id number] 07:59:00 Test Item Value Reference Range Interpretation Comments POC-GLUCOSE METER 170 mg/dL 70-110 H : TESTED A T [facility] 6720 ([facility]) (test code = [facility], 1538) [address]: Soil Conservation Teacher/Techni shaneka ID = [id number] for RAMÓN GARCÍA RAD, CHEST, 1 VIEW, NON [id number] 06:28:00Reason for exam:->s/o cardiothoracic surgeryShould this be performed at the bedside?->Yes [facility] : 1960 Sex: MFINAL REPORT RAD, CHEST, 1 VIEW, NON DEPT INDICATION: s/o cardiothoracic surgery COMPARISON: Prior day's exam FINDINGS: Portable frontal view of the chest. IMPRESSION: Support Lines: None Lungs and pleura: Unchanged left basilar lung opacity and small left pleural effusion. No pneumothorax.Heart and mediastinum: Stable contours.Additional findings: None. Signed: Pricilla Presley MDReport Verified Date/Time: 03/30/2020 06:28:30 BASIC METABOLIC [id number] 04:07:00 Test Item Value Reference Range Interpretation Comments SODIUM (BEAKER) 135 meq/L 136-145 L (test code = 381) POTASSIUM (BEAKER) 5.0 meq/L 3.5-5.1 (test code = 379) CHLORIDE (BEAKER) 99 meq/L 98-107 (test code = 382) CO2 (BEAKER) (test 24 meq/L 22-29 code = 355) BLOOD UREA NITROGEN 25 mg/dL 7-21 H (BEAKER) (test code = 354) CREATININE (BEAKER) 1.46 mg/dL 0.57-1.25 H (test code = 358) GLUCOSE RANDOM 198 mg/dL 70-105 H (BEAKER) (test code = 652) CALCIUM (BEAKER) 9.8 mg/dL 8.4-10.2 (test code = 697) EGFR (BEAKER) (test 49 mL/min/1.73 ESTIMA YANA GFR IS code = 1092) sq m NOT ACCURATE CREATININE CLEARANCE IN PREDICTING GLOMERULAR FILTRATION RATE . ESTIMATED GFR I S NOT APPLICABLE FOR DIALYSIS PATIEN TS. Soil Conservation Teacher ID - PIAYA [id number] 04:07:00 Test Item Value Reference Range Interpretation Comments MAGNESIUM (BEAKER) (test code = 1.6 mg/dL 1.6-2.6 627) Soil Conservation Teacher ID - PIAYA [id number] 04:07:00 Test Item Value Reference Range Interpretation Comments PHOSPHORUS (BEAKER) (test code = 3.4 mg/dL 2.3-4.7 604) Soil Conservation Teacher ID - DOMINIQUE LHEPATIC FUNCTION [id number] 04:07:00 Test Item Value Reference Range Interpretation Comments TOTAL PROTEIN (BEAKER) (test code = 7.4 gm/dL 6.0-8.3 770) ALBUMIN (BEAKER) (test code = 1145) 4.1 g/dL 3.5-5.0 BILIRUBIN TOTAL (BEAKER) (test code 1.1 mg/dL 0.2-1.2 = 377) BILIRUBIN DIRECT (BEAKER) (test 0.5 mg/dL 0.1-0.5 code = 706) ALKALINE PHOSPHATASE (BEAKER) (test 92 U/L 40-150 code = 346) AST (SGOT) (BEAKER) (test code = 16 U/L 5-34 353) ALT (SGPT) (BEAKER) (test code = 18 U/L 6-55 347) Soil Conservation Teacher ID - DOMINIQUE [id number] 03:50:00 Test Item Value Reference Range Interpretation Comments PARTIAL THROMBOPLASTIN TIME 45.6 seconds 22.5-36.0 H (BEAKER) (test code = 760) PROTHROMBIN [id number] 03:49:00 Test Item Value Reference Range Interpretation Comments PROTIME (BEAKER) (test code = 14.0 seconds 11.9-14.2 759) INR (BEAKER) (test code = 370) 1.12 <=5.90 Effective 07/26/2018: PT Reference Range ChangeNew: 11.9-14.2 Previous: 11.7- 14.7RECOMMENDED COUMADIN/WARFARIN INR THERAPY RANGESSTANDARD DOSE: 2.0-3.0 Includes: PROPHYLAXIS for venous thrombosis, systemic embolization; TREATMENT for venous thrombosis and/or pulmonary embolus.HIGH RISK: Target INR is2.5-3.5 for patients wiht mechanical heart valves.CBC W/PLT COUNT & AUTO [id number] 03:35:00 Test Item Value Reference Range Interpretation Comments WHITE BLOOD CELL COUNT (BEAKER) 9.2 K/ L 3.5-10.5 (test code = 775) RED BLOOD CELL COUNT (BEAKER) 3.96 M/ L 4.63-6.08 L (test code = 761) HEMOGLOBIN (BEAKER) (test code = 11.7 GM/DL 13.7-17.5 L 410) HEMATOCRIT (BEAKER) (test code = 36.2 % 40.1-51.0 L 411) MEAN CORPUSCULAR VOLUME (BEAKER) 91.4 fL 79.0-92.2 (test code = 753) MEAN CORPUSCULAR HEMOGLOBIN 29.5 pg 25.7-32.2 (BEAKER) (test code = 751) MEAN CORPUSCULAR HEMOGLOBIN CONC 32.3 GM/DL 32.3-36.5 (BEAKER) (test code = 752) RED CELL DISTRIBUTION WIDTH 14.2 % 11.6-14.4 (BEAKER) (test code = 412) PLATELET COUNT (BEAKER) (test 152 K/CU MM 150-450 code = 756) MEAN PLATELET VOLUME (BEAKER) 9.1 fL 9.4-12.4 L (test code = 754) NUCLEATED RED BLOOD CELLS 0 /100 WBC 0-0 (BEAKER) (test code = 413) NEUTROPHILS RELATIVE PERCENT 73 % (BEAKER) (test code = 429) LYMPHOCYTES RELATIVE PERCENT 14 % (BEAKER) (test code = 430) MONOCYTES RELATIVE PERCENT 8 % (BEAKER) (test code = 431) EOSINOPHILS RELATIVE PERCENT 4 % (BEAKER) (test code = 432) BASOPHILS RELATIVE PERCENT 1 % (BEAKER) (test code = 437) NEUTROPHILS ABSOLUTE COUNT 6.68 K/ L 1.78-5.38 H (BEAKER) (test code = 670) LYMPHOCYTES ABSOLUTE COUNT 1.29 K/ L 1.32-3.57 L (BEAKER) (test code = 414) MONOCYTES ABSOLUTE COUNT (BEAKER) 0.73 K/ L 0.30-0.82 (test code = 415) EOSINOPHILS ABSOLUTE COUNT 0.34 K/ L 0.04-0.54 (BEAKER) (test code = 416) BASOPHILS ABSOLUTE COUNT (BEAKER) 0.06 K/ L 0.01-0.08 (test code = 417) IMMATURE GRANULOCYTES-RELATIVE 1 % 0-1 PERCENT (BEAKER) (test code = 2801) POCT-GLUCOSE [id number] 21:14:00 Test Item Value Reference Range Interpretation Comments POC-GLUCOSE METER 326 mg/dL 70-110 H : TESTED A T [facility] 6720 (BEAKER) (test code = [facility], 1538) [id number]: [employer]il Conservation Teacher/Techni shaneka ID = [id number] for YESI GARZA Mitochondria M2 Antibody (IgG)2020-03-29 20:21:00 Test Item Value Reference Range Interpretation Comments Mitochondria M2 Ab <20.0 See Note: U Reference (test code = Range:NEGATIVE: ) < OR = 20.0EQUIVOCAL: 20.1-24.9POSITI V E: > OR = 25.0 RACHEL (test code = Performing Lab RACHEL) Cost Effective Data [facility] [address] [place] [address] Sven Rocha MD, PhD, [facility] 18:01:00 Test Item Value Reference Range Interpretation Comments PARTIAL THROMBOPLASTIN TIME 24.8 seconds 22.5-36.0 (BEAKER) (test code = 760) [id number] 09:39:00 Test Item Value Reference Range Interpretation Comments ACTIVATED CLOTTING TIME 285 sec : 74 -137 seconds, (BEAKER) (test code = Baseli ne: TESTED AT 441) [facility] [address] [facility], [facility] 30: Soil Conservation Teacher/Techni shaneka ID = [id number] for BERNARDINO PARSON, DEA [id number] 09:07:00 Test Item Value Reference Range Interpretation Comments ACTIVATED CLOTTING TIME 136 sec : 74 -137 seconds, (BEAKER) (test code = Baseli ne: TESTED AT 441) [address], [address] 30: [employer] Teacher/Techni shaneka ID = [id number] for BERNARDINO PARSON, DEA POCT-GLUCOSE [id number] 07:44:00 Test Item Value Reference Range Interpretation Comments POC-GLUCOSE METER 139 mg/dL 70-110 H : TESTED A T [facility] 6720 (BEAKER) (test code = [facility], 1538) [address]: Soil Conservation Teacher/Techni shaneka ID = [id number] for AQUILES JOSE RAFAELJARED RAMÓN RAD, CHEST, 1 VIEW, NON [id number] 07:40:00Reason for exam:->s/o cardiothoracic surgeryShould this be performed at the bedside?->Yes [facility] : 1960 Sex: MFINAL REPORT RAD, CHEST, 1 VIEW, NON DEPT INDICATION: s/o cardiothoracic surgery COMPARISON: Prior day's exam FINDINGS: Portable frontal view of the chest. IMPRESSION: Support Lines: Sternotomy wires Lungs and pleura: Bibasilar interstitial thickening and left retrocardiacairspace disease is unchanged No pneumothorax.Heart and mediastinum: Stable contours.Additional findings: None. Signed: Lis Lemus Verified Date/Time: 03/29/2020 07:40:09 Reading Location: [address] Neuro Reading Room MAGNESIUM 2020-03-29 07:15:00 Test Item Value Reference Range Interpretation Comments MAGNESIUM (BEAKER) 1.9 mg/dL 1.6-2.6 Specimen slightly (test code = 627) hemolyzed Soil Conservation Teacher ID - [id number] 07:15:00 Test Item Value Reference Range Interpretation Comments PHOSPHORUS (BEAKER) 3.9 mg/dL 2.3-4.7 Specimen slightly (test code = 604) hemolyzed Soil Conservation Teacher ID - EDASIBASIC METABOLIC [id number] 07:15:00 Test Item Value Reference Range Interpretation Comments SODIUM (BEAKER) 139 meq/L 136-145 (test code = 381) POTASSIUM (BEAKER) 4.9 meq/L 3.5-5.1 Specimen slightly (test code = 379) hemolyzed CHLORIDE (BEAKER) 100 meq/L 98-107 (test code = 382) CO2 (BEAKER) (test 32 meq/L 22-29 H code = 355) BLOOD UREA NITROGEN 26 mg/dL 7-21 H (BEAKER) (test code = 354) CREATININE (BEAKER) 1.10 mg/dL 0.57-1.25 Specimen slightly (test code = 358) hemolyzed GLUCOSE RANDOM 131 mg/dL 70-105 H (BEAKER) (test code = 652) CALCIUM (BEAKER) 9.2 mg/dL 8.4-10.2 (test code = 697) EGFR (BEAKER) (test 68 mL/min/1.73 ESTIMA YANA GFR IS code = 1092) sq m NOT ACCURATE CREATININE CLEARANCE IN PREDICTING GLOMERULAR FILTRATION RATE . ESTIMATED GFR I S NOT APPLICABLE FOR DIALYSIS PATIEN TS. Soil Conservation Teacher ID - EDASIHEPATIC FUNCTION [id number] 07:15:00 Test Item Value Reference Range Interpretation Comments TOTAL PROTEIN (BEAKER) 6.7 gm/dL 6.0-8.3 Speci men slightly (test code = 770) hemolyzed ALBUMIN (BEAKER) (test 3.7 g/dL 3.5-5.0 Speci men slightly code = 1145) hemolyzed BILIRUBIN TOTAL 0.8 mg/dL 0.2-1.2 Specimen sli ghtly (BEAKER) (test code = hemoly zed 377) BILIRUBIN DIRECT 0.4 mg/dL 0.1-0.5 Specimen sl ightly (BEAKER) (test code = hemoly zed 706) ALKALINE PHOSPHATASE 90 U/L 40-150 (BEAKER) (test code = 346) AST (SGOT) (BEAKER) 25 U/L 5-34 Specimen slightly (test code = 353) hemolyzed ALT (SGPT) (BEAKER) 21 U/L 6-55 Specimen slightly (test code = 347) hemolyzed Soil Conservation Teacher ID - [id number] 07:10:00 Test Item Value Reference Range Interpretation Comments PARTIAL THROMBOPLASTIN TIME 169.2 seconds 22.5-36.0 HH (BEAKER) (test code = 760) 6 hours after starting heparin infusion and as indicated per sliding scale PROTHROMBIN [id number] 06:58:00 Test Item Value Reference Range Interpretation Comments PROTIME (BEAKER) (test code = 14.2 seconds 11.9-14.2 759) INR (BEAKER) (test code = 370) 1.14 <=5.90 Effective 07/26/2018: PT Reference Range ChangeNew: 11.9-14.2 Previous: 11.7- 14.7RECOMMENDED COUMADIN/WARFARIN INR THERAPY RANGESSTANDARD DOSE: 2.0-3.0 Includes: PROPHYLAXIS for venous thrombosis, systemic embolization; TREATMENT for venous thrombosis and/or pulmonary embolus.HIGH RISK: Target INR is2.5-3.5 for patients wiht mechanical heart valves.6 hours after starting heparin infusion and as indicated per sliding scaleCBC W/PLT COUNT & AUTO [id number] 06:51:00 Test Item Value Reference Range Interpretation Comments WHITE BLOOD CELL COUNT (BEAKER) 6.9 K/ L 3.5-10.5 (test code = 775) RED BLOOD CELL COUNT (BEAKER) 3.67 M/ L 4.63-6.08 L (test code = 761) HEMOGLOBIN (BEAKER) (test code = 11.0 GM/DL 13.7-17.5 L 410) HEMATOCRIT (BEAKER) (test code = 33.1 % 40.1-51.0 L 411) MEAN CORPUSCULAR VOLUME (BEAKER) 90.2 fL 79.0-92.2 (test code = 753) MEAN CORPUSCULAR HEMOGLOBIN 30.0 pg 25.7-32.2 (BEAKER) (test code = 751) MEAN CORPUSCULAR HEMOGLOBIN CONC 33.2 GM/DL 32.3-36.5 (BEAKER) (test code = 752) RED CELL DISTRIBUTION WIDTH 14.4 % 11.6-14.4 (BEAKER) (test code = 412) PLATELET COUNT (BEAKER) (test 156 K/CU MM 150-450 code = 756) MEAN PLATELET VOLUME (BEAKER) 9.4 fL 9.4-12.4 (test code = 754) NUCLEATED RED BLOOD CELLS 0 /100 WBC 0-0 (BEAKER) (test code = 413) NEUTROPHILS RELATIVE PERCENT 58 % (BEAKER) (test code = 429) LYMPHOCYTES RELATIVE PERCENT 25 % (BEAKER) (test code = 430) MONOCYTES RELATIVE PERCENT 9 % (BEAKER) (test code = 431) EOSINOPHILS RELATIVE PERCENT 6 % (BEAKER) (test code = 432) BASOPHILS RELATIVE PERCENT 1 % (BEAKER) (test code = 437) NEUTROPHILS ABSOLUTE COUNT 4.01 K/ L 1.78-5.38 (BEAKER) (test code = 670) LYMPHOCYTES ABSOLUTE COUNT 1.76 K/ L 1.32-3.57 (BEAKER) (test code = 414) MONOCYTES ABSOLUTE COUNT (BEAKER) 0.60 K/ L 0.30-0.82 (test code = 415) EOSINOPHILS ABSOLUTE COUNT 0.43 K/ L 0.04-0.54 (BEAKER) (test code = 416) BASOPHILS ABSOLUTE COUNT (BEAKER) 0.04 K/ L 0.01-0.08 (test code = 417) IMMATURE GRANULOCYTES-RELATIVE 1 % 0-1 PERCENT (BEAKER) (test code = 2801) ECG 12 [id number] 05:28:03Interface, External Ris In - 03/29/2020 5:28 AM CSTVentricular Rate 89 BPMAtrial Rate 89 BPMP-R Interval 222 msQRS Duration 116 msQ-T Interval 386 msQTC Calculation(Bazett) 469 msP [place] 36 degreesR [place] -44 degreesT [place] 94 degreesSinus rhythm with 1st degree A-V blockPossible Left atrial enlargementLeft axis deviationLeft ventricular hypertrophy with QRS widening and repolarization abnormalityPoor R wave progression Feb1Prolonged QTAbnormal ECGWhen compared with ECG of 21-MAR-2020 20:01,Mild ST depression and T wave inversion now seen in I and aVLConfirmed by MD SEMAJ, MIKI (190) 03/29/2020 5:28:00 [facility] [id number] 23:25:00 Test Item Value Reference Range Interpretation Comments POC-GLUCOSE METER 107 mg/dL 70-110 : TESTED A T [facility] 6720 (BEAKER) ([facility] = 1538) [id number]: Soil Conservation Teacher/Techni shaneka ID = [id number] for Court Nuñez [id number] 21:15:00 Test Item Value Reference Range Interpretation Comments PARTIAL THROMBOPLASTIN TIME 31.2 seconds 22.5-36.0 (BEAKER) (test code = 760) Prior to initiating [id number] 21:14:00 Test Item Value Reference Range Interpretation Comments PARTIAL THROMBOPLASTIN TIME 28.8 seconds 22.5-36.0 (BEAKER) (test code = 760) 6 hours after starting heparin infusion and as indicated per sliding scaleCB (HEMOGRAM ONLY)2020-03-28 21:06:00 Test Item Value Reference Range Interpretation Comments WHITE BLOOD CELL COUNT (BEAKER) 8.2 K/ L 3.5-10.5 (test code = 775) RED BLOOD CELL COUNT (BEAKER) 3.49 M/ L 4.63-6.08 L (test code = 761) HEMOGLOBIN (BEAKER) (test code = 10.3 GM/DL 13.7-17.5 L 410) HEMATOCRIT (BEAKER) (test code = 30.9 % 40.1-51.0 L 411) MEAN CORPUSCULAR VOLUME (BEAKER) 88.5 fL 79.0-92.2 (test code = 753) MEAN CORPUSCULAR HEMOGLOBIN 29.5 pg 25.7-32.2 (BEAKER) (test code = 751) MEAN CORPUSCULAR HEMOGLOBIN CONC 33.3 GM/DL 32.3-36.5 (BEAKER) (test code = 752) RED CELL DISTRIBUTION WIDTH 14.3 % 11.6-14.4 (BEAKER) (test code = 412) PLATELET COUNT (BEAKER) (test 140 K/CU MM 150-450 L code = 756) MEAN PLATELET VOLUME (BEAKER) 9.6 fL 9.4-12.4 (test code = 754) NUCLEATED RED BLOOD CELLS 0 /100 WBC 0-0 (BEAKER) (test code = 413) POCT-GLUCOSE [id number] 16:46:00 Test Item Value Reference Range Interpretation Comments POC-GLUCOSE METER 171 mg/dL 70-110 H : TESTED A T [facility] 6720 (BEAKER) (test code = [place], 1538) [address]: Soil Conservation Teacher/Techni shaneka ID = [id number] for OR PHEY, ALIRIO RAD, CHEST, 1 VIEW, NON [id number] 12:41:00Reason for exam:->s/o cardiothoracic surgeryShould this be performed at the bedside?->Yes [facility] : 1960 Sex: MFINAL REPORT CLINICAL HISTORY: s/o cardiothoracic surgery TECHNIQUE: 1 view of the chest. COMPARISON: 03/27/2020 IMPRESSION: Patchy left mid and lower lung opacities are slightly decreased. Blunting of both costophrenic areas is unchanged. Thickening along the right minor fissure is unchanged. The cardiomediastinal silhouette is magnified by technique with sternotomy wires. Signed: Sanam Sierra MDReport Verified Date/Time: 03/28/2020 12:41:40 Reading Location: [facility] Radiology Reading Room POCT-GLUCOSE [id number] 11:45:00 Test Item Value Reference Range Interpretation Comments POC-GLUCOSE METER 90 mg/dL 70-110 : TESTED A [employer] 6720 ([facility]) (test code = [facility], 1538) [address]: Soil Conservation Teacher/Techni shaneka ID = [id number] for ORPH EY, ALIRIO POCT-GLUCOSE [id number] 08:58:00 Test Item Value Reference Range Interpretation Comments POC-GLUCOSE METER 211 mg/dL 70-110 H : TESTED A T [facility] 6720 ([employer]) (test code = [facility], 1538) [address]: Soil Conservation Teacher/Techni shaneka ID = [id number] for [place] EMILY LOCKWOOD POCT-GLUCOSE [id number] 07:49:00 Test Item Value Reference Range Interpretation Comments POC-GLUCOSE METER 202 mg/dL 70-110 H : [facility] ([facility]ER[facility] (test code = [place] [place], 1538) [address]: Soil Conservation Teacher/Techni shaneka ID = [id number] for OR MATIALIRIO BASIC METABOLIC [id number] 06:06:00 Test Item Value Reference Range Interpretation Comments SODIUM (BEAKER) 135 meq/L 136-145 L (test code = 381) POTASSIUM (BEAKER) 4.3 meq/L 3.5-5.1 (test code = 379) CHLORIDE (BEAKER) 97 meq/L 98-107 L (test code = 382) CO2 (BEAKER) (test 30 meq/L 22-29 H code = 355) BLOOD UREA NITROGEN 31 mg/dL 7-21 H (BEAKER) (test code = 354) CREATININE (BEAKER) 1.13 mg/dL 0.57-1.25 (test code = 358) GLUCOSE RANDOM 226 mg/dL 70-105 H (BEAKER) (test code = 652) CALCIUM (BEAKER) 8.8 mg/dL 8.4-10.2 (test code = 697) EGFR (BEAKER) (test 66 mL/min/1.73 ESTIMA YANA GFR IS code = 1092) sq m NOT ACCURATE CREATININE CLEARANCE IN PREDICTING GLOMERULAR FILTRATION RATE . ESTIMATED GFR I S NOT APPLICABLE FOR DIALYSIS PATIEN TS. Soil Conservation Teacher ID - DOMINIQUE [id number] 06:06:00 Test Item Value Reference Range Interpretation Comments MAGNESIUM (BEAKER) (test code = 1.4 mg/dL 1.6-2.6 L 627) Soil Conservation Teacher ID - DOMINIQUE [id number] 06:06:00 Test Item Value Reference Range Interpretation Comments PHOSPHORUS (BEAKER) (test code = 3.9 mg/dL 2.3-4.7 604) Soil Conservation Teacher ID - DOMINIQUE LHEPATIC FUNCTION [id number] 06:06:00 Test Item Value Reference Range Interpretation Comments TOTAL PROTEIN (BEAKER) (test code = 6.0 gm/dL 6.0-8.3 770) ALBUMIN (BEAKER) (test code = 1145) 3.4 g/dL 3.5-5.0 L BILIRUBIN TOTAL (BEAKER) (test code 0.7 mg/dL 0.2-1.2 = 377) BILIRUBIN DIRECT (BEAKER) (test 0.4 mg/dL 0.1-0.5 code = 706) ALKALINE PHOSPHATASE (BEAKER) (test 86 U/L 40-150 code = 346) AST (SGOT) (BEAKER) (test code = 20 U/L 5-34 353) ALT (SGPT) (BEAKER) (test code = 21 U/L 6-55 347) Soil Conservation Teacher ID - PIAYA LPROTHROMBIN [id number] 05:42:00 Test Item Value Reference Range Interpretation Comments PROTIME (BEAKER) (test code = 14.2 seconds 11.9-14.2 759) INR (BEAKER) (test code = 370) 1.15 <=5.90 Effective 07/26/2018: PT Reference Range ChangeNew: 11.9-14.2 Previous: 11.7- 14.7RECOMMENDED COUMADIN/WARFARIN INR THERAPY RANGESSTANDARD DOSE: 2.0-3.0 Includes: PROPHYLAXIS for venous thrombosis, systemic embolization; TREATMENT for venous thrombosis and/or pulmonary embolus.HIGH RISK: Target INR is2.5-3.5 for patients wiht mechanical heart valves.CBC W/PLT COUNT & AUTO [id number] 05:35:00 Test Item Value Reference Range Interpretation Comments WHITE BLOOD CELL COUNT (BEAKER) 5.5 K/ L 3.5-10.5 (test code = 775) RED BLOOD CELL COUNT (BEAKER) 3.41 M/ L 4.63-6.08 L (test code = 761) HEMOGLOBIN (BEAKER) (test code = 10.1 GM/DL 13.7-17.5 L 410) HEMATOCRIT (BEAKER) (test code = 30.6 % 40.1-51.0 L 411) MEAN CORPUSCULAR VOLUME (BEAKER) 89.7 fL 79.0-92.2 (test code = 753) MEAN CORPUSCULAR HEMOGLOBIN 29.6 pg 25.7-32.2 (BEAKER) (test code = 751) MEAN CORPUSCULAR HEMOGLOBIN CONC 33.0 GM/DL 32.3-36.5 (BEAKER) (test code = 752) RED CELL DISTRIBUTION WIDTH 14.0 % 11.6-14.4 (BEAKER) (test code = 412) PLATELET COUNT (BEAKER) (test 116 K/CU MM 150-450 L code = 756) MEAN PLATELET VOLUME (BEAKER) 9.8 fL 9.4-12.4 (test code = 754) NUCLEATED RED BLOOD CELLS 0 /100 WBC 0-0 (BEAKER) (test code = 413) NEUTROPHILS RELATIVE PERCENT 61 % (BEAKER) (test code = 429) LYMPHOCYTES RELATIVE PERCENT 20 % (BEAKER) (test code = 430) MONOCYTES RELATIVE PERCENT 12 % (BEAKER) (test code = 431) EOSINOPHILS RELATIVE PERCENT 5 % (BEAKER) (test code = 432) BASOPHILS RELATIVE PERCENT 1 % (BEAKER) (test code = 437) NEUTROPHILS ABSOLUTE COUNT 3.37 K/ L 1.78-5.38 (BEAKER) (test code = 670) LYMPHOCYTES ABSOLUTE COUNT 1.12 K/ L 1.32-3.57 L (BEAKER) (test code = 414) MONOCYTES ABSOLUTE COUNT (BEAKER) 0.67 K/ L 0.30-0.82 (test code = 415) EOSINOPHILS ABSOLUTE COUNT 0.29 K/ L 0.04-0.54 (BEAKER) (test code = 416) BASOPHILS ABSOLUTE COUNT (BEAKER) 0.03 K/ L 0.01-0.08 (test code = 417) IMMATURE GRANULOCYTES-RELATIVE 1 % 0-1 PERCENT (BEAKER) (test code = 2801) Actin (Smooth Muscle) Antibody, [id number] 00:43:00 Test Item Value Reference Range Interpretation Comments Anti-Smooth <20 See Note: U Reference Range :<20 Muscle Ab NEGATIVE> O R = 20 (test code = POSITIVE Antibo dies 2165617) recognizing act in are the main compon entof smooth muscle antibodies asso ciated withautoimmune liver disease. Actin antibodies aref ound in approximatel y 75% of patients withautoimmune hepatitis (AIH) type 1, approximatel y65% of patients wit h autoimmune cholangitis,margot roxima tely 30% of pat ients with primary biliarycirrhosi s, and approximately 2 % of healthy people. High values are clos essence correlated with AIH type 1. RACHEL (test code Performing Lab = RACHEL) EZ [facility] [address] [place] [address] Sven Rocha MD, PhD, ANAYELI [facility] [id number] 22:32:00 Test Item Value Reference Range Interpretation Comments POC-GLUCOSE METER 162 mg/dL 70-110 H : TESTED A T [facility] 6720 (GIULIA) (test code = [place], 1538) [address]: Soil Conservation Teacher/Techni shaneka ID = [id number] for GLADYS VICENTE 2D Echo W/Doppler(CW/PW/Color)2020-03-27 18:26:43Ejection FractionSLEH ECHO HEARTLAB MKCKESSON CPACSInterface, External Ris In - 03/28/2020 3:48 PM C STTransthoracic Echocardiography Report (TTE) Demographics Patient Name EDILSON NAVARRO Date of Study 03/27/2020 Gender Male Visit Number [id number] Race Unknown Room Number 1161 Number Date of 1960 Referring Physician Kishan Black MD Age 60 year(s) Smearer Isabelle Machado [facility] Business Analytics Intern Radha Mcdonough, Interpreting Jackson Johnson MD [facility] Physician Procedure Type of Study TTE procedure:2DECHO W DOPPLER(CW/PW/COLOR) (Routine) Indications:S/P CABG.Clinical Historys/p ACB x 2 1.19.AD, DM, HLD, HTN, Methamphetamine abuse, NSTEMI, PADHGB 10.5HCT 31.5 %Contrast Medium: Definity.Height: 71 inches Weight: 89.36 kg (197 lbs) BSA: 2.1 m^2 BMI: 27.48 kg/m^2HR: 88 bpm BP: 159/89 mmHg Summary 1. The left ventricle is chamber size (by vol index) is normal. Mild basal septal hypertrophy is present. Septal motion is abnormal, likely related to prior cardiac surgery. The LV apex, apical inferior and apical septum is akinetic. The other segments are hypokinetic. Grade 2 diastolic dysfunction (moderately increased LA pressure). LA size is mildly enlarged (35-41 ml/m2). - There is evidence of a rim of thrombus along the apical septum, measuring 0.4 X 1.3 cm. 2. The right ventricular chamber size and systolic function are within normal limits. RA size is normal. Estimated peak systolic PA pressure is 30-35 mmHg (normal range) . 3. Mild tricuspid regurgitation. Previous Study In comparison with the prior exam 03/19/2020 the following changes are noted: left ventricular systolic function has decreased. Signature Findings Technical Quality: Technically adequate exam. Left Ventricle LV endocardium is adequately visualized with IV ultrasound enhancing agent. The left ventricle is chamber size (by vol index) is normal (male - LVED vol - 34-74ml/m2). Mild basal septal hypertrophy is present. Septal motion is abnormal, likely related to prior cardiac surgery . The LV apex, apical inferior and apical septum is akinetic. The other segmentsare hypokinetic. Global LV systolic function moderately reduced . LVEF by Bernard's method of disk assessment is mildly reduced (40-44%) . Grade 2 diastolic dysfunction (moderately increased LA pressure). LeftAtrium LA size is mildly enlarged (35-41 ml/m2). Right Ventricle The right ventricular chamber size and systolic function are within normal limits. Right Atrium RA size is normal. Aortic Valve Normal AoV structure and function. A trace of aortic regurgitation. Mitral Valve Normal MV structure and function. Trace mitral regurgitation. Tricuspid Valve TV structure is normal. Mild tricuspid regurgitation. Estimated peak systolic PA pressure is 30-35 mmHg (normal range) . Pulmonic Valve Normal PV structure and function by limited views and Doppler. Aorta Aortic root size (SInus of Valsalva diameter) is normal . Pericardium No pericardial effusion is visualized. IVC/SVC/PA/PV/Pleural The estimated RA pressure by IVC dynamics 5-10mmHg . Chambers/Structures Left Atrium LA Volume: 94.38 ml LA Area: 25.83 cm^2 LA Vol. Index: 45 ml/m^2 Left Ventricle LVIDd: 5.06 cm LV Septum Diastolic: 1.35 cm LV PW Diastolic: 1.17 cm LVEDV Bernard's:88.12 ml LVESV Bernard's:51.1 ml LVEF Bernard's: 42 % LVEDVI: 42 ml/m^2 LVESVI: 24 ml/m^2 LVOT Diameter: 2.27 cm Right Ventricle RVOT VTI: 16.04 cm Aorta Ao Root S of Jonathon.: 3.55 cm Doppler/Quantitative Measurements Mitral Valve MV Peak E-Wave: 0.93 m/s MV Peak A-Wave: 0.5 m/s E/A Ratio: 1.85 Peak Gradient: 3.49 mmHg Deceleration Time: 171.5 msec MV Deven. Peak: Tissue Doppler E' Lateral Velocity: 0.05 m/s E/E': 17.8 Aortic Valve Peak Velocity: 1.04 m/s Mean Velocity: 0.69 m/s Peak Gradient: 4.36 mmHg Mean Gradient: 2.25 mmHg AV Area (continuity): 4 cm^2 AV VTI: 19.21 cm AV DVI: 0.99 LVOT Peak Velocity: 1.07 m/s Peak Gradient: 4.55 mmHg Mean Velocity: 0.62 m/s Mean Gradient: 1.9 mmHg LVOT Diameter: 2.27 cm LVOT VTI: 18.99 cm LVOT Area: 4.05 cm^2 LVOT SV:76.82 ml LVOT CO: 6.76 l/min LVOT CI: 3.22 l/min/m^2 Tricuspid Valve TR Velocity: 2.51 m/s TR Gradient: 25.17 mmHgVan Ness campusPOCT- GLUCOSE [id number] 17:11:00 Test Item Value Reference Range Interpretation Comments POC-GLUCOSE METER 126 mg/dL 70-110 H : TESTED A T [facility] 6720 (BEAKER) (test code = [place], 1538) [address]: Soil Conservation Teacher/Techni shaneka ID = [id number] for SUZANNE ANDINO Drug Test, General Toxicology, [id number] 16:18:00 Test Item Value Reference Interpretation Comments Range Acetone([facility]) None Detected (test code = 3053) Methanol([facility]) None Detected (test code = 3054) Drug Test,Genrl see note The followin g compounds were Tox,U (test detected: Co tinine code = 0314933) (Nicotine Me tabolite) Morphine Diallo taminophen Pregabalin H ydromorphone Dihydrocodeine (Hydrocodone Me tabolite) Caffeine Nor hydrocodone (Hydrocodone Me tabolite) Hydrocodone Zolpidem-Phenyl -4-COOH (Zolpidem Metab olite) Metoprolol Z olpidem Diphenhydramine For a list of compounds an d limits of detection go to:http://educa Nexus eWateron.Deolan.Vubiquity/faq /VKN330 ISOPROPANOL None Detected (test code = 6418305) ETHANOL (test None Detected Volatile code = 9003646) Limit of Det ection: 5 mg/dL This test was d lloydd and its analytical performancechar acteristics have been deter mined by [facility] [place], [place]. It hasnot been carlyn ared or approved by the U.S. Food and DrugAdministrat ion. This assay has been validated pursuantto the CLIA regulations and is used for clinicalpurpose s. RACHEL (test code Performing Lab = RACHEL) [address], [address] [place] [address] [place], [place] Annette Lam MD, PhD [facility] Ness [id number] 15:13:00 Test Item Value Reference Range Interpretation Comments Ceruloplasmin (test code 34 mg/dL 18-36 = 8437192) RACHEL (test code = RACHEL) Performing Lab *JONATHON [employer] [facility], [address] [place] [address] Kandace Swartz MD [facility] campusPOCT-GLUCOSE [id number] 15:05:00 Test Item Value Reference Range Interpretation Comments POC-GLUCOSE METER 73 mg/dL 70-110 : TESTED A T [facility] 6720 (BEAKER) (test code = [place], 1538) [address]: Soil Conservation Teacher/Techni shaneka ID = [id number] for ORPH ALIRIO ENRIQUE Peripheral Blood Smear - Hold [id number] 13:32:00 Test Item Value Reference Range Interpretation Comments Peripheral Smear Save (test code = saved 1815) [facility] campusPERIPHERAL BLOOD SMEAR - HOLD [id number] 13:32:00 Test Item Value Reference Range Interpretation Comments PERIPHERAL SMEAR SAVE (BEAKER) (test saved code = 1815) RAD, CHEST, 1 VIEW, NON [id number] 09:34:00Reason for exam:->s/o cardiothoracic surgeryShould this be performed at the bedside?->Yes [facility] : 1960 Sex: MFINAL REPORT CLINICAL HISTORY: s/o cardiothoracic surgery TECHNIQUE: 1 view of the chest. COMPARISON: 03/26/2020 IMPRESSION: Mild bilateral lung opacities are grossly unchanged. A trace left pleural effusion is again seen. The cardiomediastinal silhouette is magnified by technique with sternotomy wires. Signed: Sanam [facility]amanchester memorial hospital Verified Date/Time: 03/27/2020 09:34:30 Reading Location: [facility] Radiology Reading Room POCT-GLUCOSE METER 2020-03-27 07:52:00 Test Item Value Reference Range Interpretation Comments POC-GLUCOSE METER 207 mg/dL 70-110 H : TESTED A T [facility] 6720 (BEAKER) (test code = [place], 1538) [address]: Soil Conservation Teacher/Techni shaneka ID = [id number] for OR ALIRIO THORNE BASIC METABOLIC [id number] 06:39:00 Test Item Value Reference Range Interpretation Comments SODIUM (BEAKER) 136 meq/L 136-145 (test code = 381) POTASSIUM (BEAKER) 4.2 meq/L 3.5-5.1 (test code = 379) CHLORIDE (BEAKER) 98 meq/L 98-107 (test code = 382) CO2 (BEAKER) (test 29 meq/L 22-29 code = 355) BLOOD UREA NITROGEN 33 mg/dL 7-21 H (BEAKER) (test code = 354) CREATININE (BEAKER) 1.05 mg/dL 0.57-1.25 (test code = 358) GLUCOSE RANDOM 184 mg/dL 70-105 H (BEAKER) (test code = 652) CALCIUM (BEAKER) 9.1 mg/dL 8.4-10.2 (test code = 697) EGFR (BEAKER) (test 72 mL/min/1.73 ESTIMA YANA GFR IS code = 1092) sq m NOT ACCURATE CREATININE CLEARANCE IN PREDICTING GLOMERULAR FILTRATION RATE . ESTIMATED GFR I S NOT APPLICABLE FOR DIALYSIS PATIEN TS. [employer] Teacher ID - PIFRANCOISE [id number] 06:39:00 Test Item Value Reference Range Interpretation Comments MAGNESIUM (BEAKER) (test code = 1.6 mg/dL 1.6-2.6 627) [employer] Teacher ID - DOMINIQUE [id number] 06:39:00 Test Item Value Reference Range Interpretation Comments PHOSPHORUS (BEAKER) (test code = 3.6 mg/dL 2.3-4.7 604) [employer] Teacher ID - DOMINIQUE LHEPATIC FUNCTION [id number] 06:39:00 Test Item Value Reference Range Interpretation Comments TOTAL PROTEIN (BEAKER) (test code = 6.5 gm/dL 6.0-8.3 770) ALBUMIN (BEAKER) (test code = 1145) 3.8 g/dL 3.5-5.0 BILIRUBIN TOTAL (BEAKER) (test code 0.8 mg/dL 0.2-1.2 = 377) BILIRUBIN DIRECT (BEAKER) (test 0.4 mg/dL 0.1-0.5 code = 706) ALKALINE PHOSPHATASE (BEAKER) (test 95 U/L 40-150 code = 346) AST (SGOT) (BEAKER) (test code = 26 U/L 5-34 353) ALT (SGPT) (BEAKER) (test code = 26 U/L 6-55 347) Soil Conservation Teacher ID - DOMINIQUE [id number] 05:39:00 Test Item Value Reference Range Interpretation Comments D-Dimer, Quant (test 1.84 See_Comment H [Autom ated code = 75173-3) message] The system which generated this result transmitted reference range : <0.50 MG/L FEU. The reference range was not used to interpr et this result as normal/abnormal . RACHEL (test code = RACHEL) Intended Use: The D-Dimer Assay can be used to aid in the diagnosis of Deep Vein Thrombosis (DVT) and Pulmonary Embolism Disease (PED).In patients with low pre-test probability, various studies concerning STA Liatest D-dimer test have reported that with a cutoff value of 0.50 MG/L FEU, the Negative Predictive Value (NPV) regarding the exclusion of thrombosis is within 95-100% range. Lab Interpretation Abnormal (test code = 72190-6) [id number] 05:39:00 Test Item Value Reference Range Interpretation Comments D-DIMER QUANTITATIVE (BEAKER) 1.84 MG/L FEU <0.50 H (test code = 671) Intended Use: The D-Dimer Assay can be used to aid in the diagnosis of Deep Vein Thrombosis (DVT) and Pulmonary Embolism Disease (PED).In patients with low pre- test probability, various studies concerning STA Liatest D-dimer test have reported that with a cutoff value of 0.50 MG/L FEU, the Negative Predictive Value (NPV) regarding the exclusion of thrombosis is within 95-100% range. [id number] 05:37:00 Test Item Value Reference Range Interpretation Comments Fibrinogen (test code = 3255-7) 504 mg/dl 225-434 H Lab Interpretation (test code = Abnormal 49866-4) [id number] 05:37:00 Test Item Value Reference Range Interpretation Comments FIBRINOGEN LEVEL (BEAKER) (test 504 mg/dl 225-434 H code = 658) PROTHROMBIN [id number] 05:26:00 Test Item Value Reference Range Interpretation Comments PROTIME (BEAKER) (test code = 14.0 seconds 11.9-14.2 759) INR (BEAKER) (test code = 370) 1.11 <=5.90 Effective 07/26/2018: PT Reference Range ChangeNew: 11.9-14.2 Previous: 11.7- 14.7RECOMMENDED COUMADIN/WARFARIN INR THERAPY RANGESSTANDARD DOSE: 2.0-3.0 Includes: PROPHYLAXIS for venous thrombosis, systemic embolization; TREATMENT for venous thrombosis and/or pulmonary embolus.HIGH RISK: Target INR is2.5-3.5 for patients wiht mechanical heart valves.[id number] 05:19:00 Test Item Value Reference Range Interpretation Comments PARTIAL THROMBOPLASTIN TIME 38.3 seconds 22.5-36.0 H (BEAKER) (test code = 760) PROTHROMBIN [id number] 05:18:00 Test Item Value Reference Range Interpretation Comments PROTIME (BEAKER) (test code = 14.1 seconds 11.9-14.2 759) INR (BEAKER) (test code = 370) 1.13 <=5.90 Effective 07/26/2018: PT Reference Range ChangeNew: 11.9-14.2 Previous: 11.7- 14.7RECOMMENDED COUMADIN/WARFARIN INR THERAPY RANGESSTANDARD DOSE: 2.0-3.0 Includes: PROPHYLAXIS for venous thrombosis, systemic embolization; TREATMENT for venous thrombosis and/or pulmonary embolus.HIGH RISK: Target INR is2.5-3.5 for patients wiht mechanical heart valves.CBC W/PLT COUNT & AUTO [id number] 04:54:00 Test Item Value Reference Range Interpretation Comments WHITE BLOOD CELL COUNT (BEAKER) 5.1 K/ L 3.5-10.5 (test code = 775) RED BLOOD CELL COUNT (BEAKER) 3.48 M/ L 4.63-6.08 L (test code = 761) HEMOGLOBIN (BEAKER) (test code = 10.5 GM/DL 13.7-17.5 L 410) HEMATOCRIT (BEAKER) (test code = 31.5 % 40.1-51.0 L 411) MEAN CORPUSCULAR VOLUME (BEAKER) 90.5 fL 79.0-92.2 (test code = 753) MEAN CORPUSCULAR HEMOGLOBIN 30.2 pg 25.7-32.2 (BEAKER) (test code = 751) MEAN CORPUSCULAR HEMOGLOBIN CONC 33.3 GM/DL 32.3-36.5 (BEAKER) (test code = 752) RED CELL DISTRIBUTION WIDTH 14.1 % 11.6-14.4 (BEAKER) (test code = 412) PLATELET COUNT (BEAKER) (test code 95 K/CU MM 150-450 L = 756) MEAN PLATELET VOLUME (BEAKER) 9.9 fL 9.4-12.4 (test code = 754) NUCLEATED RED BLOOD CELLS (BEAKER) 0 /100 WBC 0-0 (test code = 413) NEUTROPHILS RELATIVE PERCENT 62 % (BEAKER) (test code = 429) LYMPHOCYTES RELATIVE PERCENT 21 % (BEAKER) (test code = 430) MONOCYTES RELATIVE PERCENT 10 % (BEAKER) (test code = 431) EOSINOPHILS RELATIVE PERCENT 5 % (BEAKER) (test code = 432) BASOPHILS RELATIVE PERCENT 0 % (BEAKER) (test code = 437) NEUTROPHILS ABSOLUTE COUNT 3.14 K/ L 1.78-5.38 (BEAKER) (test code = 670) LYMPHOCYTES ABSOLUTE COUNT 1.08 K/ L 1.32-3.57 L (BEAKER) (test code = 414) MONOCYTES ABSOLUTE COUNT (BEAKER) 0.50 K/ L 0.30-0.82 (test code = 415) EOSINOPHILS ABSOLUTE COUNT 0.27 K/ L 0.04-0.54 (BEAKER) (test code = 416) BASOPHILS ABSOLUTE COUNT (BEAKER) 0.02 K/ L 0.01-0.08 (test code = 417) IMMATURE GRANULOCYTES-RELATIVE 1 % 0-1 PERCENT (BEAKER) (test code = 2801) POCT-GLUCOSE [id number] 21:01:00 Test Item Value Reference Range Interpretation Comments POC-GLUCOSE METER 115 mg/dL 70-110 H : TESTED A T [facility] 6720 (BEAKER) (test code = HUBER GONZALEZ [place], 1538) [address]: Soil Conservation Teacher/Techni shaneka ID = [id number] for FI TE, GLADYS Hepatitis C PCR, [id number] 20:41:00 Test Item Value Reference Range Interpretation Comments HCV PCR, Quantitative HCV RNA not detected HCV RNA not (test code = 18271-0) detected RACHEL (test code = RACHEL) This test uses a Real-Time Polymerase Chain Reaction (RT-PCR) methodology and was performed using VIKRAM Ampliprep/VIKRAM TaqMan HCV test kit version 2.0 ([employer]). Reportable range for this assay is 15 - 100,000,000 IU per mL (1.18 - 8.00 Log IU/mL). Lab Interpretation Normal (test code = 89854-0) [facility] campusHEPATITIS C PCR, [id number] 20:41:00 Test Item Value Reference Range Interpretation Comments HCV RESULT COMPONENT HCV RNA not detected HCV RNA not detected (BEAKER) (test code = 2699) This test uses a Real-Time Polymerase Chain Reaction (RT-PCR) methodology and was performed using VIKRAM Ampliprep/VIKRAM TaqMan HCV test kit version 2.0 ([employer]).Reportable range for this assay is 15 - 100,000,000 IU per mL (1.18 - 8.00 Log IU/mL).POCT-GLUCOSE [id number] 17:40:00 Test Item Value Reference Range Interpretation Comments POC-GLUCOSE METER 176 mg/dL 70-110 H : TESTED A T [facility] 67[address] (BEAKER) (test code = HUBER GONZALEZ [place], 1538) [address]: Soil Conservation Teacher/Techni shaneka ID = [id number] for OR ALIRIO THORNE Heparin [id number] 14:24:00 Test Item Value Reference Range Interpretation Comments Heparin Ab (test code Negative Negative = 3267-2) Heparin Antibody 0.043 <0.400 Optical Density (test code = 2659) 4T Total Score (test 5 code = 2661) RACHEL (test code = RACHEL) Probability of HIT based on scoring system: 6-8 = High probability; 4-5 = intermediate probability; 0-3 = low probability [facility] campusHEPARIN [id number] 14:24:00 Test Item Value Reference Range Interpretation Comments HEPARIN ANTIBODY (BEAKER) (test code Negative Negative = 646) HEPARIN ANTIBODY OD (BEAKER) (test 0.043 <0.400 code = 2659) 4T TOTAL SCORE (BEAKER) (test code = 5 4241) Probability of HIT based on scoring system: 6-8 = High probability; 4-5 = intermediate probability;0-3 = low probabilityPOCT-GLUCOSE [id number] 12:00:00 Test Item Value Reference Range Interpretation Comments POC-GLUCOSE METER 210 mg/dL 70-110 H : TESTED Daisy T [facility] 67[address] (GIULIA) (test code = HUBER GONZALEZ HI, 1538) 788[address]: Soil Conservation Teacher/Techni shaneka ID = [id number] for OR ALIRIO THORNE SARS-COV2/RT-PCR ([facility])2020-03-26 11:31:00 Test Item Value Reference Range Interpretation Comments SARS-COV2/RT-PCR (test Negative Not Detected, Negative, code = 6450586) See external report for linked test SARS-COV-2 PERFORMING LAB [facility] QUINTON (test code = 7999420) Negative result for this test determines that SARS-CoV-2 RNA was not present in the specimen above the Limit of Detection (LOD). However, Negative results do not preclude SARS-CoV-2 infection and should not be used as the sole basis for treatment or patient management decisions. Negative results mustbe combined with clinical observations, patient history, and epidemiological information. A false negative result may occur if a specimen is improperly collected, transported or handled. A false negative result should be considered if patient's recent exposures or clinical presentation indicate that COVID-19 (SARS-CoV-2) is likely and diagnostic tests for other causes of illness are negative. Re-testing should be considered in cases of suspected false negatives.The limit of detection for this assay is 800 copies/mL.This SARS CoV-2 test is a real-time RT-PCR test intended for the qualitative detection of nucleic acid from SARS-CoV-2 in a nasopharyngeal swab specimen collected from individuals susp ected of COVID-19 by their healthcare provider.This test has not been Food and Drug Administration (FDA) cleared or approved. This is a modified version of an approved Emergency Use Authorization (EUA) and is in the process of review by the FDA. Once authorized by the FDA, the issued EUA will be effective until the declaration that circumstances exist justifying the authorization of the emergency use of in vitro diagnostic tests for detection and/or diagnosis of COVID-19 is terminated under Section 564(b)(2) of the Act or the EUA is revoked under Section 564(g) of the Act.Fact Sheet for Healthcare Providers:https://www.Jack Erwin/sites/default/files/product/documents/Fact_Shenicolasa lepej_LA_Dnuzfjfot_Aqsm_GFPL-XmR-2.pdfFact Sheet for Healthcare Patients:https://www.Jack Erwin/sites/default/files/product/ documents/Hhid_Kppvo_Jxnrgnfs_Cmqn_DBTC-MuA-0.pdfPerforming Laboratory:[facility], [place] [address]VCYT-GGGVRCD METER 2020-03-26 08:03:00 Test Item Value Reference Range Interpretation Comments POC-GLUCOSE METER 175 mg/dL 70-110 H : TESTED A T [facility] 67[address] (GIULIA) (test code = HUBER Albrecht [facility], 1538) [address]: Soil Conservation Teacher/Techni shaneka ID = [id number] for OR ALIRIO THORNE RAD, CHEST, 1 VIEW, NON [id number] 07:54:00Reason for exam:->s/o cardiothoracic surgeryShould this be performed at the bedside?->Yes [facility] : 1960 Sex: MFINAL REPORT RAD, CHEST, 1 VIEW, NON DEPT INDICATION: s/o cardiothoracic surgery COMPARISON: Prior day's exam FINDINGS: Portable frontal view of the chest. IMPRESSION: Support Lines: Prior sternotomy Lungs and pleura: Left basilar and retrocardiac airspace disease with/without small effusion is unchanged No pneumothorax.Heart and mediastinum: Stable contours.Additional findings: None. Signed: Lis Lemus MDReport Verified Date/Time: 03/26/2020 07:54:13 Reading Location: [facility] C013 Neuro Reading Room HEPATIC FUNCTION [id number] 06:00:00 Test Item Value Reference Range Interpretation Comments TOTAL PROTEIN (BEAKER) (test code = 6.3 gm/dL 6.0-8.3 770) ALBUMIN (BEAKER) (test code = 1145) 3.7 g/dL 3.5-5.0 BILIRUBIN TOTAL (BEAKER) (test code 0.9 mg/dL 0.2-1.2 = 377) BILIRUBIN DIRECT (BEAKER) (test 0.5 mg/dL 0.1-0.5 code = 706) ALKALINE PHOSPHATASE (BEAKER) (test 74 U/L 40-150 code = 346) AST (SGOT) (BEAKER) (test code = 29 U/L 5-34 353) ALT (SGPT) (BEAKER) (test code = 28 U/L 6-55 347) Soil Conservation Teacher ID - DONG [id number] 06:00:00 Test Item Value Reference Range Interpretation Comments MAGNESIUM (BEAKER) (test code = 1.9 mg/dL 1.6-2.6 627) Soil Conservation Teacher ID - DONG [id number] 06:00:00 Test Item Value Reference Range Interpretation Comments PHOSPHORUS (BEAKER) (test code = 3.1 mg/dL 2.3-4.7 604) Soil Conservation Teacher ID - DONG WCalcium, [id number] 05:18:00 Test Item Value Reference Range Interpretation Comments Calcium, Ion (test code = 1994-3) 1.15 mmol/L 1.12-1.27 pH, Blood (test code = 69775-3) 7.31 [facility] [id number] 05:18:00 Test Item Value Reference Range Interpretation Comments CALCIUM IONIZED (BEAKER) (test 1.15 mmol/L 1.12-1.27 code = 698) PH, BLOOD (BEAKER) (test code = 7.31 1810) PROTHROMBIN [id number] 05:12:00 Test Item Value Reference Range Interpretation Comments PROTIME (BEAKER) (test code = 14.4 seconds 11.9-14.2 H 759) INR (BEAKER) (test code = 370) 1.15 <=5.90 Effective 07/26/2018: PT Reference Range ChangeNew: 11.9-14.2 Previous: 11.7- 14.7RECOMMENDED COUMADIN/WARFARIN INR THERAPY RANGESSTANDARD DOSE: 2.0-3.0 Includes: PROPHYLAXIS for venous thrombosis, systemic embolization; TREATMENT for venous thrombosis and/or pulmonary embolus.HIGH RISK: Target INR is2.5-3.5 for patients wiht mechanical heart valves.CBC W/PLT COUNT & AUTO [id number] 05:07:00 Test Item Value Reference Range Interpretation Comments WHITE BLOOD CELL COUNT (BEAKER) 5.5 K/ L 3.5-10.5 (test code = 775) RED BLOOD CELL COUNT (BEAKER) 3.47 M/ L 4.63-6.08 L (test code = 761) HEMOGLOBIN (BEAKER) (test code = 10.2 GM/DL 13.7-17.5 L 410) HEMATOCRIT (BEAKER) (test code = 31.9 % 40.1-51.0 L 411) MEAN CORPUSCULAR VOLUME (BEAKER) 91.9 fL 79.0-92.2 (test code = 753) MEAN CORPUSCULAR HEMOGLOBIN 29.4 pg 25.7-32.2 (BEAKER) (test code = 751) MEAN CORPUSCULAR HEMOGLOBIN CONC 32.0 GM/DL 32.3-36.5 L (BEAKER) (test code = 752) RED CELL DISTRIBUTION WIDTH 14.2 % 11.6-14.4 (BEAKER) (test code = 412) PLATELET COUNT (BEAKER) (test code 73 K/CU MM 150-450 L = 756) MEAN PLATELET VOLUME (BEAKER) 10.3 fL 9.4-12.4 (test code = 754) NUCLEATED RED BLOOD CELLS (BEAKER) 0 /100 WBC 0-0 (test code = 413) NEUTROPHILS RELATIVE PERCENT 65 % (BEAKER) (test code = 429) LYMPHOCYTES RELATIVE PERCENT 18 % (BEAKER) (test code = 430) MONOCYTES RELATIVE PERCENT 11 % (BEAKER) (test code = 431) EOSINOPHILS RELATIVE PERCENT 6 % (BEAKER) (test code = 432) BASOPHILS RELATIVE PERCENT 0 % (BEAKER) (test code = 437) NEUTROPHILS ABSOLUTE COUNT 3.59 K/ L 1.78-5.38 (BEAKER) (test code = 670) LYMPHOCYTES ABSOLUTE COUNT 0.96 K/ L 1.32-3.57 L (BEAKER) (test code = 414) MONOCYTES ABSOLUTE COUNT (BEAKER) 0.60 K/ L 0.30-0.82 (test code = 415) EOSINOPHILS ABSOLUTE COUNT 0.30 K/ L 0.04-0.54 (BEAKER) (test code = 416) BASOPHILS ABSOLUTE COUNT (BEAKER) 0.01 K/ L 0.01-0.08 (test code = 417) IMMATURE GRANULOCYTES-RELATIVE 1 % 0-1 PERCENT (BEAKER) (test code = 2801) POCT-GLUCOSE [id number] 21:40:00 Test Item Value Reference Range Interpretation Comments POC-GLUCOSE METER 174 mg/dL 70-110 H : TESTED A T [facility] 6720 (BEAKER) (test code = [facility], 1538) [address]: Soil Conservation Teacher/Techni shaneka ID = [id number] for SAPPHIRE SIDDIQI YESI POCT-GLUCOSE [id number] 12:50:00 Test Item Value Reference Range Interpretation Comments POC-GLUCOSE METER 166 mg/dL 70-110 H : TESTED A T [facility] 6720 (BEAKER) (test code = [facility], 1538) [address]11[address]: Soil Conservation Teacher/Techni shaneka ID = [id number] for Tali Green RADHA Titer & [id number] 11:35:00 Test Item Value Reference Range Interpretation Comments RADHA Titer (test code = 01439-9) 1:160 RADHA Pattern (test code = 1781) Homogeneous [facility] campusAnti-Nuclear Antibody (RADHA)2020-03-25 11:35:00 Test Item Value Reference Range Interpretation Comments RADHA (test code = 05869-7) Positive Negative A RACHEL (test code = RACHEL) Test performed by IFA method. Lab Interpretation (test Abnormal code = 81602-1) [facility] campusANTI-NUCLEAR ANTIBODY (RADHA)2020-03-25 11:35:00 Test Item Value Reference Range Interpretation Comments ANTI-NUCLEAR ANTIBODY (RADHA) (BEAKER) Positive Negative A (test code = 418) Test performed by IFA method.RADHA TITER AND [id number] 11:35:00 Test Item Value Reference Range Interpretation Comments RADHA TITER (BEAKER) (test code = :160 1541) RADHA PATTERN (BEAKER) (test code = Homogeneous 1781) Hepatitis A antibody, [id number] 11:31:00 Test Item Value Reference Range Interpretation Comments Hep A IgG (test code = Reactive Nonreactive A 64821-2) RACHEL (test code = RACHEL) Soil Conservation Teacher ID - JOHN C Lab Interpretation (test Abnormal code = 88571-1) [facility] [id number] 11:31:00 Test Item Value Reference Range Interpretation Comments HEPATITIS A IGG ANTIBODY (BEAKER) Reactive Nonreactive A (test code = 2797) Soil Conservation Teacher ID - Pending [facility] to [facility] Healthpat[facility] B surface [id number] 11:30:00 Test Item Value Reference Range Interpretation Comments Hep B S Ab (test code <8.0 See_Comment [Auto mated = 38331-7) message] The system which generated this result transmit yana reference range : <8.0 mIU/mL. e reference range was not used to interpret this result as normal/abnormal . RACHEL (test code = RACHEL) Soil Conservation Teacher ID - JOHN C Lab Interpretation Normal (test code = 33714-2) [facility] panel, [id number] 11:30:00 Test Item Value Reference Range Interpretation Comments Hep A IgM (test code = Nonreactive Nonreactive 25147-2) Hep B C IgM (test code = Nonreactive Nonreactive 37365-1) Hepatitis C Ab (test code Reactive Nonreactive A = 96864-7) HBsAg Screen (test code = Nonreactive Nonreactive 5195-3) RACHEL (test code = RACHEL) Soil Conservation Teacher ID - JOHN C Lab Interpretation (test Abnormal code = 99065-1) [facility] PANEL, [id number] 11:30:00 Test Item Value Reference Range Interpretation Comments HEPATITIS A IGM ANTIBODY (BEAKER) Nonreactive Nonreactive (test code = 498) HEPATITIS B CORE IGM ANTIBODY Nonreactive Nonreactive (BEAKER) (test code = 645) HEPATITIS C ANTIBODY (BEAKER) Reactive Nonreactive A (test code = 367) HEPATITIS B SURFACE ANTIGEN (2) Nonreactive Nonreactive (BEAKER) (test code = 2585) Soil Conservation Teacher ID - JOHN CHEPATITIS B SURFACE [id number] 11:30:00 Test Item Value Reference Range Interpretation Comments HEPATITIS B SURFACE ANTIBODY < mIU/mL <8.0 (BEAKER) (test code = 647) Soil Conservation Teacher ID - JOHN CImmunoglobulin G (IgG)2020-03-25 10:32:00 Test Item Value Reference Range Interpretation Comments IgG (test code = 2465-3) 759 mg/dL 540-1822 RACHEL (test code = RACHEL) Soil Conservation Teacher ID - JOHN C Lab Interpretation (test Normal code = 28453-6) [facility] campusIMMUNOGLOBULIN G (IGG)2020-03-25 10:32:00 Test Item Value Reference Range Interpretation Comments IMMUNOGLOBULIN G (IGG) (BEAKER) 759 mg/dL 540-1,822 (test code = 427) Soil Conservation Teacher ID - JOHN CRAD, CHEST, 1 VIEW, NON [id number] 10:12:00Reason for exam:->s/o cardiothoracic surgeryShould this be performed at the bedside?->[facility] : 1960 Sex: MFINAL REPORT CLINICAL HISTORY: s/o cardiothoracic surgery TECHNIQUE: 1 view of the chest. COMPARISON: 03/24/2020 IMPRESSION: The right central line has been removed. The two left chest tubes remain. There is no pneumothorax. Bilateral airspace opacities are grossly unchanged. Subpulmonic pleural effusions cannot be excluded. The cardiomediastinal silhouette is magnified by technique with sternotomy wires. Signed: Sanam Sierra MDReport Verified Date/Time: 03/25/2020 10:12:14 [facility] [place] [facility] POCT-GLUCOSE [id number] 09:32:00 Test Item Value Reference Range Interpretation Comments POC-GLUCOSE METER 187 mg/dL 70-110 H : TESTED A T [facility] 6720 (BEAKER) (test code = HUBER Albrecht [facility], 1538) 25[address]: Soil Conservation Teacher/Techni shaneka ID = [id number] for Tali Green [id number] 06:55:00 Test Item Value Reference Range Interpretation Comments Ferritin (test code = 195.38 ng/mL 5-275 2276-4) RACHEL (test code = RACHEL) Soil Conservation Teacher ID - SM Lab Interpretation (test Normal code = 56382-7) [facility] campusFERRITIN2021-01-26 06:55:00 Test Item Value Reference Range Interpretation Comments FERRITIN (BEAKER) (test code = 195.38 ng/mL 5.00-275.00 361) Soil Conservation Teacher ID - SMBASIC METABOLIC [id number] 05:40:00 Test Item Value Reference Range Interpretation Comments SODIUM (BEAKER) 136 meq/L 136-145 (test code = 381) POTASSIUM (BEAKER) 4.1 meq/L 3.5-5.1 (test code = 379) CHLORIDE (BEAKER) 100 meq/L 98-107 (test code = 382) CO2 (BEAKER) (test 28 meq/L 22-29 code = 355) BLOOD UREA NITROGEN 41 mg/dL 7-21 H (BEAKER) (test code = 354) CREATININE (BEAKER) 1.18 mg/dL 0.57-1.25 (test code = 358) GLUCOSE RANDOM 196 mg/dL 70-105 H (BEAKER) (test code = 652) CALCIUM (BEAKER) 8.4 mg/dL 8.4-10.2 (test code = 697) EGFR (BEAKER) (test 63 mL/min/1.73 ESTIMA YANA GFR IS code = 1092) sq m NOT ACCURATE CREATININE CLEARANCE IN PREDICTING GLOMERULAR FILTRATION RATE . ESTIMATED GFR I S NOT APPLICABLE FOR DIALYSIS PATIEN TS. Soil Conservation Teacher ID - [id number] 05:40:00 Test Item Value Reference Range Interpretation Comments MAGNESIUM (BEAKER) (test code = 2.1 mg/dL 1.6-2.6 627) Soil Conservation Teacher ID - [id number] 05:40:00 Test Item Value Reference Range Interpretation Comments PHOSPHORUS (BEAKER) (test code = 2.9 mg/dL 2.3-4.7 604) Soil Conservation Teacher ID - SMHEPATIC FUNCTION [id number] 05:40:00 Test Item Value Reference Range Interpretation Comments TOTAL PROTEIN (BEAKER) (test code = 6.7 gm/dL 6.0-8.3 770) ALBUMIN (BEAKER) (test code = 1145) 4.0 g/dL 3.5-5.0 BILIRUBIN TOTAL (BEAKER) (test code 1.1 mg/dL 0.2-1.2 = 377) BILIRUBIN DIRECT (BEAKER) (test 0.6 mg/dL 0.1-0.5 H code = 706) ALKALINE PHOSPHATASE (BEAKER) (test 69 U/L 40-150 code = 346) AST (SGOT) (BEAKER) (test code = 48 U/L 5-34 H 353) ALT (SGPT) (BEAKER) (test code = 35 U/L 6-55 347) Soil Conservation Teacher ID - Alycia, TIBC, % sat. (without ferritin)2020-03-25 05:38:00 Test Item Value Reference Range Interpretation Comments Iron (test code = 2498-4) 24.0 ug/dL 40-160 L TIBC (test code = 2500-7) 210 ug/dL 250-450 L Iron % Saturation (test 11 % 20-55 L code = 2502-3) RACHEL (test code = RACHEL) Soil Conservation Teacher ID - QUINN M Lab Interpretation (test Abnormal code = 69390-0) [facility] campusIRON, TIBC, % SAT. (WITHOUT FERRITIN)2020-03-25 05:38:00 Test Item Value Reference Range Interpretation Comments IRON (BEAKER) (test code = 547) 24.0 ug/dL 40.0-160.0 L TOTAL IRON BINDING CAPACITY 210 ug/dL 250-450 L (BEAKER) (test code = 769) IRON % SATURATION (2) (BEAKER) 11 % 20-55 L (test code = 2590) Soil Conservation Teacher ID - QUINN MPROTHROMBIN TIME/[id number] 05:19:00 Test Item Value Reference Range Interpretation Comments PROTIME (BEAKER) (test code = 14.1 seconds 11.9-14.2 759) INR (BEAKER) (test code = 370) 1.12 <=5.90 Effective 07/26/2018: PT Reference Range ChangeNew: 11.9-14.2 Previous: 11.7- 14.7RECOMMENDED COUMADIN/WARFARIN INR THERAPY RANGESSTANDARD DOSE: 2.0-3.0 Includes: PROPHYLAXIS for venous thrombosis, systemic embolization; TREATMENT for venous thrombosis and/or pulmonary embolus.HIGH RISK: Target INR is2.5-3.5 for patients wiht mechanical heart valves.CBC W/PLT COUNT & AUTO [id number] 05:09:00 Test Item Value Reference Range Interpretation Comments WHITE BLOOD CELL COUNT (BEAKER) 5.9 K/ L 3.5-10.5 (test code = 775) RED BLOOD CELL COUNT (BEAKER) 3.34 M/ L 4.63-6.08 L (test code = 761) HEMOGLOBIN (BEAKER) (test code = 10.0 GM/DL 13.7-17.5 L 410) HEMATOCRIT (BEAKER) (test code = 30.4 % 40.1-51.0 L 411) MEAN CORPUSCULAR VOLUME (BEAKER) 91.0 fL 79.0-92.2 (test code = 753) MEAN CORPUSCULAR HEMOGLOBIN 29.9 pg 25.7-32.2 (BEAKER) (test code = 751) MEAN CORPUSCULAR HEMOGLOBIN CONC 32.9 GM/DL 32.3-36.5 (BEAKER) (test code = 752) RED CELL DISTRIBUTION WIDTH 14.2 % 11.6-14.4 (BEAKER) (test code = 412) PLATELET COUNT (BEAKER) (test code 57 K/CU MM 150-450 L = 756) MEAN PLATELET VOLUME (BEAKER) 11.2 fL 9.4-12.4 (test code = 754) NUCLEATED RED BLOOD CELLS (BEAKER) 0 /100 WBC 0-0 (test code = 413) NEUTROPHILS RELATIVE PERCENT 70 % (BEAKER) (test code = 429) LYMPHOCYTES RELATIVE PERCENT 15 % (BEAKER) (test code = 430) MONOCYTES RELATIVE PERCENT 11 % (BEAKER) (test code = 431) EOSINOPHILS RELATIVE PERCENT 4 % (BEAKER) (test code = 432) BASOPHILS RELATIVE PERCENT 0 % (BEAKER) (test code = 437) NEUTROPHILS ABSOLUTE COUNT 4.16 K/ L 1.78-5.38 (BEAKER) (test code = 670) LYMPHOCYTES ABSOLUTE COUNT 0.87 K/ L 1.32-3.57 L (BEAKER) (test code = 414) MONOCYTES ABSOLUTE COUNT (BEAKER) 0.62 K/ L 0.30-0.82 (test code = 415) EOSINOPHILS ABSOLUTE COUNT 0.21 K/ L 0.04-0.54 (BEAKER) (test code = 416) BASOPHILS ABSOLUTE COUNT (BEAKER) 0.02 K/ L 0.01-0.08 (test code = 417) IMMATURE GRANULOCYTES-RELATIVE 1 % 0-1 PERCENT (BEAKER) (test code = 2801) CALCIUM, [id number] 05:03:00 Test Item Value Reference Range Interpretation Comments CALCIUM IONIZED (BEAKER) (test 1.10 mmol/L 1.12-1.27 L code = 698) PH, BLOOD (BEAKER) (test code = 7.32 1810) POCT-GLUCOSE [id number] 21:36:00 Test Item Value Reference Range Interpretation Comments POC-GLUCOSE METER 256 mg/dL 70-110 H : TESTED A T [facility] 6720 (BEAKER) (test code = [facility], 153) 32698: Soil Conservation Teacher/Techni shaneka ID = [id number] for TRACI GARZAO POCT-GLUCOSE [id number] 16:47:00 Test Item Value Reference Range Interpretation Comments POC-GLUCOSE METER 239 mg/dL 70-110 H : TESTED A T [facility] 6720 (BEAKER) (test code = [facility], 153) 56376: Soil Conservation Teacher/Techni shaneka ID = [id number] for LEIGHTON SCOTT POCT-GLUCOSE [id number] 12:45:00 Test Item Value Reference Range Interpretation Comments POC-GLUCOSE METER 246 mg/dL 70-110 H : TESTED A T [facility] 6720 (BEAKER) (test code = [facility], 1538) 34598: Soil Conservation Teacher/Techni shaneka ID = [id number] for STEFAN PORRAS BASIC METABOLIC [id number] 09:43:00 Test Item Value Reference Range Interpretation Comments SODIUM (BEAKER) 133 meq/L 136-145 L (test code = 381) POTASSIUM (BEAKER) 4.1 meq/L 3.5-5.1 (test code = 379) CHLORIDE (BEAKER) 102 meq/L 98-107 (test code = 382) CO2 (BEAKER) (test 22 meq/L 22-29 code = 355) BLOOD UREA NITROGEN 38 mg/dL 7-21 H (BEAKER) (test code = 354) CREATININE (BEAKER) 1.30 mg/dL 0.57-1.25 H (test code = 358) GLUCOSE RANDOM 233 mg/dL 70-105 H (BEAKER) (test code = 652) CALCIUM (BEAKER) 8.3 mg/dL 8.4-10.2 L (test code = 697) EGFR (BEAKER) (test 56 mL/min/1.73 ESTIMA YANA GFR IS code = 1092) sq m NOT ACCURATE CREATININE CLEARANCE IN PREDICTING GLOMERULAR FILTRATION RATE . ESTIMATED GFR I S NOT APPLICABLE FOR DIALYSIS PATIEN TS. Soil Conservation Teacher ID - DBPOCT-GLUCOSE [id number] 08:27:00 Test Item Value Reference Range Interpretation Comments POC-GLUCOSE METER 162 mg/dL 70-110 H : TESTED A T [facility] 6720 (BEAKER) (test code = [facility], 1538) 40506: Soil Conservation Teacher/Techni shaneka ID = [id number] for STEFAN PORRAS BASIC METABOLIC [id number] 03:48:00 Test Item Value Reference Range Interpretation Comments SODIUM (BEAKER) 134 meq/L 136-145 L (test code = 381) POTASSIUM (BEAKER) 4.2 meq/L 3.5-5.1 (test code = 379) CHLORIDE (BEAKER) 100 meq/L 98-107 (test code = 382) CO2 (BEAKER) (test 28 meq/L 22-29 code = 355) BLOOD UREA NITROGEN 40 mg/dL 7-21 H (BEAKER) (test code = 354) CREATININE (BEAKER) 1.18 mg/dL 0.57-1.25 (test code = 358) GLUCOSE RANDOM 227 mg/dL 70-105 H (BEAKER) (test code = 652) CALCIUM (BEAKER) 8.0 mg/dL 8.4-10.2 L (test code = 697) EGFR (BEAKER) (test 63 mL/min/1.73 ESTIMA YANA GFR IS code = 1092) sq m NOT ACCURATE CREATININE CLEARANCE IN PREDICTING GLOMERULAR FILTRATION RATE . ESTIMATED GFR I S NOT APPLICABLE FOR DIALYSIS PATIEN TS. Soil Conservation Teacher ID - [id number] 03:48:00 Test Item Value Reference Range Interpretation Comments MAGNESIUM (BEAKER) (test code = 2.1 mg/dL 1.6-2.6 627) Soil Conservation Teacher ID - [id number] 03:48:00 Test Item Value Reference Range Interpretation Comments PHOSPHORUS (BEAKER) (test code = 1.9 mg/dL 2.3-4.7 L 604) Soil Conservation Teacher ID - EDASICALCIUM, [id number] 03:26:00 Test Item Value Reference Range Interpretation Comments CALCIUM IONIZED (BEAKER) (test 1.07 mmol/L 1.12-1.27 L code = 698) PH, BLOOD (BEAKER) (test code = 7.41 1810) CBC W/PLT COUNT & AUTO [id number] 03:25:00 Test Item Value Reference Range Interpretation Comments WHITE BLOOD CELL COUNT (BEAKER) 8.5 K/ L 3.5-10.5 (test code = 775) RED BLOOD CELL COUNT (BEAKER) 3.09 M/ L 4.63-6.08 L (test code = 761) HEMOGLOBIN (BEAKER) (test code = 9.2 GM/DL 13.7-17.5 L 410) HEMATOCRIT (BEAKER) (test code = 28.2 % 40.1-51.0 L 411) MEAN CORPUSCULAR VOLUME (BEAKER) 91.3 fL 79.0-92.2 (test code = 753) MEAN CORPUSCULAR HEMOGLOBIN 29.8 pg 25.7-32.2 (BEAKER) (test code = 751) MEAN CORPUSCULAR HEMOGLOBIN CONC 32.6 GM/DL 32.3-36.5 (BEAKER) (test code = 752) RED CELL DISTRIBUTION WIDTH 14.1 % 11.6-14.4 (BEAKER) (test code = 412) PLATELET COUNT (BEAKER) (test code 42 K/CU MM 150-450 L = 756) MEAN PLATELET VOLUME (BEAKER) 10.3 fL 9.4-12.4 (test code = 754) NUCLEATED RED BLOOD CELLS (BEAKER) 0 /100 WBC 0-0 (test code = 413) NEUTROPHILS RELATIVE PERCENT 74 % (BEAKER) (test code = 429) LYMPHOCYTES RELATIVE PERCENT 11 % (BEAKER) (test code = 430) MONOCYTES RELATIVE PERCENT 12 % (BEAKER) (test code = 431) EOSINOPHILS RELATIVE PERCENT 3 % (BEAKER) (test code = 432) BASOPHILS RELATIVE PERCENT 0 % (BEAKER) (test code = 437) NEUTROPHILS ABSOLUTE COUNT 6.34 K/ L 1.78-5.38 H (BEAKER) (test code = 670) LYMPHOCYTES ABSOLUTE COUNT 0.94 K/ L 1.32-3.57 L (BEAKER) (test code = 414) MONOCYTES ABSOLUTE COUNT (BEAKER) 0.98 K/ L 0.30-0.82 H (test code = 415) EOSINOPHILS ABSOLUTE COUNT 0.23 K/ L 0.04-0.54 (BEAKER) (test code = 416) BASOPHILS ABSOLUTE COUNT (BEAKER) 0.01 K/ L 0.01-0.08 (test code = 417) IMMATURE GRANULOCYTES-RELATIVE 1 % 0-1 PERCENT (BEAKER) (test code = 2801) RAD, CHEST, 1 VIEW, NON [id number] 02:20:00Reason for exam:->s/o cardiothoracic surgeryShould this be performed at the bedside?->Yes [facility] 1960 Sex: MFINAL REPORT RAD, CHEST, 1 VIEW, NON DEPT INDICATION: s/o cardiothoracic surgery COMPARISON: Prior day's exam FINDINGS: Portable frontal view of the chest. IMPRESSION: Support Lines: Pulmonary arterial catheter has been removed with a right IJ sheath remaining. Stable leftthoracostomy tube. Lungs and pleura: Unchanged left basilar parenchymal opacities. No large pleural effusion. No pneumothorax.Heart and mediastinum: Stable contours.Additional findings: None. Signed: Pricilla Presley MDReport Verified Date/Time: 03/24/2020 02:20:55 BASIC METABOLIC [id number] 18:30:00 Test Item Value Reference Range Interpretation Comments SODIUM (BEAKER) 135 meq/L 136-145 L (test code = 381) POTASSIUM (BEAKER) 4.4 meq/L 3.5-5.1 (test code = 379) CHLORIDE (BEAKER) 101 meq/L 98-107 (test code = 382) CO2 (BEAKER) (test 26 meq/L 22-29 code = 355) BLOOD UREA NITROGEN 40 mg/dL 7-21 H (BEAKER) (test code = 354) CREATININE (BEAKER) 1.38 mg/dL 0.57-1.25 H (test code = 358) GLUCOSE RANDOM 236 mg/dL 70-105 H (BEAKER) (test code = 652) CALCIUM (BEAKER) 8.3 mg/dL 8.4-10.2 L (test code = 697) EGFR (BEAKER) (test 52 mL/min/1.73 ESTIMA YANA GFR IS code = 1092) sq m NOT ACCURATE CREATININE CLEARANCE IN PREDICTING GLOMERULAR FILTRATION RATE . ESTIMATED GFR I S NOT APPLICABLE FOR DIALYSIS PATIEN TS. Soil Conservation Teacher ID - DBPOCT-GLUCOSE [id number] 18:21:00 Test Item Value Reference Range Interpretation Comments POC-GLUCOSE METER 234 mg/dL 70-110 H : TESTED A T [facility] 6720 (BEAKER) (test code [facility], = 1538) 58725: Soil Conservation Teacher/Techni shaneka ID = [id number] for EARL NOSA, NUBIA POCT-GLUCOSE [id number] 14:23:00 Test Item Value Reference Range Interpretation Comments POC-GLUCOSE METER 183 mg/dL 70-110 H : TESTED A T [facility] 6720 (BEAKER) (test code [facility], = 1538) 98374: Soil Conservation Teacher/Techni shaneka ID = [id number] for EARL NOSA, NUBIA POCT-GLUCOSE [id number] 11:06:00 Test Item Value Reference Range Interpretation Comments POC-GLUCOSE METER 112 mg/dL 70-110 H : TESTED A T [facility] 6720 (BEAKER) (test code [facility], = 1538) 97996: Soil Conservation Teacher/Techni shaneka ID = [id number] for EARL NOSA, NUBIA BASIC METABOLIC [id number] 09:00:00 Test Item Value Reference Range Interpretation Comments SODIUM (BEAKER) 136 meq/L 136-145 (test code = 381) POTASSIUM (BEAKER) 4.6 meq/L 3.5-5.1 (test code = 379) CHLORIDE (BEAKER) 102 meq/L 98-107 (test code = 382) CO2 (BEAKER) (test 23 meq/L 22-29 code = 355) BLOOD UREA NITROGEN 38 mg/dL 7-21 H (BEAKER) (test code = 354) CREATININE (BEAKER) 1.33 mg/dL 0.57-1.25 H (test code = 358) GLUCOSE RANDOM 107 mg/dL 70-105 H (BEAKER) (test code = 652) CALCIUM (BEAKER) 8.6 mg/dL 8.4-10.2 (test code = 697) EGFR (BEAKER) (test 55 mL/min/1.73 ESTIMA YANA GFR IS code = 1092) sq m NOT ACCURATE CREATININE CLEARANCE IN PREDICTING GLOMERULAR FILTRATION RATE . ESTIMATED GFR I S NOT APPLICABLE FOR DIALYSIS PATIEN TS. Soil Conservation Teacher ID - DBRAD, CHEST, 1 VIEW, NON [id number] 08:27:00Reason for exam:- >s/o cardiothoracic surgeryShould this be performed at the bedside?->Yes [facility] : 1960 Sex: MFINAL REPORT TECHNIQUE: Frontal view of the chest. INDICATION: s/o cardiothoracic surgery COMPARISON: 03/22/2020. FINDINGS: LINES/TUBES: Right IJ pulmonary arterial catheter tip terminates over the right ventricular outflow tract. Mediastinal drain and left-sided chest tube are unchanged.. LUNGS: Persistent pulmonary vascular congestion with bibasilar atelectasis. No signific ant pleural effusion. No pneumothorax. HEART AND MEDIASTINUM: The cardiomediastinal silhouette is stable status post median sternotomy.. SOFT TISSUES AND BONES: Unremarkable. IMPRESSION:No significantinterval change. Signed: Leroy Steenepscarlet Verified Date/Time: 03/23/2020 08:27:38 Reading Location: [address] Body Reading Room Lactic Acid, [id number] 06:48:00 Test Item Value Reference Range Interpretation Comments Lactate, Art (test code = 0.9 mmol/L 0.5-2.2 4) RACHEL (test code = RACHEL) Soil Conservation Teacher ID - DB Lab Interpretation (test Normal code = 39740-0) [facility]LACTIC ACID, [id number] 06:48:00 Test Item Value Reference Range Interpretation Comments LACTATE BLOOD ARTERIAL (2) 0.9 mmol/L 0.5-2.2 (BEAKER) (test code = 2874) Soil Conservation Teacher ID - DBBlood gas, [id number] 06:23:00 Test Item Value Reference Range Interpretation Comments pH, Arterial (test code 7.39 7.35-7.45 = 2744-1) pCO2, Arterial (test 44 See_Comment [Autom ated message] code = 2019-8) The system [facility] generated this result transmit yana reference range : 35 - 45 mm Hg. The reference range was not used to interpret this result as normal/abnormal . pO2, Arterial (test 120 See_Comment H [Automa yana message] code = 2703-7) The system [facility] generated this result transmit yana reference range : 80 - 90 mm Hg. The reference range was not used to interpret this result as normal/abnormal . O2 Sat, Arterial (test 98.3 % 96-97 H code = 2708-6) HCO3, Arterial (test 26 mmol/L 21-29 code = 1960-4) Base Excess, Arterial 0.9 mmol/L -2-3 (test code = 1925-7) Patient Temperature 36.7 (test code = 8310-5) FIO2 (test code = 1819) 21 Lab Interpretation Abnormal (test code = 09325-4) [facility]BLOOD GAS, [id number] 06:23:00 Test Item Value Reference Range Interpretation Comments PH ARTERIAL (BEAKER) (test code = 7.39 7.35-7.45 383) PCO2 ARTERIAL (BEAKER) (test code 44 mm Hg 35-45 = 384) PO2 ARTERIAL (BEAKER) (test code = 120 mm Hg 80-90 H 385) O2 SATURATION ARTERIAL (BEAKER) 98.3 % 96.0-97.0 H (test code = 386) HCO3 ARTERIAL (BEAKER) (test code 26 mmol/L 21-29 = 388) BASE EXCESS ARTERIAL (BEAKER) 0.9 mmol/L -2.0-3.0 (test code = 387) PATIENT TEMPERATURE (BEAKER) (test 36.7 code = 1818) FIO2 (BEAKER) (test code = 1819) 21.0 POCT-GLUCOSE [id number] 06:21:00 Test Item Value Reference Range Interpretation Comments POC-GLUCOSE METER 107 mg/dL 70-110 : TESTED A T [facility] 6720 (BEAKER) (test code = [facility] [place], 1538) 28513: Soil Conservation Teacher/Techni shaneka ID = [id number] for Krystal Angelina hankins BLOOD GAS, [id number] 05:16:00 Test Item Value Reference Range Interpretation Comments PH ARTERIAL (BEAKER) (test code = 7.36 7.35-7.45 383) PCO2 ARTERIAL (BEAKER) (test code 48 mm Hg 35-45 H = 384) PO2 ARTERIAL (BEAKER) (test code = 163 mm Hg 80-90 H 385) O2 SATURATION ARTERIAL (BEAKER) 99.0 % 96.0-97.0 H (test code = 386) HCO3 ARTERIAL (BEAKER) (test code 27 mmol/L 21-29 = 388) BASE EXCESS ARTERIAL (BEAKER) 0.7 mmol/L -2.0-3.0 (test code = 387) PATIENT TEMPERATURE (BEAKER) (test 37.0 code = 1818) FIO2 (BEAKER) (test code = 1819) 21.0 CALCIUM, [id number] 05:16:00 Test Item Value Reference Range Interpretation Comments CALCIUM IONIZED (BEAKER) (test 1.09 mmol/L 1.12-1.27 L code = 698) PH, BLOOD (BEAKER) (test code = 7.36 1810) [id number] 05:14:00 Test Item Value Reference Range Interpretation Comments MAGNESIUM (BEAKER) (test code = 2.0 mg/dL 1.6-2.6 627) Soil Conservation Teacher ID - [id number] 05:14:00 Test Item Value Reference Range Interpretation Comments PHOSPHORUS (BEAKER) (test code = 1.6 mg/dL 2.3-4.7 L 604) Soil Conservation Teacher ID - EDASICBC W/PLT COUNT & AUTO [id number] 05:05:00 Test Item Value Reference Range Interpretation Comments WHITE BLOOD CELL COUNT (BEAKER) 13.6 K/ L 3.5-10.5 H (test code = 775) RED BLOOD CELL COUNT (BEAKER) 3.42 M/ L 4.63-6.08 L (test code = 761) HEMOGLOBIN (BEAKER) (test code = 10.2 GM/DL 13.7-17.5 L 410) HEMATOCRIT (BEAKER) (test code = 31.3 % 40.1-51.0 L 411) MEAN CORPUSCULAR VOLUME (BEAKER) 91.5 fL 79.0-92.2 (test code = 753) MEAN CORPUSCULAR HEMOGLOBIN 29.8 pg 25.7-32.2 (BEAKER) (test code = 751) MEAN CORPUSCULAR HEMOGLOBIN CONC 32.6 GM/DL 32.3-36.5 (BEAKER) (test code = 752) RED CELL DISTRIBUTION WIDTH 14.2 % 11.6-14.4 (BEAKER) (test code = 412) PLATELET COUNT (BEAKER) (test code 53 K/CU MM 150-450 L = 756) MEAN PLATELET VOLUME (BEAKER) 9.4 fL 9.4-12.4 (test code = 754) NUCLEATED RED BLOOD CELLS (BEAKER) 0 /100 WBC 0-0 (test code = 413) NEUTROPHILS RELATIVE PERCENT 81 % (BEAKER) (test code = 429) LYMPHOCYTES RELATIVE PERCENT 6 % (BEAKER) (test code = 430) MONOCYTES RELATIVE PERCENT 11 % (BEAKER) (test code = 431) EOSINOPHILS RELATIVE PERCENT 1 % (BEAKER) (test code = 432) BASOPHILS RELATIVE PERCENT 0 % (BEAKER) (test code = 437) NEUTROPHILS ABSOLUTE COUNT 11.03 K/ L 1.78-5.38 H (BEAKER) (test code = 670) LYMPHOCYTES ABSOLUTE COUNT 0.87 K/ L 1.32-3.57 L (BEAKER) (test code = 414) MONOCYTES ABSOLUTE COUNT (BEAKER) 1.48 K/ L 0.30-0.82 H (test code = 415) EOSINOPHILS ABSOLUTE COUNT 0.17 K/ L 0.04-0.54 (BEAKER) (test code = 416) BASOPHILS ABSOLUTE COUNT (BEAKER) 0.02 K/ L 0.01-0.08 (test code = 417) IMMATURE GRANULOCYTES-RELATIVE 1 % 0-1 PERCENT (BEAKER) (test code = 2801) LACTIC ACID, [id number] 05:03:00 Test Item Value Reference Range Interpretation Comments LACTATE BLOOD ARTERIAL (2) 0.6 mmol/L 0.5-2.2 (BEAKER) (test code = 2874) Soil Conservation Teacher ID - DBPOCT-GLUCOSE [id number] 04:43:00 Test Item Value Reference Range Interpretation Comments POC-GLUCOSE METER 128 mg/dL 70-110 H : TESTED A T [facility] 6720 (BEAKER) (test code = [facility] [place], 1538) 28862: Soil Conservation Teacher/Techni shaneka ID = [id number] for Angelina James POCT-GLUCOSE [id number] 03:26:00 Test Item Value Reference Range Interpretation Comments POC-GLUCOSE METER 132 mg/dL 70-110 H : TESTED A T [facility] 6720 (BEAKER) (test code = [facility], 1538) 49755: Soil Conservation Teacher/Techni shaneka ID = [id number] for Angelina James LACTIC ACID, [id number] 03:01:00 Test Item Value Reference Range Interpretation Comments LACTATE BLOOD ARTERIAL (2) 0.7 mmol/L 0.5-2.2 (BEAKER) (test code = 2874) Soil Conservation Teacher ID - DBBLOOD GAS, [id number] 02:40:00 Test Item Value Reference Range Interpretation Comments PH ARTERIAL (BEAKER) (test code = 7.35 7.35-7.45 383) PCO2 ARTERIAL (BEAKER) (test code 48 mm Hg 35-45 H = 384) PO2 ARTERIAL (BEAKER) (test code = 107 mm Hg 80-90 H 385) O2 SATURATION ARTERIAL (BEAKER) 97.7 % 96.0-97.0 H (test code = 386) HCO3 ARTERIAL (BEAKER) (test code 26 mmol/L 21-29 = 388) BASE EXCESS ARTERIAL (BEAKER) 0.0 mmol/L -2.0-3.0 (test code = 387) PATIENT TEMPERATURE (BEAKER) (test 37.0 code = 1818) FIO2 (BEAKER) (test code = 1819) 100.0 POCT-GLUCOSE [id number] 02:38:00 Test Item Value Reference Range Interpretation Comments POC-GLUCOSE METER 141 mg/dL 70-110 H : TESTED A T [facility] 6720 (BEAKER) (test code = [facility], 1538) 23987: Soil Conservation Teacher/Techni shaneka ID = [id number] for Angelina James BASIC METABOLIC [id number] 01:29:00 Test Item Value Reference Range Interpretation Comments SODIUM (BEAKER) 137 meq/L 136-145 (test code = 381) POTASSIUM (BEAKER) 4.4 meq/L 3.5-5.1 (test code = 379) CHLORIDE (BEAKER) 103 meq/L 98-107 (test code = 382) CO2 (BEAKER) (test 23 meq/L 22-29 code = 355) BLOOD UREA NITROGEN 36 mg/dL 7-21 H (BEAKER) (test code = 354) CREATININE (BEAKER) 1.42 mg/dL 0.57-1.25 H (test code = 358) GLUCOSE RANDOM 151 mg/dL 70-105 H (BEAKER) (test code = 652) CALCIUM (BEAKER) 8.4 mg/dL 8.4-10.2 (test code = 697) EGFR (BEAKER) (test 51 mL/min/1.73 ESTIMA YANA GFR IS code = 1092) sq m NOT ACCURATE CREATININE CLEARANCE IN PREDICTING GLOMERULAR FILTRATION RATE . ESTIMATED GFR I S NOT APPLICABLE FOR DIALYSIS PATIEN TS. Soil Conservation Teacher ID - EDASIPOCT-GLUCOSE [id number] 00:48:00 Test Item Value Reference Range Interpretation Comments POC-GLUCOSE METER 157 mg/dL 70-110 H : TESTED A T [facility] 6720 (BEAKER) (test code = [facility], 1538) 30271: Soil Conservation Teacher/Techni shaneka ID = [id number] for Angelina James LACTIC ACID, [id number] 00:45:00 Test Item Value Reference Range Interpretation Comments LACTATE BLOOD ARTERIAL (2) 1.1 mmol/L 0.5-2.2 (BEAKER) (test code = 2874) Soil Conservation Teacher ID - DBBLOOD GAS, [id number] 00:13:00 Test Item Value Reference Range Interpretation Comments PH ARTERIAL (BEAKER) (test code = 7.34 7.35-7.45 L 383) PCO2 ARTERIAL (BEAKER) (test code 44 mm Hg 35-45 = 384) PO2 ARTERIAL (BEAKER) (test code 66 mm Hg 80-90 L = 385) O2 SATURATION ARTERIAL (BEAKER) 91.6 % 96.0-97.0 L (test code = 386) HCO3 ARTERIAL (BEAKER) (test code 23 mmol/L 21-29 = 388) BASE EXCESS ARTERIAL (BEAKER) -3.0 mmol/L -2.0-3.0 L (test code = 387) PATIENT TEMPERATURE (BEAKER) 37.0 (test code = 1818) FIO2 (BEAKER) (test code = 1819) 21.0 POCT-GLUCOSE [id number] 23:45:00 Test Item Value Reference Range Interpretation Comments POC-GLUCOSE METER 128 mg/dL 70-110 H : TESTED A T [facility] 6720 (BEAKER) (test code = [facility], 1538) 17600: Soil Conservation Teacher/Techni shaneka ID = [id number] for Angelina James POCT-GLUCOSE [id number] 23:26:00 Test Item Value Reference Range Interpretation Comments POC-GLUCOSE METER 115 mg/dL 70-110 H : TESTED A T [facility] 6720 (BEAKER) (test code = [facility], 1538) 46510: Soil Conservation Teacher/Techni shaneka ID = [id number] for Angelina James LACTIC ACID, [id number] 22:47:00 Test Item Value Reference Range Interpretation Comments LACTATE BLOOD ARTERIAL (2) 1.0 mmol/L 0.5-2.2 (BEAKER) (test code = 2874) Soil Conservation Teacher ID - DBBLOOD GAS, [id number] 22:25:00 Test Item Value Reference Range Interpretation Comments PH ARTERIAL (BEAKER) (test code = 7.33 7.35-7.45 L 383) PCO2 ARTERIAL (BEAKER) (test code 49 mm Hg 35-45 H = 384) PO2 ARTERIAL (BEAKER) (test code 95 mm Hg 80-90 H = 385) O2 SATURATION ARTERIAL (BEAKER) 96.7 % 96.0-97.0 (test code = 386) HCO3 ARTERIAL (BEAKER) (test code 25 mmol/L 21-29 = 388) BASE EXCESS ARTERIAL (BEAKER) -1.0 mmol/L -2.0-3.0 (test code = 387) PATIENT TEMPERATURE (BEAKER) 37.0 (test code = 1818) POCT-GLUCOSE [id number] 22:20:00 Test Item Value Reference Range Interpretation Comments POC-GLUCOSE METER 94 mg/dL 70-110 : TESTED A T [facility] 6720 (BEAKER) (test code = [facility], 153) 23884: Soil Conservation Teacher/Techni shaneka ID = [id number] for Angelina Tafoya POCT-GLUCOSE [id number] 22:19:00 Test Item Value Reference Range Interpretation Comments POC-GLUCOSE METER 150 mg/dL 70-110 H : TESTED A T [facility] 6720 (BEAKER) (test code = [facility], 1538) 52176: Soil Conservation Teacher/Techni shaneka ID = [id number] for Angelina James POCT-GLUCOSE [id number] 21:05:00 Test Item Value Reference Range Interpretation Comments POC-GLUCOSE METER 244 mg/dL 70-110 H : TESTED A T [facility] 6720 (BEAKER) (test code [facility], = 1538) 07959: Soil Conservation Teacher/Techni shaneka ID = [id number] for EARL NOSA, NUBIA LACTIC ACID, [id number] 20:46:00 Test Item Value Reference Range Interpretation Comments LACTATE BLOOD 1.1 mmol/L 0.5-2.2 Specimen moder ately ARTERIAL (2) (BEAKER) hemoly zed (test code = 2874) Soil Conservation Teacher ID - ADMINBLOOD GAS, [id number] 20:27:00 Test Item Value Reference Range Interpretation Comments PH ARTERIAL (BEAKER) (test code = 7.35 7.35-7.45 383) PCO2 ARTERIAL (BEAKER) (test code 48 mm Hg 35-45 H = 384) PO2 ARTERIAL (BEAKER) (test code 82 mm Hg 80-90 = 385) O2 SATURATION ARTERIAL (BEAKER) 95.5 % 96.0-97.0 L (test code = 386) HCO3 ARTERIAL (BEAKER) (test code 26 mmol/L 21-29 = 388) BASE EXCESS ARTERIAL (BEAKER) -0.1 mmol/L -2.0-3.0 (test code = 387) PATIENT TEMPERATURE (BEAKER) 37.0 (test code = 1818) POCT-GLUCOSE [id number] 18:08:00 Test Item Value Reference Range Interpretation Comments POC-GLUCOSE METER 191 mg/dL 70-110 H : TESTED A T [facility] 6720 (BEAKER) (test code [facility], = 1538) [address]: Soil Conservation Teacher/Techni shaneka ID = [id number] for EARL NOSA, NUBIA LACTIC ACID, [id number] 17:59:00 Test Item Value Reference Range Interpretation Comments LACTATE BLOOD 1.2 mmol/L 0.5-2.2 Specimen sligh tly ARTERIAL (2) (BEAKER) hemoly zed (test code = 2874) Soil Conservation Teacher ID - ADMINBLOOD GAS, [id number] 17:45:00 Test Item Value Reference Range Interpretation Comments PH ARTERIAL (BEAKER) (test code = 7.37 7.35-7.45 383) PCO2 ARTERIAL (BEAKER) (test code 44 mm Hg 35-45 = 384) PO2 ARTERIAL (BEAKER) (test code 80 mm Hg 80-90 = 385) O2 SATURATION ARTERIAL (BEAKER) 95.3 % 96.0-97.0 L (test code = 386) HCO3 ARTERIAL (BEAKER) (test code 24 mmol/L 21-29 = 388) BASE EXCESS ARTERIAL (BEAKER) -1.0 mmol/L -2.0-3.0 (test code = 387) PATIENT TEMPERATURE (BEAKER) 37.2 (test code = 1818) FIO2 (BEAKER) (test code = 1819) 36.0 BASIC METABOLIC [id number] 16:39:00 Test Item Value Reference Range Interpretation Comments SODIUM (BEAKER) 138 meq/L 136-145 (test code = 381) POTASSIUM (BEAKER) 4.5 meq/L 3.5-5.1 (test code = 379) CHLORIDE (BEAKER) 103 meq/L 98-107 (test code = 382) CO2 (BEAKER) (test 25 meq/L 22-29 code = 355) BLOOD UREA NITROGEN 29 mg/dL 7-21 H (BEAKER) (test code = 354) CREATININE (BEAKER) 1.26 mg/dL 0.57-1.25 H (test code = 358) GLUCOSE RANDOM 245 mg/dL 70-105 H (BEAKER) (test code = 652) CALCIUM (BEAKER) 8.3 mg/dL 8.4-10.2 L (test code = 697) EGFR (BEAKER) (test 58 mL/min/1.73 ESTIMA YANA GFR IS code = 1092) sq m NOT ACCURATE CREATININE CLEARANCE IN PREDICTING GLOMERULAR FILTRATION RATE . ESTIMATED GFR I S NOT APPLICABLE FOR DIALYSIS PATIEN TS. Soil Conservation Teacher ID - ADMINLACTIC ACID, [id number] 16:36:00 Test Item Value Reference Range Interpretation Comments LACTATE BLOOD ARTERIAL (2) 1.1 mmol/L 0.5-2.2 (BEAKER) (test code = 2874) Soil Conservation Teacher ID - ADMINBLOOD GAS, [id number] 16:21:00 Test Item Value Reference Range Interpretation Comments PH ARTERIAL (BEAKER) (test code = 7.38 7.35-7.45 383) PCO2 ARTERIAL (BEAKER) (test code 42 mm Hg 35-45 = 384) PO2 ARTERIAL (BEAKER) (test code 87 mm Hg 80-90 = 385) O2 SATURATION ARTERIAL (BEAKER) 96.3 % 96.0-97.0 (test code = 386) HCO3 ARTERIAL (BEAKER) (test code 24 mmol/L 21-29 = 388) BASE EXCESS ARTERIAL (BEAKER) -0.5 mmol/L -2.0-3.0 (test code = 387) PATIENT TEMPERATURE (BEAKER) 37.3 (test code = 1818) FIO2 (BEAKER) (test code = 1819) 36.0 POCT-GLUCOSE [id number] 16:20:00 Test Item Value Reference Range Interpretation Comments POC-GLUCOSE METER 231 mg/dL 70-110 H : TESTED A T [facility] 6720 (BEAKER) (test code [facility], = 1538) [address]226: Soil Conservation Teacher/Techni shaneka ID = [id number] for EARL NOSA, NUBIA LACTIC ACID, [id number] 14:21:00 Test Item Value Reference Range Interpretation Comments LACTATE BLOOD ARTERIAL (2) 1.3 mmol/L 0.5-2.2 (BEAKER) (test code = 2874) Soil Conservation Teacher ID - QUINN MPOCT-GLUCOSE [id number] 14:06:00 Test Item Value Reference Range Interpretation Comments POC-GLUCOSE METER 137 mg/dL 70-110 H : TESTED A T [facility] 6720 (BEAKER) (test code [facility], = 1538) 92924: Soil Conservation Teacher/Techni shaneka ID = [id number] for EARL NOSA, NUBIA BLOOD GAS, [id number] 13:59:00 Test Item Value Reference Range Interpretation Comments PH ARTERIAL (BEAKER) (test code = 7.45 7.35-7.45 383) PCO2 ARTERIAL (BEAKER) (test code 40 mm Hg 35-45 = 384) PO2 ARTERIAL (BEAKER) (test code = 84 mm Hg 80-90 385) O2 SATURATION ARTERIAL (BEAKER) 96.6 % 96.0-97.0 (test code = 386) HCO3 ARTERIAL (BEAKER) (test code 27 mmol/L 21-29 = 388) BASE EXCESS ARTERIAL (BEAKER) 3.1 mmol/L -2.0-3.0 H (test code = 387) PATIENT TEMPERATURE (BEAKER) (test 37.2 code = 1818) FIO2 (BEAKER) (test code = 1819) 28.0 Manual [id number] 13:29:00 Test Item Value Reference Range Interpretation Comments % Neutros (test code = 91 % 2816) % Monos (test code = 6 % 2818) % Myelo (test code = 1 % 0-0 H 2822) % Bands (test code = 2 % 0-10 2826) # Neutros (test code = 21.93 K/ul 1.78-5.38 H 2830) # Monos (test code = 1.45 K/uL 0.3-0.82 H 2832) # Myelo (test code = 0.24 K/uL 0-0 H 2837) # Bands (test code = 0.48 K/uL 0-0.8 2840) Total Counted (test code 100 = 1351) WBC Morphology (test Normal code = 487) Platelet Morphology Normal (test code = 486) Polychromasia (test code 1+ few = 478) Anisocytosis (test code 1+ few = 961) Acanthocytes (test code 1+ few = 471) Platelet Conc (test code Decreased = 3438) RACHEL (test code = RACHEL) Soil Conservation Teacher ID - Nhi Rob comments: Slide comments: Lab Interpretation (test Abnormal code = 84322-9) [facility] W/PLT COUNT & AUTO [id number] 13:29:00 Test Item Value Reference Range Interpretation Comments WHITE BLOOD CELL COUNT (BEAKER) 24.1 K/ L 3.5-10.5 H (test code = 775) RED BLOOD CELL COUNT (BEAKER) 4.15 M/ L 4.63-6.08 L (test code = 761) HEMOGLOBIN (BEAKER) (test code = 12.3 GM/DL 13.7-17.5 L 410) HEMATOCRIT (BEAKER) (test code = 37.3 % 40.1-51.0 L 411) MEAN CORPUSCULAR VOLUME (BEAKER) 89.9 fL 79.0-92.2 (test code = 753) MEAN CORPUSCULAR HEMOGLOBIN 29.6 pg 25.7-32.2 (BEAKER) (test code = 751) MEAN CORPUSCULAR HEMOGLOBIN CONC 33.0 GM/DL 32.3-36.5 (BEAKER) (test code = 752) RED CELL DISTRIBUTION WIDTH 13.8 % 11.6-14.4 (BEAKER) (test code = 412) PLATELET COUNT (BEAKER) (test 102 K/CU MM 150-450 L code = 756) MEAN PLATELET VOLUME (BEAKER) 9.9 fL 9.4-12.4 (test code = 754) NUCLEATED RED BLOOD CELLS 0 /100 WBC 0-0 (BEAKER) (test code = 413) (CELLAVISION MANUAL DIFF)2020-03-22 13:29:00 Test Item Value Reference Range Interpretation Comments NEUTROPHILS - REL 91 % (CELLAVISION)(BEAKER) (test code = 2816) MONOCYTES - REL 6 % (CELLAVISION)(BEAKER) (test code = 2818) MYELOCYTES - REL 1 % 0-0 H (CELLAVISION)(BEAKER) (test code = 2822) BANDS - REL (CELLAVISION)(BEAKER) 2 % 0-10 (test code = 2826) NEUTROPHILS - ABS 21.93 K/ul 1.78-5.38 H (CELLAVISION)(BEAKER) (test code = 2830) MONOCYTES - ABS 1.45 K/uL 0.30-0.82 H (CELLAVISION)(BEAKER) (test code = 2832) MYELOCYTES-ABS 0.24 K/uL 0.00-0.00 H (CELLAVISION)(BEAKER) (test code = 2837) BANDS - ABS (CELLAVISION)(BEAKER) 0.48 K/uL 0.00-0.80 (test code = 2840) TOTAL COUNTED (BEAKER) (test code 100 = 1351) WBC MORPHOLOGY (BEAKER) (test code Normal = 487) PLT MORPHOLOGY (BEAKER) (test code Normal = 486) POLYCHROMATOPHILLIC RBCS(BEAKER) 1+ few (test code = 478) ANISOCYTOSIS (BEAKER) (test code = 1+ few 961) ACANTHOCYTES (BEAKER) (test code = 1+ few 471) PLATELET CONCENTRATION Decreased (CELLAVISION)(BEAKER) (test code = 3438) Soil Conservation Teacher ID - Nhi Rob comments: Slide comments:LACTIC ACID, ARTERIAL 2020-03-22 11:13:00 Test Item Value Reference Range Interpretation Comments LACTATE BLOOD ARTERIAL (2) 4.2 mmol/L 0.5-2.2 HH (BEAKER) (test code = 2874) Soil Conservation Teacher ID - QUINN MPOCT-GLUCOSE [id number] 11:02:00 Test Item Value Reference Range Interpretation Comments POC-GLUCOSE METER 218 mg/dL 70-110 H : TESTED A T [facility] 6720 (BEAKER) (test code [facility], = 1538) 00529: Soil Conservation Teacher/Techni shaneka ID = [id number] for EARL NOSA, NUBIA BLOOD GAS, [id number] 10:44:00 Test Item Value Reference Range Interpretation Comments PH ARTERIAL (BEAKER) (test code = 7.40 7.35-7.45 383) PCO2 ARTERIAL (BEAKER) (test code 36 mm Hg 35-45 = 384) PO2 ARTERIAL (BEAKER) (test code 79 mm Hg 80-90 L = 385) O2 SATURATION ARTERIAL (BEAKER) 95.6 % 96.0-97.0 L (test code = 386) HCO3 ARTERIAL (BEAKER) (test code 22 mmol/L 21-29 = 388) BASE EXCESS ARTERIAL (BEAKER) -2.1 mmol/L -2.0-3.0 L (test code = 387) PATIENT TEMPERATURE (BEAKER) 37.4 (test code = 1818) FIO2 (BEAKER) (test code = 1819) 36.0 LACTIC ACID, [id number] 09:42:00 Test Item Value Reference Range Interpretation Comments LACTATE BLOOD ARTERIAL (2) 4.0 mmol/L 0.5-2.2 HH (BEAKER) (test code = 2874) Soil Conservation Teacher ID - QUINN MPOCT-GLUCOSE [id number] 09:31:00 Test Item Value Reference Range Interpretation Comments POC-GLUCOSE METER 274 mg/dL 70-110 H : TESTED A T [facility] 6720 (BEAKER) (test code [facility], = 1538) 89836: Soil Conservation Teacher/Techni shaneka ID = [id number] for NUBIA FONG BLOOD GAS, [id number] 08:41:00 Test Item Value Reference Range Interpretation Comments PH ARTERIAL (BEAKER) (test code = 7.43 7.35-7.45 383) PCO2 ARTERIAL (BEAKER) (test code 35 mm Hg 35-45 = 384) PO2 ARTERIAL (BEAKER) (test code 88 mm Hg 80-90 = 385) O2 SATURATION ARTERIAL (BEAKER) 96.8 % 96.0-97.0 (test code = 386) HCO3 ARTERIAL (BEAKER) (test code 22 mmol/L 21-29 = 388) BASE EXCESS ARTERIAL (BEAKER) -1.2 mmol/L -2.0-3.0 (test code = 387) PATIENT TEMPERATURE (BEAKER) 37.5 (test code = 1818) FIO2 (BEAKER) (test code = 1819) 36.0 RAD, CHEST, 1 VIEW, NON [id number] 08:14:00Reason for exam:->s/o cardiothoracic surgeryShould this be performed at the bedside?->Yes [facility] : 1960 Sex: MFINAL REPORT RAD, CHEST, 1 VIEW, NON DEPT CLINICAL INDICATION: s/o cardiothoracic surgery TECHNIQUE: AP view of the chest COMPARISON: Radiograph 03/21/2020 FINDINGS: ET tube has been removed. PA catheter and left-sided chest tubes are unchanged. Lung volumes remain low. There is slightly increased left basilar effusion and atelectasis. No new focal consolidation or pneumothorax. Cardiomediastinal silhouette, raffaele, and pulmonary vasculature are unchanged. IMPRESSION:Lower lung volumes following extubation, with increased left basilar atelectasis/effusion. Signed: Peggy Virgen Verified Date/Time: 03/22/2020 08:14:59 POCT-GLUCOSE [id number] 06:31:00 Test Item Value Reference Range Interpretation Comments POC-GLUCOSE METER 317 mg/dL 70-110 H : TESTED A T [facility]20 (BEAKER) (test code = [facility] [place] [place], 1538) 70951: Soil Conservation Teacher/Techni shaneka ID = [id number] for RICKY BUCHANAN BASIC METABOLIC [id number] 04:47:00 Test Item Value Reference Range Interpretation Comments SODIUM (BEAKER) 136 meq/L 136-145 (test code = 381) POTASSIUM (BEAKER) 4.9 meq/L 3.5-5.1 (test code = 379) CHLORIDE (BEAKER) 107 meq/L 98-107 (test code = 382) CO2 (BEAKER) (test 18 meq/L 22-29 L code = 355) BLOOD UREA NITROGEN 23 mg/dL 7-21 H (BEAKER) (test code = 354) CREATININE (BEAKER) 1.42 mg/dL 0.57-1.25 H (test code = 358) GLUCOSE RANDOM 264 mg/dL 70-105 H (BEAKER) (test code = 652) CALCIUM (BEAKER) 8.4 mg/dL 8.4-10.2 (test code = 697) EGFR (BEAKER) (test 51 mL/min/1.73 ESTIMA YANA GFR IS code = 1092) sq m NOT ACCURATE CREATININE CLEARANCE IN PREDICTING GLOMERULAR FILTRATION RATE . ESTIMATED GFR I S NOT APPLICABLE FOR DIALYSIS PATIEN TS. Soil Conservation Teacher ID - [id number] 04:47:00 Test Item Value Reference Range Interpretation Comments MAGNESIUM (BEAKER) (test code = 1.8 mg/dL 1.6-2.6 627) Soil Conservation Teacher ID - [id number] 04:47:00 Test Item Value Reference Range Interpretation Comments PHOSPHORUS (BEAKER) (test code = 2.5 mg/dL 2.3-4.7 604) Soil Conservation Teacher ID - ADMINHEPATIC FUNCTION [id number] 04:47:00 Test Item Value Reference Range Interpretation Comments TOTAL PROTEIN (BEAKER) (test code = 6.6 gm/dL 6.0-8.3 770) ALBUMIN (BEAKER) (test code = 1145) 4.1 g/dL 3.5-5.0 BILIRUBIN TOTAL (BEAKER) (test code 0.9 mg/dL 0.2-1.2 = 377) BILIRUBIN DIRECT (BEAKER) (test 0.5 mg/dL 0.1-0.5 code = 706) ALKALINE PHOSPHATASE (BEAKER) (test 47 U/L 40-150 code = 346) AST (SGOT) (BEAKER) (test code = 32 U/L 5-34 353) ALT (SGPT) (BEAKER) (test code = 31 U/L 6-55 347) Soil Conservation Teacher ID - ADMINOxygen saturation, [id number] 04:35:00 Test Item Value Reference Range Interpretation Comments O2 Saturation (Measured) (test code = 72.0 % 39453-9) [facility] campusOXYGEN SATURATION, [id number] 04:35:00 Test Item Value Reference Range Interpretation Comments O2 SATURATION (MEASURED) (BEAKER) 72.0 % (test code = 1455) CALCIUM, [id number] 04:20:00 Test Item Value Reference Range Interpretation Comments CALCIUM IONIZED (BEAKER) (test 1.13 mmol/L 1.12-1.27 code = 698) PH, BLOOD (BEAKER) (test code = 7.34 1810) BLOOD GAS, [id number] 04:20:00 Test Item Value Reference Range Interpretation Comments PH ARTERIAL (BEAKER) (test code = 7.33 7.35-7.45 L 383) PCO2 ARTERIAL (BEAKER) (test code 35 mm Hg 35-45 = 384) PO2 ARTERIAL (BEAKER) (test code 111 mm Hg 80-90 H = 385) O2 SATURATION ARTERIAL (BEAKER) 97.6 % 96.0-97.0 H (test code = 386) HCO3 ARTERIAL (BEAKER) (test code 18 mmol/L 21-29 L = 388) BASE EXCESS ARTERIAL (BEAKER) -7.2 mmol/L -2.0-3.0 L (test code = 387) PATIENT TEMPERATURE (BEAKER) 38.0 (test code = 1818) FIO2 (BEAKER) (test code = 1819) 36.0 LACTIC ACID, [id number] 04:17:00 Test Item Value Reference Range Interpretation Comments LACTATE BLOOD ARTERIAL (2) 2.3 mmol/L 0.5-2.2 H (BEAKER) (test code = 2874) Soil Conservation Teacher ID - ADMINLACTIC ACID, [id number] 21:44:00 Test Item Value Reference Range Interpretation Comments LACTATE BLOOD ARTERIAL (2) 1.2 mmol/L 0.5-2.2 (BEAKER) (test code = 2874) Soil Conservation Teacher ID - JOHN CBASIC METABOLIC [id number] 21:17:00 Test Item Value Reference Range Interpretation Comments SODIUM (BEAKER) 139 meq/L 136-145 (test code = 381) POTASSIUM (BEAKER) 4.5 meq/L 3.5-5.1 (test code = 379) CHLORIDE (BEAKER) 109 meq/L 98-107 H (test code = 382) CO2 (BEAKER) (test 25 meq/L 22-29 code = 355) BLOOD UREA NITROGEN 19 mg/dL 7-21 (BEAKER) (test code = 354) CREATININE (BEAKER) 1.13 mg/dL 0.57-1.25 (test code = 358) GLUCOSE RANDOM 94 mg/dL 70-105 (BEAKER) (test code = 652) CALCIUM (BEAKER) 8.3 mg/dL 8.4-10.2 L (test code = 697) EGFR (BEAKER) (test 66 mL/min/1.73 ESTIMA YANA GFR IS code = 1092) sq m NOT ACCURATE CREATININE CLEARANCE IN PREDICTING GLOMERULAR FILTRATION RATE . ESTIMATED GFR I S NOT APPLICABLE FOR DIALYSIS PATIEN TS. Soil Conservation Teacher ID - [id number] 21:17:00 Test Item Value Reference Range Interpretation Comments MAGNESIUM (BEAKER) (test code = 1.7 mg/dL 1.6-2.6 627) Soil Conservation Teacher ID - DBOXYGEN SATURATION, [id number] 21:03:00 Test Item Value Reference Range Interpretation Comments O2 SATURATION (MEASURED) (BEAKER) 70.9 % (test code = 1455) CALCIUM, [id number] 21:01:00 Test Item Value Reference Range Interpretation Comments CALCIUM IONIZED (BEAKER) (test 1.14 mmol/L 1.12-1.27 code = 698) PH, BLOOD (BEAKER) (test code = 7.38 1810) BLOOD GAS, [id number] 21:01:00 Test Item Value Reference Range Interpretation Comments PH ARTERIAL (BEAKER) (test code = 7.38 7.35-7.45 383) PCO2 ARTERIAL (BEAKER) (test code 40 mm Hg 35-45 = 384) PO2 ARTERIAL (BEAKER) (test code 89 mm Hg 80-90 = 385) O2 SATURATION ARTERIAL (BEAKER) 96.5 % 96.0-97.0 (test code = 386) HCO3 ARTERIAL (BEAKER) (test code 23 mmol/L 21-29 = 388) BASE EXCESS ARTERIAL (BEAKER) -2.1 mmol/L -2.0-3.0 L (test code = 387) PATIENT TEMPERATURE (BEAKER) 37.3 (test code = 1818) FIO2 (BEAKER) (test code = 1819) 36.0 CBC (HEMOGRAM ONLY)2020-03-21 20:56:00 Test Item Value Reference Range Interpretation Comments WHITE BLOOD CELL COUNT (BEAKER) 13.8 K/ L 3.5-10.5 H (test code = 775) RED BLOOD CELL COUNT (BEAKER) 3.95 M/ L 4.63-6.08 L (test code = 761) HEMOGLOBIN (BEAKER) (test code = 12.0 GM/DL 13.7-17.5 L 410) HEMATOCRIT (BEAKER) (test code = 35.7 % 40.1-51.0 L 411) MEAN CORPUSCULAR VOLUME (BEAKER) 90.4 fL 79.0-92.2 (test code = 753) MEAN CORPUSCULAR HEMOGLOBIN 30.4 pg 25.7-32.2 (BEAKER) (test code = 751) MEAN CORPUSCULAR HEMOGLOBIN CONC 33.6 GM/DL 32.3-36.5 (BEAKER) (test code = 752) RED CELL DISTRIBUTION WIDTH 13.6 % 11.6-14.4 (BEAKER) (test code = 412) PLATELET COUNT (BEAKER) (test code 83 K/CU MM 150-450 L = 756) MEAN PLATELET VOLUME (BEAKER) 9.6 fL 9.4-12.4 (test code = 754) NUCLEATED RED BLOOD CELLS (BEAKER) 0 /100 WBC 0-0 (test code = 413) POCT-GLUCOSE [id number] 20:48:00 Test Item Value Reference Range Interpretation Comments POC-GLUCOSE METER 88 mg/dL 70-110 : TESTED A T [facility] 6720 (BEAKER) (test code = [facility], 1538) 76252: Soil Conservation Teacher/Techni shaneka ID = [id number] for USER O, RICKY POCT-GLUCOSE [id number] 17:20:00 Test Item Value Reference Range Interpretation Comments POC-GLUCOSE METER 201 mg/dL 70-110 H : TESTED A T [facility] 6720 (BEAKER) (test code = [facility], 1538) 77134: Soil Conservation Teacher/Techni shaneka ID = [id number] for RO BLES, KITZEL BLOOD GAS, [id number] 17:17:00 Test Item Value Reference Range Interpretation Comments PH ARTERIAL (BEAKER) (test code = 7.41 7.35-7.45 383) PCO2 ARTERIAL (BEAKER) (test code 38 mm Hg 35-45 = 384) PO2 ARTERIAL (BEAKER) (test code 164 mm Hg 80-90 H = 385) O2 SATURATION ARTERIAL (BEAKER) 99.1 % 96.0-97.0 H (test code = 386) HCO3 ARTERIAL (BEAKER) (test code 24 mmol/L 21-29 = 388) BASE EXCESS ARTERIAL (BEAKER) -0.7 mmol/L -2.0-3.0 (test code = 387) PATIENT TEMPERATURE (BEAKER) 36.5 (test code = 1818) FIO2 (BEAKER) (test code = 1819) 60.0 Obtain 10 minutes after Albumin is finishedLACTIC ACID, [id number] 16:20:00 Test Item Value Reference Range Interpretation Comments LACTATE BLOOD 0.9 mmol/L 0.5-2.2 Specimen sligh tly ARTERIAL (2) (BEAKER) hemoly zed (test code = 2874) Soil Conservation Teacher ID - DBHGB/HCT (H&H)-Stat [id number] 16:08:00 Test Item Value Reference Range Interpretation Comments Hemoglobin (test code = 13.5 See_Comment [Au tomated message] 786-4) The system [facility] generated this result transmitted ref erence range: 13.0 - 1 6.8 GM/DL. The refe rence range was not u sed to interpret this result as normal/abnor mal. Hematocrit (test code = 40.0 % 40-50 4544-3) Lab Interpretation (test Normal code = 12682-3) [facility]Glucose-Stat [id number] 16:08:00 Test Item Value Reference Range Interpretation Comments Glucose (test code = 2345-7) 220 mg/dL 70-110 H Lab Interpretation (test code = Abnormal 25764-8) [facility] [id number] 16:08:00 Test Item Value Reference Range Interpretation Comments Sodium (test code = 2951-2) 135 meq/L 136-145 L Lab Interpretation (test code = Abnormal 67356-1) [facility] campusPotassium-Stat [id number] 16:08:00 Test Item Value Reference Range Interpretation Comments Potassium (test code = 2823-3) 4.7 meq/L 3.6-5.5 Lab Interpretation (test code = Normal 87591-1) [facility] [id number] 16:08:00 Test Item Value Reference Range Interpretation Comments SODIUM (BEAKER) (test code = 381) 135 meq/L 136-145 L POTASSIUM-STAT [id number] 16:08:00 Test Item Value Reference Range Interpretation Comments POTASSIUM (BEAKER) (test code = 4.7 meq/L 3.6-5.5 379) HGB/HCT (H&H) - STAT [id number] 16:08:00 Test Item Value Reference Range Interpretation Comments HEMOGLOBIN (BEAKER) (test code = 13.5 GM/DL 13.0-16.8 410) HEMATOCRIT (BEAKER) (test code = 40.0 % 40.0-50.0 411) BLOOD GAS, [id number] 16:08:00 Test Item Value Reference Range Interpretation Comments PH ARTERIAL (BEAKER) (test code = 7.39 7.35-7.45 383) PCO2 ARTERIAL (BEAKER) (test code 37 mm Hg 35-45 = 384) PO2 ARTERIAL (BEAKER) (test code 162 mm Hg 80-90 H = 385) O2 SATURATION ARTERIAL (BEAKER) 99.1 % 96.0-97.0 H (test code = 386) HCO3 ARTERIAL (BEAKER) (test code 22 mmol/L 21-29 = 388) BASE EXCESS ARTERIAL (BEAKER) -2.8 mmol/L -2.0-3.0 L (test code = 387) PATIENT TEMPERATURE (BEAKER) 35.6 (test code = 1818) FIO2 (BEAKER) (test code = 1819) 60.0 GLUCOSE-STAT [id number] 16:08:00 Test Item Value Reference Range Interpretation Comments GLUCOSE RANDOM (BEAKER) (test code 220 mg/dL 70-110 H = 652) POCT-GLUCOSE [id number] 16:08:00 Test Item Value Reference Range Interpretation Comments POC-GLUCOSE METER 237 mg/dL 70-110 H : TESTED A T [facility] 6720 (BEAKER) (test code = HUBER Albrecht [facility], 1538) 54747: Soil Conservation Teacher/Techni shaneka ID = [id number] for BK MCALLISTER Troponin [id number] 14:40:00 Test Item Value Reference Range Interpretation Comments Troponin I (test code = 2.23 ng/mL 0-0.03 55671-6) RACHEL (test code = RACHEL) Troponin I (TnI) levels must be interpreted in the context of the presenting symptoms and the clinical findings. Elevated TnI levels indicate myocardial damage, but are not specific for ischemic heart disease. Elevated TnI levels are seen in patients with other cardiac conditions (including myocarditis and congestive heart failure), and slight TnI elevations occur in patients with other conditions, including sepsis, renal failure, acidosis, acute neurological disease, and persistent tachyarrhythmia.Aleksandera macy ID - JOHN C Lab Interpretation (test Abnormal code = 28217-8) [facility] campusTROPONIN [id number] 14:40:00 Test Item Value Reference Range Interpretation Comments TROPONIN I (BEAKER) (test code = 2.23 ng/mL 0.00-0.03 397) Troponin I (TnI) levels must be interpreted in the context of the presenting symptoms and the clinical findings. Elevated TnI levels indicate myocardial damage, but are not specific for ischemic heart disease. Elevated TnI levels are seen in patients with other cardiac conditions (including myocarditis and congestive heart failure), and slight TnI elevations occur in patients with other conditions, including sepsis, renal failure, acidosis, acute neurological disease, and persistent tachyarrhythmia.Soil Conservation Teacher ID - JONH CPOCT-GLUCOSE METER 2020-03-21 14:16:00 Test Item Value Reference Range Interpretation Comments POC-GLUCOSE METER 248 mg/dL 70-110 H : TESTED A T [facility]20 (BEAKER) (test code = HUBER Trena [place], 1538) 870[address]: Soil Conservation Teacher/Techni shaneka ID = [id number] for ROZ WEBER [id number] 14:16:00 Test Item Value Reference Range Interpretation Comments PARTIAL THROMBOPLASTIN TIME 31.0 seconds 22.5-36.0 (BEAKER) (test code = 760) PROTHROMBIN [id number] 14:15:00 Test Item Value Reference Range Interpretation Comments PROTIME (BEAKER) (test code = 15.0 seconds 11.9-14.2 H 759) INR (BEAKER) (test code = 370) 1.22 <=5.90 Effective 07/26/2018: PT Reference Range ChangeNew: 11.9-14.2 Previous: 11.7- 14.7RECOMMENDED COUMADIN/WARFARIN INR THERAPY RANGESSTANDARD DOSE: 2.0-3.0 Includes: PROPHYLAXIS for venous thrombosis, systemic embolization; TREATMENT for venous thrombosis and/or pulmonary embolus.HIGH RISK: Target INR is2.5-3.5 for patients wiht mechanical heart valves.BASIC METABOLIC [id number] 14:00:00 Test Item Value Reference Range Interpretation Comments SODIUM (BEAKER) 135 meq/L 136-145 L (test code = 381) POTASSIUM (BEAKER) 5.1 meq/L 3.5-5.1 (test code = 379) CHLORIDE (BEAKER) 107 meq/L 98-107 (test code = 382) CO2 (BEAKER) (test 22 meq/L code = 355) BLOOD UREA NITROGEN 20 mg/dL 7-21 (BEAKER) (test code = 354) CREATININE (BEAKER) 0.90 mg/dL 0.57-1.25 (test code = 358) GLUCOSE RANDOM 260 mg/dL 70-105 H (BEAKER) (test code = 652) CALCIUM (BEAKER) 8.4 mg/dL 8.4-10.2 (test code = 697) EGFR (BEAKER) (test 86 mL/min/1.73 ESTIMA YANA GFR IS code = 1092) sq m NOT ACCURATE CREATININE CLEARANCE IN PREDICTING GLOMERULAR FILTRATION RATE . ESTIMATED GFR I S NOT APPLICABLE FOR DIALYSIS PATIEN TS. Soil Conservation Teacher ID - JOHN [id number] 14:00:00 Test Item Value Reference Range Interpretation Comments MAGNESIUM (BEAKER) (test code = 1.7 mg/dL 1.6-2.6 627) Soil Conservation Teacher ID - JOHN [id number] 14:00:00 Test Item Value Reference Range Interpretation Comments PHOSPHORUS (BEAKER) (test code = 2.4 mg/dL 2.3-4.7 604) Soil Conservation Teacher ID - JOHN CLACTIC ACID, [id number] 13:51:00 Test Item Value Reference Range Interpretation Comments LACTATE BLOOD ARTERIAL (2) 0.7 mmol/L 0.5-2.2 (BEAKER) (test code = 2874) Soil Conservation Teacher ID - JOHN CRAD, CHEST, 1 VIEW, NON [id number] 13:51:00Reason for exam:->s/p cardiothoracic surgeryShould this be performed at the bedside?->[facility] : 1960 Sex: MFINAL REPORT RAD, CHEST, 1 VIEW, NON DEPT INDICATION: s/p cardiothoracic surgery COMPARISON: Prior day's exam FINDINGS: Portable frontal view of the chest. IMPRESSION: Support Lines: Pulmonary arterial catheter tip overlies the main pulmonary arterial outflow tract. Left chest tube. ET tube tip is 7 cm superior to the jt. NG tube descends below the diaphragm Lungs and pleura: Diffuse bilateral interstitial thickening No pneumothorax.Heart and mediastinum: Stable contours. Stable surgical changes.Additional findings: None. Signed: Lis Lemus MDReport Verified Date/Time: 03/21/2020 13:51:34 Reading Location: [facility] Radiology Reading Room CBC W/PLT COUNT & AUTO [id number] 13:48:00 Test Item Value Reference Range Interpretation Comments WHITE BLOOD CELL COUNT (BEAKER) 11.5 K/ L 3.5-10.5 H (test code = 775) RED BLOOD CELL COUNT (BEAKER) 4.13 M/ L 4.63-6.08 L (test code = 761) HEMOGLOBIN (BEAKER) (test code = 12.6 GM/DL 13.7-17.5 L 410) HEMATOCRIT (BEAKER) (test code = 36.5 % 40.1-51.0 L 411) MEAN CORPUSCULAR VOLUME (BEAKER) 88.4 fL 79.0-92.2 (test code = 753) MEAN CORPUSCULAR HEMOGLOBIN 30.5 pg 25.7-32.2 (BEAKER) (test code = 751) MEAN CORPUSCULAR HEMOGLOBIN CONC 34.5 GM/DL 32.3-36.5 (BEAKER) (test code = 752) RED CELL DISTRIBUTION WIDTH 13.6 % 11.6-14.4 (BEAKER) (test code = 412) PLATELET COUNT (BEAKER) (test code 68 K/CU MM 150-450 L Surgery? = 756) MEAN PLATELET VOLUME (BEAKER) 9.4 fL 9.4-12.4 (test code = 754) NUCLEATED RED BLOOD CELLS (BEAKER) 0 /100 WBC 0-0 (test code = 413) NEUTROPHILS RELATIVE PERCENT 80 % (BEAKER) (test code = 429) LYMPHOCYTES RELATIVE PERCENT 11 % (BEAKER) (test code = 430) MONOCYTES RELATIVE PERCENT 6 % (BEAKER) (test code = 431) EOSINOPHILS RELATIVE PERCENT 2 % (BEAKER) (test code = 432) BASOPHILS RELATIVE PERCENT 0 % (BEAKER) (test code = 437) NEUTROPHILS ABSOLUTE COUNT 9.23 K/ L 1.78-5.38 H (BEAKER) (test code = 670) LYMPHOCYTES ABSOLUTE COUNT 1.21 K/ L 1.32-3.57 L (BEAKER) (test code = 414) MONOCYTES ABSOLUTE COUNT (BEAKER) 0.73 K/ L 0.30-0.82 (test code = 415) EOSINOPHILS ABSOLUTE COUNT 0.23 K/ L 0.04-0.54 (BEAKER) (test code = 416) BASOPHILS ABSOLUTE COUNT (BEAKER) 0.01 K/ L 0.01-0.08 (test code = 417) IMMATURE GRANULOCYTES-RELATIVE 1 % 0-1 PERCENT (BEAKER) (test code = 2801) OXYGEN SATURATION, [id number] 13:43:00 Test Item Value Reference Range Interpretation Comments O2 SATURATION (MEASURED) (BEAKER) 68.9 % (test code = 1455) BLOOD GAS, [id number] 13:42:00 Test Item Value Reference Range Interpretation Comments PH ARTERIAL (BEAKER) (test code = 7.41 7.35-7.45 383) PCO2 ARTERIAL (BEAKER) (test code 36 mm Hg 35-45 = 384) PO2 ARTERIAL (BEAKER) (test code 76 mm Hg 80-90 L = 385) O2 SATURATION ARTERIAL (BEAKER) 96.8 % 96.0-97.0 (test code = 386) HCO3 ARTERIAL (BEAKER) (test code 22 mmol/L 21-29 = 388) BASE EXCESS ARTERIAL (BEAKER) -2.8 mmol/L -2.0-3.0 L (test code = 387) PATIENT TEMPERATURE (BEAKER) 33.9 (test code = 1818) FIO2 (BEAKER) (test code = 1819) 60.0 CALCIUM, [id number] 13:41:00 Test Item Value Reference Range Interpretation Comments CALCIUM IONIZED (BEAKER) (test 1.16 mmol/L 1.12-1.27 code = 698) PH, BLOOD (BEAKER) (test code = 7.36 1810) Prepare [id number] 13:33:00 Test Item Value Reference Range Interpretation Comments CROSSMATCH (test code = COMPATIBLE 4) Unit ABO (test code = A Neg [id number]) UNIT NUMBER (test code = [id number] 934-0) Status (test code = RETURNED FROM ISSUE [id number]) Blood Bank Product (test RED BLOOD CELLS code = 2263) PRODUCT CODE (test code = [id number] 933-2) [facility] [id number] 13:33:00 Test Item Value Reference Range Interpretation Comments Unit ABO (test code = A Neg [id number]) UNIT NUMBER (test code = [id number] 934-0) Status (test code = RETURNED FROM ISSUE 7269130) Blood Bank Product (test FFP code = 2263) PRODUCT CODE (test code = [id number] 933-2) [id number] 12:51:00 Test Item Value Reference Range Interpretation Comments ACTIVATED CLOTTING TIME 147 sec : 74 -137 seconds, (BEAKER) (test code = Baseli ne: TESTED AT 441) [place] [address]: Soil Conservation Teacher/Techni shaneka ID = [id number] for CA STRO, ANEL [id number] 12:51:00 Test Item Value Reference Range Interpretation Comments ACTIVATED CLOTTING TIME 323 sec : 74 -137 seconds, (BEAKER) (test code = Baseli ne: TESTED AT 441) [place] [address] 30: Soil Conservation Teacher/Techni shaneka ID = [id number] for CA STRO, ANEL [id number] 12:51:00 Test Item Value Reference Range Interpretation Comments ACTIVATED CLOTTING TIME 516 sec : 74 -137 seconds, (BEAKER) (test code = Baseli ne: TESTED AT 441) [place] [address]: Soil Conservation Teacher/Techni shaneka ID = [id number] for KI BLER, PHILLY [id number] 12:50:00 Test Item Value Reference Range Interpretation Comments ACTIVATED CLOTTING TIME 400 sec : 74 -137 seconds, (BEAKER) (test code = Baseli ne: TESTED AT 441) [place] [address] 30: Soil Conservation Teacher/Techni shaneka ID = [id number] for MILLIE BLEPHILLY Albrecht [id number] 12:50:00 Test Item Value Reference Range Interpretation Comments ACTIVATED CLOTTING TIME 92 sec : 74 -137 seconds, (BEAKER) (test code = Baseli ne: TESTED AT 441) [facility] [address] [place], [address]: Soil Conservation Teacher/Techni shaneka ID = [id number] for MILLIE BLEPHILLY Albrecht BLOOD GAS, [id number] 12:43:00 Test Item Value Reference Range Interpretation Comments PH ARTERIAL (BEAKER) (test code = 7.35 7.35-7.45 383) PCO2 ARTERIAL (BEAKER) (test code 42 mm Hg 35-45 = 384) PO2 ARTERIAL (BEAKER) (test code 78 mm Hg 80-90 L = 385) O2 SATURATION ARTERIAL (BEAKER) 96.3 % 96.0-97.0 (test code = 386) HCO3 ARTERIAL (BEAKER) (test code 23 mmol/L 21-29 = 388) BASE EXCESS ARTERIAL (BEAKER) -3.4 mmol/L -2.0-3.0 L (test code = 387) PATIENT TEMPERATURE (BEAKER) 34.3 (test code = 1818) FIO2 (BEAKER) (test code = 1819) 51.0 SODIUM NA-STAT [id number] 12:43:00 Test Item Value Reference Range Interpretation Comments SODIUM (BEAKER) (test code = 381) 134 meq/L 136-145 L GLUCOSE-STAT [id number] 12:43:00 Test Item Value Reference Range Interpretation Comments GLUCOSE RANDOM (BEAKER) (test code 257 mg/dL 70-110 H = 652) HGB/HCT (H&H) - STAT [id number] 12:43:00 Test Item Value Reference Range Interpretation Comments HEMOGLOBIN (BEAKER) (test code = 12.9 GM/DL 13.0-16.8 L 410) HEMATOCRIT (BEAKER) (test code = 38.0 % 40.0-50.0 L 411) CALCIUM, [id number] 12:42:00 Test Item Value Reference Range Interpretation Comments CALCIUM IONIZED (BEAKER) (test 1.14 mmol/L 1.12-1.27 code = 698) PH, BLOOD (BEAKER) (test code = 7.31 1810) POTASSIUM-STAT [id number] 12:40:00 Test Item Value Reference Range Interpretation Comments POTASSIUM (GIULIA) (test code = 5.2 meq/L 3.6-5.5 379) [id number] 09:18:16Virgilio Delarosa 03/21/2020 12:33 PMTEE Date: 03/21/2020 9:18 AM Sex: Male Location: OR RequestingPhysician: Melvin Mercado MD Examiner: Norm Kaur MDXu, Wen Zhu Intubated Sedated Patient screened for esoph disease: Yes Insertion: easy Probe Type: multiplane Modalities: 2D, CFM, CWD and PWD Aorta Size Dissection Plaque Thick Plaque Mobile Ascending Ao normal No < 3mm Ao Arch normal No < 3mm Descending Ao normal No < 3mm Valves Annulus Stenosis Area (cm3) Gradient Regurgitation Leaflet Morphology Leaflet Motion Not Visualized Aortic valve normal none trivial (1+) normal normal Mitral valve normal none trivial (1+) normal normal Tricuspid normal none none normal normal Atria Size SEC Thrombus Tumor Device Right Atrium normal Left Atrium normal Interatrial Septum: Morphology: patent foramen ovaleASD: Shunt: Interventricular Septum: Morphology: Defect: Shunt: Ventricles Cavity size Dimension Hypertrophy Thrombus Global FXN EF Right ventricle normal normal Left ventricle normal Yes normal Pre Intervention Summary: Aorta: No aneurysm, no dissection, no mobile plaquesAV: trileaflet morphology, no aortic stenosis, trace aortic regur gitationLV: normal chamber size , LVH, normal systolic function (EF >55% by qualitative assessment), no RWMAMV: normal morphology, trace mitral regurgitation, no mitral stenosis. There is no TINA.LA:no CHERELLE thrombus, normal size and functionPV: limited visualizationRV: normal sized chamber, normal fu nction, no thrombusTV: normal morphology, no tricuspid regurgitationRA: no thrombus There is PFO by color dopper flow.There is no pericardial effusion. All findings communicated to surgical team. Post Intervention Summary: S/p 2v acb LV systolic function unchanged, EF>55%. No RWMARV systolic function normalTrace MR, trace AI, mild TRNo pericardial effusionCHI [facility] HospitalOXYGEN SATURATION, [id number] 08:41:00 Test Item Value Reference Range Interpretation Comments O2 SATURATION (MEASURED) (BEAKER) 72.1 % (test code = 1455) GLUCOSE-STAT [id number] 08:35:00 Test Item Value Reference Range Interpretation Comments GLUCOSE RANDOM (BEAKER) (test code 162 mg/dL 70-110 H = 652) POTASSIUM-STAT [id number] 08:35:00 Test Item Value Reference Range Interpretation Comments POTASSIUM (BEAKER) (test code = 3.2 meq/L 3.6-5.5 L 379) HGB/HCT (H&H) - STAT [id number] 08:35:00 Test Item Value Reference Range Interpretation Comments HEMOGLOBIN (BEAKER) (test code = 11.7 GM/DL 13.0-16.8 L 410) HEMATOCRIT (BEAKER) (test code = 34.0 % 40.0-50.0 L 411) SODIUM NA-STAT [id number] 08:34:00 Test Item Value Reference Range Interpretation Comments SODIUM (BEAKER) (test code = 381) 137 meq/L 136-145 BLOOD GAS, [id number] 08:34:00 Test Item Value Reference Range Interpretation Comments PH ARTERIAL (BEAKER) (test code = 7.41 7.35-7.45 383) PCO2 ARTERIAL (BEAKER) (test code 32 mm Hg 35-45 L = 384) PO2 ARTERIAL (BEAKER) (test code 201 mm Hg 80-90 H = 385) O2 SATURATION ARTERIAL (BEAKER) 99.4 % 96.0-97.0 H (test code = 386) HCO3 ARTERIAL (BEAKER) (test code 20 mmol/L 21-29 L = 388) BASE EXCESS ARTERIAL (BEAKER) -3.9 mmol/L -2.0-3.0 L (test code = 387) PATIENT TEMPERATURE (BEAKER) 36.0 (test code = 1818) FIO2 (BEAKER) (test code = 1819) 80.0 POCT-GLUCOSE [id number] 07:24:00 Test Item Value Reference Range Interpretation Comments POC-GLUCOSE METER 217 mg/dL 70-110 H : TESTED A T [facility] 6720 (BEAKER) (test code [facility], = 1538) [address]: Soil Conservation Teacher/Techni shaneka ID = [id number] for MALA PAREDES Comprehensive metabolic [id number] 06:32:00 Test Item Value Reference Range Interpretation Comments Protein, Total (test 7.1 See_Comment [Autom ated code = 2885-2) message] The system which generated this result transmit yana reference range : 6.0 - 8.3 gm/dL . The reference range was not u sed to interpret th is result as normal/abnormal . Albumin (test code = 3.8 g/dL 3.5-5 81096-5) Alkaline Phosphatase 54 U/L 40-150 (test code = 6768-6) Total Bilirubin (test 0.7 mg/dL 0.2-1.2 code = 1975-2) Sodium (test code = 135 meq/L 136-145 L 2951-2) Potassium (test code 4.7 meq/L 3.5-5.1 = 2823-3) Chloride (test code = 99 meq/L 98-107 2075-0) CO2 (test code = 26 meq/L 22-29 8-9) BUN (test code = 22 mg/dL 7-21 H 3094-0) Creatinine (test code 1.09 mg/dL 0.57-1.25 = 2160-0) Glucose (test code = 217 mg/dL 70-105 H 2345-7) Calcium (test code = 9.1 mg/dL 8.4-10.2 46372-9) AST (test code = 30 U/L 5-34 1920-8) ALT (test code = 33 U/L 6-55 1742-6) EGFR (test code = 69 mL/min/1.73 [place] [address]-4) NOT ACCURATE CREATININE CLEARANCE IN PREDICTING GLOMERULAR FILTRATION RATE . ESTIMATED GFR I S NOT APPLICABLE FOR DIALYSIS PATIEN TS. RACHEL (test code = RACHEL) Soil Conservation Teacher ID - PIAYA L Lab Interpretation Abnormal (test code = 35046-5) [facility] campusLipid [id number] 06:32:00 Test Item Value Reference Range Interpretation Comments Triglycerides (test 142 mg/dL code = 2571-8) Cholesterol (test code 165 mg/dL = 3-3) HDL (test code = 41 mg/dL 2084-9) LDL Calculated (test 96 mg/dL code = 89227-2) RACHEL (test code = RACHEL) Triglyceride Reference Range: Low Risk <150 Borderline 150-199 High Risk 200-499 Very High Risk >=500 Cholesterol Reference Range: Low Risk <200 Borderline 200-239 High Risk >240 HDL Cholesterol Reference Range: Low Risk >=60 High Risk <40 LDL Cholesterol Reference Range: Optimal <100 Near Optimal 100-129 Borderline 130-159 High 160-189 Very High >=190 Soil Conservation Teacher DAMARIS - DOMINIQUE Walker [facility] campusCOMPREHENSIVE METABOLIC [id number] 06:32:00 Test Item Value Reference Range Interpretation Comments TOTAL PROTEIN 7.1 gm/dL 6.0-8.3 (BEAKER) (test code = 770) ALBUMIN (BEAKER) 3.8 g/dL 3.5-5.0 (test code = 1145) ALKALINE PHOSPHATASE 54 U/L 40-150 (BEAKER) (test code = 346) BILIRUBIN TOTAL 0.7 mg/dL 0.2-1.2 (BEAKER) (test code = 377) SODIUM (BEAKER) (test 135 meq/L 136-145 L code = 381) POTASSIUM (BEAKER) 4.7 meq/L 3.5-5.1 (test code = 379) CHLORIDE (BEAKER) 99 meq/L 98-107 (test code = 382) CO2 (BEAKER) (test 26 meq/L 22-29 code = 355) BLOOD UREA NITROGEN 22 mg/dL 7-21 H (BEAKER) (test code = 354) CREATININE (BEAKER) 1.09 mg/dL 0.57-1.25 (test code = 358) GLUCOSE RANDOM 217 mg/dL 70-105 H (BEAKER) (test code = 652) CALCIUM (BEAKER) 9.1 mg/dL 8.4-10.2 (test code = 697) AST (SGOT) (BEAKER) 30 U/L 5-34 (test code = 353) ALT (SGPT) (BEAKER) 33 U/L 6-55 (test code = 347) EGFR (BEAKER) (test 69 mL/min/1.73 ESTIMA YANA GFR IS code = 1092) sq m NOT ACCURATE CREATININE CLEARANCE IN PREDICTING GLOMERULAR FILTRATION RATE . ESTIMATED GFR I S NOT APPLICABLE FOR DIALYSIS PATIEN TS. Soil Conservation Teacher ID - PIAYA LBASIC METABOLIC [id number] 06:32:00 Test Item Value Reference Range Interpretation Comments SODIUM (BEAKER) 135 meq/L 136-145 L (test code = 381) POTASSIUM (BEAKER) 4.7 meq/L 3.5-5.1 (test code = 379) CHLORIDE (BEAKER) 99 meq/L 98-107 (test code = 382) CO2 (BEAKER) (test 26 meq/L 22-29 code = 355) BLOOD UREA NITROGEN 22 mg/dL 7-21 H (BEAKER) (test code = 354) CREATININE (BEAKER) 1.09 mg/dL 0.57-1.25 (test code = 358) GLUCOSE RANDOM 217 mg/dL 70-105 H (BEAKER) (test code = 652) CALCIUM (BEAKER) 9.1 mg/dL 8.4-10.2 (test code = 697) EGFR (BEAKER) (test 69 mL/min/1.73 ESTIMA YANA GFR IS code = 1092) sq m NOT ACCURATE CREATININE CLEARANCE IN PREDICTING GLOMERULAR FILTRATION RATE . ESTIMATED GFR I S NOT APPLICABLE FOR DIALYSIS PATIEN TS. [id number] 06:32:00 Test Item Value Reference Range Interpretation Comments MAGNESIUM (BEAKER) (test code = 1.9 mg/dL 1.6-2.6 627) Soil Conservation Teacher ID Zaki FOX [id number] 06:32:00 Test Item Value Reference Range Interpretation Comments PHOSPHORUS (BEAKER) (test code = 2.8 mg/dL 2.3-4.7 604) Soil Conservation Teacher ID - DOMINIQUE LLIPID [id number] 06:32:00 Test Item Value Reference Range Interpretation Comments TRIGLYCERIDES (BEAKER) (test code = 142 mg/dL 540) CHOLESTEROL (BEAKER) (test code = 165 mg/dL 631) HDL CHOLESTEROL (BEAKER) (test code 41 mg/dL = 976) LDL CHOLESTEROL CALCULATED (BEAKER) 96 mg/dL (test code = 633) Triglyceride Reference Range: Low Risk <150 Borderline 150-199 High Risk 200-499 Very High Risk >=500Cholesterol Reference Range: Low Risk <200 Borderline 200-239 High Risk >240HDL Cholesterol Reference Range: Low Risk >=60 High Risk <40LDL Cholesterol Reference Range: Optimal <100 Near Optimal 100-129 Borderline 130-159 High 160-189 Very High >=190 Soil Conservation Teacher ID - PIAYALType and screen, [id number] 05:47:00 Test Item Value Reference Range Interpretation Comments ABO/RH AUTOMATED (BEAKER) (test A NEGATIVE code = 2260) Ab Scrn (test code = 890-4) NEGATIVE [facility] campusABORH, [id number] 05:46:00 Test Item Value Reference Range Interpretation Comments Rh Factor (test code = 2589) NEG ABO Grouping (test code = 2588) A [facility] campusCALCIUM, [id number] 05:16:00 Test Item Value Reference Range Interpretation Comments CALCIUM IONIZED (BEAKER) (test 1.18 mmol/L 1.12-1.27 code = 698) PH, BLOOD (BEAKER) (test code = 7.38 1810) [id number] 05:13:00 Test Item Value Reference Range Interpretation Comments PARTIAL THROMBOPLASTIN TIME 72.9 seconds 22.5-36.0 H (BEAKER) (test code = 760) PROTHROMBIN TIME/[id number] 05:11:00 Test Item Value Reference Range Interpretation Comments PROTIME (BEAKER) (test code = 13.1 seconds 11.9-14.2 759) INR (BEAKER) (test code = 370) 1.02 <=5.90 Effective 07/26/2018: PT Reference Range ChangeNew: 11.9-14.2 Previous: 11.7- 14.7RECOMMENDED COUMADIN/WARFARIN INR THERAPY RANGESSTANDARD DOSE: 2.0-3.0 Includes: PROPHYLAXIS for venous thrombosis, systemic embolization; TREATMENT for venous thrombosis and/or pulmonary embolus.HIGH RISK: Target INR is2.5-3.5 for patients wiht mechanical heart valves.CBC W/PLT COUNT & AUTO [id number] 05:01:00 Test Item Value Reference Range Interpretation Comments WHITE BLOOD CELL COUNT (BEAKER) 6.2 K/ L 3.5-10.5 (test code = 775) RED BLOOD CELL COUNT (BEAKER) 4.86 M/ L 4.63-6.08 (test code = 761) HEMOGLOBIN (BEAKER) (test code = 14.6 GM/DL 13.7-17.5 410) HEMATOCRIT (BEAKER) (test code = 42.3 % 40.1-51.0 411) MEAN CORPUSCULAR VOLUME (BEAKER) 87.0 fL 79.0-92.2 (test code = 753) MEAN CORPUSCULAR HEMOGLOBIN 30.0 pg 25.7-32.2 (BEAKER) (test code = 751) MEAN CORPUSCULAR HEMOGLOBIN CONC 34.5 GM/DL 32.3-36.5 (BEAKER) (test code = 752) RED CELL DISTRIBUTION WIDTH 13.4 % 11.6-14.4 (BEAKER) (test code = 412) PLATELET COUNT (BEAKER) (test 106 K/CU MM 150-450 L code = 756) MEAN PLATELET VOLUME (BEAKER) 9.8 fL 9.4-12.4 (test code = 754) NUCLEATED RED BLOOD CELLS 0 /100 WBC 0-0 (BEAKER) (test code = 413) NEUTROPHILS RELATIVE PERCENT 57 % (BEAKER) (test code = 429) LYMPHOCYTES RELATIVE PERCENT 29 % (BEAKER) (test code = 430) MONOCYTES RELATIVE PERCENT 9 % (BEAKER) (test code = 431) EOSINOPHILS RELATIVE PERCENT 5 % (BEAKER) (test code = 432) BASOPHILS RELATIVE PERCENT 0 % (BEAKER) (test code = 437) NEUTROPHILS ABSOLUTE COUNT 3.51 K/ L 1.78-5.38 (BEAKER) (test code = 670) LYMPHOCYTES ABSOLUTE COUNT 1.77 K/ L 1.32-3.57 (BEAKER) (test code = 414) MONOCYTES ABSOLUTE COUNT (BEAKER) 0.55 K/ L 0.30-0.82 (test code = 415) EOSINOPHILS ABSOLUTE COUNT 0.29 K/ L 0.04-0.54 (BEAKER) (test code = 416) BASOPHILS ABSOLUTE COUNT (BEAKER) 0.02 K/ L 0.01-0.08 (test code = 417) IMMATURE GRANULOCYTES-RELATIVE 1 % 0-1 PERCENT (BEAKER) (test code = 2801) CBC W/PLT COUNT & AUTO [id number] 05:00:00 Test Item Value Reference Range Interpretation Comments WHITE BLOOD CELL COUNT (BEAKER) 5.3 K/ L 3.5-10.5 (test code = 775) RED BLOOD CELL COUNT (BEAKER) 4.82 M/ L 4.63-6.08 (test code = 761) HEMOGLOBIN (BEAKER) (test code = 14.5 GM/DL 13.7-17.5 410) HEMATOCRIT (BEAKER) (test code = 42.1 % 40.1-51.0 411) MEAN CORPUSCULAR VOLUME (BEAKER) 87.3 fL 79.0-92.2 (test code = 753) MEAN CORPUSCULAR HEMOGLOBIN 30.1 pg 25.7-32.2 (BEAKER) (test code = 751) MEAN CORPUSCULAR HEMOGLOBIN CONC 34.4 GM/DL 32.3-36.5 (BEAKER) (test code = 752) RED CELL DISTRIBUTION WIDTH 13.4 % 11.6-14.4 (BEAKER) (test code = 412) PLATELET COUNT (BEAKER) (test 102 K/CU MM 150-450 L code = 756) MEAN PLATELET VOLUME (BEAKER) 9.6 fL 9.4-12.4 (test code = 754) NUCLEATED RED BLOOD CELLS 0 /100 WBC 0-0 (BEAKER) (test code = 413) NEUTROPHILS RELATIVE PERCENT 56 % (BEAKER) (test code = 429) LYMPHOCYTES RELATIVE PERCENT 28 % (BEAKER) (test code = 430) MONOCYTES RELATIVE PERCENT 10 % (BEAKER) (test code = 431) EOSINOPHILS RELATIVE PERCENT 5 % (BEAKER) (test code = 432) BASOPHILS RELATIVE PERCENT 0 % (BEAKER) (test code = 437) NEUTROPHILS ABSOLUTE COUNT 2.97 K/ L 1.78-5.38 (BEAKER) (test code = 670) LYMPHOCYTES ABSOLUTE COUNT 1.50 K/ L 1.32-3.57 (BEAKER) (test code = 414) MONOCYTES ABSOLUTE COUNT (BEAKER) 0.52 K/ L 0.30-0.82 (test code = 415) EOSINOPHILS ABSOLUTE COUNT 0.26 K/ L 0.04-0.54 (BEAKER) (test code = 416) BASOPHILS ABSOLUTE COUNT (BEAKER) 0.02 K/ L 0.01-0.08 (test code = 417) IMMATURE GRANULOCYTES-RELATIVE 1 % 0-1 PERCENT (BEAKER) (test code = 2801) RAD, CHEST, 1 VIEW, NON [id number] 19:16:00Reason for exam:->pre opShould this be performed at the bedside?->Yes [facility] 1960 Sex: MFINAL REPORT AP view of the chest dated 03/20/2020 CLINICAL INFORMATION: pre op Comment: Heart is normal in size. Pulmonary vasculature is unremarkable. Lungs are clear. No pulmonary infiltrate or pleural effusion is present. Impression: No active cardiopulmonary disease. Signed: Pricilla Bosch Verified Date/Time: 03/20/2020 19:16:11 Reading Location: [address] Consult Reading Room CT, CHEST, WITHOUT [id number] 16:26:00Unlisted Reason for Exam - Click Yes and Enter Reason Below->No [facility] : 1960 Sex: MFINAL REPORT CT, CHEST, WITHOUT CONTRAST, CT, ABDOMEN \T\ PELVIS, WITHOUT IV CONTRAST INDICATION: Chest pain, chronic, high prob of CAD, AAA, pre- op planning, aortoiliac disease COMPARISON: None TECHNIQUE: Computed tomography was performed through the chest, abdomen and pelvis without IV contrast. Coronal and sagittal reformats were provided.Oral Contrast: No This exam was performed according to our departmental dose optimization program which includes automated exposure control, adjustment of the mA and/or kV according to patient size and/or use of iterative reconstructive technique. FINDINGS: Lack of intravenous contrast compromises evaluation of perfusion and for isodense lesions. CHEST:Lungs: Subsegmental bibasal atelectasis. Mild interlobular septal thickening. Lymph nodes and Mediastinum: No enlarged or FDG-avid intrathoracic lymph nodes.Pleura: Unremarkable.Cardiovascular: Severe coronary artery calcifications. Mild cardiomegaly. Normal diameter of the main pulmonary artery. Moderate atherosclerotic calcifications of the thoracic aorta and branch vessels trace pericardialOther: Bilateral gynecomastia. ABDOMEN/PELVIS: Liver: Diffusely nodular in contour. Nosolid mass.Gallbladder and bile ducts: Cholelithiasis. Distended gallbladder. No visible calculi in the common duct and no biliary ductal dilation. No pericholecystic fluid and no definite gallbladder wall thickening.Spleen, pancreas, adrenals: Moderate splenomegaly.Kidneys and ureters: Punctate nonobstructive left renal calculi. No hydronephrosis. No ureteral calculi.Bowel: Nondilated bowel with no wall thickening. Moderate amount of stool throughout the colon. Normal appendix. A loop of small bowel in the right lower quadrant of the abdomen at the upper limits of normal for diameter, nonspecific.Bladder and reproductive organs: Mild prostatomegaly.Lymph nodes: No lymphadenopathy.Peritoneum: No free air and no loculated fluid collections. No significant free fluid.Vessels: Moderate atherosclerotic calcifications. No abdominal aortic aneurysm abdominal aorta measures 2.7 cm at the diaphragmatichiatus and up to 1.9 cm in the infrarenal aorta. Recanalization of the periumbilical vein. Small splenic varices.Abdominal wall: Small foci of stranding in the abdominal wall likely represent sequelae of subcutaneous injections. MUSCULOSKELETAL:Mild degenerative changes of the visible spine. No acute osseous abnormality. IMPRESSION: Lack of intravenous contrast compromises evaluation of perfusion andfor isodense lesions. Chest: 1.Severe coronary artery calcifications. Mild cardiomegaly and mild interstitial pulmonary edema. Abdomen and pelvis: 1.No abdominal aortic aneurysm. Moderate calcific athe rosclerotic disease2.Cirrhosis. Gynecomastia. Moderate splenomegaly. Small varices as discussed above.3. Cholelithiasis and distended gallbladder. No biliary ductal dilation or any pericholecystic fluid or gallbladder wall thickening. Consider more definitive biliary imaging if there is concern for acu te cholecystitis. Signed: Nithya Zapien Verified Date/Time: 03/20/2020 16:26:58 Reading Location: [facility] C013Y CT Body Reading Room CT, [id number] 16:26:00Unlisted Reason for Exam - Click Yes and Enter Reason Below- >YesUnlisted Reason for Exam->aorto iliac diseaseWill this procedure require oral contrast?->No [facility] 1960 Sex: MFINAL REPORT CT, CHEST, WITHOUT CONTRAST, CT, ABDOMEN \T\ PELVIS, WITHOUT IV CONTRAST INDICATION: Chest pain, chronic, high prob of CAD, AAA, pre- op planning, aortoiliac disease COMPARISON: None TECHNIQUE: Computed tomography was performed through the chest, abdomen and pelvis without IV contrast. Coronal and sagittal reformats were provided.Oral Contrast: No This exam was performed according to our departmental dose optimization program which includes automated exposure control, adjustment of the mA and/or kV according to patient size and/or use of iterative reconstructive technique. FINDINGS: Lack of intravenous contrast compromises evaluation of perfusion and for isodense lesions. CHEST:Lungs: Subsegmental bibasal atelectasis. Mild interlobular septal thickening. Lymph nodes and Mediastinum: No enlarged or FDG-avid intrathoracic lymph nodes.Pleura: Unremarkable.Cardiovascular: Severe coronary artery calcifications. Mild cardiomegaly. Normal diameter of the main pulmonary artery. Moderate atherosclerotic calcifications of the thoracic aorta and branch vessels trace pericardialOther: Bilateral gynecomastia. ABDOMEN/PELVIS: Liver: Diffusely nodular in contour. Nosolid mass.Gallbladder and bile ducts: Cholelithiasis. Distended gallbladder. No visible calculi in the common duct and no biliary ductal dilation. No pericholecystic fluid and no definite gallbladder wall thickening.Spleen, pancreas, adrenals: Moderate splenomegaly.Kidneys and ureters: Punctate nonobstructive left renal calculi. No hydronephrosis. No ureteral calculi.Bowel: Nondilated bowel with no wall thickening. Moderate amount of stool throughout the colon. Normal appendix. A loop of small bowel in the right lower quadrant of the abdomen at the upper limits of normal for diameter, nonspecific.Bladder and reproductive organs: Mild prostatomegaly.Lymph nodes: No lymphadenopathy.Peritoneum: No free air and no loculated fluid collections. No significant free fluid.Vessels: Moderate atherosclerotic calcifications. No abdominal aortic aneurysm abdominal aorta measures 2.7 cm at the diaphragmatichiatus and up to 1.9 cm in the infrarenal aorta. Recanalization of the periumbilical vein. Small splenic varices.Abdominal wall: Small foci of stranding in the abdominal wall likely represent sequelae of subcutaneous injections. MUSCULOSKELETAL:Mild degenerative changes of the visible spine. No acute osseous abnormality. IMPRESSION: Lack of intravenous contrast compromises evaluation of perfusion andfor isodense lesions. Chest: 1.Severe coronary artery calcifications. Mild cardiomegaly and mild interstitial pulmonary edema. Abdomen and pelvis: 1.No abdominal aortic aneurysm. Moderate calcific athe rosclerotic disease2.Cirrhosis. Gynecomastia. Moderate splenomegaly. Small varices as discussed above.3. Cholelithiasis and distended gallbladder. No biliary ductal dilation or any pericholecystic fluid or gallbladder wall thickening. Consider more definitive biliary imaging if there is concern for acu te cholecystitis. Signed: Nithya Zapien MDReport Verified Date/Time: 03/20/2020 16:26:58 Reading Location: [facility] C013Y CT Body Reading Room CT chest without IV [id number] 16:26:00Interface, External Ris In - 03/20/2020 4:[address], CHEST, WITHOUT CONTRAST, CT, ABDOMEN \T\ PELVIS, WITHOUT IV CONTRAST INDICATION: Chest pain, chronic, high prob of CAD, AAA, pre-op planning, aortoiliac disease COMPARISON: None TECHNIQUE: Computed tomography was performed through the chest, abdomen and pelvis without IV contrast. Coronal and sagittal reformats were provided.Oral Contrast: No This exam was performed according to our departmental dose optimization program which includes automated exposure control, adjustment of the mA and/or kV according to patient size and/or use of iterative reconstructive technique. FINDINGS: Lack of intravenous contrast compromises evaluation of perfusion and for isodense lesions. CHEST:Lungs: Subsegmental bibasal atelectasis. Mild interlobular septal thickening. Lymph nodes and Mediastinum: No enlarged or FDG-avid intrathoracic lymph nodes.Pleura: Unremarkable.Cardiovascular: Severe coronary artery calcifications. Mild cardiomegaly. Normal diameter of the main pulmonary artery. Moderate atherosclerotic calcifications of the thoracic aorta and branch vessels trace pericardialOther: Bilateral gynecomastia. ABDOMEN/PELVIS: Liver: Diffusely nodular in contour. No solid mass.Gallbladder and bile ducts: Cholelithiasis. Distended gallbladder. No visible calculi in the common duct and no biliary ductal dilation. No pericholecystic fluid and no definite gallbladder wall thickening.Spleen, pancreas, adrenals: Moderatesplenomegaly.Kidneys and ureters: Punctate nonobstructive left renal calculi. No hydronephrosis. No u reteral calculi.Bowel: Nondilated bowel with no wall thickening. Moderate amount of stool throughoutthe colon. Normal appendix. A loop of small bowel in the right lower quadrant of the abdomen at theupper limits of normal for diameter, nonspecific.Bladder and reproductive organs: Mild prostatomegaly.Lymph nodes: No lymphadenopathy.Peritoneum: No free air and no loculated fluid collections. No significant free fluid.Vessels: Moderate atherosclerotic calcifications. No abdominal aortic aneurysm abdominal aorta measures 2.7 cm at the diaphragmatic hiatus and up to 1.9 cm in the infrarenal aorta. Recanalization of the periumbilical vein. Small splenic varices.Abdominal wall: Small foci of strandingin the abdominal wall likely represent sequelae of subcutaneous injections. MUSCULOSKELETAL:Mild degenerative changes of the visible spine. No acute osseous abnormality. IMPRESSION: Lack of intravenouscontrast compromises evaluation of perfusion and for isodense lesions. Chest: 1.Severe coronary franklin ry calcifications. Mild cardiomegaly and mild interstitial pulmonary edema. Abdomen and pelvis: 1.Noabdominal aortic aneurysm. Moderate calcific atherosclerotic disease2.Cirrhosis. Gynecomastia. Moderate splenomegaly. Small varices as discussed above.3. Cholelithiasis and distended gallbladder. No tonia iary ductal dilation or any pericholecystic fluid or gallbladder wall thickening. Consider more definitive biliary imaging if there is concern for acute cholecystitis. Signed: Nithya Zapien Verified Date/Time: 03/20/2020 16:26:58 Reading Location: [address] [facility] [id number] 16:26:00Interface, External Ris In - 03/20/2020 4:[address], CHEST, WITHOUT CONTRAST, CT, ABDOMEN \T\ PELVIS, WITHOUT IV CONTRAST INDICATION: Chest pain, chronic, high prob of CAD, AAA, pre-op planning, aortoiliac disease COMPARISON: None TECHNIQUE: Computed tomography was performed through the chest, abdomen and pelvis without IV contrast. Coronal and sagittal reformats were provided.Oral Contrast: No This exam was performed according to our departmental dose optimization program which includes automated exposure control, adjustment of the mA and/or kV according to patient size and/or use of iterative reconstructive technique. FINDINGS: Lack of intravenous contrast compromises evaluation of perfusion and for isodense lesions. CHEST:Lungs: Subsegmental bibasal atelectasis. Mild interlobular septal thickening. Lymph nodes and Mediastinum: No enlarged or FDG-avidintrathoracic lymph nodes.Pleura: Unremarkable.Cardiovascular: Severe coronary artery calcifications. Mild cardiomegaly. Normal diameter of the main pulmonary artery. Moderate atherosclerotic calcifications of the thoracic aorta and branch vessels trace pericardialOther: Bilateral gynecomastia. ABDOMEN/PELVIS: Liver: Diffusely nodular in contour. No solid mass.Gallbladder and bile ducts: Cholelithiasis. Distended gallbladder. No visible calculi in the common duct and no biliary ductal dilation. No pericholecystic fluid and no definite gallbladder wall thickening.Spleen, pancreas, adrenals: Moderatesplenomegaly.Kidneys and ureters: Punctate nonobstructive left renal calculi. No hydronephrosis. No ureteral calculi.Bowel: Nondilated bowel with no wall thickening. Moderate amount of stool throughoutthe colon. Normal appendix. A loop of small bowel in the right lower quadrant of the abdomen at theupper limits of normal for diameter, nonspecific.Bladder and reproductive organs: Mild prostatomegaly.Lymph nodes: No lymphadenopathy.Peritoneum: No free air and no loculated fluid collections. No significant free fluid.Vessels: Moderate atherosclerotic calcifications. No abdominal aortic aneurysm abdominal aorta measures 2.7 cm at the diaphragmatic hiatus and up to 1.9 cm in the infrarenal aorta. Recanalization of the periumbilical vein. Small splenic varices.Abdominal wall: Small foci of strandingin the abdominal wall likely represent sequelae of subcutaneous injections. MUSCULOSKELETAL:Mild degenerative changes of the visible spine. No acute osseous abnormality. IMPRESSION: Lack of intravenouscontrast compromises evaluation of perfusion and for isodense lesions. Chest: 1.Severe coronary franklin ry calcifications. Mild cardiomegaly and mild interstitial pulmonary edema. Abdomen and pelvis: 1.Noabdominal aortic aneurysm. Moderate calcific atherosclerotic disease2.Cirrhosis. Gynecomastia. Moderate splenomegaly. Small varices as discussed above.3. Cholelithiasis and distended gallbladder. No tonia iary ductal dilation or any pericholecystic fluid or gallbladder wall thickening. Consider more definitive biliary imaging if there is concern for acute cholecystitis. Signed: Nithya Zapien Verified Date/Time: 03/20/2020 16:26:58 Reading Location: [facility] C013Y CT Body [facility] [id number] 11:44:00 Test Item Value Reference Range Interpretation Comments POC-GLUCOSE METER 158 mg/dL 70-110 H : TESTED A T [facility] 6720 (BEAKER) (test code = HU[place], 1538) [id number]: Soil Conservation Teacher/Techni shaneka ID = [id number] for Prabha Chairez 2D Echo W/Doppler(CW/PW/Color)2020-03-20 10:45:51Ejection FractionSLEH ECHO HEARTLAB MKCKESSON CPACSInterface, External Ris In - 03/20/2020 10:46 AM C STTransthoracic Echocardiography Report (TTE) Demographics Patient Name EDILSON NAVARRO Date of Study 03/19/2020 Gender Male Visit Number [id number] Race Unknown Room Number 1006 Number Date of 1960 Referring Physician Deborah Goff Age 60 year(s) Smearer KRISTI Jackson Interpreting Jackson Johnson MD Physician Fellow Charles Vazquez MD Procedure Type of Study TTE procedure:2DECHO W DOPPLER(CW/PW/COLOR) (STAT) Indications:Acute Chest Pain/ Suspected CAD.Clinical HistoryCAD DM HLD HTN METHAMPHETAMINE ABUSENSTEMI, PADHGB 14.9HCT 44.5 %Height: 71 inches Weight: 89.36 kg (197 lbs) BSA: 2.1 m^2 BMI: 27.48 kg/m^2HR: 88 bpm BP: 159/89 mmHg Summary 1. The left ventricle is chamber size (by vol index) is normal. Moderate asymmetric septal hypertrophy is present. All of the LV segments have low normal contractility. LVEF by Bernard's method of disk assessment is lower limits of normal (50-55%). LA size is normal . 2. The right ventricular chamber size and systolic function are within normal limits. RA size is normal. Estimated peak systolic PA pressure is 35-40 mmHg (borderline criteria for pulmonary h ypertension). 3. No significant valvular abnormalities. Previous Study No prior studies available for comparison. Signature Findings Rhythm/BP Regular sinus rhythm during the exam. Left Ventricle The left ventricle is chamber size (by vol index) is normal (male - LVED vol - 34-74ml/m2). LV diastolic functionis indeterminate. Moderate asymmetric septal hypertrophy is present. All of the LV segments have low normal contractility . LVEF by Bernard's method of disk assessment is lower limits of normal (50-55%) . Left Atrium LA size is normal . Right Ventricle The right ventricular chamber size and systolic function are within normal limits. Right Atrium RA size is normal. Atrial Septum Normal interatrial septum by available views. Aortic Valve Normal AoV structure. There is no aortic regurgitation. There is no aortic stenosis. Mitral Valve Normal MV structure. No significant mitral regurgitation. No evidence of mitral stenosis. Tricuspid Valve Normal TV structure and function by available views and Doppler. A trace of tricuspid regurgitation. Estimated peak systolic PA pressure is 35-40 mmHg (borderline criteria for pulmonary hypertension) . Pulmonic Valve Normal PV structure and function by limited views and Doppler. Aorta Aortic root size (SInus of Valsalva diameter) is normal . Pericardium No significant pericardial effusionis visualized. IVC/SVC/PA/PV/Pleural The estimated RA pressure by IVC dynamics 5-10mmHg . Chambers/Structures Left Atrium LA Volume: 62.61 ml LA Area: 24.76 cm^2 LA Vol. Index: 30 ml/m^2 Left Ventricle LVIDd: 4.35 cm LVEDV:85.21 ml LV Septum Diastolic: 1.53 cm LV PW Diastolic: 0.95 cm LVEDV Bernard's:135.82 ml LVESV Bernard's:73.71 ml LVEF Bernard's: 52.6 % LVEDVI: 65 ml/m^2 LVESVI: 35 ml/m^2 LVOT Diameter: 2.01 cm Right Ventricle RVOT VTI: 12.57 cm TAPSE: 2.37 cm Aorta Ao Root S of Jonathon.: 3.12 cm Ascending Aorta: 3.73 cm Doppler/Quantitative Measurements Mitral Valve MV Peak E-Wave: 0.78 m/s MV Peak A-Wave: 0.72 m/s Peak Velocity: 0.88 m/s E/A Ratio: 1.08 Mean Velocity: 0.46 m/s Peak Gradient: 2.42 mmHg Mean Gradient: 1.03 mmHg Deceleration Time: 181.6 msec Area (continuity): 2.38 cm^2 MV VTI: 24.25 cm MV Deven. Peak: Tissue Doppler E' Septal Velocity: 0.05 m/s E/E':14.39 Aortic Valve Peak Velocity: 1.14 m/s Mean Velocity: 0.85 m/s Peak Gradient:5.22 mmHg Mean Gradient: 3.24 mmHg AV Area (continuity): 2.32 cm^2 AV VTI: 24.91 cmAV DVI: 0.73 LVOT Peak Velocity: 0.9 m/s Peak Gradient: 3.21 mmHg Mean Velocity: 0.61m/s Mean Gradient: 1.73 mmHg LVOT Diameter: 2.01 cm LVOT VTI: 18.23 cm LVOTArea: 3.17 cm^2 LVOT SV:57.82 ml LVOT CO: 5.09 l/min LVOT CI: 2.42 l/min/m^2 Tricuspid Valve TR Velocity: 2.73 m/s TR Gradient: 29.81 mmHgVan Ness campusHemoglobin [id number] 09:14:00 Test Item Value Reference Range Interpretation Comments Hemoglobin A1C (test code = 4548-4) 9.4 % 4.3-6.1 H Lab Interpretation (test code = Abnormal 38902-1) [facility] campusHEMOGLOBIN [id number] 09:14:00 Test Item Value Reference Range Interpretation Comments HEMOGLOBIN A1C (BEAKER) (test code = 9.4 % 4.3-6.1 H 368) TSH/Free T4 If [id number] 07:33:00 Test Item Value Reference Range Interpretation Comments TSH (test code = 4.335 See_Comment [Automated 43509-3) message] The system which generated this result transmit yana reference range : 0.350 - 4.940 uIU/mL. The reference range was not used to interpret this result as normal/abnormal . RACHEL (test code = RACHEL) Soil Conservation Teacher ID - QUINN M Lab Interpretation Normal (test code = 72110-1) [facility] campusTS/FREE T4 IF [id number] 07:33:00 Test Item Value Reference Range Interpretation Comments THYROID STIMULATING HORMONE 4.335 uIU/mL 0.350-4.940 (GIULIA) (test code = 772) Soil Conservation Teacher ID - QUINN Burgess doppler [id number] 07:32:47Ejection FractionSLEH ECHO HEARTLAB MKCKESSON CPACSRight Impression1. There is <50% diameter reduction (approximately 46% by 2-D measurement)in the internal carotid artery with a peak velocity of 99cm/sec andheterogeneous, echolucent plaque.2. There is non-occluding plaque in the external carotid artery.3. There is non- occluding plaque in the common carotid artery.4. The vertebral artery flow is a ntegrade.5. The subclavian artery is patent with a velocity of 94.9 cm/sec.Left Impression1. There is <50% diameter reduction (approximately 30% by 2-D measurement)in the internal carotid artery with a peak velocity of 101 cm/sec andheterogeneous plaque.2. There is non-occluding plaque in the external carotid artery.3. There is non-occluding plaque in the common carotid artery.4. The vertebral artery flow is antegrade.5. The subclavian artery is patent with a velocity of 109 cm/sec. ConclusionsSummary Carotid duplex scanning and color flow imaging were performed bilaterally. The arteries were adequately visualized. The bilateral internal carotid arteries had <50% hemodynamically insignificant stenosis (approximately 46% by 2-D measurement on the right, approximately 30% by 2-D measurement on the left) with heterogeneous plaque. The vertebral artery flow was antegrade bilaterally. The subclavian arteries were patent bilaterally where visualized. Signature Velocities are measured in cm/s ; Diameters are measured in cm Carotid Right Measurements+ +---- +----+-----+ + + +!Location !PSV !EDV !Angle!%Stenosis 2D!%Stenosis Doppler!Tortuosity !+ +----+----+-----+ + +------- ----+!Prox CCA !114 !10.2!60 ! ! ! !+ +--- -+----+-----+ + + +!Dist CCA !107 !21.2! !! ! !+ +----+----+-----+ + +------ -----+!Prox ICA !99.6!32.1!60 ! ! ! !+ +-- --+----+-----+ + + +!Dist ICA !76 !18 !60 ! ! ! !+ +----+----+-----+ + +----- ------+!Prox ECA !155 !0 !60 ! ! ! !+ +- ---+----+-----+ + + +!Vertebral !26.3! !60 ! ! ! !+ +----+----+-----+ + +---- -------+!Prox Subclavian!94.9! !60 ! ! ! !+ +----+----+-----+ + + + - Additional Measurements:ICAPSV/CCAPSV 0.93.ICAEDV/CCAEDV 3.15. Carotid Left Measurements+ +----+----+-----+ +---- + +!Location !PSV !EDV !Angle!%Stenosis 2D!%Stenosis Doppler!Tortuosity !+ +----+----+-----+ + + +!Pr ox CCA !99.4!18 !60 ! ! ! !+ +----+----+-----+ +--- + +!Dist CCA !108 !25.2!60 ! ! ! !+ +----+----+-----+ + + +!Pr ox ICA !81.3!25.9!60 ! ! ! !+ +----+----+-----+ +-- + +!Dist ICA !101 !37.8!60 ! ! ! !+ +----+----+-----+ + + +!Pr ox ECA !130 !12.6!60 ! ! ! !+ +----+----+-----+ +- + +!Vertebral !60.9!18 !60 ! ! ! !+ +----+----+-----+ + + +!Pr ox Subclavian!109! !60 ! ! ! !+ +----+----+-----+ + + + - Additional Measurements:ICAPSV/CCAPSV 0.94.ICAEDV/CCAEDV 2.1. Interface, External Ris In - 03/20/2020 7:32 AM CSTPV LAB - Carotid Duplex Study Demographics Patient Name EDILSON NAVARRO Date of Study 03/19/2020 Age 60 Visit Number [id number] Gender Male Accession Number [id number] Date of 1960 Referring [facility] Room Number 1006 Physician Smearer Lexy Coats, Interpreting May Noriega T Physician ProcedureType of Study: Cerebral: Carotid, CAROTIDDOPPLER, BILATERAL. Indications for Study:Preop ACB.Patient Status:STAT.Study Location:Portable.Technical Quality:Adequate visualization.Risk FactorsHistory of Disease+ +----+------- +!Diagnosis !Date!Comments !+ +----+ +!Hi story/Risk Factors:! !NSTEMI, PAD, DM, CAD, HLD, HTN, former smoker !+ +----+------ +ImpressionsRight Impression1. There is <50% diameter reduction (approximately 46% by 2-D measurement)in the internal carotid artery with a peak velocity of 99 cm/sec andheterogeneous, echolucent plaque.2. There is non-occluding plaque in the external carotid artery.3. There is non-occluding plaque in the common carotid artery.4. The vertebral artery flow is antegrade.5. The subclavian artery is patent with a velocity of 94.9 cm/sec.Left Impression1. Thereis <50% diameter reduction (approximately 30% by 2-D measurement)in the internal carotid artery with a peak velocity of 101 cm/sec andheterogeneous plaque.2. There is non-occluding plaque in the external carotid artery.3. There is non-occluding plaque in the common carotid artery.4. The vertebral artery flow is antegrade.5. The subclavian artery is patent with a velocity of 109 cm/sec. Conclusions Summary Carotid duplex scanning and color flow imaging were performed bilaterally. The arteries were adequately visualized. The bilateral internal carotid arteries had <50% hemodynamically insignificant stenosis (approximately 46% by 2-D measurement on the right, approximately 30% by 2-D measurement on the left) with heterogeneous plaque. The vertebral artery flow was antegrade bilaterally. The subclavian arteries were patent bilaterally where visualized. Signature Velocities are measured in cm/s ; Diameters are measured in cmCarotid Right Measurements+ +---- +----+-----+ + + +!Location !PSV !EDV !Angle!%Stenosis 2D!%Stenosis Doppler!Tortuosity !+ +----+----+-----+ + +------- ----+!Prox CCA !114 !10.2!60 ! ! ! !+ +--- -+----+-----+ + + +!Dist CCA !107 !21.2! !! ! !+ +----+----+-----+ + +------ -----+!Prox ICA !99.6!32.1!60 ! ! ! !+ +-- --+----+-----+ + + +!Dist ICA !76 !18 !60 ! ! ! !+ +----+----+-----+ + +----- ------+!Prox ECA !155 !0 !60 ! ! ! !+ +- ---+----+-----+ + + +!Vertebral !26.3! !60 ! ! ! !+ +----+----+-----+ + +---- -------+!Prox Subclavian!94.9! !60 ! ! ! !+ +----+----+-----+ + + + - Additional Measurements:ICAPSV/CCAPSV0.93.ICAEDV/CCAEDV 3.15.Carotid Left Measurements+ +----+----+-----+ +------ + +!Location !PSV !EDV !Angle!%Stenosis 2D!%Stenosis Doppler!Tortuosity !+ +----+----+-----+ + + +!Prox CCA !99.4!18!60 ! ! ! !+ +----+----+-----+ +----- + +!Dist CCA !108 !25.2!60 ! ! ! ! + +----+----+-----+ + + +!Pro x ICA !81.3!25.9!60 ! ! ! !+ +----+----+-----+ +---- + +!Dist ICA !101 !37.8!60 ! ! ! !+ +----+----+-----+ + + +!Pr ox ECA !130 !12.6!60 ! ! ! !+ +----+----+-----+ +--- + +!Vertebral !60.9!18 !60 ! ! ! !+ +----+----+-----+ + + +!Pr ox Subclavian!109 ! !60 ! ! ! !+ +----+----+-----+ + + + - Additional Measurements:ICAPSV/CCAPSV 0.94.ICAEDV/CCAEDV 2.1.[facility] campusVein Mapping Legs [id number] 07:30:53Ejection FractionSLE ECHO HEARTLAB MKCKESSON CPACSRight Impression1. There is no deep venous venousobstruction in the common femoral,profunda femoral, femoral, popliteal, posterior tibial or peronealveins.2. There is no superficial venous obstruction in the great saphenous vein.Left Impression1. There is no deep venous obstruction in the common femoral, profundafemoral, femoral, popliteal, posterior tibial or peroneal veins.2. There is no superficial venous obstruction in the great saphenous vein.3. There is a total superficial venous obstruction in a branch of the greatsaphenous vein at the midthigh. Conclusions Summary Venous duplex imaging and compression of the bilateral lower extremities was performed. The veins were adequately visualized. The right venous systems were patent and compressible with no evidence of thrombus. The left deep venous system was patent and compressible with no evidence of thrombus. The left superficial venous system was positive with acute thrombus in a branch of the great saphenous vein at the mid thigh. Superficial venous measurements are documented below. Signature Velocities are measured in cm/s ; Diameters are measured in cm LE Vein Mapping Superficial - Great Saphenous Vein Right Left + ---------+ + + + + + + !Location ! !Diameter !Depth ! !Diameter !Depth ! + + +-- + + + + + !Sapheno Femoral Junction ! !0.99 ! ! !0.92 ! ! + + + + + + + + !GSV High Thigh ! !0.44 ! ! !0.44 ! ! + + + + + + + + !GSV Mid Thigh ! !0.49 ! ! !0.33 ! ! + + + + + + + + !GSV Low Thigh ! !0.46 ! ! !0.23 ! ! + + + + + + + + !GSV Knee ! !0.31 ! ! !0.21 ! ! + + + + + +------- + + !GSV High Calf ! !0.35 ! ! !0.27 ! ! + + + + + + + + !GSV Mid Calf ! !0.25 ! ! !0.17 ! ! + + + + + + + + !GSV Low Calf ! !0.21 ! ! !0.23 ! ! + + + + + + + + !GSV Ankle ! !0.27 ! ! !0.24 ! ! + + + + + + + + Interface, External Ris In - 03/20/2020 7:31 AM CSTPV LAB - Lower Extremities Vein Mapping Demographics Patient Name EDILSON NAVARRO Date of Study 03/19/2020 Age 60 Visit Number [id number] Gender Male Accession Number [id number] Date of 1960 Referring Deborah Goff Room Number 1006 Physician Smearer Lexy Coats, Interpreting May Noriega T Physician ProcedureType of Study: Veins: Lower Extremity Vein Mapping, VEIN MAPPING, LOWER EXTREMITY, BILATERAL. Indications for Study:Preop ACB.Patient Status:TODAY.Study Location:Portable.Technical Quality:Adequate visualization.Risk FactorsHistory of Disease+ +----+ --+!Diagnosis !Date!Comments !+ +----+--------- +!History/Risk Factors:! !NSTEMI, PAD, DM, CAD, HLD, HTN, former smoker !+ +----+ +Imp ressionsRight Impression1. There is no deep venous venous obstruction in the common femoral,profunda femoral, femoral, popliteal, posterior tibial or peroneal veins.2. There is no superficial venous obstruction in the great saphenous vein.Left Impression1. There is no deep venous obstruction in the common femoral, profundafemoral, femoral, popliteal, posterior tibial or peroneal veins.2. There is no superficial venous obstruction in the great saphenous vein.3. There is a total superficial venous obstructionin a branch of the greatsaphenous vein at the mid thigh. Conclusions Summary Venous duplex imagingand compression of the bilateral lower extremities was performed. The veins were adequately visualized. The right venous systems were patent and compressible with no evidence of thrombus. The left deepvenous system was patent and compressible with no evidence of thrombus. The left superficial venous s ystem was positive with acute thrombus in a branch of the great saphenous vein at the mid thigh. Superficial venous measurements are documented below. Signature Electronically signed by May Noriega MD(Interpreting physician) on 07:30 AM Velocities are measured in cm/s ; Diameters are measured in cmLE Vein Mapping Superficial - Great Saphenous Vein Right Left +------ + + + + + + + !Location ! !Diameter !Depth ! !Diameter !Depth ! + + + + + + + + !Sapheno Femoral Junction ! !0.99 ! ! !0.92 ! ! + + + + + +----- + + !GSV High Thigh ! !0.44 ! ! !0.44 ! ! + + + + + + + + !GSV Mid Thigh ! !0.49 ! ! !0.33 ! ! + + + + + + + + !GSV Low Thigh ! !0.46 ! ! !0.23 ! ! + + + + + + + + !GSV Knee ! !0.31 ! ! !0.21 ! ! + + + + + + + + !GSV High Calf ! !0.35! ! !0.27 ! ! +--- + + + + + + + !GSV Mid Calf ! !0.25 ! ! !0.17 ! ! + + + + + + + + !GSV Low Calf ! !0.21 ! ! !0.23 ! ! + + + + + +-- + + !GSV Ankle ! !0.27 ! ! !0.24 ! ! + + + + + + + +[facility] [id number] 07:30:00 Test Item Value Reference Range Interpretation Comments POC-GLUCOSE METER 230 mg/dL 70-110 H : TESTED Daisy T [facility] 6720 (BEAKER) (test code = HUBER GONZALEZ [place], 1538) [address]: Soil Conservation Teacher/Techni shaneka ID = [id number] for Prabha Chairez BASIC METABOLIC [id number] 02:43:00 Test Item Value Reference Range Interpretation Comments SODIUM (BEAKER) 134 meq/L 136-145 L (test code = 381) POTASSIUM (BEAKER) 4.4 meq/L 3.5-5.1 (test code = 379) CHLORIDE (BEAKER) 99 meq/L 98-107 (test code = 382) CO2 (BEAKER) (test 28 meq/L 22-29 code = 355) BLOOD UREA NITROGEN 22 mg/dL 7-21 H (BEAKER) (test code = 354) CREATININE (BEAKER) 1.14 mg/dL 0.57-1.25 (test code = 358) GLUCOSE RANDOM 239 mg/dL 70-105 H (BEAKER) (test code = 652) CALCIUM (BEAKER) 8.3 mg/dL 8.4-10.2 L (test code = 697) EGFR (BEAKER) (test 65 mL/min/1.73 ESTIMA YANA GFR IS code = 1092) sq m NOT ACCURATE CREATININE CLEARANCE IN PREDICTING GLOMERULAR FILTRATION RATE . ESTIMATED GFR I S NOT APPLICABLE FOR DIALYSIS PATIEN TS. Soil Conservation Teacher ID - DOMINIQUE [id number] 02:43:00 Test Item Value Reference Range Interpretation Comments MAGNESIUM (BEAKER) (test code = 1.9 mg/dL 1.6-2.6 627) Soil Conservation Teacher ID - DOMINIQUE [id number] 02:43:00 Test Item Value Reference Range Interpretation Comments PHOSPHORUS (BEAKER) (test code = 3.3 mg/dL 2.3-4.7 604) Soil Conservation Teacher ID - PIFRANCOISE [id number] 02:06:00 Test Item Value Reference Range Interpretation Comments PARTIAL THROMBOPLASTIN TIME 79.0 seconds 22.5-36.0 H (BEAKER) (test code = 760) CBC W/PLT COUNT & AUTO [id number] 01:53:00 Test Item Value Reference Range Interpretation Comments WHITE BLOOD CELL COUNT (BEAKER) 8.2 K/ L 3.5-10.5 (test code = 775) RED BLOOD CELL COUNT (BEAKER) 4.85 M/ L 4.63-6.08 (test code = 761) HEMOGLOBIN (BEAKER) (test code = 14.5 GM/DL 13.7-17.5 410) HEMATOCRIT (BEAKER) (test code = 43.6 % 40.1-51.0 411) MEAN CORPUSCULAR VOLUME (BEAKER) 89.9 fL 79.0-92.2 (test code = 753) MEAN CORPUSCULAR HEMOGLOBIN 29.9 pg 25.7-32.2 (BEAKER) (test code = 751) MEAN CORPUSCULAR HEMOGLOBIN CONC 33.3 GM/DL 32.3-36.5 (BEAKER) (test code = 752) RED CELL DISTRIBUTION WIDTH 13.5 % 11.6-14.4 (BEAKER) (test code = 412) PLATELET COUNT (BEAKER) (test 127 K/CU MM 150-450 L code = 756) MEAN PLATELET VOLUME (BEAKER) 9.1 fL 9.4-12.4 L (test code = 754) NUCLEATED RED BLOOD CELLS 0 /100 WBC 0-0 (BEAKER) (test code = 413) NEUTROPHILS RELATIVE PERCENT 56 % (BEAKER) (test code = 429) LYMPHOCYTES RELATIVE PERCENT 31 % (BEAKER) (test code = 430) MONOCYTES RELATIVE PERCENT 8 % (BEAKER) (test code = 431) EOSINOPHILS RELATIVE PERCENT 4 % (BEAKER) (test code = 432) BASOPHILS RELATIVE PERCENT 0 % (BEAKER) (test code = 437) NEUTROPHILS ABSOLUTE COUNT 4.59 K/ L 1.78-5.38 (BEAKER) (test code = 670) LYMPHOCYTES ABSOLUTE COUNT 2.51 K/ L 1.32-3.57 (BEAKER) (test code = 414) MONOCYTES ABSOLUTE COUNT (BEAKER) 0.68 K/ L 0.30-0.82 (test code = 415) EOSINOPHILS ABSOLUTE COUNT 0.36 K/ L 0.04-0.54 (BEAKER) (test code = 416) BASOPHILS ABSOLUTE COUNT (BEAKER) 0.02 K/ L 0.01-0.08 (test code = 417) IMMATURE GRANULOCYTES-RELATIVE 1 % 0-1 PERCENT (BEAKER) (test code = 2801) CALCIUM, [id number] 01:52:00 Test Item Value Reference Range Interpretation Comments CALCIUM IONIZED (BEAKER) (test 1.14 mmol/L 1.12-1.27 code = 698) PH, BLOOD (BEAKER) (test code = 7.33 1810) POCT-GLUCOSE [id number] 23:59:00 Test Item Value Reference Range Interpretation Comments POC-GLUCOSE METER 183 mg/dL 70-110 H : TESTED A T [facility] 6720 (BEAKER) (test code = [facility], 1538) [id number]: Soil Conservation Teacher/Techni shaneka ID = [id number] for NICOLAS GARCIA [id number] 20:25:00 Test Item Value Reference Range Interpretation Comments PARTIAL THROMBOPLASTIN TIME 68.3 seconds 22.5-36.0 H (BEAKER) (test code = 760) POCT-GLUCOSE [id number] 17:53:00 Test Item Value Reference Range Interpretation Comments POC-GLUCOSE METER 250 mg/dL 70-110 H : TESTED A T [facility] 6720 (BEAKER) (test code = [facility], 153) [id number]: Soil Conservation Teacher/Techni shaneka ID = [id number] for Mary sanchezjustin Prabha [id number] 13:41:00 Test Item Value Reference Range Interpretation Comments PARTIAL THROMBOPLASTIN TIME 45.6 seconds 22.5-36.0 H (BEAKER) (test code = 760) POCT-GLUCOSE [id number] 11:35:00 Test Item Value Reference Range Interpretation Comments POC-GLUCOSE METER 140 mg/dL 70-110 H : TESTED A T [facility] 6720 (GIULIA) (test code = [facility], 1538) [address]: Soil Conservation Teacher/Techni shaneka ID = [id number] for Prabha Chairez SARS-COV2/RT-PCR ([facility])2020-03-19 10:06:00 Test Item Value Reference Range Interpretation Comments SARS-COV2/RT-PCR (test Negative Not Detected, Negative, code = 4453231) See external report for linked test SARS-COV-2 PERFORMING LAB [facility] [place] (test code = 0287032) Negative result for this test determines that SARS-CoV-2 RNA was not present in the specimen above the Limit of Detection (LOD). However, Negative results do not preclude SARS-CoV-2 infection and should not be used as the sole basis for treatment or patient management decisions. Negative results mustbe combined with clinical observations, patient history, and epidemiological information. A false negative result may occur if a specimen is improperly collected, transported or handled. A false negative result should be considered if patient's recent exposures or clinical presentation indicate that COVID-19 (SARS-CoV-2) is likely and diagnostic tests for other causes of illness are negative. Re-testing should be considered in cases of suspected false negatives.The limit of detection for this assay is 800 copies/mL.This SARS CoV-2 test is a real-time RT-PCR test intended for the qualitative detection of nucleic acid from SARS-CoV-2 in a nasopharyngeal swab specimen collected from individuals susp ected of COVID-19 by their healthcare provider.This test has not been Food and Drug Administration (FDA) cleared or approved. This is a modified version of an approved Emergency Use Authorization (EUA) and is in the process of review by the FDA. Once authorized by the FDA, the issued EUA will be effective until the declaration that circumstances exist justifying the authorization of the emergency use of in vitro diagnostic tests for detection and/or diagnosis of COVID-19 is terminated under Section 564(b)(2) of the Act or the EUA is revoked under Section 564(g) of the Act.Fact Sheet for Healthcare Providers:https://www.[employer]/sites/default/files/product/documents/Fact_Shee v_SB_Jujogcwkp_Wgxz_CGNR-ZrJ-6.pdfFact Sheet for Healthcare Patients:https://www.[employer]/sites/default/files/product/ documents/Zway_Frtop_Helrojtb_Ywhb_MRCC-GhX-7.pdfPerforming Laboratory:[facility], [place] [id number] 08:02:00 Test Item Value Reference Range Interpretation Comments PARTIAL THROMBOPLASTIN TIME 28.1 seconds 22.5-36.0 (BEAKER) (test code = 760) Prior to initiating heparinPrior to initiating heparinPOCT-GLUCOSE METER 2020-03-19 07:21:00 Test Item Value Reference Range Interpretation Comments POC-GLUCOSE METER 236 mg/dL 70-110 H : TESTED A T [facility] 6720 (BEAKER) (test code = [facility], 1538) 14[address]: Soil Conservation Teacher/Techni shaneka ID = [id number] for Mary laurajustin Prabha BASIC METABOLIC [id number] 05:35:00 Test Item Value Reference Range Interpretation Comments SODIUM (BEAKER) 138 meq/L 136-145 (test code = 381) POTASSIUM (BEAKER) 4.3 meq/L 3.5-5.1 (test code = 379) CHLORIDE (BEAKER) 105 meq/L 98-107 (test code = 382) CO2 (BEAKER) (test 25 meq/L 22-29 code = 355) BLOOD UREA NITROGEN 25 mg/dL 7-21 H (BEAKER) (test code = 354) CREATININE (BEAKER) 1.33 mg/dL 0.57-1.25 H (test code = 358) GLUCOSE RANDOM 153 mg/dL 70-105 H (BEAKER) (test code = 652) CALCIUM (BEAKER) 8.2 mg/dL 8.4-10.2 L (test code = 697) EGFR (BEAKER) (test 55 mL/min/1.73 ESTIMA YANA GFR IS code = 1092) sq m NOT ACCURATE CREATININE CLEARANCE IN PREDICTING GLOMERULAR FILTRATION RATE . ESTIMATED GFR I S NOT APPLICABLE FOR DIALYSIS PATIEN TS. Soil Conservation Teacher ID - QUINN [id number] 05:35:00 Test Item Value Reference Range Interpretation Comments MAGNESIUM (BEAKER) (test code = 1.9 mg/dL 1.6-2.6 627) Soil Conservation Teacher ID - QUINN [id number] 05:35:00 Test Item Value Reference Range Interpretation Comments PHOSPHORUS (BEAKER) (test code = 3.3 mg/dL 2.3-4.7 604) Soil Conservation Teacher ID - QUINN MHEPATIC FUNCTION [id number] 05:35:00 Test Item Value Reference Range Interpretation Comments TOTAL PROTEIN (BEAKER) (test code = 6.9 gm/dL 6.0-8.3 770) ALBUMIN (BEAKER) (test code = 1145) 3.7 g/dL 3.5-5.0 BILIRUBIN TOTAL (BEAKER) (test code 0.4 mg/dL 0.2-1.2 = 377) BILIRUBIN DIRECT (BEAKER) (test 0.2 mg/dL 0.1-0.5 code = 706) ALKALINE PHOSPHATASE (BEAKER) (test 54 U/L 40-150 code = 346) AST (SGOT) (BEAKER) (test code = 25 U/L 5-34 353) ALT (SGPT) (BEAKER) (test code = 36 U/L 6-55 347) Soil Conservation Teacher ID - QUINN MTROPONIN [id number] 05:17:00 Test Item Value Reference Range Interpretation Comments TROPONIN I (BEAKER) (test code = 6.69 ng/mL 0.00-0.03 HH 397) Troponin I (TnI) levels must be interpreted in the context of the presenting symptoms and the clinical findings. Elevated TnI levels indicate myocardial damage, but are not specific for ischemic heart disease. Elevated TnI levels are seen in patients with other cardiac conditions (including myocarditis and congestive heart failure), and slight TnI elevations occur in patients with other conditions, including sepsis, renal failure, acidosis, acute neurological disease, and persistent tachyarrhythmia.Soil Conservation Teacher ID - DOMINIQUE LCBC W/PLT COUNT & AUTO [id number] 04:40:00 Test Item Value Reference Range Interpretation Comments WHITE BLOOD CELL COUNT (BEAKER) 8.8 K/ L 3.5-10.5 (test code = 775) RED BLOOD CELL COUNT (BEAKER) 4.99 M/ L 4.63-6.08 (test code = 761) HEMOGLOBIN (BEAKER) (test code = 14.9 GM/DL 13.7-17.5 410) HEMATOCRIT (BEAKER) (test code = 44.5 % 40.1-51.0 411) MEAN CORPUSCULAR VOLUME (BEAKER) 89.2 fL 79.0-92.2 (test code = 753) MEAN CORPUSCULAR HEMOGLOBIN 29.9 pg 25.7-32.2 (BEAKER) (test code = 751) MEAN CORPUSCULAR HEMOGLOBIN CONC 33.5 GM/DL 32.3-36.5 (BEAKER) (test code = 752) RED CELL DISTRIBUTION WIDTH 13.7 % 11.6-14.4 (BEAKER) (test code = 412) PLATELET COUNT (BEAKER) (test 137 K/CU MM 150-450 L code = 756) MEAN PLATELET VOLUME (BEAKER) 9.5 fL 9.4-12.4 (test code = 754) NUCLEATED RED BLOOD CELLS 0 /100 WBC 0-0 (BEAKER) (test code = 413) NEUTROPHILS RELATIVE PERCENT 62 % (BEAKER) (test code = 429) LYMPHOCYTES RELATIVE PERCENT 24 % (BEAKER) (test code = 430) MONOCYTES RELATIVE PERCENT 11 % (BEAKER) (test code = 431) EOSINOPHILS RELATIVE PERCENT 3 % (BEAKER) (test code = 432) BASOPHILS RELATIVE PERCENT 0 % (BEAKER) (test code = 437) NEUTROPHILS ABSOLUTE COUNT 5.43 K/ L 1.78-5.38 H (BEAKER) (test code = 670) LYMPHOCYTES ABSOLUTE COUNT 2.13 K/ L 1.32-3.57 (BEAKER) (test code = 414) MONOCYTES ABSOLUTE COUNT (BEAKER) 0.92 K/ L 0.30-0.82 H (test code = 415) EOSINOPHILS ABSOLUTE COUNT 0.22 K/ L 0.04-0.54 (BEAKER) (test code = 416) BASOPHILS ABSOLUTE COUNT (BEAKER) 0.03 K/ L 0.01-0.08 (test code = 417) IMMATURE GRANULOCYTES-RELATIVE 1 % 0-1 PERCENT (BEAKER) (test code = 2801) SARS-COV2/RT-PCR ([facility])2019-09-06 13:07:00 Test Item Value Reference Range Interpretation Comments SARS-COV2/RT-PCR (test code = Negative Not Detected, Negative [id number]) SARS-COV-2 PERFORMING LAB [facility] (test code = 0548008) Negative result for this test determines that SARS-CoV-2 RNA was not present in the specimen above the Limit of Detection (LOD). However, Negative results do not preclude SARS-CoV-2 infection and should not be used as the sole basis for treatment or patient management decisions. Negative results mustbe combined with clinical observations, patient history, and epidemiological information. A false negative result may occur if a specimen is improperly collected, transported or handled. A false negative result should be considered if patient's recent exposures or clinical presentation indicate that COVID-19 (SARS-CoV-2) is likely and diagnostic tests for other causes of illness are negative. Re-testing should be considered in cases of suspected false negatives.The limit of detection for this assay is 800 copies/mL.This SARS CoV-2 test is a real-time RT-PCR test intended for the qualitative detection of nucleic acid from SARS-CoV-2 in a nasopharyngeal swab specimen collected from individuals susp ected of COVID-19 by their healthcare provider.This test has not been Food and Drug Administration (FDA) cleared or approved. This is a modified version of an approved Emergency Use Authorization (EUA) and is in the process of review by the FDA. Once authorized by the FDA, the issued EUA will be effective until the declaration that circumstances exist justifying the authorization of the emergency use of in vitro diagnostic tests for detection and/or diagnosis of COVID-19 is terminated under Section 564(b)(2) of the Act or the EUA is revoked under Section 564(g) of the Act.Fact Sheet for Healthcare Providers:https://www.[employer].com/sites/default/files/product/documents/Fact_Shee h_MI_Mxqdzvvke_Zsks_GEFP-EmA-4.pdfFact Sheet for Healthcare Patients:https://www.[employer].com/sites/default/files/product/ documents/Srqx_Trxdi_Aokoqgjy_Lryc_XBLK-KjN-9.pdfPerforming Laboratory:[facility] [place] [address]
[2020-05-04] MEDS ORDERED: HYDROCODONE/APAP 10/325 TAB ONE (17:31)
--- NOTE | 2020-05-04 18:28 | RAD REPORT ---
EXAM DESCRIPTION: RAD - Thoracic Spine Ap/Lat - 05/04/2020 5:50 pm CLINICAL HISTORY: PAIN Radiculopathy COMPARISON: No comparisons FINDINGS: Mild disc space narrowing with osteophytosis noted lower lumbar levels compatible mild spo ndylosis. An acute thoracic compression fracture is not seen. No malalignment evident. Sternotomy wires are noted. IMPRESSION: No acute finding is suspected.
--- NOTE | 2020-05-04 18:54 | EDPHYS ---
Physician Documentation [facility] Name: Lobito Wu Age: 60 yrs Sex: Male : 1960 Arrival Date: 05/04/2020 Time: 15:15 Bed 18 Private MD: JERRY Physician Seymour Napier HPI: 05/04 17:14 This 60 yrs old Male presents to ER via Ambulatory with complaints of Back pm1 Pain, Foot Pain - Right. 17:14 The patient presents with pain that is chronic. The symptoms are located in the pm1 thoracic spine. Onset: The symptoms/episode began/occurred present for many years but worse since March 25 or when he fell in the hospital. Patient had a CT head and neck at the time but was concerned about his back because they did not get any images at that time of it. he has a know history of herniated discs in that area. The pain does not radiate. Associated signs and symptoms: The patient has no apparent associated signs or symptoms. The problem was sustained during a fall, standing up from bed. Modifying factors: The patient symptoms are alleviated by patient is currently out of his [place] and has a refill tomorrow from Dr. Strickland, the patient symptoms are aggravated by nothing. Severity of symptoms: in the emergency department the symptoms are unchanged. Patient is also presenting to the ER with complaints of right great toe pain. Patient with a wound to his right great toe since February. He was seen by Dr. Phan 3 days ago for the same issue. No medications or antibiotics given. Wanted to patient to be evaluated by vascular and to follow up in 1 week. Historical: - Allergies: 15:48 No Known Allergies; ca1 - PMHx: 15:48 Diabetes - NIDDM; Hypertension; CAD; Myocardial infarction; ca1 15:48 Diabetes - IDDM; ca1 - PSHx: 15:48 eye; Heart stents; CABG; ca1 - Immunization history:: Flu vaccine is up to date. - Social history:: Smoking status: Patient denies any tobacco usage or history of. ROS: 17:14 Constitutional: Negative for fever, chills, and weight loss. pm1 17:14 Cardiovascular: Negative for chest pain, palpitations, and edema, Respiratory: Negative for shortness of breath, cough, wheezing, and pleuritic chest pain. 17:14 : Negative for injury, bleeding, discharge, and swelling. 17:14 Neuro: Negative for headache, weakness, numbness, tingling, and seizure. 17:14 Back: Positive for of the thoracic area, pain. 17:14 MS/extremity: Positive for pain, of the right first toe, Negative for decreased range of motion, deformity. 17:14 Skin: Positive for eschar present to right great toe, Negative for abscesses, cellulitis, right great toe. Exam: 17:14 Constitutional: This is a well developed, well nourished patient who is awake, alert, pm1 and in no acute distress. Head/Face: Normocephalic, atraumatic. 17:14 Cardiovascular: Exam negative for acute changes, Rate: normal, Rhythm: regular, Pulses: no pulse deficits are appreciated, 2+ pulse to right dorsalis pedis, Edema: is not appreciated. 17:14 Respiratory: Exam negative for acute changes, respiratory distress, shortness of breath. 17:14 Skin: Appearance: normal except for affected area, chronic wound present to right great toe that has three small area of eschar. No signs or symptoms of abscess or cellulitis. 17:14 Neuro: Exam negative for acute changes, Orientation: is normal, Mentation: is normal, Motor: is normal, moves all fours, Sensation: is normal, no obvious gross deficits. Vital Signs: 15:38 BP 128 / 84; Pulse 77; Resp 18 S; Temp 97.2(TE); Pulse Ox 90% on R/A; Weight 79.38 kg ca1 (R); Height 5 ft. 11 in. (180.34 cm) (R); Pain 9/10; 17:30 BP 142 / 87; Pulse 90; Resp 16; Pulse Ox 100% on R/A; zb 18:00 BP 141 / 83; Pulse 88; Resp 16; Pulse Ox 100% on R/A; zb 15:38 Body Mass Index 24.41 (79.38 kg, 180.34 cm) ca1 MDM: 16:46 Patient medically screened. pm1 18:52 Data reviewed: vital signs. Data interpreted: Pulse oximetry: on room air is 100 %. pm1 Interpretation: normal. 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 05/04 17:03 Order name: XRAY Thoracic Spine (Ap/lat) pm1 05/04 18:29 Order name: RAD; Complete Time: 18:37 EDMS 05/04 15:55 Order name: EKG; Complete Time: 15:56 ca1 05/04 15:55 Order name: EKG - Nurse/Tech; Complete Time: 15:55 ca1 Administered Medications: 17:14 Drug: [place] 10 mg-325 mg 1 tabs Route: PO; zb 18:27 Follow up: Response: No adverse reaction; Pain is decreased; RASS: Alert and Calm (0) zb 19:04 Drug: [place] 5 mg-325 mg 1 tabs {Note: RASS 0.} Route: PO; zb 19:04 Follow up: Response: Medication administered at discharge.; RASS: Alert and Calm (0) zb Disposition: 05/04/20 18:54 Discharged to Home. Impression: Pain in thoracic spine, Pain in right foot. - Condition is Stable. - Discharge Instructions: Chronic Back Pain, Foot Pain. - Medication Reconciliation Form, Thank You Letter, Antibiotic Education, Prescription Opioid Use form. - Follow up: Emergency Department; When: As needed; Reason: Worsening of condition. Follow up: Private Physician; When: 2 - 3 days; Reason: Recheck today's complaints, Continuance of care, Re-evaluation by your physician. - Problem is new. - Symptoms have improved. Addendum: 05/05/2020 19:50 Co-signature as Attending Physician, Seymour Napier MD I agree with the assessment and c sosa plan of care. Signatures: Dispatcher [employer] [facility] Seymour Napier MD MD cha Marinas, Patrick, FIRE SUPPORT MAN FIRE SUPPORT MAN pm1 Teresa Sales RN RN ca1 Brown, Zipporah, RN RN zb Corrections: (The following items were deleted from the chart) 05/04 19:05 18:54 05/04/2020 18:54 Discharged to Home. Impression: Pain in thoracic spine; Pain in zb right foot. Condition is Stable. Forms are Medication Reconciliation Form, Thank You Letter, Antibiotic Education, Prescription Opioid Use. Follow up: Emergency Department; When: As needed; Reason: Worsening of condition. Follow up: Private Physician; When: 2 - 3 days; Reason: Recheck today's complaints, Continuance of care, Re-evaluation by your physician. Problem is new. Symptoms have improved. pm1
--- NOTE | 2020-05-04 18:54 | ER ---
Nurse's Notes [facility] [place] Name: Lobito Wu Age: 60 yrs Sex: Male : 1960 Arrival Date: 05/04/2020 Time: 15:15 Bed 18 Private MD: Diagnosis: Pain in thoracic spine;Pain in right foot Presentation: 05/04 15:38 Chief complaint: Patient states: Open Heart surgery on the 21 of March. Was ca1 discharged from [facility] on the or 05 of April.3 days prior to discharged I passed out and fell, they checked my head and neck but not my back. I have been in pain since. Had some pain meds from my doctor but ran out a week and half ago. I am in pain on my neck, my back, my shoulders, my chest cavity, I am really tender right in the middle of my chest. I just can't get comfortable. Also, R big toe pain and a wound that is not healing on the R big toe. Coronavirus screen: Client denies travel out of the [place] in the last 14 days. At this time, the client does not indicate any symptoms associated with coronavirus-19. Ebola Screen: Patient negative for fever greater than or equal to 101.5 degrees Fahrenheit, and additional compatible Ebola Virus Disease symptoms Patient denies exposure to infectious person. Patient denies travel to an Ebola-affected area in the 21 days before illness onset. No symptoms or risks identified at this time. Initial Sepsis Screen: Does the patient meet any 2 criteria? No. Patient's initial sepsis screen is negative. Does the patient have a suspected source of infection? No. Patient's initial sepsis screen is negative. Risk Assessment: Do you want to hurt yourself or someone else? Patient reports no desire to harm self or others. Onset of symptoms was May 04, 2020. 15:38 Method Of Arrival: Ambulatory ca1 15:38 Acuity: ROC 3 ca1 Historical: - Allergies: 15:48 No Known Allergies; ca1 - PMHx: 15:48 Diabetes - NIDDM; Hypertension; CAD; Myocardial infarction; ca1 15:48 Diabetes - IDDM; ca1 - PSHx: 15:48 eye; Heart stents; CABG; ca1 - Immunization history:: Flu vaccine is up to date. - Social history:: Smoking status: Patient denies any tobacco usage or history of. Screenin:56 Abuse screen: Denies threats or abuse. Denies injuries from another. Nutritional zb screening: No deficits noted. Tuberculosis screening: No symptoms or risk factors identified. Fall Risk None identified. Assessment: 16:52 General: Appears in no apparent distress. comfortable, Behavior is calm, cooperative, zb appropriate for age. Pain: Complains of pain in chest and plantar aspect of right first toe, back Pain does not radiate. Pain currently is 10 out of 10 on a pain scale. Quality of pain is described as aching, Pain began 9-10 days Is continuous, Alleviated by medications, Aggravated by repositioning. Neuro: Level of Consciousness is awake, alert, obeys commands, Oriented to person, place, time, situation, Narrow Fabric Calenderer are equal bilaterally Moves all extremities. Gait is steady, Speech is normal, Facial symmetry appears normal. Cardiovascular: Reports chest pain, Heart tones S1 S2 present Patient's skin is warm and dry. Chest pain is described as Pain is 10 out of 10 on a pain scale. Cardiovascular: Pulses are 1+ in right posterior tibial artery, right dorsalis pedis artery and left posterior tibial artery. Respiratory: Airway is patent Respiratory effort is even, unlabored, Respiratory pattern is regular, symmetrical. GI: No signs and/or symptoms were reported involving the gastrointestinal system. : No signs and/or symptoms were reported regarding the genitourinary system. EENT: No signs and/or symptoms were reported regarding the EENT system. Derm: Skin is intact, is healthy with good turgor, Skin is dry, Skin is normal, Skin temperature is warm. Derm: Wound noted plantar aspect of right first toe Wound is eschar present and redness. Musculoskeletal: Range of motion: intact in all extremities. 18:00 Reassessment: PATIENT AMBULATED TO RESTROOM. zb 18:45 Reassessment: Patient appears in no apparent distress at this time. Patient and/or zb family updated on plan of care and expected duration. Pain level reassessed. Patient is alert, oriented x 3, equal unlabored respirations, skin warm/dry/pink. ECP AT BEDSIDE EXPLAINING CARE. 19:04 Reassessment: d/c instructions given. gait steady and even. pt up ad kinsey. zb Vital Signs: 15:38 BP 128 / 84; Pulse 77; Resp 18 S; Temp 97.2(TE); Pulse Ox 90% on R/A; Weight 79.38 kg ca1 (R); Height 5 ft. 11 in. (180.34 cm) (R); Pain 9/10; 17:30 BP 142 / 87; Pulse 90; Resp 16; Pulse Ox 100% on R/A; zb 18:00 BP 141 / 83; Pulse 88; Resp 16; Pulse Ox 100% on R/A; zb 15:38 Body Mass Index 24.41 (79.38 kg, 180.34 cm) ca1 ED Course: 15:15 Patient arrived in ED. bg2 15:47 Triage completed. ca1 15:48 Arm band placed on right wrist. ca1 16:33 America Concepcion RN is Primary Nurse. zb 16:44 Chema Burrows NP is PHCP. pm1 16:44 Seymour Napier MD is Attending Physician. pm1 18:47 Patient has correct armband on for positive identification. Placed in gown. Bed in low zb position. Call light in reach. Pulse ox on. NIBP on. Door closed. Noise minimized. Warm blanket given. 18:59 No provider procedures requiring assistance completed. Patient did not have IV access zb during this emergency room visit. Administered Medications: 17:14 Drug: [facility] 10 mg-325 mg 1 tabs Route: PO; zb 18:27 Follow up: Response: No adverse reaction; Pain is decreased; RASS: Alert and Calm (0) zb 19:04 Drug: [facility] 5 mg-325 mg 1 tabs {Note: RASS 0.} Route: PO; zb 19:04 Follow up: Response: Medication administered at discharge.; RASS: Alert and Calm (0) zb Outcome: 18:54 Discharge ordered by . pm1 18:59 Discharged to home ambulatory. zb 18:59 Condition: stable 18:59 Discharge instructions given to patient, Instructed on discharge instructions, follow up and referral plans. medication usage, Demonstrated understanding of instructions, follow-up care, medications. 19:05 Patient left the ED. zb Signatures: Johanna Govea 2 Chema Burrows NP HEALTH AND SAFETY COORDINATOR pm1 Teresa Sales RN RN ca1 America Concepcion RN RN zb Corrections: (The following items were deleted from the chart) 15:56 15:38 Chief complaint: Patient states: Open Heart surgery on the 21 of March. Was ca1 discharged from [facility] on the or 05 of April.3 days prior to discharged I passed out and fell, they checked my head and neck but not my back. I have been in pain since. Had some pain meds from my doctor but ran out a week and half ago. I am in pain on my neck, my back, my shoulders, my chest cavity, I am really tender right in the middle of my chest. I just can't get comfortable. ca1 19:05 19:04 [facility] 5 mg-325 mg 1 tabs PO zb zb
[2020-05-04] MEDS ORDERED: HYDROCODONE/APAP 5/325 MG TAB ONE (19:20)
[2020-05-04 21:06] VITALS: TEMP 97.2
[2020-05-04 21:07] VITALS: O2SAT 100
[2020-05-04 21:08] VITALS: BP 141/83
== END 2020-05-04 19:05 | disposition home or self-care (01) ==
LOC: ER 15:13
DX: M54.6 Pain in thoracic spine (principal); M79.671 Pain in right foot; I10 Essential (primary) hypertension; E11.9 Type 2 diabetes mellitus without complications; Z95.1 Presence of aortocoronary bypass graft; Z95.818 Presence of other cardiac implants and grafts
CPT/HCPCS: 72070; 93005; 99283